=== PATIENT | female | born 1965 | race Caucasian/White ===

== ENCOUNTER 2023-06-20 07:25 | Outpatient (OUT) | payer BC, SELFPAY ==
--- NOTE | 2023-06-20 07:15 | NM_ITS ---
Patient Name: REGI WELDON MR#: [id number] : 1965 Exam Date: 06/20/2023 Ordering Doctor: DR Pradeep Noel . RADIOLOGY REPORT PROCEDURE: NM JATIN PERF SPECT REST STR COMPARISON: None. INDICATIONS: DYSPNEA TECHNIQUE: Exam Description: Stress/Rest one day protocol gated SPECT Rest Imagin.7 mCi Tc-99m Cardiolite IV on 06/20/2023 Stress Imaging 30.2 mCi Tc-99m Cardiolite IV on 06/20/2023 Exercise Protocol: Ishaan Heart Rate (bpm): Rest: 76 Max: 151 PMHR: 92 Blood Pressure: Rest: 138/84 Max: 186/88 Exercise Time: Minutes: 3 Seconds: 27 Stage Reached: Stage: 1 Mets 4.6 Symptoms: chest pain Rest and peak stress ECG findings were normal and the exercise portion of the study was normal per attending physician Dr. Potts . For more details please see separate cardiac stress test report. FINDINGS: QUALITY OF STUDY: Excellent. PERFUSION DEFECT: None. LOCATION: N/A SIZE: N/A. SEVERITY: N/A. TYPE: N/A. WALL MOTION: Normal. LV SIZE: Normal. 54 mL. TID / TCD: None; 0.6 LVEF: Normal. Calculated EF 91%. SUMMARY: Myocardial perfusion imaging study is NORMAL. CONCLUSION: 1. Normal nuclear medicine myocardial perfusion scan. Dictated by: Cachorro Franks M.D. on 06/21/2023 at 15:39 Approved by: Cachorro Franks M.D. on 06/21/2023 at 15:40
--- NOTE | 2023-06-20 10:29 | P.STRESS_ITS ---
Stress Test Stress Test Requesting physician: Pradeep Noel Procedure: Exercise Cardiolite stress test General Information: Reason for Stress Test: Dyspnea Cardiac History and Risk Factors: Denies any cardiovascular disease yet has lisinopril and metoprolol listed as home medications. Father had cardiac stents and mother had unpecified heart problems . Resting 12 - Lead Electrocardiogram: Rate & rhythm: Normal sinus at a rate of 76. [place]lor: Normal T-waves: Normal ST-segments: Normal Stress Test: Protocol: Ishaan protocol was followed, with injection of Cardiolite once target heart rate was achieved. Exercise capacity: Poor exercise capacity. Total exercise time of 3 minutes 28 seconds reached Ishaan stage 1 at 1.7MPH, 10% grade, & 4.6 METs. Blood pressure: Initial: 138/84, Maximum: 186/88 Rate & rhythm: Patient remained in sinus rhythm during the exercise and recovery portions of the study.? The maximum heart rate was 151, which was 92% of the maximum predicted heart rate 163. PVC was noted ST-segments & T-waves: There were no T-wave changes and no ST-segment changes when compared to the baseline EKG. Patient response/symptoms: Patient complained of chest pain during rest, which is a new symptoms never experienced before. Interpretation: Normal exercise stress test without electrocardiographical evidence of ischemia. No reproducible dyspnea. Unable to determine the etiology of the chest pain, but no abnormalities were noted on EKG/tracings during this time. Cardiolite i maging interpretation will be reported separately. Clinical correlation required.?
== END 2023-06-20 07:26 | disposition home or self-care (01) ==
LOC: NM 07:25
PROVIDERS: PCP Family Medicine; Visit Provider Family Medicine
DX: R06.00 Dyspnea, unspecified (principal)
CPT/HCPCS: 78452; 93017; A9500

== ENCOUNTER 2023-10-16 12:45 | Outpatient (OUT) | payer BC, SELFPAY ==
--- NOTE | 2023-10-16 13:07 | XR_ITS ---
The [address] [address] Patient Name: REGI WELDON MRN: [id number] date: 1965 Sex: F Assigned Patient Location: [facility] Current Patient Location: Accession/Order Number: [id number] Exam Date: 10/16/2023 13:00 Report Date: 10/17/2023 13:22 At the request of: ROSEMARY ROY Procedure: XR hand RT min 3V PROCEDURE: XR wrist RT min 3V, XR hand RT min 3V HISTORY: Right Hand Pain M79.641 , right wrist pain, pain at base of thumb COMPARISON: None. FINDINGS: BONES:Mild degenerative changes of the scaphoid-trapezium joint and the trapezial-first metacarpal joint. No fracture, dislocation, bone lesion. SOFT TISSUES:No visible soft tissue swelling. EFFUSION:None visible. OTHER: Negative. XR/XR hand RT min 3V IMPRESSION: 1. Mild degenerative joint disease at base of thumb favoring osteoarthritis. Electronically authenticated by: FRIDA FOWLER Date: 10/17/2023 13:22
--- NOTE | 2023-10-16 13:07 | XR_ITS ---
The [address] [address] Patient Name: REGI WELDON MRN: [id number] date: 1965 Sex: F Assigned Patient Location: [facility] Current Patient Location: Accession/Order Number: [id number] Exam Date: 10/16/2023 13:00 Report Date: 10/17/2023 13:22 At the request of: ROSEMARY ROY Procedure: XR wrist RT min 3V PROCEDURE: XR wrist RT min 3V, XR hand RT min 3V HISTORY: Right Hand Pain M79.641 , right wrist pain, pain at base of thumb COMPARISON: None. FINDINGS: BONES:Mild degenerative changes of the scaphoid-trapezium joint and the trapezial-first metacarpal joint. No fracture, dislocation, bone lesion. SOFT TISSUES:No visible soft tissue swelling. EFFUSION:None visible. OTHER: Negative. XR/XR wrist RT min 3V IMPRESSION: 1. Mild degenerative joint disease at base of thumb favoring osteoarthritis. Electronically authenticated by: FRIAD FOWLER Date: 10/17/2023 13:22
== END 2023-10-16 12:46 | disposition home or self-care (01) ==
LOC: RAD 12:45
PROVIDERS: PCP Family Medicine; Visit Provider Family Medicine
DX: M79.641 Pain in right hand (principal)
CPT/HCPCS: 73110; 73130

== ENCOUNTER 2023-10-31 09:32 | Outpatient (OUT) | payer BC, SELFPAY ==
--- OUTSIDE RECORDS SUMMARY | 2023-10-30 08:37 | XMS_ITS | CCD ---
Author Organization [facility] Care Team Providers Care Elevator Constructor Name Role Phone MANUELA Burris, DR RILEY Primary Care Unavailable EARL, DR DEUCE Vann Admitting Unavailabl e EARL, DR DEUCE Vann Attending Unavailabl e ARUNA ., TINA GARCIA Consulting Unavailabl e CED CAMPOVERDE Consulting Unavailable BATSHEVAY ., DR RILEY Admitting Unavailable HOY ., DR RILEY Attending Unavailable HOY ., DR RILEY Primary Care Unavailable HOY ., DR RILEY Consulting Unavailable HOY ., DR RILEY Admitting Unavailable HOY ., DR RILEY Attending Unavailable HOY ., DR RILEY Primary Care Unavailable BATSHEVAY ., DR RILEY Consulting Unavailable Rosemary Noel MD Primary Care Provider ROSEMARY NOEL Primary Care Unavailable DON, CARLOS MANUEL E Attending Unavailable DON, CARLOS MANUEL E Referring Unavailable ROSEMARY NOEL Primary Care Unavailable DON, CARLOS MANUEL E Referring Unavailable ROSEMARY NOEL Primary Care Unavailable ROSEMARY NOEL Primary Care Unavailable ROSEMARY NOEL Primary Care Unavailable MAXIMINO, PABLO SABRY Referring Unavailable MAXIMINO PABLO SABRY Admitting Unavailable ROSEMARY NOEL Primary Care Unavailable PABLO STANTONRY Attending Unavailable Allergies Allergy Classification Reported Allergen(s) Allergy Type Date of Onset Reaction(s) Facility (1 source) Ibuprofen Drug Allergy 3 [facility] Repository (4 sources) Penicillins; Translations: [PENICILLINS] Drug allergy (disorder) 3 [facility] Repository (1 source) traMADol Drug Allergy 3 [facility] Repository (5 sources) Penicillins Propensity to adverse reactions 3 [facility] Medications Current Medications Medication Drug Class(es) Dates Sig (Normalized) Sig (Original) ARIPiprazole 30 mg oral tablet (5 sources) Atypical Antipsychotic Start: 02-06-2023 take 1 tablet by mouth once daily ARIPiprazole (Abilify) 30 mg tablet Take 1 tablet (30 mg) by mouth once daily. 0 02/06/2023 Active diclofenac sodium 75 mg delayed release oral tablet (5 sources) Nonsteroidal Anti-inflammatory Drug Start: 02-26-2023 diclofenac (Voltaren) 75 mg EC tablet hydrOXYzine hydrochloride 25 mg oral tablet (5 sources) Antihistamine Start: 02-06-2023 take 1-2 tablets by mouth four times daily as needed hydrOXYzine HCL (Atarax) 25 mg tablet 1-2 TABLETS ORALLY FOUR TIMES DAILY NEEDED 30 DAYS 0 02/06/2023 Active lisinopril 40 mg oral tablet (5 sources) Angiotensin Converting Enzyme Inhibitor Start: 02-05-2023 take 1 tablet by mouth once daily lisinopril 40 mg tablet Take 1 tablet (40 mg) by mouth once daily. 0 02/05/2023 Active metoprolol tartrate 25 mg oral tablet (5 sources) beta-Adrenergic Sho Start: 02-04-2023 take 1 tablet by mouth twice daily metoprolol tartrate (Lopressor) 25 mg tablet Take 1 tablet (25 mg) by mouth 2 times a day. 0 02/04/2023 Active nabumetone 500 mg oral tablet (5 sources) Nonsteroidal Anti-inflammatory Drug Start: 02-05-2023 take 2 tablets by mouth twice daily nabumetone (Relafen) 500 mg tablet Take 2 tablets (1,000 mg) by mouth 2 times a day. 0 02/05/2023 Active tiZANidine 4 mg oral tablet (5 sources) Central alpha-2 Adrenergic Agonist Start: 02-11-2023 take 1 tablet by mouth in the morning, then take 2 tablets by mouth at bedtime tiZANidine (Zanaflex) 4 mg tablet TAKE 1 TABLET BY MOUTH IN THE MORNING AND 2 TABLETS AT BEDTIME 0 02/11/2023 Active traZODone hydrochloride 150 mg oral tablet (5 sources) Serotonin Reuptake Inhibitor Start: 02-04-2023 take 2 tablets by mouth once daily traZODone (Desyrel) 150 mg tablet TAKE 2 TABLETS BY MOUTH EVERY DAY AT NIGHT 0 02/04/2023 Active Problems Active Problems Problem Classification Problem Date Documented Da te Episodic/Chronic Abdominal pain (1 source) Unspecified abdominal pain; Translations: [UNSPECIFIED ABDOMINAL PAIN] Onset: 08-14-2022 Episodic Anxiety disorders (1 source) Anxiety disorder, unspecified; Translations: [ANXIETY DISORDER UNSPECIFIED] Onset: 08-14-2022 Chronic Attention-deficit, conduct, and disruptive behavior disorders (1 source) Attention-deficit hyperactivity disorder, unspecified type; Translations: [ADHD UNSPECIFIED TYPE] Onset: 08-14-2022 Chronic Deficiency and other anemia (2 sources) Anemia, unspecified; Translations: [Anemia, unspecified] Onset: 03-31-2023 Episodic Diabetes mellitus without complication (2 sources) Other abnormal glucose; Translations: [Other abnormal glucose] Onset: 03-31-2023 Episodic Disorders of lipid metabolism (2 sources) Hyperlipidemia, unspecified; Translations: [Hyperlipidemia, unspecified] Onset: 03-31-2023 Chronic Esophageal disorders (1 source) Gastro-esophageal reflux disease without esophagitis; Translations: [GERD WITHOUT ESOPHAGITIS] Onset: 08-14-2022 Chronic Essential hypertension (1 source) Essential (primary) hypertension; Translations: [ESSENTIAL PRIMARY HYPERTENSION] Onset: 08-14-2022 Chronic Genitourinary symptoms and ill-defined conditions (5 sources) Hematuria, unspecified; Translations: [Personal history of urinary (tract) infections] Onset: 08-10-2022 Episodic Mood disorders (1 source) Mood disorders; Translations: [DEPRESSION UNSPECIFIED] Onset: 08-14-2022 Nonmalignant breast conditions (1 source) Diffuse cystic mastopathy of unspecified breast; Translations: [DIFFUSE CYSTIC MASTOPATH UNS BREAST] Onset: 08-14-2022 Chronic Nutritional deficiencies (2 sources) Vitamin D deficiency, unspecified; Translations: [Vitamin D deficiency, unspecified] Onset: 03-31-2023 Chronic Other connective tissue disease (2 sources) Pain in left foot; Translations: [Pain in left foot] Onset: 04-24-2023 Episodic Other connective tissue disease (2 sources) Foot pain Onset: 04-24-2023 Episodic Other gastrointestinal disorders (1 source) Irritable bowel syndrome without diarrhea; Translations: [IRRITABLE BOWEL SYND W/O DIARRHEA] Onset: 08-14-2022 Chronic Other screening for suspected conditions (not mental disorders or infectious disease) (2 sources) Encounter for screening for malignant neoplasm of rectum; Translations: [Encounter for screening for malignant neoplasm of rectum] Onset: 03-31-2023 Episodic Residual codes; unclassified (1 source) Acquired absence of both cervix and uterus; Translations: [ACQUIRED ABSENCE BOTH CERVIX AND UTERUS] Onset: 08-14-2022 Episodic Screening and history of mental health and substance abuse codes (1 source) Personal history of nicotine dependence; Translations: [PERSONAL HISTORY OF NICOTINE DEPEND] Onset: 08-14-2022 Episodic Superficial injury; contusion (10 sources) Right wrist contusion; Translations: [Contusion of right wrist, initial encounter] Onset: 03-01-2023 03-01-2023 Episodic Thyroid disorders (1 source) Thyrotoxicosis, unspecified without thyrotoxic crisis or storm; Translations: [THYROTOXICOS UNS NO THYROTOX CRISIS] Onset: 09-29-2021 Chronic Unclassified (3 sources) CONTACT W/AND (SUSP) EXPOS COVID-19; Translations: [CONTACT W/AND (SUSP) EXPOS COVID-19] Onset: 04-10-2022 Unclassified (1 source) COUGH, UNSPECIFIED; Translations: [COUGH, UNSPECIFIED] Onset: 04-10-2022 Past or Other Problems Problem Classification Problem Date Documented Da te Episodic/Chronic Malaise and fatigue (1 source) Other fatigue; Translations: [OTHER FATIGUE] Onset: 09-29-2021 Episodic Other upper respiratory disease (1 source) Nasal congestion; Translations: [NASAL CONGESTION] Onset: 04-10-2022 Episodic Unclassified (1 source) CONTACT W/AND (SUSP) EXPOS COVID-19; Translations: [CONTACT W/AND (SUSP) EXPOS COVID-19] Onset: 04-06-2022 Results Test Name Value Interpretation Reference Range Facil ity XR FOOT LEFT 3+ VIEWS (STAND LAURA)on 04-24-2023 XR FOOT LEFT 3+ VIEWS (STANDARD) A plantar and posterior calcaneal enthesophyte noted. No cystic or osseous lesions noted. Joint spaces are within normal limits. No gross deformity noted Dictated by: PABLO STANTON on SunApr 25, 2023 9:50:28 PM EST Transcribed by: PABLO STANTON on SunApr 25, 2023 9:50:28 PM EST Finalized by: PABLO STANTON on SunApr 25, 2023 9:50:28 PM EST Normal [facility] Comment on above: Order Comment: Injur y/Trauma or Illness?:Illness/Other How long have you had these symptoms (acute/chronic)?:Chronic Reason for exam?:pain History of cancer?:no Surgeries, chemotherapy, or radiation?:no Type of Exam?:Initial Additional signs and symptoms?:no CBC W Auto Differential pane l (Bld)on 03-31-2023 Basophils (Bld) [#/Vol] 0.03 x10*3/uL Normal 0.00-0.10 [facility] Comment on above: Performed By: #### 5 7021-8 #### DAX CUI (16722) [facility] ([facility]) [address] [place] [address] 86684 Basophils/100 WBC (Bld) 0.6 % Normal 0.0-2.0 [facility] Comment on above: Performed By: #### 5 7021-8 #### DAX CUI (43015) [facility] ([facility]) [address] [place] [address] 73111 Eosinophils (Bld) [#/Vol] 0.17 x10*3/uL Normal 0.00-0.70 [facility] Comment on above: Performed By: #### 5 7021-8 #### DAX CUI (11288) [facility] ([facility]) [address] [place] [address] 81193 Eosinophils/100 WBC (Bld) 3.3 % Normal 0.0-6.0 [facility] Comment on above: Performed By: #### 5 7021-8 #### DAX CUI (95987) [facility] ([facility]) [address] [place] [address] 92495 Erythrocyte distribution width (RBC) [Ratio] 13.0 % Normal 11.5-14.5 [facility] Comment on above: Performed By: #### 5 7021-8 #### DAX CUI (89382) [facility] ([facility]) [address] [place] [address] 01211 Hematocrit (Bld) [Volume fraction] 38.8 % Normal 36.0-46.0 [facility] Comment on above: Performed By: #### 5 7021-8 #### DAX CUI (85377) [facility] ([facility]) [address] [place] [address] 84524 Hemoglobin (Bld) [Mass/Vol] 12.2 g/dL Normal 12.0-16.0 [facility] Comment on above: Performed By: #### 5 7021-8 #### DAX CUI (01913) [facility] ([facility]) [address] [place] [address] 62501 Immature granulocytes (Bld) [#/Vol] 0.01 x10*3/uL Normal 0.00-0.70 [facility] Comment on above: Performed By: #### 5 7021-8 #### DAX CUI (84701) [facility] ([facility]) [address] [place] [address] 86813 Immature granulocytes/100 WBC (Bld) 0.2 % Normal 0.0-0.9 [facility] Comment on above: Result Comment: Tamela ture Granulocyte Count (IG) includes promyelocytes, myelocytes and metamyelocytes but does not include bands. Percent differential counts (%) should be interpreted in the context of the absolute cell counts (cells/UL). Performed By: #### 5 7021-8 #### DAX CUI (19591) [facility] ([facility]) [address] [place] [address] 44634 Lymphocytes (Bld) [#/Vol] 2.21 x10*3/uL Normal 1.20-4.80 [facility] Comment on above: Performed By: #### 5 7021-8 #### DAX CUI (78078) [facility] ([facility]) [address] [place] [address] 29828 Lymphocytes/100 WBC (Bld) 43.3 % Normal 13.0-44.0 [facility] Comment on above: Performed By: #### 5 7021-8 #### DAX CUI (49854) [facility] ([facility]) [address] [place] [address] 76685 MCH (RBC) [Entitic mass] 30.7 pg Normal 26.0-34.0 [facility] Comment on above: Performed By: #### 5 7021-8 #### DAX CUI (55657) [facility] ([facility]) [address] [place] [address] 12808 MCHC (RBC) [Mass/Vol] 31.4 g/dL Low 32.0-36.0 [facility] Comment on above: Performed By: #### 5 7021-8 #### DAX CUI (73243) [facility] ([facility]) [address] [place] [address] 80792 MCV (RBC) [Entitic vol] 98 fL Normal 80-100 [facility] Comment on above: Performed By: #### 5 7021-8 #### DAX CUI (52596) [facility] ([facility]) [address] [place] [address] 54214 Monocytes (Bld) [#/Vol] 0.46 x10*3/uL Normal 0.10-1.00 [facility] Comment on above: Performed By: #### 5 7021-8 #### DAX CUI (42512) [facility] ([facility]) [address] [place] [address] 57144 Monocytes/100 WBC (Bld) 9.0 % Normal 2.0-10.0 [facility] Comment on above: Performed By: #### 5 7021-8 #### DAX CUI (78538) [facility] ([facility]) [address] [place] [address] 73818 Neutrophils (Bld) [#/Vol] 2.22 x10*3/uL Normal 1.20-7.70 [facility] Comment on above: Result Comment: Perc ent differential counts (%) should be interpreted in the context of the absolute cell counts (cells/uL). Performed By: #### 5 7021-8 #### DAX CUI (20536) [facility] ([facility]) [address] [place] [address] 29676 Neutrophils/100 WBC (Bld) 43.6 % Normal 40.0-80.0 [facility] Comment on above: Performed By: #### 5 7021-8 #### DAX CUI (86320) [facility] ([facility]) [address] [place] [address] 80246 Nucleated RBC/100 WBC (Bld) [Ratio] 0.0 /100 WBCs Normal 0.0-0.0 [facility] Comment on above: Performed By: #### 5 7021-8 #### DAX CUI (32774) [facility] ([facility]) [address] [place] [address] 45576 Platelets (Bld) [#/Vol] 273 x10*3/uL Normal 150-450 [facility] Comment on above: Performed By: #### 5 7021-8 #### DAX CUI (06975) [facility] ([facility]) [address] [place] [address] 71618 RBC (Bld) [#/Vol] 3.98 x10*6/uL Low 4.00-5.20 [facility] Comment on above: Performed By: #### 5 7021-8 #### DAX CUI (23969) [facility] ([facility]) [address] [place] [address] 98798 WBC (Bld) [#/Vol] 5.1 x10*3/uL Normal 4.4-11.3 [facility] Comment on above: Performed By: #### 5 7021-8 #### DAX CUI (78426) [facility] ([facility]) [address] [place] [address] 89153 Calcidiolon 03-31-2023 25-hydroxyvitamin D3 [Mass/Vol] 57 ng/mL Normal 30-100 [facility] Comment on above: Order Comment: Defic iency: < 20 ng/ml Insufficiency: 20-29 ng/ml Sufficiency: 30-100 ng/ml This assay accurately quantifies the sum of Vitamin D3, 25-Hydroxy and Vitamin D2,25-Hydroxy. Performed By: #### 1 989-3 #### DAX CUI (90665) [facility] ([facility]) [address] [place] [address] Comprehensive metabolic 2000 panelon 03-31-2023 Albumin BCP dye [Mass/Vol] 4.9 g/dL Normal 3.4-5.0 [facility] Comment on above: Performed By: #### 2 4323-8 #### DAX CUI (66683) [facility] ([facility]) [address] [place] [address] ALP [Catalytic activity/Vol] 44 U/L Normal 33-110 [facility] Comment on above: Performed By: #### 2 4323-8 #### DAX CUI (84390) [facility] ([facility]) [address] [place] [address] 62025 ALT With P-5'-P [Catalytic activity/Vol] 11 U/L Normal 7-45 [facility] Comment on above: Result Comment: Radha ents treated with Sulfasalazine may generate falsely decreased results for ALT. Performed By: #### 2 4323-8 #### DAX CUI (20969) [facility] ([facility]) [address] [place] [address] Anion gap [Moles/Vol] 13 mmol/L Normal 10-20 [facility] Comment on above: Performed By: #### 2 4323-8 #### DAX CUI (68517) [facility] ([facility]) [address] [place] [address] AST With P-5'-P [Catalytic activity/Vol] 16 U/L Normal 9-39 [facility] Comment on above: Performed By: #### 2 4323-8 #### DAX CUI (57814) [facility] ([facility]) [address] [place] [address] Bilirubin [Mass/Vol] 0.9 mg/dL Normal 0.0-1.2 [facility] Comment on above: Performed By: #### 2 4323-8 #### DAX CUI (71888) [facility] ([facility]) [address] [place] [address] 22339 Calcium [Mass/Vol] 9.8 mg/dL Normal 8.6-10.3 [facility] Comment on above: Performed By: #### 2 4323-8 #### DAX CUI (61481) [facility] ([facility]) [facility] [place] [address] Chloride [Moles/Vol] 107 mmol/L Normal 98-107 [facility] Comment on above: Performed By: #### 2 4323-8 #### DAX CUI (68515) [facility] ([facility]) [address] [place] [address] CO2 [Moles/Vol] 23 mmol/L Normal 21-32 [facility] Comment on above: Performed By: #### 2 4323-8 #### DAX CUI (91551) [facility] ([facility]) [address] [place] [address] 53796 Creatinine [Mass/Vol] 1.08 mg/dL High 0.50-1.05 [facility] Comment on above: Performed By: #### 2 4323-8 #### DAX CUI (40410) [facility] ([facility]) [address] [place] [address] 98551 GFR/1.73 sq M.predicted MDRD (S/P/Bld) [Vol rate/Area] 60 mL/min/1.73m*2 Low >60 [facility] Comment on above: Result Comment: Calc ulations of estimated GFR are performed using the 2020 CKD-EPI Study Refit equation without the race variable for the IDMS-Traceable creatinine methods. https://jasn.asnjournals.org/content/early//ASN.10629 27592 Performed By: #### 2 4323-8 #### DAX CUI (50721) [facility] ([facility]) [address] [place] [address] 92825 Glucose [Mass/Vol] 89 mg/dL Normal 74-99 [facility] Comment on above: Performed By: #### 2 4323-8 #### DAX CUI (47026) [facility] ([facility]) [address] [place] [address] Potassium [Moles/Vol] 4.7 mmol/L Normal 3.5-5.3 [facility] Comment on above: Performed By: #### 2 4323-8 #### DAX CUI (30357) [facility] ([facility]) [address] [place] [address] 81598 Protein [Mass/Vol] 7.2 g/dL Normal 6.4-8.2 [facility] Comment on above: Performed By: #### 2 4323-8 #### DAX CUI (63844) [facility] ([facility]) [address] [place] [address] 40661 Sodium [Moles/Vol] 138 mmol/L Normal 136-145 [facility] Comment on above: Performed By: #### 2 4323-8 #### DAX CUI (82361) [facility] ([facility]) [address] [place] [address] 69638 Urea nitrogen [Mass/Vol] 30 mg/dL High 6-23 [facility] Comment on above: Performed By: #### 2 4323-8 #### DAX CUI (65909) [facility] ([facility]) [address] [place] [address] 46658 HbA1c (Bld) [Mass fraction]o n 03-31-2023 Average glucose Estimated from glycated hemoglobin (Bld) [Mass/Vol] 94 mg/dL Normal Not Established [facility] Comment on above: Order Comment: Diagn osis of Diabetes-Adults Non-Diabetic: < or = 5.6% Increased risk for developing diabetes: 5.7-6.4% Diagnostic of diabetes: > or = 6.5% Monitoring of Diabetes Age (y)....................... Therapeutic Goal (%) Adults: >18.........................<7.0 Pediatrics: 13-18...................<7.5 Pediatrics: 7-12....................<8.0 Pediatrics: 0-6..................... 7.5-8.5 [place] [employer]. Diabetes Care 33(S1), Apr 2009 Performed By: #### 4 548-4 #### DAX CUI (60884) [facility] ([facility]) [address] [place] [id number] Hemoglobin A1c/Hemoglobin.to alexy 03-31-2023 HbA1c (Bld) [Mass fraction] 4.9 % Normal see below [facility] Comment on above: Order Comment: Diagn osis of Diabetes-Adults Non-Diabetic: < or = 5.6% Increased risk for developing diabetes: 5.7-6.4% Diagnostic of diabetes: > or = 6.5% Monitoring of Diabetes Age (y)....................... Therapeutic Goal (%) Adults: >18.........................<7.0 Pediatrics: 13-18...................<7.5 Pediatrics: 7-12....................<8.0 Pediatrics: 0-6..................... 7.5-8.5 [place] [employer]. Diabetes Care 33(S1), Apr 2009 Performed By: #### 4 548-4 #### DAX CUI (61067) [facility] ([facility]) [address] [place] [address] Insulinon 03-31-2023 Insulin Qn 12 u[IU]/mL Normal 3-25 [facility] Comment on above: Order Comment: Refer ence values apply to fasting specimens. Performed By: #### 2 0448-7 #### TRUE Lock (54154) [facility] ([facility]) [address] [place] [address] Ironon 03-31-2023 Iron [Mass/Vol] 208 ug/dL High 35-150 [facility] Comment on above: Performed By: #### 2 498-4 #### DAX CUI (86362) [facility] ([facility]) [facility] [place] [address] Lipid 1996 panelon 3 Cholesterol [Mass/Vol] 242 mg/dL High 0-199 [facility] Comment on above: Result Comment: Age Desirable Borderline High High 0-19 Y 0 - 169 170 - 199 >/= 200 20-24 Y 0 - 189 190 - 224 >/= 225 >24 Y 0 - 199 200 - 239 >/= 240 All ranges are based on fasting samples. Specific therapeutic targets will vary based on patient-specific cardiac risk. Pediatric guidelines reference:Pediatrics 2011, 128(S5).Adult guidelines reference: NCEP ATPIII Guidelines,WAN 2001, 258:2486-97 Venipuncture immediately after or during the administration of Metamizole may lead to falsely low results. Testing should be performed immediately prior to Metamizole dosing. Performed By: #### 2 4331-1 #### DAX CUI (01741) [facility] ([facility]) [address] [place] [address] 77306 Cholesterol in HDL [Mass/Vol] 54.0 mg/dL Normal [facility] Comment on above: Result Comment: Age Very Low Low Normal High 0-19 Y < 35 < 40 40-45 ---- 20-24 Y ---- < 40 >45 ---- >24 Y ---- < 40 40-60 >60 Performed By: #### 2 4331-1 #### DAX CUI (71256) [facility] ([facility]) [address] [place] [address] 02803 Cholesterol in LDL [Mass/Vol] 169 mg/dL High <=99 [facility] Comment on above: Result Comment: Near Borderline AGE Desirable Optimal High High Very High 0-19 Y 0 - 109 --- 110-129 >/= 130 ---- 20-24 Y 0 - 119 --- 120-159 >/= 160 ---- >24 Y 0 - 99 100-129 130-159 160-189 >/=190 Performed By: #### 2 4331-1 #### DAX CUI (38326) [facility] ([facility]) [facility] [place] [address] Cholesterol in VLDL [Mass/Vol] 19 mg/dL Normal 0-40 [facility] Comment on above: Performed By: #### 2 4331-1 #### DAX CUI (71737) [facility] ([facility]) [facility] [place] [address] CHOLESTEROL/HDL RATIO 4.5 Normal [facility] Comment on above: Result Comment: Ref Values Desirable < 3.4 High Risk > 5.0 Performed By: #### 2 4331-1 #### DAX CUI (54851) [facility] ([facility]) [address] [place] [address] 79607 NON HDL CHOLESTEROL 188 mg/dL High 0-149 [facility] Comment on above: Result Comment: Age Desirable Borderline High High Very High 0-19 Y 0 - 119 120 - 144 >/= 145 >/= 160 20-24 Y 0 - 149 150 - 189 >/= 190 ---- >24 Y 30 mg/dL above LDL Cholesterol goal Performed By: #### 2 4331-1 #### DAX CUI (37535) [facility] ([facility]) [address] [place] [address] 07882 Triglyceride [Mass/Vol] 93 mg/dL Normal 0-149 [facility] Comment on above: Result Comment: Age Desirable Borderline High High Very High 0 D-90 D 19 - 174 ---- ---- ---- 91 D- 9 Y 0 - 74 75 - 99 >/= 100 ---- 10-19 Y 0 - 89 90 - 129 >/= 130 ---- 20-24 Y 0 - 114 115 - 149 >/= 150 ---- >24 Y 0 - 149 150 - 199 200- 499 >/= 500 Venipuncture immediately after or during the administration of Metamizole may lead to falsely low results. Testing should be performed immediately prior to Metamizole dosing. Performed By: #### 2 4331-1 #### DAX CUI (75077) [facility] ([facility]) [address] [place] [address] 13736 Thyrotropinon 03-31-2023 TSH Qn 1.17 m[IU]/L Normal 0.44-3.98 [facility] Comment on above: Order Comment: TSH t esting is performed using different testing methodology at [facility] than at [facility]. Direct result comparisons should only be made within the same method. Performed By: #### 3 016-3 #### DAX CUI ([id number]) [facility] ([facility]) [address] [place], [place] [id number] Thyroxineon 03-31-2023 T4 [Mass/Vol] 5.4 ug/dL Normal 4.5-11.1 [facility] Comment on above: Performed By: #### 3 026-2 #### TRUE Lock ([id number]) [facility] ([facility]) [address] [place] [address] Triiodothyronineon T3 [Mass/Vol] 106 ng/dL Normal 60-200 [facility] Comment on above: Performed By: #### 3 053-6 #### TRUE Lock ([id number]) [facility] ([facility]) [address] [place] [address] No Panel Informationon 03-01 Degenerative change without osseous injury evident. MACRO: None Signed by: Michele Kimble 03/01/2023 7:38 PM Dictation workstation: [id number] [facility] Interpreted By: Michele Kimble, STUDY: Right wrist and hand dated 03/01/2023 INDICATION: Signs/Symptoms:R hand/thumb/wrist/di stal forearm pain (radial aspect) after hitting hand on a door frame 4 days ago. COMPARISON: None. ACCESSION NUMBER(S): [id number]; [id number] ORDERING CLINICIAN: CARLOS MANUEL OCHOA TECHNIQUE: Four views of the right wrist. Three views of the right hand. FINDINGS: No fracture or dislocation is evident. There is moderate triscaphe joint and 1st digit carpometacarpal joint degenerative change. There is a focus of cystic change in the mid to distal scaphoid. No soft tissue gas or radiopaque foreign body is evident. [facility] Michele Kimble MD - 03/01/2023 Interpreted By: Michele Kimble, STUDY: Right wrist and hand dated 03/01/2023 INDICATION: Signs/Symptoms:R hand/thumb/wrist/di stal forearm pain (radial aspect) after hitting hand on a door frame 4 days ago. COMPARISON: None. ACCESSION NUMBER(S): [id number]; [id number] ORDERING CLINICIAN: CARLOS MANUEL OCHOA TECHNIQUE: Four views of the right wrist. Three views of the right hand. FINDINGS: No fracture or dislocation is evident. There is moderate triscaphe joint and 1st digit carpometacarpal joint degenerative change. There is a focus of cystic change in the mid to distal scaphoid. No soft tissue gas or radiopaque foreign body is evident. IMPRESSION: Degenerative change without osseous injury evident. MACRO: None Signed by: Michele Kimble 03/01/2023 7:38 PM Dictation workstation: [id number] [facility] Work Phone: Radiology Study observation (narrative) [facility] Work Phone: No Panel InformationOrdered By: Michele Kimble on 03-01-2023 [facility] Work Phone: XR HAND RIGHT 3+ VIEWSon XR HAND RIGHT 3+ VIEWS Interpreted By: Michele Kimble, STUDY: Right wrist and hand dated 03/01/2023 INDICATION: Signs/Symptoms:R hand/thumb/wrist/di stal forearm pain (radial aspect) after hitting hand on a door frame 4 days ago. COMPARISON: None. ACCESSION NUMBER(S): [id number]; [id number] ORDERING CLINICIAN: CARLOS MANUEL OCHOA TECHNIQUE: Four views of the right wrist. Three views of the right hand. FINDINGS: No fracture or dislocation is evident. There is moderate triscaphe joint and 1st digit carpometacarpal joint degenerative change. There is a focus of cystic change in the mid to distal scaphoid. No soft tissue gas or radiopaque foreign body is evident. IMPRESSION: Degenerative change without osseous injury evident. MACRO: None Signed by: Michele Kimble 03/01/2023 7:38 PM Dictation workstation: [id number] [facility] XR WRIST RIGHT 3+ VIEWSon XR WRIST RIGHT 3+ VIEWS Interpreted By: Michele Kimble, STUDY: Right wrist and hand dated 03/01/2023 INDICATION: Signs/Symptoms:R hand/thumb/wrist/di stal forearm pain (radial aspect) after hitting hand on a door frame 4 days ago. COMPARISON: None. ACCESSION NUMBER(S): [id number]; [id number] ORDERING CLINICIAN: CARLOS MANUEL OCHOA TECHNIQUE: Four views of the right wrist. Three views of the right hand. FINDINGS: No fracture or dislocation is evident. There is moderate triscaphe joint and 1st digit carpometacarpal joint degenerative change. There is a focus of cystic change in the mid to distal scaphoid. No soft tissue gas or radiopaque foreign body is evident. IMPRESSION: Degenerative change without osseous injury evident. MACRO: None Signed by: Michele Kimble 03/01/2023 7:38 PM Dictation workstation: [id number] [facility] CBC AUTO DIFFon 08-10-2022 BASO # 0.0 103/ul Normal 0.0-0.1 [facility] Comment on above: Performed By: #### E RUR #### [facility] [address] [place] [address] Dr. Anastasia Moran Basophils/100 WBC (Bld) 0.1 % Critically low 0.2-2.0 [facility] Comment on above: Performed By: #### E RUR #### [facility] [address] [place] [address] Dr. Anastasia Moran EO # 0.2 103/ul Normal 0.0-0.7 [facility] Comment on above: Performed By: #### E RUR #### [facility] [address] [place] [address] Dr. Anastasia Moran Eosinophils/100 WBC (Bld) 2.1 % Normal 0.9-7.0 [facility] Comment on above: Performed By: #### E RUR #### [facility] [address] [place] [address] Dr. Anastasia Moran Erythrocyte distribution width (RBC) [Ratio] 12.5 % Normal 11.0-15.0 [facility] Comment on above: Performed By: #### E RUR #### [facility] [address] [place] [address] Dr. Anastasia Moran Hematocrit (Bld) [Volume fraction] 32.9 % Critically low 36.0-48.0 [facility] Comment on above: Performed By: #### E RUR #### [facility] [address] [place] [address] Dr. Anastasia Moran Hemoglobin (Bld) [Mass/Vol] 11.0 g/dL Critically low 12.0-16.0 [facility] Comment on above: Performed By: #### E RUR #### [facility] [address] [place] [address] Dr. Anastasia Moran IG # 0.02 10e3/ul Normal 0.00-0.03 [facility] Comment on above: Performed By: #### E RUR #### [facility] [address] [place] [address] Dr. Anastasia Moran IG % 0.2 % Normal 0.0-0.5 [facility] Comment on above: Performed By: #### E RUR #### [facility] [address] [place] [address] Dr. Anastasia Moran LYMPH # 2.7 103/ul Normal 1.2-3.8 [facility] Comment on above: Performed By: #### E RUR #### [facility] [address] [place] [address] Dr. Anastasia Moran Lymphocytes/100 WBC (Bld) 33.4 % Normal 20.5-60.0 [facility] Comment on above: Performed By: #### E RUR #### [facility] [address] [place] [address] Dr. Anastasia Moran MANUAL DIFF REQ NO Normal [facility] Comment on above: Performed By: #### E RUR #### [facility] [address] [place] [address] Dr. Anastasia Moran MCH (RBC) [Entitic mass] 29.6 pg Normal 26.7-34.0 [facility] Comment on above: Performed By: #### E RUR #### [facility] [address] [place] [address] Dr. Anastasia Moran MCHC (RBC) [Mass/Vol] 33.4 g/dL Normal 29.9-35.2 [facility] Comment on above: Performed By: #### E RUR #### [facility] [address] [place] [address] Dr. Anastasia Moran MCV (RBC) [Entitic vol] 88.7 fL Normal 81.0-99.0 [facility] Comment on above: Performed By: #### E RUR #### [facility] [address] [place] [address] Dr. Anastasia Moran MONO # 0.6 103/ul Normal 0.3-0.8 [facility] Comment on above: Performed By: #### E RUR #### [facility] [address] [place] [address] Dr. Anastasia Moran Monocytes/100 WBC (Bld) 6.8 % Normal 1.7-12.0 [facility] Comment on above: Performed By: #### E RUR #### [facility] [address] [place] [address] Dr. Anastasia Moran NEUT # 4.7 103/ul Normal 1.4-6.5 [facility] Comment on above: Performed By: #### E RUR #### [facility] [address] [place] [address] Dr. Anastasia Moran Neutrophils/100 WBC (Bld) 57.4 % Normal 43.0-75.0 [facility] Comment on above: Performed By: #### E RUR #### [facility] [address] [place] [address] Dr. Anastasia Moran Platelet mean volume (Bld) [Entitic vol] 9.5 fL Normal 9.5-13.5 [facility] Comment on above: Performed By: #### E RUR #### [facility] [address] [place] [address] Dr. Anastasia Moran PLT 250 103/ul Normal 150-450 [facility] Comment on above: Performed By: #### E RUR #### [facility] [address] [address] [address] Anastasia Moran RBC 3.71 106/ul Critically low 4.20-5.40 [facility] Comment on above: Performed By: #### E RUR #### [facility] [address] [place] [address] Dr. Anastasia Moran WBC 8.2 103/ul Normal 4.0-11.0 [facility] Comment on above: Performed By: #### E RUR #### [facility] [address] [place] [address] ABD/PELVIS WO CONon 08-10 CT ABD/PELVIS WO CON EXAMINATION: CT ABD/PELVIS WO CON, 08/10/2022 3:27 PM EDT HISTORY: CALCULUS OF KIDNEY COMPARISON: None. TECHNIQUE: Axial CT imaging was performed through the abdomen and pelvis with intravenous contrast. Multiplanar reformats were performed. Dose reduction techniques were achieved by using automated exposure control and/or adjustment of mA and/or kV according to patient size and/or use of iterative reconstruction technique. FINDINGS: Lung bases: Lung bases are clear. No pleural effusion. GI upper: Unremarkable. Liver: Normal size and contour. Gallbladder: No significant abnormality. No cholelithiasis. Biliary system: No intra or extrahepatic biliary ductal dilatation. Spleen: Normal size. Pancreas: Unremarkable. Adrenal glands: Normal adrenal glands. Kidneys/ureters: Normal contours. No hydronephrosis. Multiple punctate nonobstructing left renal stones. Vessels: No aneurysm. Lymph Nodes: No lymphadenopathy. Small bowel: No wall thickening or dilatation. Status post small bowel surgery. Colon: No wall thickening or dilatation. Appendix: No findings of appendicitis. Peritoneal cavity: No free fluid or pneumoperitoneum. Lower : Unremarkable. Bones: No acute bony abnormality. Soft tissues: No acute finding. Additional findings: None. IMPRESSION: Multiple punctate nonobstructing left renal stones. Electronically authenticated by: CED CAMPOVERDE Date: 2022-08-10 16:24 Normal [facility] ER URINE PROFILEon 3 Bilirubin Ql (U) Negative Normal NEGATIVE [facility] Comment on above: Performed By: #### E RUR #### [facility] [address] [place] [address] Dr. Anastasia Moran Clarity (U) CLEAR Normal CLEAR [facility] Comment on above: Performed By: #### E RUR #### [facility] [address] [place] [address] Dr. Anastasia Moran Color (U) LT. YELLOW Normal YELLOW [facility] Comment on above: Performed By: #### E RUR #### [facility] [address] [place] [address] Dr. Anastasia LEON A micrscopic examination will be performed if indicated. Normal [facility] Comment on above: Performed By: #### E RUR #### [facility] [address] [place] [address] Dr. Anastasia Moran Glucose Ql (U) Negative Normal NEGATIVE [facility] Comment on above: Performed By: #### E RUR #### [facility] [address] [place] [address] Dr. Anastasia Moran Hemoglobin Ql (U) Negative Normal NEGATIVE [facility] Comment on above: Performed By: #### E RUR #### [facility] [address] [place] [address] Dr. Anastasia Moran Ketones Ql (U) Negative Normal NEGATIVE [facility] Comment on above: Performed By: #### E RUR #### [facility] [address] [place] [address] Dr. Anastasia Moran LEUKOCYTES Negative Normal NEGATIVE [facility] Comment on above: Performed By: #### E RUR #### [facility] [address] [place] [address] Dr. Anastasia Moran Nitrite Ql (U) Negative Normal NEGATIVE [facility] Comment on above: Performed By: #### E RUR #### [facility] [address] [place] [address] Dr. Anastasia Moran pH (U) 6.0 [pH] Normal 5-9 [facility] Comment on above: Performed By: #### E RUR #### [facility] [address] [place] [address] Dr. Anastasia Moran SPEC GRAVITY 1.025 Normal 1.005-<=1.025 [facility] Comment on above: Performed By: #### E RUR #### [facility] [address] [place] [address] Dr. Anastasia Moran UA PROTEIN Negative Normal NEGATIVE/ TRACE [facility] Comment on above: Performed By: #### E RUR #### [facility] [address] [place] [address] Dr. Anastasia Moran UR MICRO IND NOT INDICATED Normal [facility] Comment on above: Performed By: #### E RUR #### [facility] [address] [place] [address] Dr. Ansatasia Moran Urobilinogen Qn (U) 0.2 {Rashid'U}/dL Normal 0.2 - 1. 0 [facility] Comment on above: Performed By: #### E RUR #### [facility] [address] [place] [address] Dr. Anastasia Moran PROF CHEM 8 (BAS METB)on Anion gap [Moles/Vol] 12.5 mmol/L Normal [facility] Comment on above: Performed By: #### E RUR #### [facility] [address] [place] [address] Dr. Anastasia Moran Calcium [Mass/Vol] 9.4 mg/dL Normal 8.5-10.1 [facility] Comment on above: Performed By: #### E RUR #### [facility] [address] [place] [address] Dr. Anastasia Moran Chloride [Moles/Vol] 104 mmol/L Normal 98-107 [facility] Comment on above: Performed By: #### E RUR #### [facility] [address] [address] [address] Anastasia Moran CO2 [Moles/Vol] 25.9 mmol/L Normal 21.0-32.0 [facility] Comment on above: Performed By: #### E RUR #### [facility] [address] [address] [address] Anastasia Moran Creatinine [Mass/Vol] 0.98 mg/dL Normal 0.55-1.02 [facility] Comment on above: Performed By: #### E RUR #### [facility] [address] [address] [address] Anastasia Moran EGFR-AF [place] >60 Normal >=60 [facility] Comment on above: Performed By: #### E RUR #### [facility] [address] [address] [address] Anastasia Moran EGFR-NON AF [place] 59 mL/min/1.73m2 Critically low >=60 [facility] Comment on above: Performed By: #### E RUR #### [facility] [address] [address] [address] Anastasia Moran Glucose [Mass/Vol] 87 mg/dL Normal 74-106 [facility] Comment on above: Performed By: #### E RUR #### [facility] [address] [address] [address] Anastasia Moran Potassium [Moles/Vol] 3.4 mmol/L Critically low 3.5-5.1 [facility] Comment on above: Performed By: #### E RUR #### [facility] [address] [address] [address] Anastasia Moran Sodium [Moles/Vol] 139 mmol/L Normal 136-145 [facility] Comment on above: Performed By: #### E RUR #### [facility] [address] [address] [address] Anastasia Moran Urea nitrogen [Mass/Vol] 14.0 mg/dL Normal 7.0-18.0 [facility] Comment on above: Performed By: #### E RUR #### [facility] [address] [place] [address] Dr. Anastasia Moran Urea nitrogen/Creatinine [Mass ratio] 14.3 mg/mg Normal [facility] Comment on above: Performed By: #### E RUR #### [facility] [address] [place] [address] Dr. Anastasia Moran Covid-19 PCR ([facility])on SARS-CoV-2 (COVID-19) RNA THALIA+probe Ql (Unsp spec) Not detected Normal NOT DETECTED [facility] Comment on above: Result Comment: This test is not yet approved or cleared by the [place] FDA. When there are no FDA-approved or cleared tests available, and other criteria are met, FDA can make tests available under an emergency access mechanism called an Emergency Use Authorization (EUA). The EUA for this test is supported by the [place] of Health and Human Service's (HHS's) declaration that circumstances exist to justify the emergency use of in vitro diagnostics for the detection and/or diagnosis of the virus that causes COVID-19. This EUA will remain in effect (meaning this test can be used) for the duration of the COVID-19 declaration justifying emergency of IVDs, unless it is terminated or revoked by FDA (after which the test may no longer be used). When diagnostic testing is negative, the possibility of a false negative should be considered in the context of a patient's recent exposures and the presence of clinical signs and symptoms consistent with SARS-CoV-2. Performed By: #### E RUR #### [facility] [address] [place] [address] Dr. Anastasia Moran INFLUENZA A AND B AGon 04-06 INFLUANEGH SEE BELOW Normal [facility] Comment on above: Result Comment: Nega tive for Flu A protein angiten. Infection due to Flu A cannot be ruled out. Flu A angiten in the sample may be below the detection limit of the test. Performed By: #### E RUR #### [facility] [address] [place] [address] Dr. Anastasia Moran INFLUBNEG SEE BELOW Normal [facility] Comment on above: Result Comment: Nega tive for Flu B protein antigen. Infection due to Flu B cannot be ruled out. Flu B antigen in the sample may be below the detection limit of the test. Performed By: #### E RUR #### [facility] [address] [place] [address] Dr. Anastasia Moran INFLUENZA A AG Negative Normal NEGATIVE SEE COMMENT [facility] Comment on above: Performed By: #### E RUR #### [facility] [address] [place] [address] Dr. Anastasia Moran INFLUENZA B AG Negative Normal NEGATIVE SEE COMMENT [facility] Comment on above: Performed By: #### E RUR #### [facility] [address] [place] [address] Dr. Anastasia Moran INTERNAL CONTROLS Within Normal Limits Normal Within Normal Limits [facility] Comment on above: Performed By: #### E RUR #### [facility] [address] [place] [address] Dr. Anastasia Moran T4 LABCORPon 10-06-2021 T4 [Mass/Vol] 8.7 ug/dL Normal 4.5-12.0 [facility] Comment on above: Performed By: #### E RUR #### [facility] [address] [place] [address] Dr. Anastasia Moran INSULINon 09-29-2021 Insulin 11.6 uIU/mL Normal 2.6-24.9 [facility] Comment on above: Performed By: #### I NSULIN #### [facility] [address] [place] [address] Dr. Anastasia Moran CBC AUTO DIFFon 09-28-2021 BASO # 0.0 103/ul Normal 0.0-0.1 [facility] Comment on above: Performed By: #### E RUR #### [facility] [address] [place] [address] Dr. Anastasia Moran Basophils/100 WBC (Bld) 0.2 % Normal 0.2-2.0 [facility] Comment on above: Performed By: #### E RUR #### [facility] [address] [place] [address] Dr. Anastasia Moran EO # 0.1 103/ul Normal 0.0-0.7 [facility] Comment on above: Performed By: #### E RUR #### [facility] [address] [place] [address] Dr. Anastasia Moran Eosinophils/100 WBC (Bld) 0.9 % Normal 0.9-7.0 [facility] Comment on above: Performed By: #### E RUR #### [facility] [address] [place] [address] Dr. Anastasia Moran Erythrocyte distribution width (RBC) [Ratio] 12.9 % Normal 11.0-15.0 [facility] Comment on above: Performed By: #### E RUR #### [facility] [address] [place] [address] Dr. Anastasia Moran Hematocrit (Bld) [Volume fraction] 37.7 % Normal 36.0-48.0 [facility] Comment on above: Performed By: #### E RUR #### [facility] [address] [place] [address] Dr. Anastasia Moran Hemoglobin (Bld) [Mass/Vol] 12.5 g/dL Normal 12.0-16.0 [facility] Comment on above: Performed By: #### E RUR #### [facility] [address] [place] [address] Dr. Anastasia Moran IG # 0.02 10e3/ul Normal 0.00-0.03 [facility] Comment on above: Performed By: #### E RUR #### [facility] [address] [place] [address] Dr. Anastasia Moran IG % 0.2 % Normal 0.0-0.5 [facility] Comment on above: Performed By: #### E RUR #### [facility] [address] [place] [address] Dr. Anastasia Moran LYMPH # 2.5 103/ul Normal 1.2-3.8 [facility] Comment on above: Performed By: #### E RUR #### [facility] [address] [place] [address] Dr. Anastasia Moran Lymphocytes/100 WBC (Bld) 28.5 % Normal 20.5-60.0 [facility] Comment on above: Performed By: #### E RUR #### [facility] [address] [place] [address] Dr. Anastasia Moran MANUAL DIFF REQ NO Normal [facility] Comment on above: Performed By: #### E RUR #### [facility] [address] [place] [address] Dr. Anastasia Moran MCH (RBC) [Entitic mass] 30.7 pg Normal 26.7-34.0 [facility] Comment on above: Performed By: #### E RUR #### [facility] [address] [place] [address] Dr. Anastasia Moran MCHC (RBC) [Mass/Vol] 33.2 g/dL Normal 29.9-35.2 [facility] Comment on above: Performed By: #### E RUR #### [facility] [address] [place] [address] Dr. Anastasia Moran MCV (RBC) [Entitic vol] 92.6 fL Normal 81.0-99.0 [facility] Comment on above: Performed By: #### E RUR #### [facility] [address] [place] [address] Dr. Anastasia Moran MONO # 0.5 103/ul Normal 0.3-0.8 [facility] Comment on above: Performed By: #### E RUR #### [facility] [address] [place] [address] Dr. Anastasia Moran Monocytes/100 WBC (Bld) 6.3 % Normal 1.7-12.0 [facility] Comment on above: Performed By: #### E RUR #### [facility] [address] [place] [address] Dr. Anastasia Moran NEUT # 5.5 103/ul Normal 1.4-6.5 [facility] Comment on above: Performed By: #### E RUR #### [facility] [address] [place] [address] Dr. Anastasia Moran Neutrophils/100 WBC (Bld) 63.9 % Normal 43.0-75.0 [facility] Comment on above: Performed By: #### E RUR #### [facility] [address] [place] [address] Dr. Anastasia Moran Platelet mean volume (Bld) [Entitic vol] 9.7 fL Normal 9.5-13.5 [facility] Comment on above: Performed By: #### E RUR #### [facility] [address] [address] [address] Anastasia Moran PLT 246 103/ul Normal 150-450 [facility] Comment on above: Performed By: #### E RUR #### [facility] [address] [place] [address] Dr. Anastasia Moran RBC 4.07 106/ul Critically low 4.20-5.40 [facility] Comment on above: Performed By: #### E RUR #### [facility] [address] [place] [address] Dr. Anastasia Moran WBC 8.6 103/ul Normal 4.0-11.0 [facility] Comment on above: Performed By: #### E RUR #### [facility] [address] [place] [address] Dr. Anastasia Moran FREE THYROXINE INDEX T7on FTI 2.61 Normal 1.30-4.50 [facility] Comment on above: Performed By: #### L IPID, CMP, TSH, T7 #### [facility] [address] [place] [address] Dr. Anastasia Moran T3U 30.0 % Normal 30.0-39.0 [facility] Comment on above: Performed By: #### L IPID, CMP, TSH, T7 #### [facility] [address] [place] [address] Dr. Anastasia Moran T4 [Mass/Vol] 8.70 ug/dL Normal 4.80-13.90 [facility] Comment on above: Result Comment: T4 t esting performed by [facility] Performed By: #### L IPID, CMP, TSH, T7 #### [facility] [address] [address] [address] Anastasia Moran GLYCOHEMOGLOBIN A1Con 2021 ADA RECOMMENDATION SEE BELOW Normal [facility] Comment on above: Result Comment: ADA RECOMMENDED LIMIT 4.0 - 6.0 ADA THERAPEUTIC TARGET < 7.0 ACTION SUGGESTED > 7.0 Performed By: #### E RUR #### [facility] [address] [address] [address] Anastasia Moran Glucose [Mass/Vol] 111 mg/dL Normal [facility] Comment on above: Performed By: #### E RUR #### [facility] [address] [address] [address] Anastasia Moran HbA1c (Bld) [Mass fraction] 5.5 % Normal 4.5-6.2 [facility] Comment on above: Performed By: #### E RUR #### [facility] [address] [address] [address] Anastasia Moran IRONon 09-28-2021 Iron [Mass/Vol] 71.0 ug/dL Normal 50.0-170.0 [facility] Comment on above: Performed By: #### V ITAD, VITB12, IRON #### [facility] [address] [address] [address] Anastasia Moran LIPID PROFILEon 09-28-2021 CHOL-HDL RATIO NORM SEE BELOW Normal [facility] Comment on above: Result Comment: 3.3 - 4.4 LOW RISK 4.4 - 7.1 AVERAGE RISK 7.1 - 11.0 MODERATE RISK >11.0 HIGH RISK Performed By: #### L IPID, CMP, TSH, T7 #### [facility] [address] [address] [address] Anastasia Moran Cholesterol [Mass/Vol] 229 mg/dL Critically high <=200 [facility] Comment on above: Performed By: #### L IPID, CMP, TSH, T7 #### [facility] [address] [address] [address] Anastasia Moran Cholesterol in HDL [Mass/Vol] 63 mg/dL Critically high 40-60 [facility] Comment on above: Performed By: #### L IPID, CMP, TSH, T7 #### [facility] [address] [address] [address] Anastasia Moran Cholesterol in LDL [Mass/Vol] 152.0 mg/dL Normal [facility] Comment on above: Performed By: #### L IPID, CMP, TSH, T7 #### [facility] [address] [address] [address] Anastasia Moran Cholesterol.total/Chol esterol in HDL [Mass ratio] 3.6 {ratio} Normal [facility] Comment on above: Performed By: #### L IPID, CMP, TSH, T7 #### [facility] [address] [address] [address] Anastasia Moran HDL NORMAL > or = 60 mg/dl - LOW CARDIOVASCULAR RISK <40 mg/dl - HIGH CARDIOVASCULAR RISK Normal [facility] Comment on above: Performed By: #### L IPID, CMP, TSH, T7 #### [facility] [address] [address] [address] Anastasia Moran LDL CALC NORMAL SEE BELOW Normal [facility] Comment on above: Result Comment: <100 mg/dl OPTIMAL 100 - 129 mg/dl NEAR OR ABOVE OPTIMAL 130 - 159 mg/dl BORDERLINE HIGH 160 - 189 mg/dl HIGH >190 mg/dl VERY HIGH Performed By: #### L IPID, CMP, TSH, T7 #### [facility] [address] [address] [address] Anastasia Moran Triglyceride [Mass/Vol] 70 mg/dL Normal <=150 [facility] Comment on above: Performed By: #### L IPID, CMP, TSH, T7 #### [facility] [address] [address] [address] Anastasia Moran VLDL CALC 14.0 mg/dL Normal [facility] Comment on above: Performed By: #### L IPID, CMP, TSH, T7 #### [facility] [address] [address] [address] Anastasia Moran PROF 14(COMP METB)on 022 Albumin [Mass/Vol] 4.3 g/dL Normal 3.4-5.0 [facility] Comment on above: Performed By: #### L IPID, CMP, TSH, T7 #### [facility] [address] [place] [address] Dr. Anastasia Moran Albumin/Globulin [Mass ratio] 1.2 {ratio} Normal [facility] Comment on above: Performed By: #### L IPID, CMP, TSH, T7 #### [facility] [address] [place] [address] Dr. Anastasia Moran ALP [Catalytic activity/Vol] 45 U/L Critically low 46-116 [facility] Comment on above: Performed By: #### L IPID, CMP, TSH, T7 #### [facility] [address] [place] [address] Dr. Anastasia Moran ALT [Catalytic activity/Vol] 20 U/L Normal 14-59 [facility] Comment on above: Performed By: #### L IPID, CMP, TSH, T7 #### [facility] [address] [place] [address] Dr. Anastasia Moran Anion gap [Moles/Vol] 12.3 mmol/L Normal [facility] Comment on above: Performed By: #### L IPID, CMP, TSH, T7 #### [facility] [address] [place] [address] Dr. Anastasia Moran AST [Catalytic activity/Vol] 16 U/L Normal 15-37 [facility] Comment on above: Performed By: #### L IPID, CMP, TSH, T7 #### [facility] [address] [place] [address] Dr. Anastasia Moran Bilirubin [Mass/Vol] 0.5 mg/dL Normal 0.2-1.0 [facility] Comment on above: Performed By: #### L IPID, CMP, TSH, T7 #### [facility] [address] [place] [address] Dr. Anastasia Moran Calcium [Mass/Vol] 9.4 mg/dL Normal 8.5-10.1 [facility] Comment on above: Performed By: #### L IPID, CMP, TSH, T7 #### [facility] [address] [address] [address] Anastasia Moran Chloride [Moles/Vol] 103 mmol/L Normal 98-107 [facility] Comment on above: Performed By: #### L IPID, CMP, TSH, T7 #### [facility] [address] [address] [address] Anastasia Moran CO2 [Moles/Vol] 27.8 mmol/L Normal 21.0-32.0 [facility] Comment on above: Performed By: #### L IPID, CMP, TSH, T7 #### [facility] [address] [address] [address] Anastasia Moran Creatinine [Mass/Vol] 0.87 mg/dL Normal 0.55-1.02 [facility] Comment on above: Performed By: #### L IPID, CMP, TSH, T7 #### [facility] [address] [address] [address] Anastasia Moran EGFR-AF COOK ISLANDER >60 Normal >=60 [facility] Comment on above: Performed By: #### L IPID, CMP, TSH, T7 #### [facility] [address] [address] [address] Anastasia Moran EGFR-NON AF [place]OOK ISLANDER >60 Normal >=60 [facility] Comment on above: Performed By: #### L IPID, CMP, TSH, T7 #### [facility] [address] [address] [address] Anastasia Moran Globulin (S) [Mass/Vol] 3.5 g/dL Normal [facility] Comment on above: Performed By: #### L IPID, CMP, TSH, T7 #### [facility] [address] [address] [address] Anastasia Moran Glucose [Mass/Vol] 89 mg/dL Normal 74-106 [facility] Comment on above: Performed By: #### L IPID, CMP, TSH, T7 #### [facility] [address] [address] [address] Anastasia Moran Potassium [Moles/Vol] 4.1 mmol/L Normal 3.5-5.1 [facility] Comment on above: Performed By: #### L IPID, CMP, TSH, T7 #### [facility] [address] [place] [address] Dr. Anastasia Moran Protein [Mass/Vol] 7.8 g/dL Normal 6.4-8.2 [facility] Comment on above: Performed By: #### L IPID, CMP, TSH, T7 #### [facility] [address] [place] [address] Dr. Anastasia Moran Sodium [Moles/Vol] 139 mmol/L Normal 136-145 [facility] Comment on above: Performed By: #### L IPID, CMP, TSH, T7 #### [facility] [address] [place] [address] Dr. Anastasia Moran Urea nitrogen [Mass/Vol] 14.0 mg/dL Normal 7.0-18.0 [facility] Comment on above: Performed By: #### L IPID, CMP, TSH, T7 #### [facility] [address] [place] [address] Dr. Anastasia Moran Urea nitrogen/Creatinine [Mass ratio] 16.1 mg/mg Normal [facility] Comment on above: Performed By: #### L IPID, CMP, TSH, T7 #### [facility] [address] [place] [address] Dr. Anastasia Moran TSHon 09-28-2021 TSH 0.565 uIU/mL Normal 0.358-3.740 [facility] Comment on above: Performed By: #### L IPID, CMP, TSH, T7 #### [facility] [address] [place] [address] Dr. Anastasia Moran TSH RANGE SEE BELOW Normal [facility] Comment on above: Result Comment: <0.3 4 UIU/ml HYPERTHYROID 0.34-5.60 UIU/ml EUTHYROID >5.60 UIU/ml HYPOTHYROID Performed By: #### L IPID, CMP, TSH, T7 #### [facility] [address] [place] [address] Dr. Anastasia Moran VITAMIN B12on 09-28-2021 Cobalamin (Vitamin B12) [Mass/Vol] 616.0 pg/mL Normal 193.0-986.0 [facility] Comment on above: Performed By: #### V ITAD, VITB12, IRON #### [facility] [address] [address] [address] Anastasia Moran VITAMIN D 25 OHon 09-28-2021 VIT D 25-OH 61.7 ng/mL Normal [facility] Comment on above: Performed By: #### V ITAD, VITB12, IRON #### [facility] [address] [address] [address] Anastasia Moran VIT D RANGES SEE BELOW Normal [facility] Comment on above: Result Comment: <20 ng/mL Vit D deficient 20 - <30 ng/mL Vit D insufficient 30 - 100 ng/mL Vit D sufficient >100 ng/mL Potential Toxicity Performed By: #### V ITAD, VITB12, IRON #### [facility] [address] [address] [address] Anastasia Moran Physician Referralon 021 Physician Referral [phone] [id number] Normal [facility] Vital Signs Date Time Vital Sign Value Performing Clinician Facility 03-01-2023 18:03-0400 Body height 167.6 cm Carlos Manuel Ochoa APRN-HEALTH SUPPORT SPECIALIST Work Phone: [facility] 03-01-2023 18:03-0400 Body mass index (BMI) [Ratio] 32.46 kg/m2 Carlos Manuel Ochoa [employer] INSTALLER-HEALTH SUPPORT SPECIALIST Work Phone: [facility] 03-01-2023 18:03-0400 Body temperature 98.2 [degF] Carlos Manuel Ochoa APRN-HEALTH SUPPORT SPECIALIST Work Phone: [facility] 03-01-2023 18:03-0400 Body weight 91.22 kg Carlos Manuel Ochoa APRN-HEALTH SUPPORT SPECIALIST Work Phone: [facility] 03-01-2023 18:03-0400 Diastolic blood pressure 87 mm[Hg] Carlos Manuel Ochoa [employer] INSTALLER-HEALTH SUPPORT SPECIALIST Work Phone: [facility] 03-01-2023 18:03-0400 Heart rate 84 /min Carlos Manuel Ochoa [employer] HARDWARE INSTALLER-HEALTH SUPPORT SPECIALIST Work Phone: [facility] 03-01-2023 18:03-0400 Respiratory rate 18 /min Carlos Manuel Don [employer] INSTALLER-HEALTH SUPPORT SPECIALIST Work Phone: [facility] 03-01-2023 18:03-0400 SaO2% (BldA) [Mass fraction] 100 % Carlos Manuel Ochoa [employer] INSTALLER-HEALTH SUPPORT SPECIALIST Work Phone: [facility] 03-01-2023 18:03-0400 Systolic blood pressure 156 mm[Hg] Carlos Manuel Ochoa [employer] INSTALLER-HEALTH SUPPORT SPECIALIST Work Phone: [facility] Encounters Encounter Date Encounter Type Care Provider Facility Start: 04-24-2023 End: 04-28-2023 ambulatory [facility] Start: 03-31-2023 End: 04-01-2023 ambulatory [facility] Start: 03-01-2023 End: 03-02-2023 ambulatory CARLOS MANUEL OCHOA [facility] Start: 03-01-2023 End: 03-01-2023 Subsequent hospital visit by physician Feng X-[facility] Comment on above: Contusion of right w rist, initial encounter Contusion of right h and, initial encounter Start: 03-01-2023 End: 03-01-2023 ambulatory [facility] Start: 03-01-2023 End: 03-01-2023 Office outpatient new 30 minutes Carlos Manuel Ochoa [employer] INSTALLER-HEALTH SUPPORT SPECIALIST Work Phone: [facility] Comment on above: Contusion of right h and, initial encounter (Primary Dx); Contusion of right wrist, initial encounter Start: 08-10-2022 End: 08-10-[address] ROSEMARY NOEL . Facility: Start: 04-06-2022 End: 04-06-[address] ROSEMARY NEOL . Facility: Start: 09-29-2021 Encounter for genera l adult medical examination without abnormal findings DR ROSEMARY NOEL . [facility] Start: 09-28-2021 End: 09-29-[address] ROSEMARY NOEL . Facility: Start: 09-28-2021 End: 09-29-2021 Encounter for general adult medical examination without abnormal findings DR ROSEMARY NOEL . Facility: Procedures Date Procedure Procedure Detail Performing Clinician Start: 03-31-2023 CBC W Auto Different ial panel - Blood ROSEMARY HOY Start: 03-31-2023 Comprehensive metabo lic 2000 panel - Serum or Plasma ROSEMARY HOY Start: 03-31-2023 Hemoglobin A1c/Hemoglobin.total in Blood ROSEMARY HOY Start: 03-31-2023 INSULIN, RANDOM ROSEMARY HOY Start: 03-31-2023 Iron [Mass/volume] i n Serum or Plasma ROSEMARY HOY Start: 03-31-2023 Lipid panel ROSEMARY HO Y Start: 03-31-2023 Thyrotropin [Units/v olume] in Serum or Plasma ROSEMARY HOY Start: 03-31-2023 THYROXINE, TOTAL DOUGLA S HOY Start: 03-31-2023 TRIIODOTHYRONINE, TOTAL ROSEMARY HOY Start: 03-31-2023 VITAMIN D 25-HYDROXY,TOTAL ROSEMARY HOY Start: 03-01-2023 XR HAND RIGHT 3+ VIEWS ROSEMARY HOY Start: 03-01-2023 XR WRIST RIGHT 3+ VIEWS ROSEMARY HOY Start: 03-01-2023 Radex wrist complete minimum 3 views Carlos Manuel Ochoa [employer] INSTALLER-HEALTH SUPPORT SPECIALIST Work Phone: Plan of Treatment Date Care Activity Detail Author Start: 02-16-2027 DTaP/Tdap/Td Vaccine s (2 - Td or Tdap) DTaP/Tdap/Td Vaccines (2 - Td or Tdap) [facility] Start: 12-29-2022 Influenza vaccination Influenza Vacc ine (#1) [facility] Start: 11-19-2020 COVID-19 Vaccine (3 - Moderna series) COVID-19 Vaccine (3 - Moderna series) [facility] Start: 09-23-2015 Zoster Vaccines (1 of 2) Zoste r Vaccines (1 of 2) [facility] Start: 2005 Screening for malign ant neoplasm of breast Mammogram [facility] Start: 1986 Screening for malign ant neoplasm of cervix [facility] Start: 09-23-1983 Hepatitis C screening Hepatitis C Sc reening [facility] Start: 1966 MMR Vaccines (1 of 1 - Standard series) MMR Vaccines (1 of 1 - Standard series) [facility] Start: 1965 [facility] Start: 1965 Lipid panel Lipid Panel [facility] Start: 1965 Screening for malign ant neoplasm of colon [facility] Start: 1965 Yearly Adult Physical Yearly Adult P hysical [facility] Immunizations Immunization Date Immunization Notes Care Provider Erasmo green 02-28-2022 influenza virus vacc ine, unspecified formulation [facility] 1 [facility] Work Phone: Payers Date Payer Category Payer Unknown [employer] [id number] 2022-Present [address] [place] [address] [id number] 2022 Unknown [id number] 1965 Unknown [id number] 3 1965 Unknown [id number] 3 1965 Unknown [id number] 3 1965 Unknown [id number] 43 1965 Unknown [id number] 43 1965 Unknown [id number] 43 1965 Unknown [id number] 45 1965 Unknown [id number] 3 1965 Unknown [id number] 3 1959 Unknown [id number] Social History Date Type Detail Facility Start: [facility]01[facility]23 [facility] Work Phone: Start: 03-01-2023 Tobacco use and exposure Smokeless tobacco non-user [facility] Work Phone: Start: 03-01-2023 History of Social function [facility] Work Phone: Start: 03-01-2023 Tobacco use panel [facility] Work Phone: Start: 1965 Sex Assigned At Not on file [facility] Work Phone: Start: 02-19-2023 End: 03-01-2023 Exposure to SARS-CoV-2 (event) Not sure [facility] History of Present illness Narrative 03-01-2023 MARGARITA Yu - 03/01/2023 4:30 PM EDT Note Date & Type Note Facility 03-01-2023 History of Present illness Narrative [facility] MARGARITA Yu Visit Note - 03/01/2023 6:39 PM This note was generated with voice recognition software and may contain errors including spelling, grammar, syntax, and misrecognization of what was dictated. Patient: Pedro Luis Cruz, , 57 y.o., female PCP: Rosemary Noel MD --- ALLERGIES: Allergies Allergen Reactions Penicillins Seizure CURRENT MEDICATIONS: Current Outpatient Medications Medication Instructions ARIPiprazole (ABILIFY) 30 mg, oral, Daily diclofenac (Voltaren) 75 mg EC tablet hydrOXYzine HCL (Atarax) 25 mg tablet 1-2 TABLETS ORALLY FOUR TIMES DAILY NEEDED 30 DAYS lisinopril 40 mg, oral, Daily metoprolol tartrate (LOPRESSOR) 25 mg, oral, 2 times daily nabumetone (RELAFEN) 1,000 mg, oral, 2 times daily tiZANidine (Zanaflex) 4 mg tablet TAKE 1 TABLET BY MOUTH IN THE MORNING AND 2 TABLETS AT BEDTIME traZODone (Desyrel) 150 mg tablet TAKE 2 TABLETS BY MOUTH EVERY DAY AT NIGHT --- PAST MEDICAL HX: History of anxiety, arthritis, insomnia, HTN. SURGICAL HX: History reviewed. No pertinent surgical history. History of hysterectomy. FAMILY HX: No pertinent history. SOCIAL HX: Is a former smoker. 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 --- CHIEF COMPLAINT: Chief Complaint Patient presents with Hand Injury Right sided hand pain. Moved and did hit in between doorway HISTORY OF PRESENT ILLNESS: The history was obtained from patientDayton Cloud is a 57 y.o. female, who presents with a chief complaint of R hand/wrist/forearm pain that started on Sunday - reports she was moving furniture, and accidentally hit her hand very hard on a doorframe. Reports she had immediate pain after the injury - pain scale currently 2/10 at rest, and 10/10 with certain movements, especially when she moves her thumb. Reports pain radiates from her thumb up to the lower forearm; describes pain as aching and sharp at times. States has noticed some swelling, but no bruising, discoloration, or injury to the skin. Denies any numbness/tingling; denies any history of prior injury to her hand. Has taken tylenol and ibuprofen, without much relief; has not tried any other OTC medications or conservative measures for symptoms. Is right-handed. REVIEW OF SYSTEMS: 10 systems reviewed negative with exception of history of present illness as listed above. TODAY'S VITALS: BP 156/87 (BP Location: Left arm, Patient Position: Sitting, BP Cuff Size: Large adult) Pulse 84 Temp 36.8 C (98.2 F) (Temporal) Resp 18 Ht 1.676 m (5' 6 ) Wt 91.2 kg (201 lb 1.6 oz) SpO2 100% BMI 32.46 kg/m PHYSICAL EXAMINATION: General: Pleasant, well nourished female; alert and oriented, in no acute distress. Sitting comfortably on exam table; accompanied by her . Respiratory: Lungs are clear to auscultation; no wheezes, rhonchi, or rales. Respirations unlabored and without reported discomfort, Breath sounds are equal, Symmetrical chest wall expansion. Cardiovascular: Regular rate and rhythm, normal S1S2, no m/r/g. Musculoskeletal: L hand/wrist/arm unremarkable. R hand/wrist/arm: slight guarding of hand/fingers/wrist during examination. No visible joint or bony deformity, and no rotational deformity, but has mild, diffuse edema and exquisite tenderness noted to radial aspect of hand/wrist/distal forearm. Skin intact and without discoloration. Has slightly limited ROM thumb and wrist d/t discomfort; has slightly limited motor strength of thumb and wrist/hand against resistance d/t discomfort. N/v intact proximally and distally. Has full hand grasp strength but pain at previously noted area with testing. Neurologic: Alert and oriented, no focal deficits, no motor or sensory deficits aside from as noted above. Cognition and Speech: Oriented, Speech clear and coherent. Psychiatric: Cooperative, Appropriate mood & affect. --- Medical Decision Making LABORATORY or RADIOLOGICAL IMAGING ORDERS/RESULTS: Xrs done - results pending. IMPRESSION/PLAN: Course: Worsening; stable 1. Contusion of right hand, initial encounter, 2. Contusion of right wrist, initial encounter - XR hand right 3+ views; Future - XR wrist right 3+ views; Future Sxs/exam consistent with contusion, but Xrs done today to err on the side of caution- results pending. Reviewed limitations of Xrs, and stressed importance of close follow up with PCP. No red flags noted on exam. Thumb spica splint applied in office; advised should wear continuously until results of XR are known. Encouraged to start ice for comfort (20 min on, 20 min off), elevate hand/wrist, and should continue ibuprofen (OR Diclofenac, *not both*) as directed for management of discomfort/inflammation. Discussed importance of neurovasular checks. Pending negative Xrs, can begin gentle stretching/ROM exercises as discomfort allows, and consider LATRICIA wrap instead of thumb spica splint. Reviewed red flags to monitor for, counseled on potential adverse reactions of treatments, expectations for improvement in sxs, and advised to seek care if symptoms not improving over the next 2-3 days, if they worsen, or if any additional concerns/red flags develop. Pt verbalized understanding of discussion and agreed with plan of care; questions were encouraged and answered. MARGARITA Yu Advanced Practice Provider [facility] documented in this encounter [facility] Work Phone: Evaluation note Note Date & Type Note Facility Evaluation note Diagnosis Contusion of right wrist, initial encounter documented in this encounter [facility] Work Phone: Evaluation note Note Date & Type Note Facility Evaluation note Diagnosis Contusion of right hand, initial encounter documented in this encounter [facility] Work Phone: Evaluation note Note Date & Type Note Facility Evaluation note Diagnosis Contusion of right hand, initial encounter- Primary Contusion of right wrist, initial encounter Contusion of right hand, initial encounter Contusion of right wrist, initial encounter documented in this encounter [facility] Work Phone: Summary Purpose Family History No Family History Records FoundNo Family History Records FoundNo Family History Records FoundNo Family History Records FoundNo Family History Records Found Advance Directives No Advanced Directives Records FoundNo Advanced Directives Records FoundNo Advanced Directives Records FoundNo Advanced Directives Records FoundNo Advanced Directives Records Found Reason for Referral Specialty Diagnoses / Procedures Referred By Contac t Referred To Contact Radiology Diagnoses Contusion of right wrist, initial encounter Procedures XR wrist right 3+ views Carols Manuel Ochoa, [employer]ARDWARE INSTALLER-HEALTH SUPPORT SPECIALIST [address] [place] [address] Referral ID Status Reason Start Date Expiration Date Visits Requested Visits Authorized [id number] Authorized Perform Procedure 03/01/2023 02/29/2024 1 1 Specialty Diagnoses / Procedures Referred By Contac t Referred To Contact Radiology Diagnoses Contusion of right hand, initial encounter Procedures XR hand right 3+ views Carlos Manuel Ochoa, [employer] HARDWARE INSTALLER-HEALTH SUPPORT SPECIALIST [address] [place] [address] Referral ID Status Reason Start Date Expiration Date Visits Requested Visits Authorized [id number] Authorized Perform Procedure 03/01/2023 02/29/2024 1 1 Additional Source Comments INFORMATION SOURCE (unrecogn ized section and content) DATE CREATED AUTHOR 09/26/2020 [facility] DATE CREATED AUTHOR AUTHOR'S ORGANIZ ATION 08/14/2022 [facility] DATE CREATED AUTHOR AUTHOR'S ORGANIZ ATION 03/07/2023 [facility] DATE CREATED AUTHOR AUTHOR'S ORGANIZ ATION 04/06/2023 [facility] DATE CREATED AUTHOR AUTHOR'S ORGANIZ ATION 04/29/2023 [facility] Reason for Visit (unrecogniz ed section and content) Specialty Diagnoses / Procedures Referred By Contac t Referred To Contact Radiology Diagnoses Contusion of right wrist, initial encounter Procedures XR wrist right 3+ views Carlos Manuel Ochoa, [employer] HARDWARE INSTALLER-HEALTH SUPPORT SPECIALIST [address] [place] [address] Referral ID Status Reason Start Date Expiration Date Visits Requested Visits Authorized [id number] Authorized Perform Procedure 03/01/2023 02/29/2024 1 1 Specialty Diagnoses / Procedures Referred By Contac t Referred To Contact Radiology Diagnoses Contusion of right hand, initial encounter Procedures XR hand right 3+ views Carlos Manuel Ochoa, [employer] HARDWARE INSTALLER-HEALTH SUPPORT SPECIALIST [address] [place] [address] Referral ID Status Reason Start Date Expiration Date Visits Requested Visits Authorized [id number] Authorized Perform Procedure 03/01/2023 02/29/2024 1 1 Reason Comments Hand Injury Right sided hand giancarlo n. Moved and did hit in between doorway Care Teams (unrecognized sec tion and content) Elevator Constructor Relationship Specialty Start Date End Date Rosemary Noel MD [address] [facility] [place] [facility] [place] [address] PCP - General Family Medicine 03/01/23 Elevator Constructor Relationship Specialty Start Date End Date Rosemary Noel MD [address] [place] [facility] [place] [address] PCP - General Family Medicine 03/01/23 FOR RECORDS PERTAINING TO PATIENTS WHO ARE OR HAVE BEEN ENROLLED IN A CHEMICAL DEPENDENCY/SUBSTANCEABUSE PROGRAM, SOME INFORMATION MAY BE OMITTED. This clinical summary was aggregated from multiple sources. Caution should be exercised in using it in the provision of clinical care. This summary normalizes information from multiple sources, and as a consequence, information in this document may materially change the coding, format and clinical context of patient data. In addition, data may be omitted in some cases. CLINICAL DECISIONS SHOULD BE BASED ON THE PRIMARY CLINICAL RECORDS. [employer] provides no warranty or guarantee of the accuracy or completeness of information in this document.
--- NOTE | 2023-10-31 09:37 | MR_ITS ---
The [address] [address] Patient Name: REGI WELDON MRN: [id number] date: 1965 Sex: F Assigned Patient Location: MRI Current Patient Location: MRI Accession/Order Number: [id number] Exam Date: 10/31/2023 10:00 Report Date: 11/05/2023 12:04 At the request of: ROSEMARY ROY Procedure: MR wrist RT wo con HISTORY: Right wrist pain since an injury on 10/11/2023. MR WRIST RT WO CON: 10/31/2023 10:00 AM EDT COMPARISON: Radiographs of the right wrist and hand 10/16/2023. TECHNIQUE: Coronal T1, STIR, axial T2, proton density fat-saturated images, and sagittal proton-density fat-saturated images of the right wrist were obtained without contrast. FINDINGS: LIGAMENTS AND TFCC: The scapholunate ligament complex and lunotriquetral ligament appear intact. The triangular fibrocartilage complex appears grossly intact. BONES AND JOINTS: The bone marrow signal intensity appears age appropriate. There are severe degenerative changes of the first carpometacarpal joint with a [id number] appearance and marginal osteophyte formation. There is subchondral cystic change and bone marrow edema within the base of the first metacarpal and the adjacent trapezium. There also appear to be at least moderate to severe degenerative changes of the triscaphe joint. TENDONS: The tendons of the wrist appear grossly within normal limits without evidence of significant tendinopathy or tenosynovitis. CARPAL TUNNEL: There is mild focal fusiform enlargement and mild increased signal intensity involving the median nerve within the proximal carpal tunnel. The remainder of the visualized median nerve appears grossly unremarkable. No space-occupying mass is seen in the carpal tunnel. MUSCLES AND SOFT TISSUES: The visualized musculature appears grossly within normal limits in signal intensity. No significant soft tissue swelling is seen. MR/MR wrist RT wo con IMPRESSION: 1. No ligament injury or tear of the TFCC is seen. 2. Severe osteoarthritis of the first carpometacarpal joint and at least moderate to severe osteoarthritis of the triscaphe joint. 3. There is mild focal fusiform enlargement and mild edema-like signal involving the median nerve within the proximal carpal tunnel which is suggestive of a possible focal median neuritis and carpal tunnel syndrome. However, no space-occupying mass is seen in the carpal tunnel and correlation as to possible signs and symptoms of carpal tunnel syndrome is recommended. Electronically authenticated by: ROSEMARY MAY Date: 11/05/2023 12:04
--- OUTSIDE RECORDS SUMMARY | 2023-10-31 09:51 | XMS_ITS | CCD ---
Author Organization [facility] CliniSynh Care Team Providers Care Multifocal Lens Assembler Name Role Phone MANUELA Burris, DR RILEY [...] (1 source) Ibuprofen Drug Allergy 3 [facility] Repository (4 sources) Penicillins; Translations: [PENICILLINS] Drug allergy (disorder) 3 [facility] Repository (1 source) traMADol Drug Allergy 3 [facility] Repository (5 sources) Penicillins Propensity to adverse reactions 3 [facility] Medications Current Medications Medication Drug Class(es) Dates [...] SunApr 25, 2023 9:50:28 PM EST Normal [facility] Comment on above: Order Comment: Injur y/Trauma or Illness?:Illness/Other How long have you had these symptoms (acute/chronic)?:Chronic Reason for exam?:pain History of cancer?:no Surgeries, chemotherapy, or radiation?:no Type of Exam?:Initial Additional signs and symptoms?:no CBC W Auto Differential pane l (Bld)on 03-31-2023 Basophils (Bld) [#/Vol] 0.03 x10*3/uL Normal 0.00-0.10 [facility] Comment on above: Performed By: #### 5 7021-8 #### DAX CUI (85732) [facility] ([facility]) [address] [place] [address] 99832 Basophils/100 WBC (Bld) 0.6 % Normal 0.0-2.0 [facility] Comment on above: Performed By: #### 5 7021-8 #### DAX UCI (53645) [facility] ([facility]) [address] [place] [address] 70568 Eosinophils (Bld) [#/Vol] 0.17 x10*3/uL Normal 0.00-0.70 [facility] Comment on above: Performed By: #### 5 7021-8 #### DAX CUI (08188) [facility] ([facility]) [address] [place] [address] 01878 Eosinophils/100 WBC (Bld) 3.3 % Normal 0.0-6.0 [facility] Comment on above: Performed By: #### 5 7021-8 #### DAX CUI (35307) [facility] ([facility]) [address] [place] [address] 56583 Erythrocyte distribution width (RBC) [Ratio] 13.0 % Normal 11.5-14.5 [facility] Comment on above: Performed By: #### 5 7021-8 #### DAX CUI (51915) [facility] ([facility]) [address] [place] [address] 13045 Hematocrit (Bld) [Volume fraction] 38.8 % Normal 36.0-46.0 [facility] Comment on above: Performed By: #### 5 7021-8 #### DAX CUI (79095) [facility] ([facility]) [address] [place] [address] 24296 Hemoglobin (Bld) [Mass/Vol] 12.2 g/dL Normal 12.0-16.0 [facility] Comment on above: Performed By: #### 5 7021-8 #### DAX CUI (25082) [facility] ([facility]) [address] [place] [address] 95126 Immature granulocytes (Bld) [#/Vol] 0.01 x10*3/uL Normal 0.00-0.70 [facility] Comment on above: Performed By: #### 5 7021-8 #### DAX CUI (35450) [facility] ([facility]) [address] [place] [address] 27353 Immature granulocytes/100 WBC (Bld) 0.2 % Normal 0.0-0.9 [facility] Comment on above: Result Comment: Tamela ture Granulocyte Count (IG) includes promyelocytes, myelocytes and metamyelocytes but does not include bands. Percent differential counts (%) should be interpreted in the context of the absolute cell counts (cells/UL). Performed By: #### 5 7021-8 #### DAX CUI (67050) [facility] ([facility]) [address] [place] [address] 98725 Lymphocytes (Bld) [#/Vol] 2.21 x10*3/uL Normal 1.20-4.80 [facility] Comment on above: Performed By: #### 5 7021-8 #### DAX CUI (50034) [facility] ([facility]) [address] [place] [address] 78823 Lymphocytes/100 WBC (Bld) 43.3 % Normal 13.0-44.0 [facility] Comment on above: Performed By: #### 5 7021-8 #### DAX CUI (88939) [facility] ([facility]) [address] [place] [address] 50077 MCH (RBC) [Entitic mass] 30.7 pg Normal 26.0-34.0 [facility] Comment on above: Performed By: #### 5 7021-8 #### DAX CUI (33096) [facility] ([facility]) [address] [place] [address] 94218 MCHC (RBC) [Mass/Vol] 31.4 g/dL Low 32.0-36.0 [facility] Comment on above: Performed By: #### 5 7021-8 #### DAX CUI (10672) [facility] ([facility]) [address] [place] [address] 96609 MCV (RBC) [Entitic vol] 98 fL Normal 80-100 [facility] Comment on above: Performed By: #### 5 7021-8 #### DAX CUI (52550) [facility] ([facility]) [address] [place] [address] 13887 Monocytes (Bld) [#/Vol] 0.46 x10*3/uL Normal 0.10-1.00 [facility] Comment on above: Performed By: #### 5 7021-8 #### DAX CUI (96715) [facility] ([facility]) [address] [place] [address] 05781 Monocytes/100 WBC (Bld) 9.0 % Normal 2.0-10.0 [facility] Comment on above: Performed By: #### 5 7021-8 #### DAX CUI (26605) [facility] ([facility]) [address] [place] [address] 10686 Neutrophils (Bld) [#/Vol] 2.22 x10*3/uL Normal 1.20-7.70 [facility] Comment on above: Result Comment: Perc ent differential counts (%) should be interpreted in the context of the absolute cell counts (cells/uL). Performed By: #### 5 7021-8 #### DAX CUI (72252) [facility] ([facility]) [address] [place] [address] 32645 Neutrophils/100 WBC (Bld) 43.6 % Normal 40.0-80.0 [facility] Comment on above: Performed By: #### 5 7021-8 #### DAX CUI (01884) [facility] ([facility]) [address] [place] [address] 96350 Nucleated RBC/100 WBC (Bld) [Ratio] 0.0 /100 WBCs Normal 0.0-0.0 [facility] Comment on above: Performed By: #### 5 7021-8 #### DAX CUI (75101) [facility] ([facility]) [address] [place] [address] 57961 Platelets (Bld) [#/Vol] 273 x10*3/uL Normal 150-450 [facility] Comment on above: Performed By: #### 5 7021-8 #### DAX CUI (84166) [facility] ([facility]) [address] [place] [address] 49929 RBC (Bld) [#/Vol] 3.98 x10*6/uL Low 4.00-5.20 [facility] Comment on above: Performed By: #### 5 7021-8 #### DAX CUI (48428) [facility] ([facility]) [address] [place] [address] 52560 WBC (Bld) [#/Vol] 5.1 x10*3/uL Normal 4.4-11.3 [facility] Comment on above: Performed By: #### 5 7021-8 #### DAX CUI (24103) [facility] ([facility]) [address] [place] [address] 54485 Calcidiolon 03-31-2023 25-hydroxyvitamin D3 [Mass/Vol] 57 ng/mL Normal 30-100 [facility] Comment on above: Order Comment: Defic iency: < 20 ng/ml Insufficiency: 20-29 ng/ml Sufficiency: 30-100 ng/ml This assay accurately quantifies the sum of Vitamin D3, 25-Hydroxy and Vitamin D2,25-Hydroxy. Performed By: #### 1 989-3 #### DAX CUI (58904) [facility] ([facility]) [address] [place] [address] Comprehensive metabolic 2000 panelon 03-31-2023 Albumin BCP dye [Mass/Vol] 4.9 g/dL Normal 3.4-5.0 [facility] Comment on above: Performed By: #### 2 4323-8 #### DAX CUI (10182) [facility] ([facility]) [address] [place] [address] ALP [Catalytic activity/Vol] 44 U/L Normal 33-110 [facility] Comment on above: Performed By: #### 2 4323-8 #### DAX CUI (41434) [facility] ([facility]) [address] [place] [address] 49895 ALT With P-5'-P [Catalytic activity/Vol] 11 U/L Normal 7-45 [facility] Comment on above: Result Comment: Radha ents treated with Sulfasalazine may generate falsely decreased results for ALT. Performed By: #### 2 4323-8 #### DAX CUI (97213) [facility] ([facility]) [address] [place] [address] Anion gap [Moles/Vol] 13 mmol/L Normal 10-20 [facility] Comment on above: Performed By: #### 2 4323-8 #### DAX CUI (95620) [facility] ([facility]) [address] [place] [address] AST With P-5'-P [Catalytic activity/Vol] 16 U/L Normal 9-39 [facility] Comment on above: Performed By: #### 2 4323-8 #### DAX CUI (24254) [facility] ([facility]) [address] [place] [address] Bilirubin [Mass/Vol] 0.9 mg/dL Normal 0.0-1.2 [facility] Comment on above: Performed By: #### 2 4323-8 #### DAX CUI (45494) [facility] ([facility]) [address] [place] [address] 16438 Calcium [Mass/Vol] 9.8 mg/dL Normal 8.6-10.3 [facility] Comment on above: Performed By: #### 2 4323-8 #### DAX CUI (20271) [facility] ([facility]) [facility] [place] [address] Chloride [Moles/Vol] 107 mmol/L Normal 98-107 [facility] Comment on above: Performed By: #### 2 4323-8 #### DAX CUI (59684) [facility] ([facility]) [address] [place] [address] CO2 [Moles/Vol] 23 mmol/L Normal 21-32 [facility] Comment on above: Performed By: #### 2 4323-8 #### DAX CUI (78985) [facility] ([facility]) [address] [place] [address] 66151 Creatinine [Mass/Vol] 1.08 mg/dL High 0.50-1.05 [facility] Comment on above: Performed By: #### 2 4323-8 #### DAX CUI (79560) [facility] ([facility]) [address] [place] [address] 26292 GFR/1.73 sq M.predicted MDRD (S/P/Bld) [Vol rate/Area] 60 mL/min/1.73m*2 Low >60 [facility] Comment on above: Result Comment: Calc ulations of estimated GFR are performed using the 2020 CKD-EPI Study Refit equation without the race variable for the IDMS-Traceable creatinine methods. https://jasn.asnjournals.org/content/early//ASN.70056 80606 Performed By: #### 2 4323-8 #### DAX CUI (94420) [facility] ([facility]) [address] [place] [address] 33131 Glucose [Mass/Vol] 89 mg/dL Normal 74-99 [facility] Comment on above: Performed By: #### 2 4323-8 #### DAX CUI (03865) [facility] ([facility]) [address] [place] [address] Potassium [Moles/Vol] 4.7 mmol/L Normal 3.5-5.3 [facility] Comment on above: Performed By: #### 2 4323-8 #### DAX CUI (87525) [facility] ([facility]) [address] [place] [address] 36493 Protein [Mass/Vol] 7.2 g/dL Normal 6.4-8.2 [facility] Comment on above: Performed By: #### 2 4323-8 #### DAX CUI (14498) [facility] ([facility]) [address] [place] [address] 95707 Sodium [Moles/Vol] 138 mmol/L Normal 136-145 [facility] Comment on above: Performed By: #### 2 4323-8 #### DAX CUI (48601) [facility] ([facility]) [address] [place] [address] 82448 Urea nitrogen [Mass/Vol] 30 mg/dL High 6-23 [facility] Comment on above: Performed By: #### 2 4323-8 #### DAX CUI (51090) [facility] ([facility]) [address] [place] [address] 04380 HbA1c (Bld) [Mass fraction]o n 03-31-2023 Average glucose Estimated from glycated hemoglobin (Bld) [Mass/Vol] 94 mg/dL Normal Not Established [facility] Comment on above: Order Comment: Diagn osis of Diabetes-Adults Non-Diabetic: < or = 5.6% Increased risk for developing diabetes: 5.7-6.4% Diagnostic of diabetes: > or = 6.5% Monitoring of Diabetes Age (y)....................... Therapeutic Goal (%) Adults: >18.........................<7.0 Pediatrics: 13-18...................<7.5 Pediatrics: 7-12....................<8.0 Pediatrics: 0-6..................... 7.5-8.5 [employer]. Diabetes Care 33(S1), Apr 2009 Performed By: #### 4 548-4 #### DAX CUI (26556) [facility] ([facility]) [address] [place] [id number] Hemoglobin A1c/Hemoglobin.to alexy 03-31-2023 HbA1c (Bld) [Mass fraction] 4.9 % Normal see below [facility] Comment on above: Order Comment: Diagn osis of Diabetes-Adults Non-Diabetic: < or = 5.6% Increased risk for developing diabetes: 5.7-6.4% Diagnostic of diabetes: > or = 6.5% Monitoring of Diabetes Age (y)....................... Therapeutic Goal (%) Adults: >18.........................<7.0 Pediatrics: 13-18...................<7.5 Pediatrics: 7-12....................<8.0 Pediatrics: 0-6..................... 7.5-8.5 [employer]. Diabetes Care 33(S1), Apr 2009 Performed By: #### 4 548-4 #### DAX CUI (55786) [facility] ([facility]) [address] [place] [address] Insulinon 03-31-2023 Insulin Qn 12 u[IU]/mL Normal 3-25 [facility] Comment on above: Order Comment: Refer ence values apply to fasting specimens. Performed By: #### 2 0448-7 #### TRUE Lock (01033) [facility] ([facility]) [address] [place] [address] Ironon 03-31-2023 Iron [Mass/Vol] 208 ug/dL High 35-150 [facility] Comment on above: Performed By: #### 2 498-4 #### DAX CUI (15281) [facility] ([facility]) [facility] [place] [address] Lipid 1996 panelon 3 Cholesterol [Mass/Vol] 242 mg/dL High 0-199 [facility] Comment on above: Result Comment: Age [...] By: #### 2 4331-1 #### DAX CUI (18631) [facility] ([facility]) [address] [place] [address] 88270 Cholesterol in HDL [Mass/Vol] 54.0 mg/dL Normal [facility] Comment on above: Result Comment: Age Very Low Low Normal High 0-19 Y < 35 < 40 40-45 ---- 20-24 Y ---- < 40 >45 ---- >24 Y ---- < 40 40-60 >60 Performed By: #### 2 4331-1 #### DAX CUI (15528) [facility] ([facility]) [address] [place] [address] 85444 Cholesterol in LDL [Mass/Vol] 169 mg/dL High <=99 [facility] Comment on above: Result Comment: Near Borderline AGE Desirable Optimal High High Very High 0-19 Y 0 - 109 --- 110-129 >/= 130 ---- 20-24 Y 0 - 119 --- 120-159 >/= 160 ---- >24 Y 0 - 99 100-129 130-159 160-189 >/=190 Performed By: #### 2 4331-1 #### DAX CUI (66085) [facility] ([facility]) [facility] [place] [address] Cholesterol in VLDL [Mass/Vol] 19 mg/dL Normal 0-40 [facility] Comment on above: Performed By: #### 2 4331-1 #### DAX CUI (70021) [facility] ([facility]) [facility] [place] [address] CHOLESTEROL/HDL RATIO 4.5 Normal [facility] Comment on above: Result Comment: Ref Values Desirable < 3.4 High Risk > 5.0 Performed By: #### 2 4331-1 #### DAX CUI (40238) [facility] ([facility]) [address] [place] [address] 62841 NON HDL CHOLESTEROL 188 mg/dL High 0-149 [facility] Comment on above: Result Comment: Age Desirable Borderline High High Very High 0-19 Y 0 - 119 120 - 144 >/= 145 >/= 160 20-24 Y 0 - 149 150 - 189 >/= 190 ---- >24 Y 30 mg/dL above LDL Cholesterol goal Performed By: #### 2 4331-1 #### DAX CUI (50613) [facility] ([facility]) [address] [place] [address] 26444 Triglyceride [Mass/Vol] 93 mg/dL Normal 0-149 [facility] Comment on above: Result Comment: Age Desirable [...] By: #### 2 4331-1 #### DAX CUI (18313) [facility] ([facility]) [address] [place] [address] 83098 Thyrotropinon 03-31-2023 TSH Qn 1.17 m[IU]/L Normal 0.44-3.98 [facility] Comment on above: Order Comment: TSH t esting is performed using different testing methodology at [facility] than at [facility]. Direct result comparisons should only be made within the same method. Performed By: #### 3 016-3 #### DAX CUI (45607) [facility] ([facility]) [address] [place], [place] [id number] Thyroxineon 03-31-2023 T4 [Mass/Vol] 5.4 ug/dL Normal 4.5-11.1 [facility] Comment on above: Performed By: #### 3 026-2 #### TRUE Lock (25295) [facility] ([facility]) [address] [place] [address] Triiodothyronineon T3 [Mass/Vol] 106 ng/dL Normal 60-200 [facility] Comment on above: Performed By: #### 3 053-6 #### TRUE Lock (86551) [facility] ([facility]) [address] [place] [address] No Panel Informationon 03-01 Degenerative change without osseous injury evident. MACRO: None Signed by: Michele Kimble 03/01/2023 7:38 PM Dictation workstation: [id number] Interpreted By: Michele Kimble, STUDY: Right wrist and hand dated 03/01/2023 INDICATION: Signs/Symptoms:R hand/thumb/wrist/di stal forearm pain (radial aspect) after hitting hand on a door frame 4 days ago. COMPARISON: None. ACCESSION NUMBER(S): [id number]; [id number] ORDERING CLINICIAN: CARLOS MANUEL OCHOA TECHNIQUE: Four [...] 4 days ago. COMPARISON: None. ACCESSION NUMBER(S): [id number]; [id number] ORDERING CLINICIAN: CARLOS MANUEL OCHOA TECHNIQUE: Four [...] Michele Kimble 03/01/2023 7:38 PM Dictation workstation: [id number] [facility] Work Phone: Radiology Study observation (narrative) [facility] Work Phone: No Panel InformationOrdered By: Michele Kimble on 03-01-2023 [facility] Work Phone: XR HAND RIGHT 3+ VIEWSon XR HAND RIGHT 3+ VIEWS Interpreted By: Michele Kimble, STUDY: Right wrist and hand dated 03/01/2023 INDICATION: Signs/Symptoms:R hand/thumb/wrist/di stal forearm pain (radial aspect) after hitting hand on a door frame 4 days ago. COMPARISON: None. ACCESSION NUMBER(S): [id number]; [id number] ORDERING CLINICIAN: CARLOS MANUEL OCHOA TECHNIQUE: Four [...] Michele Kimble 03/01/2023 7:38 PM Dictation workstation: [id number] [facility] XR WRIST RIGHT 3+ VIEWSon XR WRIST RIGHT 3+ VIEWS Interpreted By: Michele Kimble, STUDY: Right wrist and hand dated 03/01/2023 INDICATION: Signs/Symptoms:R hand/thumb/wrist/di stal forearm pain (radial aspect) after hitting hand on a door frame 4 days ago. COMPARISON: None. ACCESSION NUMBER(S): [id number]; [id number] ORDERING CLINICIAN: CARLOS MANUEL OCHOA TECHNIQUE: Four [...] Michele Kimble 03/01/2023 7:38 PM Dictation workstation: [id number] [facility] CBC AUTO DIFFon 08-10-2022 BASO # 0.0 103/ul Normal 0.0-0.1 [facility] Comment on above: Performed By: #### E RUR #### [facility] [address] [place] [address] Dr. Anastasia Moran Basophils/100 WBC (Bld) 0.1 % Critically low 0.2-2.0 [facility] Comment on above: Performed By: #### E RUR #### [facility] [address] [place] [address] Dr. Anastasia Moran EO # 0.2 103/ul Normal 0.0-0.7 [facility] Comment on above: Performed By: #### E RUR #### [facility] [address] [place] [address] Dr. Anastasia Moran Eosinophils/100 WBC (Bld) 2.1 % Normal 0.9-7.0 [facility] Comment on above: Performed By: #### E RUR #### [facility] [address] [place] [address] Dr. Anastasia Moran Erythrocyte distribution width (RBC) [Ratio] 12.5 % Normal 11.0-15.0 [facility] Comment on above: Performed By: #### E RUR #### [facility] [address] [place] [address] Dr. Anastasia Moran Hematocrit (Bld) [Volume fraction] 32.9 % Critically low 36.0-48.0 [facility] Comment on above: Performed By: #### E RUR #### [facility] [address] [place] [address] Dr. Anastasia Moran Hemoglobin (Bld) [Mass/Vol] 11.0 g/dL Critically low 12.0-16.0 [facility] Comment on above: Performed By: #### E RUR #### [facility] [address] [place] [address] Dr. Anastasia Moran IG # 0.02 10e3/ul Normal 0.00-0.03 [facility] Comment on above: Performed By: #### E RUR #### [facility] [address] [place] [address] Dr. Anastasia Moran IG % 0.2 % Normal 0.0-0.5 [facility] Comment on above: Performed By: #### E RUR #### [facility] [address] [place] [address] Dr. Anastasia Moran LYMPH # 2.7 103/ul Normal 1.2-3.8 [facility] Comment on above: Performed By: #### E RUR #### [facility] [address] [place] [address] Dr. Anastasia Moran Lymphocytes/100 WBC (Bld) 33.4 % Normal 20.5-60.0 [facility] Comment on above: Performed By: #### E RUR #### [facility] [address] [place] [address] Dr. Anastasia Moran MANUAL DIFF REQ NO Normal [facility] Comment on above: Performed By: #### E RUR #### [facility] [address] [place] [address] Dr. Anastasia Moran MCH (RBC) [Entitic mass] 29.6 pg Normal 26.7-34.0 [facility] Comment on above: Performed By: #### E RUR #### [facility] [address] [place] [address] Dr. Anastasia Moran MCHC (RBC) [Mass/Vol] 33.4 g/dL Normal 29.9-35.2 [facility] Comment on above: Performed By: #### E RUR #### [facility] [address] [place] [address] Dr. Anastasia Moran MCV (RBC) [Entitic vol] 88.7 fL Normal 81.0-99.0 [facility] Comment on above: Performed By: #### E RUR #### [facility] [address] [place] [address] Dr. Anastasia Moran MONO # 0.6 103/ul Normal 0.3-0.8 [facility] Comment on above: Performed By: #### E RUR #### [facility] [address] [place] [address] Dr. Anastasia Moran Monocytes/100 WBC (Bld) 6.8 % Normal 1.7-12.0 [facility] Comment on above: Performed By: #### E RUR #### [facility] [address] [place] [address] Dr. Anastasia Moran NEUT # 4.7 103/ul Normal 1.4-6.5 [facility] Comment on above: Performed By: #### E RUR #### [facility] [address] [place] [address] Dr. Anastasia Moran Neutrophils/100 WBC (Bld) 57.4 % Normal 43.0-75.0 [facility] Comment on above: Performed By: #### E RUR #### [facility] [address] [place] [address] Dr. Anastasia Moran Platelet mean volume (Bld) [Entitic vol] 9.5 fL Normal 9.5-13.5 [facility] Comment on above: Performed By: #### E RUR #### [facility] [address] [place] [address] Dr. Anastasia Moran PLT 250 103/ul Normal 150-450 [facility] Comment on above: Performed By: #### E RUR #### [facility] [address] [place] [address] [address] Anastasia Moran RBC 3.71 106/ul Critically low 4.20-5.40 [facility] Comment on above: Performed By: #### E RUR #### [facility] [address] [place] [address] Dr. Anastasia Moran WBC 8.2 103/ul Normal 4.0-11.0 [facility] Comment on above: Performed By: #### E RUR #### [facility] [address] [place] [address] ABD/PELVIS WO CONon [...] CED [place] Date: 2022-08-10 16:24 Normal [facility] ER URINE PROFILEon 3 Bilirubin Ql (U) Negative Normal NEGATIVE [facility] Comment on above: Performed By: #### E RUR #### [facility] [address] [place] [address] Dr. Anastasia Moran Clarity (U) CLEAR Normal CLEAR [facility] Comment on above: Performed By: #### E RUR #### [facility] [address] [place] [address] Dr. Anastasia Moran Color (U) LT. YELLOW Normal YELLOW [facility] Comment on above: Performed By: #### E RUR #### [facility] [address] [place] [address] Dr. Anastasia LEON A micrscopic examination will be performed if indicated. Normal [facility] Comment on above: Performed By: #### E RUR #### [facility] [address] [place] [address] Dr. Anastasia Moran Glucose Ql (U) Negative Normal NEGATIVE [facility] Comment on above: Performed By: #### E RUR #### [facility] [address] [place] [address] Dr. Anastasia Moran Hemoglobin Ql (U) Negative Normal NEGATIVE [facility] Comment on above: Performed By: #### E RUR #### [facility] [address] [place] [address] Dr. Anastasia Moran Ketones Ql (U) Negative Normal NEGATIVE [facility] Comment on above: Performed By: #### E RUR #### [facility] [address] [place] [address] Dr. Anastasia Moran LEUKOCYTES Negative Normal NEGATIVE [facility] Comment on above: Performed By: #### E RUR #### [facility] [address] [place] [address] Dr. Anastasia Moran Nitrite Ql (U) Negative Normal NEGATIVE [facility] Comment on above: Performed By: #### E RUR #### [facility] [address] [place] [address] Dr. Anastasia Moran pH (U) 6.0 [pH] Normal 5-9 [facility] Comment on above: Performed By: #### E RUR #### [facility] [address] [place] [address] Dr. Anastasia Moran SPEC GRAVITY 1.025 Normal 1.005-<=1.025 [facility] Comment on above: Performed By: #### E RUR #### [facility] [address] [place] [address] Dr. Anastasia Moran UA PROTEIN Negative Normal NEGATIVE/ TRACE [facility] Comment on above: Performed By: #### E RUR #### [facility] [address] [place] [address] Dr. Anastasia Moran UR MICRO IND NOT INDICATED Normal [facility] Comment on above: Performed By: #### E RUR #### [facility] [address] [place] [address] Dr. Anastasia Moran Urobilinogen Qn (U) 0.2 {Rashid'U}/dL Normal 0.2 - 1. 0 [facility] Comment on above: Performed By: #### E RUR #### [facility] [address] [place] [address] Dr. Anastasia Moran PROF CHEM 8 (BAS METB)on Anion gap [Moles/Vol] 12.5 mmol/L Normal [facility] Comment on above: Performed By: #### E RUR #### [facility] [address] [place] [address] Dr. Anastasia Moran Calcium [Mass/Vol] 9.4 mg/dL Normal 8.5-10.1 [facility] Comment on above: Performed By: #### E RUR #### [facility] [address] [place] [address] Dr. Anastasia Moran Chloride [Moles/Vol] 104 mmol/L Normal 98-107 [facility] Comment on above: Performed By: #### E RUR #### [facility] [address] [address] [address] Anastasia Moran CO2 [Moles/Vol] 25.9 mmol/L Normal 21.0-32.[address] [facility] Comment on above: Performed By: #### E RUR #### [facility] [address] [address] [address] Anastasia Moran Creatinine [Mass/Vol] 0.98 mg/dL Normal 0.55-1.02 [facility] Comment on above: Performed By: #### E RUR #### [facility] [address] [address] [address] Anastasia Moran EGFR-AF ISRAELI >60 Normal >=60 [facility] Comment on above: Performed By: #### E RUR #### [facility] [address] [address] [address] Anastasia Moran EGFR-NON AF ISRAELI 59 mL/min/1.73m2 Critically low >=60 [facility] Comment on above: Performed By: #### E RUR #### [facility] [address] [address] [address] Anastasia Moran Glucose [Mass/Vol] 87 mg/dL Normal 74-106 [facility] Comment on above: Performed By: #### E RUR #### [facility] [address] [address] [address] Anastasia Moran Potassium [Moles/Vol] 3.4 mmol/L Critically low 3.5-5.1 [facility] Comment on above: Performed By: #### E RUR #### [facility] [address] [address] [address] Anastasia Moran Sodium [Moles/Vol] 139 mmol/L Normal 136-145 [facility] Comment on above: Performed By: #### E RUR #### [facility] [address] [address] [address] Anastasia Moran Urea nitrogen [Mass/Vol] 14.0 mg/dL Normal 7.0-18.0 [facility] Comment on above: Performed By: #### E RUR #### [facility] [address] [place] [address] Dr. Anastasia Moran Urea nitrogen/Creatinine [Mass ratio] 14.3 mg/mg Normal [facility] Comment on above: Performed By: #### E RUR #### [facility] [address] [place] [address] Dr. Anastasia Moran Covid-19 PCR ([facility])on SARS-CoV-2 (COVID-19) RNA THALIA+probe Ql (Unsp spec) Not detected Normal NOT DETECTED [facility] Comment on above: Result Comment: This test is not yet approved or cleared by the [place] FDA. When there are no FDA-approved or cleared tests available, and other criteria are met, FDA can make tests available under an emergency access mechanism called an Emergency Use Authorization (EUA). The EUA for this test is supported by the Avenue of Health and Human Service's (HHS's) declaration [...] SARS-CoV-2. Performed By: #### E RUR #### [facility] [address] [place] [address] Dr. Anastasia Moran INFLUENZA A AND B AGon 04-06 INFLUANEGH SEE BELOW Normal [facility] Comment on above: Result Comment: Nega tive for Flu A protein angiten. Infection due to Flu A cannot be ruled out. Flu A angiten in the sample may be below the detection limit of the test. Performed By: #### E RUR #### [facility] [address] [place] [address] Dr. Anastasia Moran INFLUBNEG SEE BELOW Normal [facility] Comment on above: Result Comment: Nega tive for Flu B protein antigen. Infection due to Flu B cannot be ruled out. Flu B antigen in the sample may be below the detection limit of the test. Performed By: #### E RUR #### [facility] [address] [place] [address] Dr. Anastasia Moran INFLUENZA A AG Negative Normal NEGATIVE SEE COMMENT [facility] Comment on above: Performed By: #### E RUR #### [facility] [address] [place] [address] Dr. Anastasia Moran INFLUENZA B AG Negative Normal NEGATIVE SEE COMMENT [facility] Comment on above: Performed By: #### E RUR #### [facility] [address] [place] [address] Dr. Anastasia Moran INTERNAL CONTROLS Within Normal Limits Normal Within Normal Limits [facility] Comment on above: Performed By: #### E RUR #### [facility] [address] [place] [address] Dr. Anastasia Moran T4 [facility]on 10-06-2021 T4 [Mass/Vol] 8.7 ug/dL Normal 4.5-12.0 [facility] Comment on above: Performed By: #### E RUR #### [facility] [address] [place] [address] Dr. Anastasia Moran INSULINon 09-29-2021 Insulin 11.6 uIU/mL Normal 2.6-24.9 [facility] Comment on above: Performed By: #### I NSULIN #### [facility] [address] [place] [address] Dr. Anastasia Moran CBC AUTO DIFFon 09-28-2021 BASO # 0.0 103/ul Normal 0.0-0.1 [facility] Comment on above: Performed By: #### E RUR #### [facility] [address] [place] [address] Dr. Anastasia Moran Basophils/100 WBC (Bld) 0.2 % Normal 0.2-2.0 [facility] Comment on above: Performed By: #### E RUR #### [facility] [address] [place] [address] Dr. Anastasia Moran EO # 0.1 103/ul Normal 0.0-0.7 [facility] Comment on above: Performed By: #### E RUR #### [facility] [address] [place] [address] Dr. Anastasia Moran Eosinophils/100 WBC (Bld) 0.9 % Normal 0.9-7.0 [facility] Comment on above: Performed By: #### E RUR #### [facility] [address] [place] [address] Dr. Anastasia Moran Erythrocyte distribution width (RBC) [Ratio] 12.9 % Normal 11.0-15.0 [facility] Comment on above: Performed By: #### E RUR #### [facility] [address] [place] [address] Dr. Anastasia Moran Hematocrit (Bld) [Volume fraction] 37.7 % Normal 36.0-48.0 [facility] Comment on above: Performed By: #### E RUR #### [facility] [address] [place] [address] Dr. Anastasia Moran Hemoglobin (Bld) [Mass/Vol] 12.5 g/dL Normal 12.0-16.0 [facility] Comment on above: Performed By: #### E RUR #### [facility] [address] [place] [address] Dr. Anastasia Moran IG # 0.02 10e3/ul Normal 0.00-0.03 [facility] Comment on above: Performed By: #### E RUR #### [facility] [address] [place] [address] Dr. Anastasia Moran IG % 0.2 % Normal 0.0-0.5 [facility] Comment on above: Performed By: #### E RUR #### [facility] [address] [place] [address] Dr. Anastasia Moran LYMPH # 2.5 103/ul Normal 1.2-3.8 [facility] Comment on above: Performed By: #### E RUR #### [facility] [address] [place] [address] Dr. Anastasia Moran Lymphocytes/100 WBC (Bld) 28.5 % Normal 20.5-60.0 [facility] Comment on above: Performed By: #### E RUR #### [facility] [address] [place] [address] Dr. Anastasia Moran MANUAL DIFF REQ NO Normal [facility] Comment on above: Performed By: #### E RUR #### [facility] [address] [place] [address] Dr. Anastasia Moran MCH (RBC) [Entitic mass] 30.7 pg Normal 26.7-34.0 [facility] Comment on above: Performed By: #### E RUR #### [facility] [address] [place] [address] Dr. Anastasia Moran MCHC (RBC) [Mass/Vol] 33.2 g/dL Normal 29.9-35.2 [facility] Comment on above: Performed By: #### E RUR #### [facility] [address] [place] [address] Dr. Anastasia Moran MCV (RBC) [Entitic vol] 92.6 fL Normal 81.0-99.0 [facility] Comment on above: Performed By: #### E RUR #### [facility] [address] [place] [address] Dr. Anastasia Moran MONO # 0.5 103/ul Normal 0.3-0.8 [facility] Comment on above: Performed By: #### E RUR #### [facility] [address] [place] [address] Dr. Anastasia Moran Monocytes/100 WBC (Bld) 6.3 % Normal 1.7-12.0 [facility] Comment on above: Performed By: #### E RUR #### [facility] [address] [place] [address] Dr. Anastasia Moran NEUT # 5.5 103/ul Normal 1.4-6.5 [facility] Comment on above: Performed By: #### E RUR #### [facility] [address] [place] [address] Dr. Anastasia Moran Neutrophils/100 WBC (Bld) 63.9 % Normal 43.0-75.0 [facility] Comment on above: Performed By: #### E RUR #### [facility] [address] [place] [address] Dr. Anastasia Moran Platelet mean volume (Bld) [Entitic vol] 9.7 fL Normal 9.5-13.5 [facility] Comment on above: Performed By: #### E RUR #### [facility] [address] [address] [address] Anastasia Moran PLT 246 103/ul Normal 150-450 [facility] Comment on above: Performed By: #### E RUR #### [facility] [address] [place] [address] Dr. Anastasia Moran RBC 4.07 106/ul Critically low 4.20-5.40 [facility] Comment on above: Performed By: #### E RUR #### [facility] [address] [place] [address] Dr. Anastasia Moran WBC 8.6 103/ul Normal 4.0-11.0 [facility] Comment on above: Performed By: #### E RUR #### [facility] [address] [place] [address] Dr. Anastasia Moran FREE THYROXINE INDEX T7on FTI 2.61 Normal 1.30-4.50 [facility] Comment on above: Performed By: #### L IPID, CMP, TSH, T7 #### [facility] [address] [place] [address] Dr. Anastasia Moran T3U 30.0 % Normal 30.0-39.0 [facility] Comment on above: Performed By: #### L IPID, CMP, TSH, T7 #### [facility] [address] [place] [address] Dr. Anastasia Moran T4 [Mass/Vol] 8.70 ug/dL Normal 4.80-13.90 [facility] Comment on above: Result Comment: T4 t esting performed by [facility] Performed By: #### L IPID, CMP, TSH, T7 #### [facility] [address] [address] [address] Anastasia Moran GLYCOHEMOGLOBIN A1Con 2021 ADA RECOMMENDATION SEE BELOW Normal [facility] Comment on above: Result Comment: ADA RECOMMENDED LIMIT 4.0 - 6.0 ADA THERAPEUTIC TARGET < 7.0 ACTION SUGGESTED > 7.0 Performed By: #### E RUR #### [facility] [address] [address] [address] Anastasia Moran Glucose [Mass/Vol] 111 mg/dL Normal [facility] Comment on above: Performed By: #### E RUR #### [facility] [address] [address] [address] Anastasia Moran HbA1c (Bld) [Mass fraction] 5.5 % Normal 4.5-6.2 [facility] Comment on above: Performed By: #### E RUR #### [facility] [address] [address] [address] Anastasia Moran IRONon 09-28-2021 Iron [Mass/Vol] 71.0 ug/dL Normal 50.0-170.0 [facility] Comment on above: Performed By: #### V ITAD, VITB12, IRON #### [facility] [address] [address] [address] Anastasia Moran LIPID PROFILEon 09-28-2021 CHOL-HDL RATIO NORM SEE BELOW Normal [facility] Comment on above: Result Comment: 3.3 - 4.4 LOW RISK 4.4 - 7.1 AVERAGE RISK 7.1 - 11.0 MODERATE RISK >11.0 HIGH RISK Performed By: #### L IPID, CMP, TSH, T7 #### [facility] [address] [address] [address] Anastasia Moran Cholesterol [Mass/Vol] 229 mg/dL Critically high <=200 [facility] Comment on above: Performed By: #### L IPID, CMP, TSH, T7 #### [facility] [address] [address] [address] Anastasia Moran Cholesterol in HDL [Mass/Vol] 63 mg/dL Critically high 40-60 [facility] Comment on above: Performed By: #### L IPID, CMP, TSH, T7 #### [facility] [address] [address] [address] Anastasia Moran Cholesterol in LDL [Mass/Vol] 152.0 mg/dL Normal [facility] Comment on above: Performed By: #### L IPID, CMP, TSH, T7 #### [facility] [address] [address] [address] Anastasia Moran Cholesterol.total/Chol esterol in HDL [Mass ratio] 3.6 {ratio} Normal [facility] Comment on above: Performed By: #### L IPID, CMP, TSH, T7 #### [facility] [address] [address] [address] Anastasia Moran HDL NORMAL > or = 60 mg/dl - LOW CARDIOVASCULAR RISK <40 mg/dl - HIGH CARDIOVASCULAR RISK Normal [facility] Comment on above: Performed By: #### L IPID, CMP, TSH, T7 #### [facility] [address] [address] [address] Anastasia Moran LDL CALC NORMAL SEE BELOW Normal [facility] Comment on above: Result Comment: <100 mg/dl OPTIMAL 100 - 129 mg/dl NEAR OR ABOVE OPTIMAL 130 - 159 mg/dl BORDERLINE HIGH 160 - 189 mg/dl HIGH >190 mg/dl VERY HIGH Performed By: #### L IPID, CMP, TSH, T7 #### [facility] [address] [address] [address] Anastasia Moran Triglyceride [Mass/Vol] 70 mg/dL Normal <=150 [facility] Comment on above: Performed By: #### L IPID, CMP, TSH, T7 #### [facility] [address] [address] [address] Anastasia Moran VLDL CALC 14.0 mg/dL Normal [facility] Comment on above: Performed By: #### L IPID, CMP, TSH, T7 #### [facility] [address] [address] [address] Anastasia Moran PROF 14(COMP METB)on 022 Albumin [Mass/Vol] 4.3 g/dL Normal 3.4-5.0 [facility] Comment on above: Performed By: #### L IPID, CMP, TSH, T7 #### [facility] [address] [place] [address] Dr. Anastasia Moran Albumin/Globulin [Mass ratio] 1.2 {ratio} Normal [facility] Comment on above: Performed By: #### L IPID, CMP, TSH, T7 #### [facility] [address] [place] [address] Dr. Anastasia Moran ALP [Catalytic activity/Vol] 45 U/L Critically low 46-116 [facility] Comment on above: Performed By: #### L IPID, CMP, TSH, T7 #### [facility] [address] [place] [address] Dr. Anastasia Moran ALT [Catalytic activity/Vol] 20 U/L Normal 14-59 [facility] Comment on above: Performed By: #### L IPID, CMP, TSH, T7 #### [facility] [address] [place] [address] Dr. Anastasia Moran Anion gap [Moles/Vol] 12.3 mmol/L Normal [facility] Comment on above: Performed By: #### L IPID, CMP, TSH, T7 #### [facility] [address] [place] [address] Dr. Anastasia Moran AST [Catalytic activity/Vol] 16 U/L Normal 15-37 [facility] Comment on above: Performed By: #### L IPID, CMP, TSH, T7 #### [facility] [address] [place] [address] Dr. Anastasia Moran Bilirubin [Mass/Vol] 0.5 mg/dL Normal 0.2-1.0 [facility] Comment on above: Performed By: #### L IPID, CMP, TSH, T7 #### [facility] [address] [place] [address] Dr. Anastasia Moran Calcium [Mass/Vol] 9.4 mg/dL Normal 8.5-10.1 [facility] Comment on above: Performed By: #### L IPID, CMP, TSH, T7 #### [facility] [address] [address] [address] Anastasia Moran Chloride [Moles/Vol] 103 mmol/L Normal 98-107 [facility] Comment on above: Performed By: #### L IPID, CMP, TSH, T7 #### [facility] [address] [address] [address] Anastasia Moran CO2 [Moles/Vol] 27.8 mmol/L Normal 21.0-32.[address] [facility] Comment on above: Performed By: #### L IPID, CMP, TSH, T7 #### [facility] [address] [address] [address] Anastasia Moran Creatinine [Mass/Vol] 0.87 mg/dL Normal 0.55-1.02 [facility] Comment on above: Performed By: #### L IPID, CMP, TSH, T7 #### [facility] [address] [address] [address] Anastasia Moran EGFR-AF ISRAELI >60 Normal >=[address] [facility] Comment on above: Performed By: #### L IPID, CMP, TSH, T7 #### [facility] [address] [address] [address] Anastasia Moran EGFR-NON AF ISRAELI >60 Normal >=60 [facility] Comment on above: Performed By: #### L IPID, CMP, TSH, T7 #### [facility] [address] [address] [address] Anastasia Moran Globulin (S) [Mass/Vol] 3.5 g/dL Normal [facility] Comment on above: Performed By: #### L IPID, CMP, TSH, T7 #### [facility] [address] [address] [address] Anastasia Moran Glucose [Mass/Vol] 89 mg/dL Normal 74-106 [facility] Comment on above: Performed By: #### L IPID, CMP, TSH, T7 #### [facility] [address] [address] [address] Anastasia Moran Potassium [Moles/Vol] 4.1 mmol/L Normal 3.5-5.1 [facility] Comment on above: Performed By: #### L IPID, CMP, TSH, T7 #### [facility] [address] [place] [address] Dr. Anastasia Moran Protein [Mass/Vol] 7.8 g/dL Normal 6.4-8.2 [facility] Comment on above: Performed By: #### L IPID, CMP, TSH, T7 #### [facility] [address] [place] [address] Dr. Anastasia Moran Sodium [Moles/Vol] 139 mmol/L Normal 136-145 [facility] Comment on above: Performed By: #### L IPID, CMP, TSH, T7 #### [facility] [address] [place] [address] Dr. Anastasia Moran Urea nitrogen [Mass/Vol] 14.0 mg/dL Normal 7.0-18.0 [facility] Comment on above: Performed By: #### L IPID, CMP, TSH, T7 #### [facility] [address] [place] [address] Dr. Anastasia Moran Urea nitrogen/Creatinine [Mass ratio] 16.1 mg/mg Normal [facility] Comment on above: Performed By: #### L IPID, CMP, TSH, T7 #### [facility] [address] [place] [address] Dr. Anastasia Moran TSHon 09-28-2021 TSH 0.565 uIU/mL Normal 0.358-3.740 [facility] Comment on above: Performed By: #### L IPID, CMP, TSH, T7 #### [facility] [address] [place] [address] Dr. Anastasia Moran TSH RANGE SEE BELOW Normal [facility] Comment on above: Result Comment: <0.3 4 UIU/ml HYPERTHYROID 0.34-5.60 UIU/ml EUTHYROID >5.60 UIU/ml HYPOTHYROID Performed By: #### L IPID, CMP, TSH, T7 #### [facility] [address] [place] [address] Dr. Anastasia Moran VITAMIN B12on 09-28-2021 Cobalamin (Vitamin B12) [Mass/Vol] 616.0 pg/mL Normal 193.0-986.0 [facility] Comment on above: Performed By: #### V ITAD, VITB12, IRON #### [facility] [address] [address] [address] Anastasia Moran VITAMIN D 25 OHon 09-28-2021 VIT D 25-OH 61.7 ng/mL Normal [facility] Comment on above: Performed By: #### V ITAD, VITB12, IRON #### [facility] [address] [address] [address] Anastasia Moran VIT D RANGES SEE BELOW Normal [facility] Comment on above: Result Comment: <20 ng/mL Vit D deficient 20 - <30 ng/mL Vit D insufficient 30 - 100 ng/mL Vit D sufficient >100 ng/mL Potential Toxicity Performed By: #### V ITAD, VITB12, IRON #### [facility] [address] [address] [address] Anastasia Moran Physician Referralon 021 Physician Referral [id number] Normal [facility] Vital Signs Date Time Vital Sign Value Performing Clinician Facility 03-01-2023 18:03-0400 Body height 167.6 cm Carlos Manuel Ochoa APRN-SECURITY SYSTEM ENGINEER Work Phone: [facility] 03-01-2023 18:03-0400 Body mass index (BMI) [Ratio] 32.46 kg/m2 Carlos Manuel Ochoa CARDIAC CARE UNIT NURSE-SECURITY SYSTEM ENGINEER Work Phone: [facility] 03-01-2023 18:03-0400 Body temperature 98.2 [degF] Carlos Manuel Ochoa APRN-SECURITY SYSTEM ENGINEER Work Phone: [facility] 03-01-2023 18:03-0400 Body weight 91.22 kg Carlos Manuel Ochoa APRN-SECURITY SYSTEM ENGINEER Work Phone: [facility] 03-01-2023 18:03-0400 Diastolic blood pressure 87 mm[Hg] Carlos Manuel Ochoa CARDIAC CARE UNIT NURSE-SECURITY SYSTEM ENGINEER Work Phone: [facility] [facility] 03-01-2023 18:03-0400 Heart rate 84 /min Carlos Manuel Ochoa CARDIAC CARE UNIT NURSE-SECURITY SYSTEM ENGINEER Work Phone: [facility] 03-01-2023 18:03-0400 Respiratory rate 18 /min Carlos Manuel Don CARDIAC CARE UNIT NURSE-SECURITY SYSTEM ENGINEER Work Phone: [facility] 03-01-2023 18:03-0400 SaO2% (BldA) [Mass fraction] 100 % Carlos Manuel Ochoa CARDIAC CARE UNIT NURSE-SECURITY SYSTEM ENGINEER Work Phone: [facility] 03-01-2023 18:03-0400 Systolic blood pressure 156 mm[Hg] Carlos Manuel Ochoa CARDIAC CARE UNIT NURSE-SECURITY SYSTEM ENGINEER Work Phone: [facility] Encounters Encounter Date Encounter Type Care Provider Facility Start: 04-24-2023 End: 04-28-2023 ambulatory [facility] Start: 03-31-2023 End: 04-01-2023 ambulatory [facility] Start: 03-01-2023 End: 03-02-2023 ambulatory CARLOS MANUEL OCHOA [facility] Start: 03-01-2023 End: 03-01-2023 Subsequent hospital visit by physician Feng X-Ray [facility]oro [facility] Comment on above: Contusion of right w rist, initial encounter Contusion of right h and, initial encounter Start: 03-01-2023 End: 03-01-2023 ambulatory [facility] Start: 03-01-2023 End: 03-01-2023 Office outpatient new 30 minutes Carlos Manuel Ochoa CARDIAC CARE UNIT NURSE-SECURITY SYSTEM ENGINEER Work Phone: [facility] Comment on above: Contusion of right h and, initial encounter (Primary Dx); Contusion of right wrist, initial encounter Start: 08-10-2022 End: 08-10-[address] ROSEMARY NOEL . Facility: Start: 04-06-2022 End: 04-06-[address] ROSEMARY NOEL . Facility: Start: 09-29-2021 Encounter for genera l adult medical examination without abnormal findings DR ROSEMARY NOEL . [facility] Start: 09-28-2021 End: 09-29-[address] [...] complete minimum 3 views Carlos Manuel Ochoa CARDIAC CARE UNIT NURSE-SECURITY SYSTEM ENGINEER Work Phone: Plan of Treatment Date Care Activity Detail Author Start: 02-16-2027 DTaP/Tdap/Td Vaccine s (2 - Td or Tdap) DTaP/Tdap/Td Vaccines (2 - Td or Tdap) [facility] Start: 12-29-2022 Influenza vaccination Influenza Vacc ine (#1) [facility] Start: 11-19-2020 COVID-19 Vaccine (3 - Moderna series) COVID-19 Vaccine (3 - Moderna series) [facility] Start: 09-23-2015 Zoster Vaccines (1 of 2) Zoste r Vaccines (1 of 2) [facility] Start: 2005 Screening for malign ant neoplasm of breast Mammogram [facility] Start: 1986 Screening for malign ant neoplasm of cervix [facility] Start: 09-23-1983 Hepatitis C screening Hepatitis C Sc reening [facility] Start: 1966 MMR Vaccines (1 of 1 - Standard series) MMR Vaccines (1 of 1 - Standard series) [facility] Start: 1965 HIV screening [facility] Start: 1965 Lipid panel Lipid Panel [facility] Start: 1965 Screening for malign ant neoplasm of colon [facility] Start: 1965 Yearly Adult Physical Yearly Adult P hysical [facility] Immunizations Immunization Date Immunization Notes Care Provider Erasmo green 02-28-2022 influenza virus vacc ine, unspecified formulation [facility] Work Phone: Payers Date Payer Category Payer Unknown [employer] [id number] 2022-Present [address] [place] [address] [id number] 2022 Unknown [id number] 1965 Unknown [id number] 3 1965 Unknown [id number] 3 1965 Unknown [id number] 3 1965 Unknown [id number] 43 1965 Unknown [id number] 43 1965 Unknown [id number] 43 1965 Unknown [id number] 45 1965 Unknown [id number] 3 1965 Unknown [id number] 3 1959 Unknown [id number] Social History Date Type Detail Facility Start: 03-01-2023 [facility] Work Phone: Start: 03-01-2023 Tobacco use and exposure Smokeless tobacco non-user [facility] Work Phone: Start: 03-01-2023 History of Social function [facility] Work Phone: Start: 03-01-2023 Tobacco use panel [facility] Work Phone: Start: 1965 Sex Assigned At Not on file [facility] Work Phone: Start: 02-19-2023 End: 03-01-2023 Exposure to SARS-CoV-2 (event) Not sure [facility] History of Present illness Narrative 03-01-2023 MARGARITA Yu - 03/01/2023 4:30 PM EDT Note Date & Type Note Facility 03-01-2023 History of Present illness Narrative [facility] MARGARITA Yu Visit Note - [...] and answered. MARGARITA Yu Advanced Practice Provider [facility] documented in this encounter [facility] Work Phone: Evaluation note Note Date & Type Note Facility Evaluation note Diagnosis Contusion of right wrist, initial encounter documented in this encounter [facility] Work Phone: Evaluation note Note Date & Type Note Facility Evaluation note Diagnosis Contusion of right hand, initial encounter documented in this encounter [facility] Work Phone: Evaluation note Note Date & Type Note Facility Evaluation note Diagnosis Contusion of right hand, initial encounter- Primary Contusion of right wrist, initial encounter Contusion of right hand, initial encounter Contusion of right wrist, initial encounter documented in this encounter [facility] Work Phone: Summary Purpose Family [...] wrist right 3+ views Carlos Manuel Ochoa, CARDIAC CARE UNIT NURSE-SECURITY SYSTEM ENGINEER [address] [place] [address] Referral ID Status Reason Start Date Expiration Date Visits Requested Visits Authorized [id number] Authorized Perform Procedure 03/01/2023 02/29/2024 1 1 Specialty Diagnoses / Procedures Referred By Contac t Referred To Contact Radiology Diagnoses Contusion of right hand, initial encounter Procedures XR hand right 3+ views Carlos Manuel Ochoa, CARDIAC CARE UNIT NURSE-SECURITY SYSTEM ENGINEER [address] [place] [address] Referral ID Status Reason Start Date Expiration Date Visits Requested Visits Authorized [id number] Authorized Perform Procedure 03/01/2023 02/29/2024 1 1 Additional Source Comments INFORMATION SOURCE (unrecogn ized section and content) DATE CREATED AUTHOR 09/26/2020 [facility] DATE CREATED AUTHOR AUTHOR'S ORGANIZ ATION 08/14/2022 [facility] DATE CREATED AUTHOR AUTHOR'S ORGANIZ ATION 03/07/2023 [facility] DATE CREATED AUTHOR AUTHOR'S ORGANIZ ATION 04/06/2023 [facility] DATE CREATED AUTHOR AUTHOR'S ORGANIZ ATION 04/29/2023 [facility] Reason for Visit (unrecogniz ed section and content) Specialty Diagnoses / Procedures Referred By Contac t Referred To Contact Radiology Diagnoses Contusion of right wrist, initial encounter Procedures XR wrist right 3+ views Carlos Manuel Ochoa, CARDIAC CARE UNIT NURSE-SECURITY SYSTEM ENGINEER [address] [place] [address] Referral ID Status Reason Start Date Expiration Date Visits Requested Visits Authorized [id number] Authorized Perform Procedure 03/01/2023 02/29/2024 1 1 Specialty Diagnoses / Procedures Referred By Contac t Referred To Contact Radiology Diagnoses Contusion of right hand, initial encounter Procedures XR hand right 3+ views Carlos Manuel Ochoa, CARDIAC CARE UNIT NURSE-SECURITY SYSTEM ENGINEER [address] [place] [address] Referral ID Status Reason Start Date Expiration Date Visits Requested Visits Authorized [id number] Authorized Perform Procedure 03/01/2023 02/29/2024 1 1 Reason Comments Hand Injury Right sided hand giancarlo n. Moved and did hit in between doorway Care Teams (unrecognized sec tion and content) Multifocal Lens Assembler Relationship Specialty Start Date End Date Rosemary Noel MD [address] [place] [place] [address] PCP - General Family Medicine 03/01/23 Multifocal Lens Assembler Relationship Specialty Start Date End Date Rosemary Noel MD [address] [place] [address] PCP - General Family Medicine 03/01/23 FOR [...] BE BASED ON THE PRIMARY CLINICAL RECORDS. [email or web address] provides no warranty or guarantee of the accuracy or completeness of information in this document.
== END 2023-10-31 09:33 | disposition home or self-care (01) ==
LOC: MRI 09:32
PROVIDERS: PCP Family Medicine; Visit Provider Family Medicine
DX: M19.031 Primary osteoarthritis, right wrist (principal)
CPT/HCPCS: 73221

== ENCOUNTER 2024-02-05 10:57 | Outpatient (OUT) | payer BC, SELFPAY ==
--- OUTSIDE RECORDS SUMMARY | 2024-02-05 11:05 | XMS_ITS | CCD ---
Author Organization [facility] Care Team Providers Care Document Control Coordinator Name Role Phone MANUELA ., DR RILEY Primary Care Unavailable EARL, DR DEUCE Vann Admitting Unavailabl e EARL, DR DEUCE Vann Attending Unavailabl e ARUNA ., TINA GARCIA Consulting Unavailabl e CED CAMPOVERDE Consulting Unavailable HOY ., DR RILEY Admitting Unavailable HOY ., DR RILEY Attending Unavailable HOY ., DR RILEY Primary Care Unavailable HOY ., DR RILEY Consulting Unavailable HOY ., DR RILEY Admitting Unavailable HOY ., DR RILEY Attending Unavailable HOY ., DR RILEY Primary Care Unavailable BATSHEVAY ., DR RILEY Consulting Unavailable Rosemary Noel MD Primary Care Provider [phone] ROSEMARY NOEL Primary Care Unavailable PABLO STANTON Referring Unavailable MAXIMINO PABLO SABRY Admitting Unavailable ROSEMARY NOEL Primary Care Unavailable MAXIMINO PABLOFatuma LEE Attending Unavailable WILLIAM HERNANDEZ Attending Unavailable AFBIEN DAVENPORT Referring Unavailable ROSEMARY NOEL Primary Care Unavailable ROSEMARY NOEL Primary Care Unavailable ROSEMARY NOEL Primary Care Unavailable ROSEMARY NOEL Primary Care Unavailable DON, CARLOS MANUEL E Attending Unavailable DON, CARLOS MANUEL E Referring Unavailable ROSEMARY NOEL Primary Care Unavailable DON, CARLOS MANUEL E Referring Unavailable ROSEMARY NOEL Primary Care Unavailable ROSEMARY NOEL Primary Care Unavailable NEHA, HAFIZ A Admitting Unavailable NEHA, HAFIZ A Attending Unavailable NATHALY SANCHES Consulting Unava ilable Allergies Allergy Classification Reported Allergen(s) Allergy Type Date of Onset Reaction(s) Facility (1 source) Ibuprofen Drug Allergy 3 [facility] Repository (4 sources) Penicillins; Translations: [PENICILLINS] Drug allergy (disorder) 3 [facility] Repository (1 source) traMADol Drug Allergy 3 [facility] Repository (5 sources) Penicillins Propensity to adverse reactions 3 [facility] Medications Current Medications Medication Drug Class(es) [...] Translations: [ADHD UNSPECIFIED TYPE] Onset: 08-14-2022 Chronic Disorders of lipid metabolism (2 sources) Hyperlipidemia, unspecified; Translations: [Hyperlipidemia, unspecified] Onset: 03-31-2023 Chronic Esophageal disorders (1 source) Gastro-esophageal reflux disease without esophagitis; Translations: [GERD WITHOUT ESOPHAGITIS] Onset: 08-14-2022 Chronic Essential hypertension (3 sources) Essential (primary) hypertension; Translations: [ESSENTIAL PRIMARY HYPERTENSION] Onset: 08-14-2022 Chronic Genitourinary symptoms and ill-defined conditions (5 sources) Hematuria, unspecified; Translations: [Personal history of urinary (tract) infections] Onset: 08-10-2022 Episodic Hypertension with complications and secondary hypertension (2 sources) Hypertensive urgency; Translations: [Hypertensive urgency] Onset: 01-26-2024 Chronic Mood disorders (1 source) Mood disorders; Translations: [...] sources) Foot pain Onset: 04-24-2023 Episodic Other connective tissue disease (2 sources) Pain in left hand; Translations: [Pain in left hand] Onset: 01-09-2024 Episodic Other connective tissue disease (2 sources) Pain in right hand; Translations: [Pain in right hand] Onset: 01-09-2024 Episodic Other gastrointestinal disorders (1 source) Irritable bowel syndrome without diarrhea; Translations: [IRRITABLE BOWEL SYND W/O DIARRHEA] Onset: 08-14-2022 Chronic Other non-traumatic joint disorders (2 sources) Pain in unspecified joint; Translations: [Pain in unspecified joint] Onset: 01-09-2024 Episodic Residual codes; unclassified (1 source) Acquired absence of both cervix and uterus; Translations: [ACQUIRED ABSENCE BOTH CERVIX AND UTERUS] Onset: 08-14-2022 Episodic Screening and history of mental health and substance abuse codes (1 source) Personal history of nicotine dependence; Translations: [PERSONAL HISTORY OF NICOTINE DEPEND] Onset: 08-14-2022 Episodic Thyroid disorders (1 source) Thyrotoxicosis, unspecified without thyrotoxic crisis or storm; Translations: [THYROTOXICOS UNS NO THYROTOX CRISIS] Onset: 09-29-2021 Chronic Unclassified (3 sources) CONTACT W/AND (SUSP) EXPOS COVID-19; Translations: [CONTACT W/AND (SUSP) EXPOS COVID-19] Onset: 04-10-2022 Unclassified (1 source) COUGH, UNSPECIFIED; Translations: [COUGH, UNSPECIFIED] Onset: 04-10-2022 Past or Other Problems Problem Classification Problem Date Documented Da te Episodic/Chronic Deficiency and other anemia (2 sources) Anemia, unspecified; Translations: [Anemia, unspecified] Onset: 03-31-2023 Episodic Diabetes mellitus without complication (2 sources) Other abnormal glucose; Translations: [Other abnormal glucose] Onset: 03-31-2023 Episodic Malaise and fatigue (1 source) Other fatigue; Translations: [OTHER FATIGUE] Onset: 09-29-2021 Episodic Other screening for suspected conditions (not mental disorders or infectious disease) (2 sources) Encounter for screening for malignant neoplasm of rectum; Translations: [Encounter for screening for malignant neoplasm of rectum] Onset: 03-31-2023 Episodic Other upper respiratory disease (1 source) Nasal congestion; Translations: [NASAL CONGESTION] Onset: 04-10-2022 Episodic Superficial injury; contusion (10 sources) Right wrist contusion; Translations: [Contusion of right wrist, initial encounter] Onset: 03-01-2023 03-01-2023 Episodic Unclassified (1 source) CONTACT W/AND (SUSP) EXPOS COVID-19; Translations: [CONTACT W/AND (SUSP) EXPOS COVID-19] Onset: 04-06-2022 Results Test Name Value Interpretation Reference Range Facility Basic metabolic 2000 panelon 01-28-2024 Anion gap [Moles/Vol] 13 mmol/L Normal 10-20 [facility] Comment on above: Performed By: #### 2 4321-2 ####DAX CUI ([id number])[facility] ([facility])[address] [place] [address] 49552 Calcium [Mass/Vol] 10.0 mg/dL Normal 8.6-10.3 [facility] Comment on above: Performed By: #### 2 4321-2 ####DAX CUI ([id number])[facility] ([facility])[address] [place] [address] 60670 Chloride [Moles/Vol] 104 mmol/L Normal 98-107 [facility] Comment on above: Performed By: #### 2 4321-2 ####DAX CUI ([id number])[facility] ([facility])[address] [place] [address] 06944 CO2 [Moles/Vol] 26 mmol/L Normal 21-32 [facility] Comment on above: Performed By: #### 2 4321-2 ####DAX CUI ([id number])[facility] ([facility])[address] [place] [address] 29210 Creatinine [Mass/Vol] 0.84 mg/dL Normal 0.50-1.05 [facility] Comment on above: Performed By: #### 2 4321-2 ####DAX CUI ([id number])[facility] ([facility])[address] [place] [address] 47566 Glomerular filtration rate/1.73 sq M.predicted 81 mL/min/1.73m*2 Normal >60 [facility] Comment on above: Result Comment: Calc ulations of estimated GFR are performed using the 2020 CKD-EPI Study Refit equation without the race variable for the IDMS-Traceable creatinine methods. https://jasn.asnjournals.org/content//ASN.354756 4949 Performed By: #### 2 4321-2 ####DAX CUI ([id number])[facility] ([facility])[address] [place] [address] 61106 Glucose [Mass/Vol] 75 mg/dL Normal 74-99 [facility] Comment on above: Performed By: #### 2 4321-2 ####DAX CUI ([id number])[facility] ([facility])[address] [place] [address] 06354 Potassium [Moles/Vol] 4.3 mmol/L Normal 3.5-5.3 [facility] Comment on above: Result Comment: MILD HEMOLYSIS DETECTED. The result may be falsely elevated due to hemolysis or other interferents. Clinical correlation is recommended. Repeat testing may be considered. Performed By: #### 2 4321-2 ####DAX CUI ([id number])[facility] ([facility])[address] [place] [address] 91142 Sodium [Moles/Vol] 139 mmol/L Normal 136-145 [facility] Comment on above: Performed By: #### 2 4321-2 ####DAX CUI ([id number])[facility] ([facility])[address] [place] [address] 52320 Urea nitrogen [Mass/Vol] 20 mg/dL Normal 6-23 [facility] Comment on above: Performed By: #### 2 4321-2 ####DAX CUI ([id number])[facility] ([facility])[address] [place] [address] 90266 CBC panel Auto (Bld)on 01-27 Erythrocyte distribution width (RBC) [Ratio] 12.7 % Normal 11.5-14.5 [facility] Comment on above: Performed By: #### 5 8410-2 ####DAX CUI ([id number])[facility] ([facility])[address] [place] [address] 63013 Hematocrit (Bld) [Volume fraction] 42.5 % Normal 36.0-46.0 [facility] Comment on above: Performed By: #### 5 8410-2 ####DAX CUI ([id number])[facility] ([facility])[address] [place] [address] 41610 Hemoglobin (Bld) [Mass/Vol] 13.8 g/dL Normal 12.0-16.0 [facility] Comment on above: Performed By: #### 5 8410-2 ####DAX CUI ([id number])[facility] ([facility])[address] [place] [address] 84135 MCH (RBC) [Entitic mass] 30.4 pg Normal 26.0-34.0 [facility] Comment on above: Performed By: #### 5 8410-2 ####DAX CUI ([id number])[facility] ([facility])[address] [place] [address] 29228 MCHC (RBC) [Mass/Vol] 32.5 g/dL Normal 32.0-36.0 [facility] Comment on above: Performed By: #### 5 8410-2 ####DAX CUI ([id number])[facility] ([facility])[address] [place] [address] 96140 MCV (RBC) [Entitic vol] 94 fL Normal 80-100 [facility] Comment on above: Performed By: #### 5 8410-2 ####DAX CUI ([id number])[facility] ([facility])[address] [place] [address] 35156 Nucleated RBC/100 WBC (Bld) [Ratio] 0.0 /100 WBCs Normal 0.0-0.0 [facility] Comment on above: Performed By: #### 5 8410-2 ####DAX CUI ([id number])[facility] ([facility])[address] [place] [address] 58868 Platelets (Bld) [#/Vol] 291 x10*3/uL Normal 150-450 [facility] Comment on above: Performed By: #### 5 8410-2 ####DAX CUI ([id number])[facility] ([facility])[address] [place] [address] 47626 RBC (Bld) [#/Vol] 4.54 x10*6/uL Normal 4.00-5.20 [facility] Comment on above: Performed By: #### 5 8410-2 ####DAX CUI ([id number])[facility] ([facility])[address] [place] [address] 59540 WBC (Bld) [#/Vol] 7.1 x10*3/uL Normal 4.4-11.3 [facility] Comment on above: Performed By: #### 5 8410-2 ####DAX CUI ([id number])[facility] ([facility])[address] [place], [place] [address] TRANSTHORACIC ECHO (TTE) [facility] 01-28-2024 TRANSTHORACIC ECHO (TTE) [place] [address] [phone], TRANSTHORACIC ECHOCARDIOGRAM REPORT Patient Name: PEDRO LUIS CRUZ [place] Physician: [id number] Pedrito Francois MD Study Date: 01/28/2024 Ordering Provider: [id number] EZEKIEL SOLOMON MRN/PID: [id number] Fellow: Nurse: Tierra Mo RN Date of /Age: 5 1965 / 58 years Inlayer: IVON Baxter RVT Gender: F Additional Staff: Height: 167.64 cm Admit Date: 01/26/2024 Weight: 90.72 kg Admission Status: Inpatient - Routine BSA / BMI: 2.00 m2 / 32.28 kg/m2 Department Location: [address]-ICU Blood Pressure: 171 /91 mmHg Study Type: TRANSTHORACIC ECHO (TTE) LIMITED Diagnosis/ICD: Essential (primary) hypertension-I10 Indication: Hypertensive Urgency CPT Codes: Echo Limited-32088 Patient History: Pertinent History: No previous echo Patient has Covid. Study Detail: The following Echo studies were performed: 2D, M-Mode, Doppler and color flow. Definity used as a contrast agent for endocardial border definition. Total contrast used for this procedure was 2 mL via IV push. A bubble study was not performed. The patient was awake. PHYSICIAN INTERPRETATION: Left Ventricle: The left ventricular systolic function is normal, with a visually estimated ejection fraction of 60%. There are no regional wall motion abnormalities. The left ventricular cavity size is normal. Left ventricular diastolic filling was not assessed. Left Atrium: The left atrium is normal in size. A bubble study using agitated saline was not performed. Right Ventricle: The right ventricle is normal in size. There is normal right ventricular global systolic function. Right Atrium: The right atrium is normal in size. Aortic Valve: The aortic valve was not well visualized. There is evidence of mildly elevated transaortic gradients consistent with sclerosis of the aortic valve. The aortic valve dimensionless index is 0.49. There is no evidence of aortic valve regurgitation. The peak instantaneous gradient of the aortic valve is 17.3 mmHg. The mean gradient of the aortic valve is 10.0 mmHg. Mitral Valve: The mitral valve is normal in structure. There is no evidence of mitral valve regurgitation. Tricuspid Valve: The tricuspid valve was not well visualized. No evidence of tricuspid regurgitation. Pulmonic Valve: The pulmonic valve is not well visualized. There is no indication of pulmonic valve regurgitation. Pericardium: No pericardial effusion noted. Aorta: The aortic root is normal. In comparison to the previous echocardiogram(s): There are no prior studies on this patient for comparison purposes. CONCLUSIONS: 1. The left ventricular systolic function is normal, with a visually estimated ejection fraction of 60%. 2. There is normal right ventricular global systolic function. 3. Aortic valve sclerosis. QUANTITATIVE DATA SUMMARY: 2D MEASUREMENTS: Normal Ranges: Ao Root d: 2.20 cm (2.0-3.7cm) LAs: 2.10 cm (2.7-4.0cm) IVSd: 1.21 cm (0.6-1.1cm) LVPWd: 1.07 cm (0.6-1.1cm) LVIDd: 3.47 cm (3.9-5.9cm) LVIDs: 2.00 cm LV Mass Index: 62.0 g/m2 LV % FS 42.4 % LA VOLUME: Normal Ranges: LA Vol A4C: 29.7 ml (22+/-6mL/m2) LA Vol A2C: 22.5 ml LA Vol BP: 28.0 ml LA Vol Index A4C: 14.9ml/m2 LA Vol Index A2C: 11.2 ml/m2 LA Vol Index BP: 14.0 ml/m2 LA Area A4C: 12.6 cm2 LA Area A2C: 10.1 cm2 LA Major [place] A4C: 4.5 cm LA Major [place] A2C: 3.9 cm LA Volume Index: 10.6 ml/m2 LA Vol A4C: 28.8 ml LA Vol A2C: 21.2 ml LA Vol Index BSA: 12.5 ml/m2 M-MODE MEASUREMENTS: Normal Ranges: AoV Exc: 0.70 cm (1.5-2.5cm) AORTA MEASUREMENTS: Normal Ranges: AoV Exc: 0.70 cm (1.5-2.5cm) LV SYSTOLIC FUNCTION BY 2D PLANIMETRY (MOD): Normal Ranges: EF-A4C View: 67 % (>=55%) EF-A2C View: 79 % EF-Biplane: 73 % EF-Visual: 60 % LV EF Reported: 60 % AORTIC VALVE: Normal Ranges: AoV Vmax: 2.08 m/s (<=1.7m/s) AoV Peak P.3 mmHg (<20mmHg) AoV Mean P.0 mmHg (1.7-11.5mmHg) LVOT Max Juan: 1.05 m/s (<=1.1m/s) AoV VTI: 50.50 cm (18-25cm) LVOT VTI: 24.80 cm LVOT Diameter: 2.20 cm (1.8-2.4cm) AoV Area, VTI: 1.87 cm2 (2.5-5.5cm2) AoV Area,Vmax: 1.92 cm2 (2.5-4.5cm2) AoV Dimensionless Index: 0.49 PULMONIC VALVE: Normal Ranges: PV Accel Time: 92 msec (>120ms) PV Max Juan: 1.2 m/s (0.6-0.9m/s) PV Max P.2 mmHg [id number] Pedrito Farncois MD Electronically signed on 01/28/2024 at 10:25:54 AM Final Normal [facility] CBC panel Auto (Bld)on 01-26 Erythrocyte distribution width (RBC) [Ratio] 12.4 % Normal 11.5-14.5 [facility] Comment on above: Performed By: #### 5 8410-2 ####DAX CUI ([id number])[facility] ([facility])[address] [place], [place] [address] Hematocrit (Bld) [Volume fraction] 37.3 % Normal 36.0-46.0 [facility] Comment on above: Performed By: #### 5 8410-2 ####DAX CUI ([id number])[facility] ([facility])[address] [place] [address] 74995 Hemoglobin (Bld) [Mass/Vol] 12.3 g/dL Normal 12.0-16.0 [facility] Comment on above: Performed By: #### 5 8410-2 ####DAX CUI ([id number])[facility] ([facility])[address] [place] [address] 00696 MCH (RBC) [Entitic mass] 30.8 pg Normal 26.0-34.0 [facility] Comment on above: Performed By: #### 5 8410-2 ####DAX CUI ([id number])[facility] ([facility])[address] [place] [address] 70211 MCHC (RBC) [Mass/Vol] 33.0 g/dL Normal 32.0-36.0 [facility] Comment on above: Performed By: #### 5 8410-2 ####DAX CUI ([id number])[facility] ([facility])[address] [place] [address] 34646 MCV (RBC) [Entitic vol] 93 fL Normal 80-100 [facility] Comment on above: Performed By: #### 5 8410-2 ####DAX CUI ([id number])[facility] ([facility])[address] [place] [address] 32170 Nucleated RBC/100 WBC (Bld) [Ratio] 0.0 /100 WBCs Normal 0.0-0.0 [facility] Comment on above: Performed By: #### 5 8410-2 ####DAX CUI ([id number])[facility] ([facility])[address] [place] [address] 42015 Platelets (Bld) [#/Vol] 264 x10*3/uL Normal 150-450 [facility] Comment on above: Performed By: #### 5 8410-2 ####DAX CUI ([id number])[facility] ([facility])[address] [place] [address] 25171 RBC (Bld) [#/Vol] 4.00 x10*6/uL Normal 4.00-5.20 [facility] Comment on above: Performed By: #### 5 8410-2 ####DAX CUI ([id number])[facility] ([facility])[address] [place] [address] 68454 WBC (Bld) [#/Vol] 7.0 x10*3/uL Normal 4.4-11.3 [facility] Comment on above: Performed By: #### 5 8410-2 ####DAX CUI ([id number])[facility] ([facility])[address] [place], [place] [address] Comprehensive metabolic 2000 panelon 01-27-2024 Albumin BCP dye [Mass/Vol] 3.9 g/dL Normal 3.4-5.0 [facility] Comment on above: Performed By: #### 2 4323-8 ####DAX CUI ([id number])[facility] ([facility])[address] [place] [address] 26073 ALP [Catalytic activity/Vol] 54 U/L Normal 33-110 [facility] Comment on above: Performed By: #### 2 4323-8 ####DAX CUI ([id number])[facility] ([facility])[address] [place] [address] 69520 ALT With P-5'-P [Catalytic activity/Vol] 13 U/L Normal 7-45 [facility] Comment on above: Result Comment: Radha ents treated with Sulfasalazine may generate falsely decreased results for ALT. Performed By: #### 2 4323-8 ####DAX CUI ([id number])[facility] ([facility] [place] [address] Anion gap [Moles/Vol] 10 mmol/L Normal 10-20 [facility] Comment on above: Performed By: #### 2 4323-8 ####DAX CUI ([id number])[facility] ([facility])[address] [place] [address] 99268 AST With P-5'-P [Catalytic activity/Vol] 15 U/L Normal 9-39 [facility] Comment on above: Performed By: #### 2 432-8 ####DAX CUI ([id number])[facility] ([facility])[address] [place] [address] 25766 Bilirubin [Mass/Vol] 0.3 mg/dL Normal 0.0-1.2 [facility] Comment on above: Performed By: #### 2 432-8 ####DAX CUI ([id number])[facility] ([facility])[address] [place] [address] 07757 Calcium [Mass/Vol] 8.8 mg/dL Normal 8.6-10.3 [facility] Comment on above: Performed By: #### 2 4323-8 ####DAX CUI ([id number])[facility] ([facility])[address] [place] [address] 43830 Chloride [Moles/Vol] 106 mmol/L Normal 98-107 [facility] Comment on above: Performed By: #### 2 4323-8 ####DAX CUI ([id number])[facility] ([facility])[address] [place] [address] 97395 CO2 [Moles/Vol] 26 mmol/L Normal 21-32 [facility] Comment on above: Performed By: #### 2 4323-8 ####DAX CUI (22202)[facility] ([facility])[address] [place] [address] Creatinine [Mass/Vol] 0.75 mg/dL Normal 0.50-1.05 [facility] Comment on above: Performed By: #### 2 4323-8 ####DAX CUI ([id number])[facility] ([facility])[address] [place] [address] 33664 GFR/1.73 sq M.predicted MDRD (S/P/Bld) [Vol rate/Area] mL/min/{1.73_m2} Normal >60 [facility] Comment on above: Result Comment: Calc ulations of estimated GFR are performed using the 2020 CKD-EPI Study Refit equation without the race variable for the IDMS-Traceable creatinine methods. https://jasn.asnjournals.org/content/early//ASN.616668 4763 Performed By: #### 2 4323-8 ####DAX CUI (12056)[facility] ([facility])[address] [place] [address] 69394 Glucose [Mass/Vol] 93 mg/dL Normal 74-99 [facility] Comment on above: Performed By: #### 2 4323-8 ####DAX CUI ([id number])[facility] ([facility])[address] [place] [address] 58970 Potassium [Moles/Vol] 3.6 mmol/L Normal 3.5-5.3 [facility] Comment on above: Performed By: #### 2 4323-8 ####DAX CUI ([id number])[facility] ([facility])[address] [place] [address] 37701 Protein [Mass/Vol] 6.6 g/dL Normal 6.4-8.2 [facility] Comment on above: Performed By: #### 2 4323-8 ####DAX CUI (91947)[facility] ([facility])[address] [place] [address] 62166 Sodium [Moles/Vol] 138 mmol/L Normal 136-145 [facility] Comment on above: Performed By: #### 2 4323-8 ####DAX CUI ([id number])[facility] ([facility])[address] [place] [address] 90517 Urea nitrogen [Mass/Vol] 18 mg/dL Normal 6-23 [facility] Comment on above: Performed By: #### 2 4323-8 ####DAX CUI ([id number])[facility] ([facility])[address] [place] [address] 84618 C reactive proteinon 024 CRP [Mass/Vol] 0.92 mg/dL Normal <1.00 [facility] Comment on above: Performed By: #### 1 988-5 ####DAX CUI ([id number])[facility] ([facility])[address] [place] [address] 46477 CBC W Auto Differential pane l (Bld)on 01-26-2024 Basophils (Bld) [#/Vol] 0.01 x10*3/uL Normal 0.00-0.10 [facility] Comment on above: Performed By: #### 5 7021-8 #### DAX CUI ([id number]) [facility] ([facility]) [address] [place] [address] 56461 Basophils/100 WBC (Bld) 0.1 % Normal 0.0-2.0 [facility] Comment on above: Performed By: #### 5 7021-8 #### DAX CUI ([id number]) [facility] ([facility]) [address] [place] [address] 27690 Eosinophils (Bld) [#/Vol] 0.10 x10*3/uL Normal 0.00-0.70 [facility] Comment on above: Performed By: #### 5 7021-8 #### DAX CUI ([id number]) [facility] ([facility]) [address] [place] [address] 74275 Eosinophils/100 WBC (Bld) 1.3 % Normal 0.0-6.0 [facility] Comment on above: Performed By: #### 5 7021-8 #### DAX CUI (22297) [facility] ([facility]) [address] [place] [address] Erythrocyte distribution width (RBC) [Ratio] 12.4 % Normal 11.5-14.5 [facility] Comment on above: Performed By: #### 5 7021-8 #### DAX CUI (62797) [facility] ([facility]) [address] [place] [address] Hematocrit (Bld) [Volume fraction] 37.2 % Normal 36.0-46.0 [facility] Comment on above: Performed By: #### 5 7021-8 #### DAX CUI ([id number]) [facility] ([facility]) [address] [place] [address] Hemoglobin (Bld) [Mass/Vol] 12.4 g/dL Normal 12.0-16.0 [facility] Comment on above: Performed By: #### 5 7021-8 #### DAX CUI (02859) [facility] ([facility]) [address] [place] [address] Immature granulocytes (Bld) [#/Vol] 0.02 x10*3/uL Normal 0.00-0.70 [facility] Comment on above: Performed By: #### 5 7021-8 #### DAX CUI (56205) [facility] ([facility]) [address] [place] [address] Immature granulocytes/100 WBC (Bld) 0.3 % Normal 0.0-0.9 [facility] Comment on above: Result Comment: Tamela ture Granulocyte Count (IG) includes promyelocytes, myelocytes and metamyelocytes but does not include bands. Percent differential counts (%) should be interpreted in the context of the absolute cell counts (cells/UL). Performed By: #### 5 7021-8 #### DAX CUI (25942) [facility] ([facility]) [address] [place], [place] [address] Lymphocytes (Bld) [#/Vol] 1.60 x10*3/uL Normal 1.20-4.80 [facility] Comment on above: Performed By: #### 5 7021-8 #### DAX CUI (01311) [facility] ([facility]) [address] [place] [address] 26605 Lymphocytes/100 WBC (Bld) 21.2 % Normal 13.0-44.0 [facility] Comment on above: Performed By: #### 5 7021-8 #### DAX CUI (95542) [facility] ([facility]) [address] [place] [address] 68287 MCH (RBC) [Entitic mass] 31.0 pg Normal 26.0-34.0 [facility] Comment on above: Performed By: #### 5 7021-8 #### DAX CUI (44828) [facility] ([facility]) [address] [place] [address] 35939 MCHC (RBC) [Mass/Vol] 33.3 g/dL Normal 32.0-36.0 [facility] Comment on above: Performed By: #### 5 7021-8 #### DAX CUI (17260) [facility] ([facility]) [address] [place] [address] 94753 MCV (RBC) [Entitic vol] 93 fL Normal 80-100 [facility] Comment on above: Performed By: #### 5 7021-8 #### DAX CUI (12692) [facility] ([facility]) [address] [place] [address] 66096 Monocytes (Bld) [#/Vol] 0.56 x10*3/uL Normal 0.10-1.00 [facility] Comment on above: Performed By: #### 5 7021-8 #### DAX CUI (57574) [facility] ([facility]) [address] [place] [address] 12839 Monocytes/100 WBC (Bld) 7.4 % Normal 2.0-10.0 [facility] Comment on above: Performed By: #### 5 7021-8 #### DAX CIU (81759) [facility] ([facility]) [facility] [place] [address] Neutrophils (Bld) [#/Vol] 5.24 x10*3/uL Normal 1.20-7.70 [facility] Comment on above: Result Comment: Perc ent differential counts (%) should be interpreted in the context of the absolute cell counts (cells/uL). Performed By: #### 5 7021-8 #### DAX CUI (57772) [facility] ([facility]) [address] [place] [address] 57470 Neutrophils/100 WBC (Bld) 69.7 % Normal 40.0-80.0 [facility] Comment on above: Performed By: #### 5 7021-8 #### DAX CUI (48719) [facility] ([facility]) [address] [place] [address] 78379 Nucleated RBC/100 WBC (Bld) [Ratio] 0.0 /100 WBCs Normal 0.0-0.0 [facility] Comment on above: Performed By: #### 5 7021-8 #### DAX CUI (22127) [facility] ([facility]) [address] [place] [address] 90819 Platelets (Bld) [#/Vol] 253 x10*3/uL Normal 150-450 [facility] Comment on above: Performed By: #### 5 7021-8 #### DAX CUI (90617) [facility] ([facility]) [address] [place] [address] 04304 RBC (Bld) [#/Vol] 4.00 x10*6/uL Normal 4.00-5.20 [facility] Comment on above: Performed By: #### 5 7021-8 #### DAX CUI (48298) [facility] ([facility]) [address] [place] [address] 95588 WBC (Bld) [#/Vol] 7.5 x10*3/uL Normal 4.4-11.3 [facility] Comment on above: Performed By: #### 5 7021-8 #### DAX CUI (45380) [facility] ([facility]) [address] [place] [address] CT HEAD WO IV CONTRASTon CT HEAD WO IV CONTRAST Interpreted By: Mark Abdul, STUDY: CT HEAD WO IV CONTRAST; 01/26/2024 11:07 am INDICATION: Signs/Symptoms:HTN, headache. COMPARISON: None ACCESSION NUMBER(S): [id number] ORDERING CLINICIAN: MICHELE GOMEZ TECHNIQUE: CT of the brain from the skull vertex to the skull base, without intravenous contrast FINDINGS: ACUTE INTRA-AXIAL HEMORRHAGE: Negative ACUTE EXTRA-AXIAL/SUBDURAL HEMORRHAGE: Negative ACUTE INTRACRANIAL MASS EFFECT: Negative CT EVIDENCE OF ACUTE / SUBACUTE TERRITORIAL ISCHEMIA: Negative VENTRICLES: Normal caliber and configuration OTHER BRAIN FINDINGS: No additional findings to note INCLUDED PARANASAL SINUSES: Layering fluid in left sphenoid. Mucosal thickening throughout the ethmoid air cells. Elsewhere clear INCLUDED MASTOID AIR CELLS: All clear SKULL: No lytic or blastic lesion EXTRACRANIAL SOFT TISSUES: Scalp and occular globes grossly normal by CT IMPRESSION: NO ACUTE INTRACRANIAL PROCESS MACRO: None Signed by: Mark Abdul 01/26/2024 11:36 AM Dictation workstation: [id number] Normal [facility] Comprehensive metabolic 2000 panelon 01-26-2024 Albumin BCP dye [Mass/Vol] 4.0 g/dL Normal 3.4-5.0 [facility] Comment on above: Performed By: #### 2 4323-8 #### DAX CUI (72733) [facility] ([facility]) [address] [place] [address] ALP [Catalytic activity/Vol] 59 U/L Normal 33-110 [facility] Comment on above: Performed By: #### 2 4323-8 #### DAX CUI (21363) [facility] ([facility]) [address] [place] [address] ALT With P-5'-P [Catalytic activity/Vol] 14 U/L Normal 7-45 [facility] Comment on above: Result Comment: Radha ents treated with Sulfasalazine may generate falsely decreased results for ALT. Performed By: #### 2 4323-8 #### DAX CUI (74927) [facility] ([facility]) [address] [place] [address] Anion gap [Moles/Vol] 9 mmol/L Low 10-20 [facility] Comment on above: Performed By: #### 2 432-8 #### DAX CUI (15597) [facility] ([facility]) [address] [place] [address] 97771 AST With P-5'-P [Catalytic activity/Vol] 16 U/L Normal 9-39 [facility] Comment on above: Performed By: #### 2 4322-8 #### DAX CUI (50714) [facility] ([facility]) [address] [place] [address] 25744 Bilirubin [Mass/Vol] 0.3 mg/dL Normal 0.0-1.2 [facility] Comment on above: Performed By: #### 2 4322-8 #### ADX CUI (78874) [facility] ([facility]) [address] [place] [address] 81481 Calcium [Mass/Vol] 8.8 mg/dL Normal 8.6-10.3 [facility] Comment on above: Performed By: #### 2 432-8 #### DAX CUI (98107) [facility] ([facility]) [address] [place] [address] 81172 Chloride [Moles/Vol] 107 mmol/L Normal 98-107 [facility] Comment on above: Performed By: #### 2 432-8 #### DAX CUI (98666) [facility] ([facility]) [address] [place] [address] 95463 CO2 [Moles/Vol] 27 mmol/L Normal 21-32 [facility] Comment on above: Performed By: #### 2 4323-8 #### DAX CUI (01769) [facility] ([facility]) [address] [place] [address] 42579 Creatinine [Mass/Vol] 0.82 mg/dL Normal 0.50-1.05 [facility] Comment on above: Performed By: #### 2 4323-8 #### DAX CUI (77886) [facility] ([facility]) [address] [place] [address] 39157 Glomerular filtration rate/1.73 sq M.predicted 83 mL/min/1.73m*2 Normal >60 [facility] Comment on above: Result Comment: Calc ulations of estimated GFR are performed using the 2020 CKD-EPI Study Refit equation without the race variable for the IDMS-Traceable creatinine methods. https://jasn.asnjournals.org/content//ASN.044637 1519 Performed By: #### 2 432-8 #### DAX CUI (09985) [facility] ([facility]) [address] [place] [address] 27744 Glucose [Mass/Vol] 91 mg/dL Normal 74-99 [facility] Comment on above: Performed By: #### 2 432-8 #### DAX CUI (43070) [facility] ([facility]) [address] [place] [address] 33408 Potassium [Moles/Vol] 3.7 mmol/L Normal 3.5-5.3 [facility] Comment on above: Performed By: #### 2 432-8 #### DAX CUI (30922) [facility] ([facility]) [address] [place] [address] 09045 Protein [Mass/Vol] 6.7 g/dL Normal 6.4-8.2 [facility] Comment on above: Performed By: #### 2 4323-8 #### DAX CUI (00898) [facility] ([facility]) [address] [place] [address] 45762 Sodium [Moles/Vol] 139 mmol/L Normal 136-145 [facility] Comment on above: Performed By: #### 2 432-8 #### DAX CUI (85594) [facility] ([facility]) [address] [place], [place] [address] Urea nitrogen [Mass/Vol] 17 mg/dL Normal 6-23 [facility] Comment on above: Performed By: #### 2 4323-8 #### DAX CUI (47984) [facility] ([facility]) [address] [place], [place] [address] ECG 12-LEADon 01-26-2024 ECG 12-LEAD Ventricular Rate 69 Atrial Rate 69 P-R Interval 162 QRS Duration 66 Q-T Interval 400 QTC Calculation(Bazett) 428 P [place] 54 R [place] 54 T [place] 62 QRS Count 11 Q Onset 222 P Onset 141 P Offset 185 T Offset 422 QTC Fredericia 419 Diagnosis Normal sinus rhythm Normal ECG No previous ECGs available See ED provider note for full interpretation and clinical correlation Confirmed by Maria Esther Miramontes ([id number]) on 01/29/2024 11:26:09 AM Normal [facility] ESR Westergren method (Bld) [Velocity]on 01-26-2024 ESR (Bld) [Velocity] 26 mm/h Normal 0-30 [facility] Comment on above: Performed By: #### 4 537-7 #### DAX CUI (44430) [facility] ([facility]) [address] [place] [address] Fibrin D-dimer FEUon 024 Fibrin D-dimer FEU (PPP) [Mass/Vol] 733 ng/mL FEU High <=500 [facility] Comment on above: Order Comment: The D -Dimer assay is reported in ng/mL Fibrinogen Equivalent Units (FEU). The results of this assay should NOT be used for the exclusion of Deep Vein Thrombosis and/or Pulmonary Embolism. Performed By: #### 4 8065-7 ####DAX CUI (71556)[facility] ([facility])[address] [place] [address] Lactateon 01-26-2024 Lactate [Moles/Vol] 0.7 mmol/L Normal 0.4-2.0 [facility] Comment on above: Order Comment: Venip uncture immediately after or during the administration of Metamizole may lead to falsely low results. Testing should be performed immediately prior to Metamizole dosing. Performed By: #### 2 524-7 #### DAX CUI (30498) [facility] ([facility]) [address] [place] [address] Natriuretic peptide B [Mass/ Vol]on 01-26-2024 Natriuretic peptide B (Bld) [Mass/Vol] 52 pg/mL Normal 0-99 [facility] Comment on above: Order Comment: <100 pg/mL - Heart failure [id number] pg/mL - Intermediate probability of acute heart failure exacerbation. Correlate with clinical context and patient history. >=300 pg/mL - Heart Failure likely. Correlate with clinical context and patient history.BNP testing is performed using different testing methodology at [facility] than at other [facility]. Direct result comparisons should only be made within the same method. Performed By: #### 3 0934-4 ####DAX CUI (98867)[facility] ([facility])[address] [place] [address] Troponin I.cardiac panelon 0 01-26-2024 Tropinin I.cardiac panel High sensitivity method 3 ng/L Normal 0-13 [facility] Comment on above: Order Comment: Less than 99th percentile of normal range cutoff- Female and children under 18 years old <14 ng/L; Male <21 ng/L: Negative Repeat testing should be performed if clinically indicated. Female and children under 18 years old 14-50 ng/L; Male 21-50 ng/L: Consistent with possible cardiac damage and possible increased clinical risk. Serial measurements may help to assess extent of myocardial damage. >50 ng/L: Consistent with cardiac damage, increased clinical risk and myocardial infarction. Serial measurements may help assess extent of myocardial damage. NOTE: Children less than 1 year old may have higher baseline troponin levels and results should be interpreted in conjunction with the overall clinical context. NOTE: Troponin I testing is performed using a different testing methodology at [facility] than at other [facility]. Direct result comparisons should only be made within the same method. Performed By: #### 8 9577-1 #### DAX CUI (64303) [facility] ([facility]) [address] [place], [place] [address] Tropinin I.cardiac panel High sensitivity method 3 ng/L Normal 0-13 [facility] Comment on above: Order Comment: Less than 99th percentile of normal range cutoff- Female and children under 18 years old <14 ng/L; Male <21 ng/L: Negative Repeat testing should be performed if clinically indicated. Female and children under 18 years old 14-50 ng/L; Male 21-50 ng/L: Consistent with possible cardiac damage and possible increased clinical risk. Serial measurements may help to assess extent of myocardial damage. >50 ng/L: Consistent with cardiac damage, increased clinical risk and myocardial infarction. Serial measurements may help assess extent of myocardial damage. NOTE: Children less than 1 year old may have higher baseline troponin levels and results should be interpreted in conjunction with the overall clinical context. NOTE: Troponin I testing is performed using a different testing methodology at [facility] than at [facility]. Direct result comparisons should only be made within the same method. Performed By: #### 8 9577-1 #### DAX CUI (79076) [facility] ([facility]) [address] [place] [address] XR CHEST 1 VIEWon 01-26-2024 XR CHEST 1 VIEW Interpreted By: Prem Thompson, STUDY: XR CHEST 1 VIEW; 01/26/2024 10:55 am INDICATION: Signs/Symptoms:HTN. COMPARISON: None. ACCESSION NUMBER(S): [id number] ORDERING CLINICIAN: MICHELE GOMEZ FINDINGS: CARDIOMEDIASTINAL SILHOUETTE: Cardiomediastinal silhouette is normal in size and configuration. LUNGS: Lungs are clear. ABDOMEN: No remarkable upper abdominal findings. BONES: No acute osseous changes. IMPRESSION: 1. No evidence of acute cardiopulmonary process. MACRO: None Signed by: Prem Thompson 01/26/2024 11:24 AM Dictation workstation: [id number] Normal [facility] C reactive proteinon 024 CRP [Mass/Vol] 1.47 mg/dL High <1.00 [facility] Comment on above: Performed By: #### 4 548-4 #### DAX CUI (19315) [facility] ([facility]) [address] [place] [address] CBC W Auto Differential pane l (Bld)on 01-09-2024 Basophils (Bld) [#/Vol] 0.03 x10*3/uL Normal 0.00-0.10 [facility] Comment on above: Performed By: #### 4 548-4 #### DAX CUI (78491) [facility] ([facility]) [address] [place] [address] 38523 Basophils/100 WBC (Bld) 0.3 % Normal 0.0-2.0 [facility] Comment on above: Performed By: #### 4 548-4 #### DAX CUI (41887) [facility] ([facility]) [address] [place] [address] 65161 Eosinophils (Bld) [#/Vol] 0.10 x10*3/uL Normal 0.00-0.70 [facility] Comment on above: Performed By: #### 4 548-4 #### DAX CUI (62128) [facility] ([facility]) [address] [place] [address] 16144 Eosinophils/100 WBC (Bld) 1.0 % Normal 0.0-6.0 [facility] Comment on above: Performed By: #### 4 548-4 #### DAX CUI (52261) [facility] ([facility]) [address] [place] [address] 33224 Erythrocyte distribution width (RBC) [Ratio] 12.8 % Normal 11.5-14.5 [facility] Comment on above: Performed By: #### 4 548-4 #### DAX CUI (99452) [facility] ([facility]) [address] [place] [address] 86954 Hematocrit (Bld) [Volume fraction] 41.4 % Normal 36.0-46.0 [facility] Comment on above: Performed By: #### 4 548-4 #### DAX CUI (66596) [facility] ([facility]) [address] [place] [address] 11751 Hemoglobin (Bld) [Mass/Vol] 13.4 g/dL Normal 12.0-16.0 [facility] Comment on above: Performed By: #### 4 548-4 #### DAX CUI (80232) [facility] ([facility]) [address] [place] [address] 74967 Immature granulocytes (Bld) [#/Vol] 0.03 x10*3/uL Normal 0.00-0.70 [facility] Comment on above: Performed By: #### 4 548-4 #### DAX CUI (79781) [facility] ([facility]) [address] [place] [address] 90743 Immature granulocytes/100 WBC (Bld) 0.3 % Normal 0.0-0.9 [facility] Comment on above: Result Comment: Tamela ture Granulocyte Count (IG) includes promyelocytes, myelocytes and metamyelocytes but does not include bands. Percent differential counts (%) should be interpreted in the context of the absolute cell counts (cells/UL). Performed By: #### 4 548-4 #### DAX CUI (07100) [facility] ([facility]) [address] [place] [address] 42209 Lymphocytes (Bld) [#/Vol] 2.69 x10*3/uL Normal 1.20-4.80 [facility] Comment on above: Performed By: #### 4 548-4 #### DAX CUI (98127) [facility] ([facility]) [address] [place] [address] 50537 Lymphocytes/100 WBC (Bld) 28.0 % Normal 13.0-44.0 [facility] Comment on above: Performed By: #### 4 548-4 #### DAX CUI (14234) [facility] ([facility]) [address] [place] [address] 40604 MCH (RBC) [Entitic mass] 30.9 pg Normal 26.0-34.0 [facility] Comment on above: Performed By: #### 4 548-4 #### DAX CUI (15393) [facility] ([facility]) [address] [place] [address] 27629 MCHC (RBC) [Mass/Vol] 32.4 g/dL Normal 32.0-36.[address] [facility] Comment on above: Performed By: #### 4 548-4 #### DAX CUI (10307) [facility] ([facility]) [address] [place] [address] 26792 MCV (RBC) [Entitic vol] 95 fL Normal 80-100 [facility] Comment on above: Performed By: #### 4 548-4 #### DAX CUI (47987) [facility] ([facility]) [address] [place] [address] 87605 Monocytes (Bld) [#/Vol] 0.60 x10*3/uL Normal 0.10-1.00 [facility] Comment on above: Performed By: #### 4 548-4 #### DAX CUI (25573) [facility] ([facility]) [address] [place] [address] 04683 Monocytes/100 WBC (Bld) 6.2 % Normal 2.0-10.0 [facility] Comment on above: Performed By: #### 4 548-4 #### DAX CUI (74477) [facility] ([facility]) [address] [place] [address] 16054 Neutrophils (Bld) [#/Vol] 6.17 x10*3/uL Normal 1.20-7.70 [facility] Comment on above: Result Comment: Perc ent differential counts (%) should be interpreted in the context of the absolute cell counts (cells/uL). Performed By: #### 4 548-4 #### DAX CUI (60209) [facility] ([facility]) [address] [place] [address] 68633 Neutrophils/100 WBC (Bld) 64.2 % Normal 40.0-80.0 [facility] Comment on above: Performed By: #### 4 548-4 #### DAX CUI (57876) [facility] ([facility]) [address] [place] [address] 98290 Nucleated RBC/100 WBC (Bld) [Ratio] 0.0 /100 WBCs Normal 0.0-0.0 [facility] Comment on above: Performed By: #### 4 548-4 #### DAX CUI (27026) [facility] ([facility]) [address] [place] [address] 85831 Platelets (Bld) [#/Vol] 294 x10*3/uL Normal 150-450 [facility] Comment on above: Performed By: #### 4 548-4 #### DAX CUI (34135) [facility] ([facility]) [address] [place] [address] RBC (Bld) [#/Vol] 4.34 x10*6/uL Normal 4.00-5.20 [facility] Comment on above: Performed By: #### 4 548-4 #### DAX CUI (48861) [facility] ([facility]) [address] [place] [address] WBC (Bld) [#/Vol] 9.6 x10*3/uL Normal 4.4-11.3 [facility] Comment on above: Performed By: #### 4 548-4 #### DAX CUI (13013) [facility] ([facility]) [address] [place] [address] Comprehensive metabolic 2000 panelon 01-09-2024 Albumin BCP dye [Mass/Vol] 4.9 g/dL Normal 3.4-5.0 [facility] Comment on above: Performed By: #### 4 548-4 #### DAX CUI (90824) [facility] ([facility]) [address] [place] [address] ALP [Catalytic activity/Vol] 51 U/L Normal 33-110 [facility] Comment on above: Performed By: #### 4 548-4 #### DAX CUI (39989) [facility] ([facility]) [address] [place] [address] ALT With P-5'-P [Catalytic activity/Vol] 15 U/L Normal 7-45 [facility] Comment on above: Result Comment: Radha ents treated with Sulfasalazine may generate falsely decreased results for ALT. Performed By: #### 4 548-4 #### DAX CUI (63604) [facility] ([facility]) [address] [place] [address] 61393 Anion gap [Moles/Vol] 15 mmol/L Normal 10-[address] [facility] Comment on above: Performed By: #### 4 548-4 #### DAX CUI (10116) [facility] ([facility]) [address] [place] [address] 18245 AST With P-5'-P [Catalytic activity/Vol] 20 U/L Normal 9-39 [facility] Comment on above: Performed By: #### 4 548-4 #### DAX CUI (60334) [facility] ([facility]) [address] [place] [address] 98628 Bilirubin [Mass/Vol] 0.4 mg/dL Normal 0.0-1.2 [facility] Comment on above: Performed By: #### 4 548-4 #### DAX CUI (17448) [facility] ([facility]) [address] [place] [address] 73150 Calcium [Mass/Vol] 9.6 mg/dL Normal 8.6-10.3 [facility] Comment on above: Performed By: #### 4 548-4 #### DAX CUI (74093) [facility] ([facility]) [address] [place] [address] 05542 Chloride [Moles/Vol] 106 mmol/L Normal 98-107 [facility] Comment on above: Performed By: #### 4 548-4 #### DAX CUI (31102) [facility] ([facility]) [address] [place] [address] 49120 CO2 [Moles/Vol] 23 mmol/L Normal 21-[address] [facility] Comment on above: Performed By: #### 4 548-4 #### DAX CUI (11557) [facility] [facility] [address] [place] [address] 64068 Creatinine [Mass/Vol] 0.94 mg/dL Normal 0.50-1.[address] [facility] Comment on above: Performed By: #### 4 548-4 #### DAX CUI (64376) [facility] ([facility]) [address] [place] [address] 15821 Glomerular filtration rate/1.73 sq M.predicted 70 mL/min/1.73m*2 Normal >60 [facility] Comment on above: Result Comment: Calc ulations of estimated GFR are performed using the 2020 CKD-EPI Study Refit equation without the race variable for the IDMS-Traceable creatinine methods. https://jasn.asnjournals.org/content/early//ASN.248867 4159 Performed By: #### 4 548-4 #### DAX CUI (40613) [facility] ([facility]) [address] [place] [address] 00602 Glucose [Mass/Vol] 109 mg/dL High 74-99 [facility] Comment on above: Performed By: #### 4 548-4 #### DAX CUI (79926) [facility] ([facility]) [address] [place] [address] 19630 Potassium [Moles/Vol] 3.6 mmol/L Normal 3.5-5.[address] [facility] Comment on above: Performed By: #### 4 548-4 #### DAX CUI (56587) [facility] ([facility]) [address] [place] [address] 25008 Protein [Mass/Vol] 7.1 g/dL Normal 6.4-8.2 [facility] Comment on above: Performed By: #### 4 548-4 #### DAX CUI (50263) [facility] ([facility]) [address] [place] [address] 98338 Sodium [Moles/Vol] 140 mmol/L Normal 136-145 [facility] Comment on above: Performed By: #### 4 548-4 #### DAX CUI (52819) [facility] ([facility]) [address] [id number] Urea nitrogen [Mass/Vol] 19 mg/dL Normal 6-23 [facility] Comment on above: Performed By: #### 4 548-4 #### DAX CUI (88110) [facility] ([facility]) [address] [id number] Cyclic citrullinated peptide Ab.IgGon 01-09-2024 Cyclic citrullinated peptide IgG Qn <1 Normal <3 [facility] Comment on above: Order Comment: Diagn osis of Diabetes-Adults Non-Diabetic: < or = 5.6% Increased risk for developing diabetes: 5.7-6.4% Diagnostic of diabetes: > or = 6.5% Monitoring of Diabetes Age (y)....................... Therapeutic Goal (%) Adults: >18.........................<7.0 Pediatrics: 13-18...................<7.5 Pediatrics: 7-12....................<8.0 Pediatrics: 0-6..................... 7.5-8.5 [employer]. Diabetes Care 33(S1), Apr 2009 Result Comment: NEGA TIVE < 3 U/ML POSITIVE >=3 U/ML Performed By: #### 4 548-4 #### DAX CUI (82971) [facility] ([facility]) [address] [place] [address] ESR Westergren method (Bld) [Velocity]on 01-09-2024 ESR (Bld) [Velocity] 16 mm/h Normal 0-30 [facility] Comment on above: Performed By: #### 4 548-4 #### DAX CUI (94308) [facility] ([facility]) [address] [id number] Nuclear Abon 01-09-2024 Nuclear Ab Hep2 substrate Ql (S) Negative Normal Negative [facility] Comment on above: Result Comment: The Antinuclear Antibody (GOMEZ) test was performed using indirect immunofluorescence assay with HEp-2 cells slide. Performed By: #### 4 548-4 #### DAX CUI (46514) [facility] ([facility]) [address] [place] [address] 22274 Rheumatoid factoron 01-09-20 24 Rheumatoid factor Nephelometry Qn (S) 11 IU/mL Normal 0-15 [facility] Comment on above: Performed By: #### 4 548-4 #### DAX CUI (76179) [facility] ([facility]) [address] [place] [address] Urinalysis complete panel (U )on 01-09-2024 Appearance (U) Clear Normal Clear [facility] Comment on above: Performed By: #### 4 548-4 #### DAX CUI (37429) [facility] ([facility]) [address] [place] [address] 58821 Bilirubin (U) [Mass/Vol] Negative Normal NEGATIVE [facility] Comment on above: Performed By: #### 4 548-4 #### DAX CUI (05059) [facility] ([facility]) [address] [place] [address] 34757 Color (U) Yellow Normal Light-Yellow, Yellow, Dark-Yellow [facility] Comment on above: Performed By: #### 4 548-4 #### DAX CUI (06551) [facility] ([facility]) [address] [place] [address] 31264 Glucose Auto test strip (U) [Mass/Vol] Normal Normal Normal [facility] Comment on above: Performed By: #### 4 548-4 #### DAX CUI (76551) [facility] ([facility]) [address] [place] [address] 39012 Ketones (U) [Mass/Vol] Negative Normal NEGATIVE [facility] Comment on above: Performed By: #### 4 548-4 #### DAX CUI (80739) [facility] ([facility]) [address] [place] [address] 40168 Leukocyte esterase Auto test strip Ql (U) Negative Normal NEGATIVE [facility] Comment on above: Performed By: #### 4 548-4 #### DAX CUI (26138) [facility] ([facility]) [address] [place] [address] 05773 Nitrite Auto test strip Ql (U) 2+ Abnormal NEGATIVE [facility] Comment on above: Performed By: #### 4 548-4 #### DAX CUI (76694) [facility] ([facility]) [address] [place] [address] 53126 pH (U) 6.0 [pH] Normal 5.0, 5.5, 6.0, 6.5, 7.0, 7.5, 8.0 [facility] Comment on above: Performed By: #### 4 548-4 #### DAX CUI (20100) [facility] ([facility]) [address] [place] [address] 69116 Protein (U) [Mass/Vol] 10 (TRACE) Normal NEGATIVE, 10 (TRACE), 20 (TRACE) [facility] Comment on above: Performed By: #### 4 548-4 #### DAX CUI (06704) [facility] ([facility]) [address] [place] [address] 82065 RBC (U) [#/Vol] Negative Normal NEGATIVE [facility] Comment on above: Performed By: #### 4 548-4 #### DAX CUI (74512) [facility] ([facility]) [address] [place] [address] 75067 Specific gravity (U) [Rel density] 1.027 Normal 1.005-1.035 [facility] Comment on above: Performed By: #### 4 548-4 #### DAX CUI (62875) [facility] ([facility]) [address] [place] [address] 39035 Urobilinogen (U) [Mass/Vol] Normal Normal Normal [facility] Comment on above: Performed By: #### 4 548-4 #### DAX CUI (83616) [facility] ([facility]) [address] [place] [address] Urinalysis microscopic panel Auto Ql (U)on 01-09-2024 Bacteria Auto (Urine sed) [#/Area] 1+ /HPF Abnormal NONE SEEN [facility] Comment on above: Performed By: #### 4 548-4 #### DAX CUI (14759) [facility] ([facility]) [address] [place] [address] Calcium oxalate crystals Computer assisted (U) [#/Area] 2+ /HPF Abnormal NONE, 1+ [facility] Comment on above: Performed By: #### 4 548-4 #### DAX CUI (22145) [facility] ([facility]) [address] [place] [address] Epithelial cells.squamous Auto (Urine sed) [#/Area] 1-9 (SPARSE) Normal Reference range not established. [facility] Comment on above: Performed By: #### 4 548-4 #### DAX CUI (72148) [facility] ([facility]) [address] [place] [address] Mucus Auto (Urine sed) [#/Area] FEW Normal Reference range not established. [facility] Comment on above: Performed By: #### 4 548-4 #### DAX CUI (49614) [facility] ([facility]) [address] [place] [address] RBC Auto (Urine sed) [#/Area] 1-2 Normal NONE, 1-2, 3-5 [facility] Comment on above: Performed By: #### 4 548-4 #### DAX CUI (93738) [facility] ([facility]) [address] [place] [address] WBC Auto (Urine sed) [#/Area] 1-5 Normal 1-5, NONE [facility] Comment on above: Performed By: #### 4 548-4 #### DAX CUI (54592) [facility] ([facility]) [address] [place] [address] 70868 XR FOOT LEFT 3+ VIEWS (STAND LAURA)on [...] SunApr 25, 2023 9:50:28 PM EST Normal [facility] Comment on above: Order Comment: Injur y/Trauma or Illness?:Illness/Other How long have you had these symptoms (acute/chronic)?:Chronic Reason for exam?:pain History of cancer?:no Surgeries, chemotherapy, or radiation?:no Type of Exam?:Initial Additional signs and symptoms?:no CBC W Auto Differential pane l (Bld)on 03-31-2023 Basophils (Bld) [#/Vol] 0.03 x10*3/uL Normal 0.00-0.10 [facility] Comment on above: Performed By: #### 5 7021-8 #### DAX CUI (28388) [facility] ([facility]) [address] [place] [address] 19318 Basophils/100 WBC (Bld) 0.6 % Normal 0.0-2.0 [facility] Comment on above: Performed By: #### 5 7021-8 #### DAX CUI (41164) [facility] ([facility]) [address] [place] [address] 28931 Eosinophils (Bld) [#/Vol] 0.17 x10*3/uL Normal 0.00-0.70 [facility] Comment on above: Performed By: #### 5 7021-8 #### DAX CUI (48776) [facility] ([facility]) [address] [place] [address] 34430 Eosinophils/100 WBC (Bld) 3.3 % Normal 0.0-6.0 [facility] Comment on above: Performed By: #### 5 7021-8 #### DAX CUI (67593) [facility] ([facility]) [address] [place] [address] 34362 Erythrocyte distribution width (RBC) [Ratio] 13.0 % Normal 11.5-14.5 [facility] Comment on above: Performed By: #### 5 7021-8 #### DAX CUI (73507) [facility] ([facility]) [address] [place] [address] 12886 Hematocrit (Bld) [Volume fraction] 38.8 % Normal 36.0-46.0 [facility] Comment on above: Performed By: #### 5 7021-8 #### DAX CUI (32097) [facility] ([facility]) [address] [place] [address] 37023 Hemoglobin (Bld) [Mass/Vol] 12.2 g/dL Normal 12.0-16.0 [facility] Comment on above: Performed By: #### 5 7021-8 #### DAX CUI (25822) [facility] ([facility]) [address] [place] [address] 90267 Immature granulocytes (Bld) [#/Vol] 0.01 x10*3/uL Normal 0.00-0.70 [facility] Comment on above: Performed By: #### 5 7021-8 #### DAX CUI (87782) [facility] ([facility]) [address] [place] [address] 88601 Immature granulocytes/100 WBC (Bld) 0.2 % Normal 0.0-0.9 [facility] Comment on above: Result Comment: Tamela ture Granulocyte Count (IG) includes promyelocytes, myelocytes and metamyelocytes but does not include bands. Percent differential counts (%) should be interpreted in the context of the absolute cell counts (cells/UL). Performed By: #### 5 7021-8 #### DAX CUI (47521) [facility] ([facility]) [address] [place] [address] 21580 Lymphocytes (Bld) [#/Vol] 2.21 x10*3/uL Normal 1.20-4.80 [facility] Comment on above: Performed By: #### 5 7021-8 #### DAX CUI (99683) [facility] ([facility]) [address] [place] [address] 84214 Lymphocytes/100 WBC (Bld) 43.3 % Normal 13.0-44.0 [facility] Comment on above: Performed By: #### 5 7021-8 #### DAX CUI (15191) [facility] ([facility]) [address] [place] [address] 92713 MCH (RBC) [Entitic mass] 30.7 pg Normal 26.0-34.0 [facility] Comment on above: Performed By: #### 5 7021-8 #### DAX CUI (29386) [facility] ([facility]) [address] [place] [address] 19273 MCHC (RBC) [Mass/Vol] 31.4 g/dL Low 32.0-36.0 [facility] Comment on above: Performed By: #### 5 7021-8 #### DAX CUI (15953) [facility] ([facility]) [address] [place] [address] 27927 MCV (RBC) [Entitic vol] 98 fL Normal 80-100 [facility] Comment on above: Performed By: #### 5 7021-8 #### DAX CUI (16785) [facility] ([facility]) [address] [place] [address] 31307 Monocytes (Bld) [#/Vol] 0.46 x10*3/uL Normal 0.10-1.00 [facility] Comment on above: Performed By: #### 5 7021-8 #### DAX CUI (78032) [facility] ([facility]) [address] [place] [address] 83118 Monocytes/100 WBC (Bld) 9.0 % Normal 2.0-10.0 [facility] Comment on above: Performed By: #### 5 7021-8 #### DAX CUI (76297) [facility] ([facility]) [address] [place] [address] 21102 Neutrophils (Bld) [#/Vol] 2.22 x10*3/uL Normal 1.20-7.70 [facility] Comment on above: Result Comment: Perc ent differential counts (%) should be interpreted in the context of the absolute cell counts (cells/uL). Performed By: #### 5 7021-8 #### DAX CUI (89348) [facility] ([facility]) [address] [place] [address] 66325 Neutrophils/100 WBC (Bld) 43.6 % Normal 40.0-80.0 [facility] Comment on above: Performed By: #### 5 7021-8 #### DAX CUI (64644) [facility] ([facility]) [address] [place] [address] 47237 Nucleated RBC/100 WBC (Bld) [Ratio] 0.0 /100 WBCs Normal 0.0-0.0 [facility] Comment on above: Performed By: #### 5 7021-8 #### DAX CUI (65875) [facility] ([facility]) [address] [place] [address] 83158 Platelets (Bld) [#/Vol] 273 x10*3/uL Normal 150-450 [facility] Comment on above: Performed By: #### 5 7021-8 #### DAX CUI (68477) [facility] ([facility]) [address] [place] [address] 50999 RBC (Bld) [#/Vol] 3.98 x10*6/uL Low 4.00-5.20 [facility] Comment on above: Performed By: #### 5 7021-8 #### DAX CUI (38895) [facility] ([facility]) [address] [place] [address] 16225 WBC (Bld) [#/Vol] 5.1 x10*3/uL Normal 4.4-11.3 [facility] Comment on above: Performed By: #### 5 7021-8 #### DAX CUI (54846) [facility] ([facility]) [address] [place] [address] Calcidiolon 03-31-2023 25-hydroxyvitamin D3 [Mass/Vol] 57 ng/mL Normal 30-100 [facility] Comment on above: Order Comment: Defic iency: < 20 ng/ml Insufficiency: 20-29 ng/ml Sufficiency: 30-100 ng/ml This assay accurately quantifies the sum of Vitamin D3, 25-Hydroxy and Vitamin D2,25-Hydroxy. Performed By: #### 1 989-3 #### DAX CUI (38721) [facility] ([facility]) [address] [place] [address] Comprehensive metabolic 2000 panelon 03-31-2023 Albumin BCP dye [Mass/Vol] 4.9 g/dL Normal 3.4-5.0 [facility] Comment on above: Performed By: #### 2 4323-8 #### DAX CUI (75249) [facility] ([facility]) [address] [place] [address] 04871 ALP [Catalytic activity/Vol] 44 U/L Normal 33-110 [facility] Comment on above: Performed By: #### 2 4323-8 #### DAX CUI (21304) [facility] ([facility]) [address] [place] [address] 19054 ALT With P-5'-P [Catalytic activity/Vol] 11 U/L Normal 7-45 [facility] Comment on above: Result Comment: Radha ents treated with Sulfasalazine may generate falsely decreased results for ALT. Performed By: #### 2 4323-8 #### DAX CUI (22928) [facility] ([facility]) [address] [place] [address] 77350 Anion gap [Moles/Vol] 13 mmol/L Normal 10-[address] [facility] Comment on above: Performed By: #### 2 4323-8 #### DAX CUI (38912) [facility] ([facility]) [address] [place] [address] 26184 AST With P-5'-P [Catalytic activity/Vol] 16 U/L Normal 9-39 [facility] Comment on above: Performed By: #### 2 4323-8 #### DAX CUI (49261) [facility] ([facility]) [address] [place] [address] Bilirubin [Mass/Vol] 0.9 mg/dL Normal 0.0-1.2 [facility] Comment on above: Performed By: #### 2 4323-8 #### DAX CUI (58971) [facility] ([facility]) [address] [place] [address] 16062 Calcium [Mass/Vol] 9.8 mg/dL Normal 8.6-10.3 [facility] Comment on above: Performed By: #### 2 4323-8 #### DAX CUI (74256) [facility] ([facility]) [address] [place] [address] 50375 Chloride [Moles/Vol] 107 mmol/L Normal 98-107 [facility] Comment on above: Performed By: #### 2 4323-8 #### DAX CUI (55707) [facility] ([facility]) [address] [place] [address] CO2 [Moles/Vol] 23 mmol/L Normal 21-[address] [facility] Comment on above: Performed By: #### 2 4323-8 #### DAX CUI (58324) [facility] ([facility]) [facility] [place] [address] Creatinine [Mass/Vol] 1.08 mg/dL High 0.50-1.[address] [facility] Comment on above: Performed By: #### 2 4323-8 #### DAX CUI (76067) [facility] ([facility]) [address] [place] [address] 98447 GFR/1.73 sq M.predicted MDRD (S/P/Bld) [Vol rate/Area] 60 mL/min/1.73m*2 Low >60 [facility] Comment on above: Result Comment: Calc ulations of estimated GFR are performed using the 2020 CKD-EPI Study Refit equation without the race variable for the IDMS-Traceable creatinine methods. https://jasn.asnjournals.org/content//ASN.441337 5020 Performed By: #### 2 4323-8 #### DAX CUI (09036) [facility] ([facility]) [address] [place] [address] 02222 Glucose [Mass/Vol] 89 mg/dL Normal 74-99 [facility] Comment on above: Performed By: #### 2 4323-8 #### DAX CUI (70658) [facility] ([facility]) [address] [place] [address] 10531 Potassium [Moles/Vol] 4.7 mmol/L Normal 3.5-5.[address] [facility] Comment on above: Performed By: #### 2 4323-8 #### DAX CUI (89026) [facility] ([facility]) [address] [place] [address] 10609 Protein [Mass/Vol] 7.2 g/dL Normal 6.4-8.2 [facility] Comment on above: Performed By: #### 2 4323-8 #### DAX CUI (08957) [facility] ([facility]) [address] [place] [address] 74792 Sodium [Moles/Vol] 138 mmol/L Normal 136-145 [facility] Comment on above: Performed By: #### 2 4323-8 #### DAX CUI (06777) [facility] ([facility]) [address] [place] [address] 64027 Urea nitrogen [Mass/Vol] 30 mg/dL High 6-23 [facility] Comment on above: Performed By: #### 2 4323-8 #### DAX CUI (41217) [facility] ([facility]) [address] [place] [address] 05584 HbA1c (Bld) [Mass fraction]o n 03-31-2023 Average glucose Estimated from glycated hemoglobin (Bld) [Mass/Vol] 94 mg/dL Normal Not Established [facility] Comment on above: Order Comment: Diagn osis of Diabetes-Adults Non-Diabetic: < or = 5.6% Increased risk for developing diabetes: 5.7-6.4% Diagnostic of diabetes: > or = 6.5% Monitoring of Diabetes Age (y)....................... Therapeutic Goal (%) Adults: >18.........................<7.0 Pediatrics: 13-18...................<7.5 Pediatrics: 7-12....................<8.0 Pediatrics: 0-6..................... 7.5-8.5 [employer]. Diabetes Care 33(S1), Apr 2009 Performed By: #### 4 548-4 #### VERDUZCO SEE (31630) [facility] ([facility]) [address] [place] [address] Hemoglobin A1c/Hemoglobin.to alexy 03-31-2023 HbA1c (Bld) [Mass fraction] 4.9 % Normal see below [facility] Comment on above: Order Comment: Diagn osis of Diabetes-Adults Non-Diabetic: < or = 5.6% Increased risk for developing diabetes: 5.7-6.4% Diagnostic of diabetes: > or = 6.5% Monitoring of Diabetes Age (y)....................... Therapeutic Goal (%) Adults: >18.........................<7.0 Pediatrics: 13-18...................<7.5 Pediatrics: 7-12....................<8.0 Pediatrics: 0-6..................... 7.5-8.5 [employer]. Diabetes Care 33(S1), Apr 2009 Performed By: #### 4 548-4 #### DAX CUI (77862) [facility] ([facility]) [facility] [place] [address] Insulinon 03-31-2023 Insulin Qn 12 u[IU]/mL Normal 3-25 [facility] Comment on above: Order Comment: Refer ence values apply to fasting specimens. Performed By: #### 2 0448-7 #### TRUE Lock (09334) [facility] ([facility]) [address] [place] [address] Ironon 03-31-2023 Iron [Mass/Vol] 208 ug/dL High 35-[address] [facility] Comment on above: Performed By: #### 2 498-4 #### DAX CUI (16295) [facility] ([facility]) [address] [place] [address] 10709 Lipid 1996 panelon 3 Cholesterol [Mass/Vol] 242 mg/dL High 0-199 [facility] Comment on above: Result Comment: Age [...] By: #### 2 4331-1 #### DAX CUI (48086) [facility] ([facility]) [address] [place] [address] 05869 Cholesterol in HDL [Mass/Vol] 54.0 mg/dL Normal [facility] Comment on above: Result Comment: Age Very Low Low Normal High 0-19 Y < 35 < 40 40-45 ---- 20-24 Y ---- < 40 >45 ---- >24 Y ---- < 40 40-60 >60 Performed By: #### 2 4331-1 #### DAX CUI (33808) [facility] ([facility]) [address] [place] [address] 34080 Cholesterol in LDL [Mass/Vol] 169 mg/dL High <=99 [facility] Comment on above: Result Comment: Near Borderline AGE Desirable Optimal High High Very High 0-19 Y 0 - 109 --- 110-129 >/= 130 ---- 20-24 Y 0 - 119 --- 120-159 >/= 160 ---- >24 Y 0 - 99 100-129 130-159 160-189 >/=190 Performed By: #### 2 4331-1 #### DAX CUI (17232) [facility] ([facility]) [address] [place] [id number] Cholesterol in VLDL [Mass/Vol] 19 mg/dL Normal 0-40 [facility] Comment on above: Performed By: #### 2 4331-1 #### DAX CUI ([id number]) [facility] ([facility]) [address] [place] [id number] CHOLESTEROL/HDL RATIO 4.[address] [facility] Comment on above: Result Comment: Ref Values Desirable < 3.4 High Risk > 5.0 Performed By: #### 2 4331-1 #### DAX CUI ([id number]) [facility] ([facility]) [address] [place] [id number] NON HDL CHOLESTEROL 188 mg/dL High 0-149 [facility] Comment on above: Result Comment: Age Desirable Borderline High High Very High 0-19 Y 0 - 119 120 - 144 >/= 145 >/= 160 20-24 Y 0 - 149 150 - 189 >/= 190 ---- >24 Y 30 mg/dL above LDL Cholesterol goal Performed By: #### 2 4331-1 #### DAX CUI ([id number]) [facility] ([facility]) [facility] [place] [address] Triglyceride [Mass/Vol] 93 mg/dL Normal 0-149 [facility] Comment on above: Result Comment: Age [...] By: #### 2 4331-1 #### DAX CUI ([id number]) [facility] ([facility]) [address] [place], [place] [id number] Thyrotropinon 03-31-2023 TSH Qn 1.17 m[IU]/L Normal 0.44-3.98 [facility] Comment on above: Order Comment: TSH t esting is performed using different testing methodology at [facility] than [facility] other [facility]. Direct result comparisons should only be made within the same method. Performed By: #### 3 016-3 #### DAX CUI ([id number]) [facility] ([facility]) [address] [place], [place] [id number] Thyroxineon 03-31-2023 T4 [Mass/Vol] 5.4 ug/dL Normal 4.5-11.1 [facility] Comment on above: Performed By: #### 3 026-2 #### TRUE Lock ([id number]) [facility] ([facility]) [address] [place] [address] Triiodothyronineon T3 [Mass/Vol] 106 ng/dL Normal 60-200 [facility] Comment on above: Performed By: #### 3 053-6 #### TRUE Lock ([id number]) [facility] ([facility]) [address] [place] [address] No Panel Informationon 03-01 Degenerative change without osseous injury evident. MACRO: None Signed by: Michele Kimble 03/01/2023 7:38 PM Dictation workstation: [id number] MMODAL Interpreted By: Michele Kimble, STUDY: Right wrist and hand dated 03/01/2023 INDICATION: Signs/Symptoms:R hand/thumb/wrist/dist al forearm pain (radial aspect) after hitting hand on a door frame 4 days ago. COMPARISON: None. ACCESSION NUMBER(S): [id number]; [id number] ORDERING CLINICIAN: CARLOS MANUEL OCHOA TECHNIQUE: Four views of the right wrist. Three views of the right hand. FINDINGS: No fracture or dislocation is evident. There is moderate triscaphe joint and 1st digit carpometacarpal joint degenerative change. There is a focus of cystic change in the mid to distal scaphoid. No soft tissue gas or radiopaque foreign body is evident. MMODAL Michele Kimble M D - 03/01/2023 Interpreted By: Michele Kimble, STUDY: Right wrist and hand dated 03/01/2023 INDICATION: Signs/Symptoms:R hand/thumb/wrist/dist al forearm pain (radial aspect) after hitting hand on a door frame 4 days ago. COMPARISON: None. ACCESSION NUMBER(S): [id number]; [id number] ORDERING CLINICIAN: CARLOS MANUEL OCHOA TECHNIQUE: Four [...] Michele Kimble 03/01/2023 7:38 PM Dictation workstation: [id number] [facility] Work Phone: Radiology Study observation (narrative) [facility] Work Phone: No Panel InformationOrdered By: Michele Kimble on 03-01-2023 [facility] Work Phone: XR HAND RIGHT 3+ VIEWSon XR HAND RIGHT 3+ VIEWS Interpreted By: Michele Kimble, STUDY: Right wrist and hand dated 03/01/2023 INDICATION: Signs/Symptoms:R hand/thumb/wrist/dist al forearm pain (radial aspect) after hitting hand on a door frame 4 days ago. COMPARISON: None. ACCESSION NUMBER(S): [id number]; [id number] ORDERING CLINICIAN: CARLOS MANUEL OCHOA TECHNIQUE: Four [...] Michele Kimble 03/01/2023 7:38 PM Dictation workstation: [id number] [facility] XR WRIST RIGHT 3+ VIEWSon XR WRIST RIGHT 3+ VIEWS Interpreted By: Michele Kimble, STUDY: Right wrist and hand dated 03/01/2023 INDICATION: Signs/Symptoms:R hand/thumb/wrist/dist al forearm pain (radial aspect) after hitting hand on a door frame 4 days ago. COMPARISON: None. ACCESSION NUMBER(S): [id number]; [id number] ORDERING CLINICIAN: CARLOS MANUEL OCHOA TECHNIQUE: Four [...] Michele Kimble 03/01/2023 7:38 PM Dictation workstation: [id number] [facility] CBC AUTO DIFFon 08-10-2022 BASO # 0.0 103/ul Normal 0.0-0.1 [facility] Comment on above: Performed By: #### E RUR #### [facility] [address] [place] [address] Dr. Anastasia Moran Basophils/100 WBC (Bld) 0.1 % Critically low 0.2-2.0 [facility] Comment on above: Performed By: #### E RUR #### [facility] [address] [place] [address] Dr. Anastasia Moran EO # 0.2 103/ul Normal 0.0-0.7 [facility] Comment on above: Performed By: #### E RUR #### [facility] [address] [place] [address] Dr. Anastasia Moran Eosinophils/100 WBC (Bld) 2.1 % Normal 0.9-7.0 [facility] Comment on above: Performed By: #### E RUR #### [facility] [address] [place] [address] Dr. Anastasia Moran Erythrocyte distribution width (RBC) [Ratio] 12.5 % Normal 11.0-15.0 [facility] Comment on above: Performed By: #### E RUR #### [facility] [address] [place] [address] Dr. Anastasia Moran Hematocrit (Bld) [Volume fraction] 32.9 % Critically low 36.0-48.0 [facility] Comment on above: Performed By: #### E RUR #### [facility] [address] [place] [address] Dr. Anastasia Moran Hemoglobin (Bld) [Mass/Vol] 11.0 g/dL Critically low 12.0-16.0 [facility] Comment on above: Performed By: #### E RUR #### [facility] [address] [place] [address] Dr. Anastasia Moran IG # 0.02 10e3/ul Normal 0.00-0.03 [facility] Comment on above: Performed By: #### E RUR #### [facility] [address] [place] [address] Dr. Anastasia Moran IG % 0.2 % Normal 0.0-0.5 [facility] Comment on above: Performed By: #### E RUR #### [facility] [address] [place] [address] Dr. Anastasia Moran LYMPH # 2.7 103/ul Normal 1.2-3.8 [facility] Comment on above: Performed By: #### E RUR #### [facility] [address] [place] [address] Dr. Anastasia Moran Lymphocytes/100 WBC (Bld) 33.4 % Normal 20.5-60.0 [facility] Comment on above: Performed By: #### E RUR #### [facility] [address] [place] [address] Dr. Anastasia Moran MANUAL DIFF REQ NO Normal [facility] Comment on above: Performed By: #### E RUR #### [facility] [address] [place] [address] Dr. Anastasia Moran MCH (RBC) [Entitic mass] 29.6 pg Normal 26.7-34.0 [facility] Comment on above: Performed By: #### E RUR #### [facility] [address] [place] [address] Dr. Anastasia Moran MCHC (RBC) [Mass/Vol] 33.4 g/dL Normal 29.9-35.2 [facility] Comment on above: Performed By: #### E RUR #### [facility] [address] [place] [address] Dr. Anastasia Moran MCV (RBC) [Entitic vol] 88.7 fL Normal 81.0-99.0 [facility] Comment on above: Performed By: #### E RUR #### [facility] [address] [place] [address] Dr. Anastasia Moran MONO # 0.6 103/ul Normal 0.3-0.8 [facility] Comment on above: Performed By: #### E RUR #### [facility] [address] [place] [address] Dr. Anastasia Moran Monocytes/100 WBC (Bld) 6.8 % Normal 1.7-12.0 [facility] Comment on above: Performed By: #### E RUR #### [facility] [address] [place] [address] Dr. Anastasia Moran NEUT # 4.7 103/ul Normal 1.4-6.5 [facility] Comment on above: Performed By: #### E RUR #### [facility] [address] [place] [address] Dr. Anastasia Moran Neutrophils/100 WBC (Bld) 57.4 % Normal 43.0-75.0 [facility] Comment on above: Performed By: #### E RUR #### [facility] [address] [place] [address] Dr. Anastasia Moran Platelet mean volume (Bld) [Entitic vol] 9.5 fL Normal 9.5-13.5 [facility] Comment on above: Performed By: #### E RUR #### [facility] [address] [place] [address] Dr. Anastasia Moran PLT 250 103/ul Normal 150-450 [facility] Comment on above: Performed By: #### E RUR #### [facility] [address] [place] [address] Dr. Anastasia Moran RBC 3.71 106/ul Critically low 4.20-5.40 [facility] Comment on above: Performed By: #### E RUR #### [facility] [address] [place] [address] Dr. Anastasia Moran WBC 8.2 103/ul Normal 4.0-11.0 [facility] Comment on above: Performed By: #### E RUR #### [facility] [address] [place] [address] ABD/PELVIS WO CONon [...] CED [place] Date: 2022-08-10 16:24 Normal [facility] ER URINE PROFILEon 3 Bilirubin Ql (U) Negative Normal NEGATIVE [facility] Comment on above: Performed By: #### E RUR #### [facility] [address] [place] [address] Dr. Anastasia Moran Clarity (U) CLEAR Normal CLEAR [facility] Comment on above: Performed By: #### E RUR #### [facility] [address] [place] [address] Dr. Anastasia Moran Color (U) LT. YELLOW Normal YELLOW [facility] Comment on above: Performed By: #### E RUR #### [facility] [address] [place] [address] Dr. Anastasia BUCIOLee A micrscopic examination will be performed if indicated. Normal [facility] Comment on above: Performed By: #### E RUR #### [facility] [address] [place] [address] Dr. Anastasia Moran Glucose Ql (U) Negative Normal NEGATIVE [facility] Comment on above: Performed By: #### E RUR #### [facility] [address] [place] [address] Dr. Anastasia Moran Hemoglobin Ql (U) Negative Normal NEGATIVE [facility] Comment on above: Performed By: #### E RUR #### [facility] [address] [place] [address] Dr. Anastasia Moran Ketones Ql (U) Negative Normal NEGATIVE [facility] Comment on above: Performed By: #### E RUR #### [facility] [address] [place] [address] Dr. Anastasia Moran LEUKOCYTES Negative Normal NEGATIVE [facility] Comment on above: Performed By: #### E RUR #### [facility] [address] [place] [address] Dr. Anastasia Moran Nitrite Ql (U) Negative Normal NEGATIVE [facility] Comment on above: Performed By: #### E RUR #### [facility] [address] [place] [address] Dr. Anastasia Moran pH (U) 6.0 [pH] Normal 5-9 [facility] Comment on above: Performed By: #### E RUR #### [facility] [address] [place] [address] Dr. Anastasia Moran SPEC GRAVITY 1.025 Normal 1.005-<=1.025 [facility] Comment on above: Performed By: #### E RUR #### [facility] [address] [place] [address] Dr. Anastasia Moran UA PROTEIN Negative Normal NEGATIVE/ TRACE [facility] Comment on above: Performed By: #### E RUR #### [facility] [address] [place] [address] Dr. Anastasia Moran UR MICRO IND NOT INDICATED Normal [facility] Comment on above: Performed By: #### E RUR #### [facility] [address] [place] [address] Dr. Anastasia Moran Urobilinogen Qn (U) 0.2 {Rashid'U}/dL Normal 0.2 - 1. 0 [facility] Comment on above: Performed By: #### E RUR #### [facility] [address] [place] [address] Dr. Anastasia Moran PROF CHEM 8 (BAS METB)on Anion gap [Moles/Vol] 12.5 mmol/L Normal Th [facility] Comment on above: Performed By: #### E RUR #### [facility] [address] [address] [address] Anastasia Moran Calcium [Mass/Vol] 9.4 mg/dL Normal 8.5-10.1 [facility] Comment on above: Performed By: #### E RUR #### [facility] [address] [address] [address] Anastasia Moran Chloride [Moles/Vol] 104 mmol/L Normal 98-107 [facility] Comment on above: Performed By: #### E RUR #### [facility] [address] [address] [address] Anastasia Moran CO2 [Moles/Vol] 25.9 mmol/L Normal 21.0-32.0 [facility] Comment on above: Performed By: #### E RUR #### [facility] [address] [place] [address] Dr. Anastasia Moran Creatinine [Mass/Vol] 0.98 mg/dL Normal 0.55-1.02 [facility] Comment on above: Performed By: #### E RUR #### [facility] [address] [place] [address] Dr. Anastasia Moran EGFR-AF ROMANIAN >60 Normal >=60 [facility] Comment on above: Performed By: #### E RUR #### [facility] [address] [place] [address] Dr. Anastasia Moran EGFR-NON AF ROMANIAN 59 mL/min/1.73m2 Critically low >=60 [facility] Comment on above: Performed By: #### E RUR #### [facility] [address] [address] [address] Anastasia Moran Glucose [Mass/Vol] 87 mg/dL Normal 74-106 [facility] Comment on above: Performed By: #### E RUR #### [facility] [address] [address] [address] Anastasia Moran Potassium [Moles/Vol] 3.4 mmol/L Critically low 3.5-5.1 [facility] Comment on above: Performed By: #### E RUR #### [facility] [address] [address] [address] Anastasia Moran Sodium [Moles/Vol] 139 mmol/L Normal 136-145 [facility] Comment on above: Performed By: #### E RUR #### [facility] [address] [address] [address] Anastasia Moran Urea nitrogen [Mass/Vol] 14.0 mg/dL Normal 7.0-18.0 [facility] Comment on above: Performed By: #### E RUR #### [facility] [address] [address] [address] Anastasia Moran Urea nitrogen/Creatinine [Mass ratio] 14.3 mg/mg Normal [facility] Comment on above: Performed By: #### E RUR #### [facility] [address] [place] [address] Dr. Anastasia Moran Covid-19 PCR ([facility])on SARS-CoV-2 (COVID-19) RNA THALIA+probe Ql (Unsp spec) Not detected Normal NOT DETECTED [facility] Comment on above: Result Comment: This test is not yet approved or cleared by the [place] FDA. When there are no FDA-approved or cleared tests available, and other criteria are met, FDA can make tests available under an emergency access mechanism called an Emergency Use Authorization (EUA). The EUA for this test is supported by the [place] of Health and Human Service's (HHS's) declaration [...] SARS-CoV-2. Performed By: #### E RUR #### [facility] [address] [place] [address] Dr. Anastasia Moran INFLUENZA A AND B AGon 04-06 INFLUANEGH SEE BELOW Normal [facility] Comment on above: Result Comment: Nega tive for Flu A protein angiten. Infection due to Flu A cannot be ruled out. Flu A angiten in the sample may be below the detection limit of the test. Performed By: #### E RUR #### [facility] [address] [place] [address] Dr. Anastasia Moran INFLUBNEG SEE BELOW Normal [facility] Comment on above: Result Comment: Nega tive for Flu B protein antigen. Infection due to Flu B cannot be ruled out. Flu B antigen in the sample may be below the detection limit of the test. Performed By: #### E RUR #### [facility] [address] [place] [address] Dr. Anastasia Moran INFLUENZA A AG Negative Normal NEGATIVE SEE COMMENT [facility] Comment on above: Performed By: #### E RUR #### [facility] [address] [place] [address] Dr. Anastasia Moran INFLUENZA B AG Negative Normal NEGATIVE SEE COMMENT [facility] Comment on above: Performed By: #### E RUR #### [facility] [address] [place] [address] Dr. Anastasia Moran INTERNAL CONTROLS Within Normal Limits Normal Wi thin Normal Limits [facility] Comment on above: Performed By: #### E RUR #### [facility] [address] [place] [address] Dr. Anastasia Moran T4 LABCORPon 10-06-2021 T4 [Mass/Vol] 8.7 ug/dL Normal 4.5-12.0 [facility] Comment on above: Performed By: #### E RUR #### [facility] [address] [place] [address] Dr. Anastasia Moran INSULINon 09-29-2021 Insulin 11.6 uIU/mL Normal 2.6-24.9 [facility] Comment on above: Performed By: #### I NSULIN #### [facility] [address] [place] [address] Dr. Anastasia Moran CBC AUTO DIFFon 09-28-2021 BASO # 0.0 103/ul Normal 0.0-0.1 [facility] Comment on above: Performed By: #### E RUR #### [facility] [address] [place] [address] Dr. Anastasia Moran Basophils/100 WBC (Bld) 0.2 % Normal 0.2-2.0 [facility] Comment on above: Performed By: #### E RUR #### [facility] [address] [place] [address] Dr. Anastasia Moran EO # 0.1 103/ul Normal 0.0-0.7 [facility] Comment on above: Performed By: #### E RUR #### [facility] [address] [place] [address] Dr. Anastasia Moran Eosinophils/100 WBC (Bld) 0.9 % Normal 0.9-7.0 [facility] Comment on above: Performed By: #### E RUR #### [facility] [address] [place] [address] Dr. Anastasia Moran Erythrocyte distribution width (RBC) [Ratio] 12.9 % Normal 11.0-15.0 [facility] Comment on above: Performed By: #### E RUR #### [facility] [address] [place] [address] Dr. Anastasia Moran Hematocrit (Bld) [Volume fraction] 37.7 % Normal 36.0-48.0 [facility] Comment on above: Performed By: #### E RUR #### [facility] [address] [place] [address] Dr. Anastasia Moran Hemoglobin (Bld) [Mass/Vol] 12.5 g/dL Normal 12.0-16.0 [facility] Comment on above: Performed By: #### E RUR #### [facility] [address] [place] [address] Dr. Anastasia Moran IG # 0.02 10e3/ul Normal 0.00-0.03 [facility] Comment on above: Performed By: #### E RUR #### [facility] [address] [place] [address] Dr. Anastasia Moran IG % 0.2 % Normal 0.0-0.5 [facility] Comment on above: Performed By: #### E RUR #### [facility] [address] [place] [address] Dr. Anastasia Moran LYMPH # 2.5 103/ul Normal 1.2-3.8 [facility] Comment on above: Performed By: #### E RUR #### [facility] [address] [place] [address] Dr. Anastasia Moran Lymphocytes/100 WBC (Bld) 28.5 % Normal 20.5-60.0 [facility] Comment on above: Performed By: #### E RUR #### [facility] [address] [place] [address] Dr. Anastasia Moran MANUAL DIFF REQ NO Normal [facility] Comment on above: Performed By: #### E RUR #### [facility] [address] [place] [address] Dr. Anastasia Moran MCH (RBC) [Entitic mass] 30.7 pg Normal 26.7-34.0 [facility] Comment on above: Performed By: #### E RUR #### [facility] [address] [place] [address] Dr. Anastasia Moran MCHC (RBC) [Mass/Vol] 33.2 g/dL Normal 29.9-35.2 [facility] Comment on above: Performed By: #### E RUR #### [facility] [address] [place] [address] Dr. Anastasia Moran MCV (RBC) [Entitic vol] 92.6 fL Normal 81.0-99.0 [facility] Comment on above: Performed By: #### E RUR #### [facility] [address] [place] [address] Dr. Anastasia Moran MONO # 0.5 103/ul Normal 0.3-0.8 [facility] Comment on above: Performed By: #### E RUR #### [facility] [address] [place] [address] Dr. Anastasia Moran Monocytes/100 WBC (Bld) 6.3 % Normal 1.7-12.0 [facility] Comment on above: Performed By: #### E RUR #### [facility] [address] [place] [address] Dr. Anastasia Moran NEUT # 5.5 103/ul Normal 1.4-6.5 [facility] Comment on above: Performed By: #### E RUR #### [facility] [address] [place] [address] Dr. Anastasia Moran Neutrophils/100 WBC (Bld) 63.9 % Normal 43.0-75.0 [facility] Comment on above: Performed By: #### E RUR #### [facility] [address] [place] [address] Dr. Anastasia Moran Platelet mean volume (Bld) [Entitic vol] 9.7 fL Normal 9.5-13.5 [facility] Comment on above: Performed By: #### E RUR #### [facility] [address] [place] [address] Dr. Anastasia Moran PLT 246 103/ul Normal 150-450 [facility] Comment on above: Performed By: #### E RUR #### [facility] [address] [place] [address] Dr. Anastasia Moran RBC 4.07 106/ul Critically low 4.20-5.40 [facility] Comment on above: Performed By: #### E RUR #### [facility] [address] [place] [address] Dr. Anastasia Moran WBC 8.6 103/ul Normal 4.0-11.0 [facility] [facility] Comment on above: Performed By: #### E RUR #### [facility] [address] [place] [address] Dr. Anastasia Moran FREE THYROXINE INDEX T7on FTI 2.61 Normal 1.30-4.50 [facility] Comment on above: Performed By: #### L IPID, CMP, TSH, T7 #### [facility] [address] [place] [address] Dr. Anastasia Moran T3U 30.0 % Normal 30.0-39.0 [facility] Comment on above: Performed By: #### L IPID, CMP, TSH, T7 #### [facility] [address] [address] [address] Anastasia Moran T4 [Mass/Vol] 8.70 ug/dL Normal 4.80-13.90 [facility] Comment on above: Result Comment: T4 t esting performed by [facility] Performed By: #### L IPID, CMP, TSH, T7 #### [facility] [address] [address] [address] Anastasia Moran GLYCOHEMOGLOBIN A1Con 2021 ADA RECOMMENDATION SEE BELOW Normal [facility] Comment on above: Result Comment: ADA RECOMMENDED LIMIT 4.0 - 6.0 ADA THERAPEUTIC TARGET < 7.0 ACTION SUGGESTED > 7.0 Performed By: #### E RUR #### [facility] [address] [place] [address] Dr. Anastasia Moran Glucose [Mass/Vol] 111 mg/dL Normal [facility] Comment on above: Performed By: #### E RUR #### [facility] [address] [address] [address] Anastasia Moran HbA1c (Bld) [Mass fraction] 5.5 % Normal 4.5-6.2 [facility] Comment on above: Performed By: #### E RUR #### [facility] [address] [address] [address] Anastasia Moran IRONon 09-28-2021 Iron [Mass/Vol] 71.0 ug/dL Normal 50.0-170.0 [facility] Comment on above: Performed By: #### V ITAD, VITB12, IRON #### [facility] [address] [place] [address] Dr. Anastasia Moran LIPID PROFILEon 09-28-2021 CHOL-HDL RATIO NORM SEE BELOW Normal [facility] Comment on above: Result Comment: 3.3 - 4.4 LOW RISK 4.4 - 7.1 AVERAGE RISK 7.1 - 11.0 MODERATE RISK >11.0 HIGH RISK Performed By: #### L IPID, CMP, TSH, T7 #### [facility] [address] [address] [address] Anastasia Moran Cholesterol [Mass/Vol] 229 mg/dL Critically high <=200 [facility] Comment on above: Performed By: #### L IPID, CMP, TSH, T7 #### [facility] [address] [address] [address] Anastasia Moran Cholesterol in HDL [Mass/Vol] 63 mg/dL Critically high 40-60 [facility] Comment on above: Performed By: #### L IPID, CMP, TSH, T7 #### [facility] [address] [address] [address] Anastasia Moran Cholesterol in LDL [Mass/Vol] 152.0 mg/dL Normal [facility] Comment on above: Performed By: #### L IPID, CMP, TSH, T7 #### [facility] [address] [address] [address] Anastasia Moran Cholesterol.total/Cho lesterol in HDL [Mass ratio] 3.6 {ratio} Normal [facility] Comment on above: Performed By: #### L IPID, CMP, TSH, T7 #### [facility] [address] [address] [address] Anastasia Moran HDL NORMAL > or = 60 mg/dl - LO W CARDIOVASCULAR RISK <40 mg/dl - HIGH CARDIOVASCULAR RISK Normal [facility] Comment on above: Performed By: #### L IPID, CMP, TSH, T7 #### [facility] [address] [address] [address] Anastasia Moran LDL CALC NORMAL SEE BELOW Normal [facility] Comment on above: Result Comment: <100 mg/dl OPTIMAL 100 - 129 mg/dl NEAR OR ABOVE OPTIMAL 130 - 159 mg/dl BORDERLINE HIGH 160 - 189 mg/dl HIGH >190 mg/dl VERY HIGH Performed By: #### L IPID, CMP, TSH, T7 #### [facility] [address] [address] [address] Anastasia Moran Triglyceride [Mass/Vol] 70 mg/dL Normal <=150 [facility] Comment on above: Performed By: #### L IPID, CMP, TSH, T7 #### [facility] [address] [address] [address] Anastasia Moran VLDL CALC 14.0 mg/dL Normal [facility] Comment on above: Performed By: #### L IPID, CMP, TSH, T7 #### [facility] [address] [address] [address] Anastasia Moran PROF 14(COMP METB)on 022 Albumin [Mass/Vol] 4.3 g/dL Normal 3.4-5.0 [facility] Comment on above: Performed By: #### L IPID, CMP, TSH, T7 #### [facility] [address] [place] [address] Dr. Anastasia Moran Albumin/Globulin [Mass ratio] 1.2 {ratio} Normal [facility] Comment on above: Performed By: #### L IPID, CMP, TSH, T7 #### [facility] [address] [address] [address] Anastasia Moran ALP [Catalytic activity/Vol] 45 U/L Critically low 46-116 [facility] Comment on above: Performed By: #### L IPID, CMP, TSH, T7 #### [facility] [address] [place] [address] Dr. Anastasia Moran ALT [Catalytic activity/Vol] 20 U/L Normal 14-59 [facility] Comment on above: Performed By: #### L IPID, CMP, TSH, T7 #### [facility] [address] [place] [address] Dr. Anastasia Moran Anion gap [Moles/Vol] 12.3 mmol/L Normal [facility] Comment on above: Performed By: #### L IPID, CMP, TSH, T7 #### [facility] [address] [place] [address] Dr. Anastasia Moran AST [Catalytic activity/Vol] 16 U/L Normal 15-37 [facility] Comment on above: Performed By: #### L IPID, CMP, TSH, T7 #### [facility] [address] [address] [address] Anastasia Moran Bilirubin [Mass/Vol] 0.5 mg/dL Normal 0.2-1.0 [facility] Comment on above: Performed By: #### L IPID, CMP, TSH, T7 #### [facility] [address] [place] [address] Dr. Anastasia Moran Calcium [Mass/Vol] 9.4 mg/dL Normal 8.5-10.1 [facility] Comment on above: Performed By: #### L IPID, CMP, TSH, T7 #### [facility] [address] [place] [address] Dr. Anastasia Moran Chloride [Moles/Vol] 103 mmol/L Normal 98-107 [facility] Comment on above: Performed By: #### L IPID, CMP, TSH, T7 #### [facility] [address] [place] [address] Dr. Anastasia Moran CO2 [Moles/Vol] 27.8 mmol/L Normal 21.0-32.0 [facility] Comment on above: Performed By: #### L IPID, CMP, TSH, T7 #### [facility] [address] [place] [address] Dr. Anastasia Moran Creatinine [Mass/Vol] 0.87 mg/dL Normal 0.55-1.02 [facility] Comment on above: Performed By: #### L IPID, CMP, TSH, T7 #### [facility] [address] [place] [address] Dr. Anastasia Moran EGFR-AF ROMANIAN >60 Normal >=60 [facility] Comment on above: Performed By: #### L IPID, CMP, TSH, T7 #### [facility] [address] [place] [address] Dr. Anastasia Moran EGFR-NON AF ROMANIAN >60 Normal >=60 [facility] Comment on above: Performed By: #### L IPID, CMP, TSH, T7 #### [facility] [address] [place] [address] Dr. Anastasia Moran Globulin (S) [Mass/Vol] 3.5 g/dL Normal [facility] Comment on above: Performed By: #### L IPID, CMP, TSH, T7 #### [facility] [address] [address] [address] Anastasia Moran Glucose [Mass/Vol] 89 mg/dL Normal 74-106 [facility] Comment on above: Performed By: #### L IPID, CMP, TSH, T7 #### [facility] [address] [address] [address] Anastasia Moran Potassium [Moles/Vol] 4.1 mmol/L Normal 3.5-5.1 [facility] Comment on above: Performed By: #### L IPID, CMP, TSH, T7 #### [facility] [address] [place] [address] Dr. Anastasia Moran Protein [Mass/Vol] 7.8 g/dL Normal 6.4-8.2 [facility] Comment on above: Performed By: #### L IPID, CMP, TSH, T7 #### [facility] [address] [address] [address] Anastasia Moran Sodium [Moles/Vol] 139 mmol/L Normal 136-145 [facility] Comment on above: Performed By: #### L IPID, CMP, TSH, T7 #### [facility] [address] [place] [address] Dr. Anastasia Moran Urea nitrogen [Mass/Vol] 14.0 mg/dL Normal 7.0-18.0 [facility] Comment on above: Performed By: #### L IPID, CMP, TSH, T7 #### [facility] [address] [place] [address] Dr. Anastasia Moran Urea nitrogen/Creatinine [Mass ratio] 16.1 mg/mg Normal [facility] Comment on above: Performed By: #### L IPID, CMP, TSH, T7 #### [facility] [address] [place] [address] Dr. Anastasia Moran TSHon 09-28-2021 TSH 0.565 uIU/mL Normal 0.358-3.740 [facility] Comment on above: Performed By: #### L IPID, CMP, TSH, T7 #### [facility] [address] [place] [address] Dr. Anastasia Moran TSH RANGE SEE BELOW Normal [facility] Comment on above: Result Comment: <0.3 4 UIU/ml HYPERTHYROID 0.34-5.60 UIU/ml EUTHYROID >5.60 UIU/ml HYPOTHYROID Performed By: #### L IPID, CMP, TSH, T7 #### [facility] [address] [address] [address] Anastasia Moran VITAMIN B12on 09-28-2021 Cobalamin (Vitamin B12) [Mass/Vol] 616.0 pg/mL Normal 193.0-986.0 [facility] Comment on above: Performed By: #### V ITAD, VITB12, IRON #### [facility] [address] [place] [address] Dr. Anastasia Moran VITAMIN D 25 OHon 09-28-2021 VIT D 25-OH 61.7 ng/mL Normal [facility] Comment on above: Performed By: #### V ITAD, VITB12, IRON #### [facility] [address] [place] [address] Dr. Anastasia Moran VIT D RANGES SEE BELOW Normal [facility] Comment on above: Result Comment: <20 ng/mL Vit D deficient 20 - <30 ng/mL Vit D insufficient 30 - 100 ng/mL Vit D sufficient >100 ng/mL Potential Toxicity Performed By: #### V ITAD, VITB12, IRON #### [facility] [address] [place] [address] Dr. Anastasia Moran Physician Referralon 021 Physician Referral [phone] [id number] Normal [facility] Vital Signs Date Time Vital Sign Value Performing Clinician Facility 03-01-2023 18:03-0400 Body height 167.6 cm Carlos Manuel AVILA Work Phone: [facility] 03-01-2023 18:03-0400 Body mass index (BMI) [Ratio] 32.46 kg/m2 Carlos Manuel Don SOFTWARE QUALITY TEST ENGINEER-PARACHUTE MENDER Work Phone: [facility] 03-01-2023 18:03-0400 Body temperature 98.2 [degF] Carlos Manuel Don SOFTWARE QUALITY TEST ENGINEER-PARACHUTE MENDER Work Phone: [facility] 03-01-2023 18:03-0400 Body weight 91.22 kg Carlos Manuel Don SOFTWARE QUALITY TEST ENGINEER-PARACHUTE MENDER Work Phone: [facility] 03-01-2023 18:03-0400 Diastolic blood pressure 87 mm[Hg] Carlos Manuel Don SOFTWARE QUALITY TEST ENGINEER-PARACHUTE MENDER Work Phone: [facility] 03-01-2023 18:03-0400 Heart rate 84 /min Carlos Manuel Don SOFTWARE QUALITY TEST ENGINEER-PARACHUTE MENDER Work Phone: [facility] 03-01-2023 18:03-0400 Respiratory rate 18 /min Carlos Manuel Don SOFTWARE QUALITY TEST ENGINEER-PARACHUTE MENDER Work Phone: [facility] 03-01-2023 18:03-0400 SaO2% (BldA) [Mass fraction] 100 % Carlos Manuel Don SOFTWARE QUALITY TEST ENGINEER-PARACHUTE MENDER Work Phone: [facility] 03-01-2023 18:03-0400 Systolic blood pressure 156 mm[Hg] Carlos Manuel Don SOFTWARE QUALITY TEST ENGINEER-PARACHUTE MENDER Work Phone: [facility] Encounters Encounter Date Encounter Type Care Provider Facility Start: 01-26-2024 End: 01-28-2024 Evaluation and management of inpatient [facility] Start: 01-09-2024 End: 01-09-2024 ambulatory [facility] Start: 01-08-2024 End: 01-08-2024 ambulatory [facility] Start: 11-28-2023 End: 11-28-2023 ambulatory WILLIAM HERNANDEZ Not Available Start: 04-24-2023 End: 04-28-[address] [facility] Start: 03-31-2023 End: 03-31-2023 ambulatory [facility] Start: 03-01-2023 End: 03-01-2023 ambulatory CARLOS MANUEL OCHOA [facility] Start: 03-01-2023 End: 03-01-2023 Subsequent hospital visit by physician Feng X-Ray Fluoro 1 [facility] Comment on above: Contusion of right w rist, initial encounter Contusion of right h and, initial encounter Start: 03-01-2023 End: 03-01-2023 Office outpatient new 30 minutes Carlos Manuel Loi Don SOFTWARE QUALITY TEST ENGINEER-PARACHUTE MENDER Work Phone: [facility] Comment on above: Contusion of right h and, initial encounter (Primary Dx); Contusion of right wrist, initial encounter Start: 03-01-2023 End: 03-01-2023 ambulatory ROSEMARY NOEL [facility] Start: 08-10-2022 End: 08-10-[address] ROSEMARY NOEL . Facility:[facility] Start: 04-06-2022 End: 04-06-[address] ROSEMARY NOEL . Facility:[facility] Start: 09-29-2021 Encounter for genera l adult medical examination without abnormal findings DR ROSEMARY NOEL . [facility] Start: 09-28-2021 End: 09-29-[address] ROSEMARY NOEL . Facility:[facility] Start: 09-28-2021 End: 09-29-2021 Encounter for general adult medical examination without abnormal findings DR ROSEMARY NOEL . Facility:[facility] Procedures Date Procedure Procedure Detail Performing Clinician Start: 03-31-2023 CBC W Auto Different ial panel - Blood ROSEMARY HOKarthik Start: 03-31-2023 Comprehensive metabo lic 2000 panel - Serum or Plasma ROSEMARY HOKarthik Start: 03-31-2023 Hemoglobin A1c/Hemoglobin.total in Blood ROSEMARY [...] wrist complete minimum 3 views Carlos Manuel Loi [place] [employer] TEST ENGINEER-PARACHUTE MENDER Work Phone: Plan of Treatment Date Care Activity Detail Author Start: 02-16-2027 DTaP/Tdap/Td Vaccine s (2 - Td or Tdap) DTaP/Tdap/Td Vaccines (2 - Td or Tdap) [facility] Start: 12-29-2022 Influenza vaccination Influenza Vacc ine (#1) [facility] Start: 11-19-2020 COVID-19 Vaccine (3 - Moderna series) COVID-19 Vaccine (3 - Moderna series) [facility] Start: 09-23-2015 Zoster Vaccines (1 of 2) Zoste r Vaccines (1 of 2) [facility] Start: 2005 Screening for malign ant neoplasm of breast Mammogram [facility] Start: 1986 Screening for malign ant neoplasm of cervix [facility] Start: 09-23-1983 [facility]: [facility] MMR Vaccines (1 of 1 - Standard series) MMR Vaccines (1 of 1 - Standard series) [facility] Start: 1965 [facility] Start: [facility] Lipid panel Lipid Panel [facility] Start: 1965 Screening for malign ant neoplasm of colon [facility] Start: 1965 Yearly Adult Physical Yearly Adult P hysical [facility] Immunizations Immunization Date Immunization Notes Care Provider Erasmo green 02-28-2022 influenza virus vacc ine, unspecified formulation Feng 1 [facility] Work Phone: Payers Date Payer Category Payer Unknown [employer] [id number] 2022-Present [address] [place] [address] [id number] 2022 Unknown [id number] 1965 Unknown [id number] 3 1965 Unknown [id number] 3 1965 Unknown [id number] 3 1965 Unknown [id number] 3 1965 Unknown [id number] [id number] 3 1965 Unknown [id number] 59 1965 Unknown [id number] [id number] 45 1965 Unknown [id number] [id number] 45 1965 Unknown [id number] [id number] 45 1965 Unknown [id number] 43 1965 Unknown [id number] [id number] 43 1965 Unknown [id number] [id number] 43 1965 Unknown [id number] 43 1959 Unknown [id number] Social History Date Type Detail Facility Start: 03-01-2023 Tobacco smoking stat [facility] Never smoked tobacco [facility] Work Phone: Start: 03-01-2023 Tobacco use and exposure Smokeless tobacco non-user [facility] Work Phone: Start: 03-01-2023 History of Social function [facility] Work Phone: Start: 03-01-2023 Tobacco use panel [facility] Work Phone: Start: 1965 Sex Assigned At Not on file [facility] Work Phone: Start: 02-19-2023 End: 03-01-2023 Exposure to SARS-CoV-2 (event) Not sure [facility] History of Present illness Narrative 03-01-2023 MARGARITA Yu - 03/01/2023 4:30 PM EDT Note Date & Type Note Facility 03-01-2023 History of Present illness Narrative [facility] MARGARITA Yu Visit Note - [...] and answered. MARGARITA Yu Advanced Practice Provider [facility] documented in this encounter [facility] Work Phone: Evaluation note Note Date & Type Note Facility Evaluation note Diagnosis Contusion of right wrist, initial encounter documented in this encounter [facility] Work Phone: Evaluation note Note Date & Type Note Facility Evaluation note Diagnosis Contusion of right hand, initial encounter documented in this encounter [facility] Work Phone: Evaluation note Note Date & Type Note Facility Evaluation note Diagnosis Contusion of right hand, initial encounter- Primary Contusion of right wrist, initial encounter Contusion of right hand, initial encounter Contusion of right wrist, initial encounter documented in this encounter [facility] Work Phone: Summary Purpose Family History No [...] Referral Specialty Diagnoses / Procedures Referred By Mey robbins Referred To Contact Radiology Diagnoses Contusion of right wrist, initial encounter Procedures XR wrist right 3+ views Carlos Manuel Ochoa APRN-CNP [address] [place] [address] Referral ID Status Reason Start Date Expiration Date Visits Requested Visits Authorized [id number] Authorized Perform Procedure 03/01/2023 02/29/2024 1 1 Specialty Diagnoses / Procedures Referred By Mey robbins Referred To Contact Radiology Diagnoses Contusion of right hand, initial encounter Procedures XR hand right 3+ views Carlos Manuel Ochoa APRN-CNP [address] [place] [address] Referral ID Status Reason Start Date Expiration Date Visits Requested Visits Authorized [id number] Authorized Perform Procedure 03/01/2023 02/29/2024 1 1 Additional Source Comments INFORMATION SOURCE (unrecogn ized section and content) DATE CREATED AUTHOR 09/26/2020 [facility] DATE CREATED AUTHOR AUTHOR'S ORGANIZ ATION 08/14/2022 [facility] DATE CREATED AUTHOR AUTHOR'S ORGANIZ ATION [facility]20[facility] DATE CREATED AUTHOR AUTHOR'S ORGANIZ ATION 11/30/2023 [facility] EPIC DATE CREATED AUTHOR AUTHOR'S ORGANIZ ATION 01/14/2024 [facility] DATE CREATED AUTHOR AUTHOR'S ORGANIZ ATION 01/30/2024 [facility] DATE CREATED AUTHOR AUTHOR'S ORGANIZ ATION 01/31/2024 [facility] Reason for Visit (unrecogniz ed section and content) Specialty Diagnoses / Procedures Referred By Contac t Referred To Contact Radiology Diagnoses Contusion of right wrist, initial encounter Procedures XR wrist right 3+ views Carlos Manuel Ochoa, SOFTWARE QUALITY TEST ENGINEER-PARACHUTE MENDER [address] [place] [address] Referral ID Status Reason Start Date Expiration Date Visits Requested Visits Authorized [id number] Authorized Perform Procedure 03/01/2023 02/29/2024 1 1 Specialty Diagnoses / Procedures Referred By Contac t Referred To Contact Radiology Diagnoses Contusion of right hand, initial encounter Procedures XR hand right 3+ views Carlos Manuel Ochoa, SOFTWARE QUALITY TEST ENGINEER-PARACHUTE MENDER [address] [place] [address] Referral ID Status Reason Start Date Expiration Date Visits Requested Visits Authorized [id number] Authorized Perform Procedure 03/01/2023 02/29/2024 1 1 Reason Comments Hand Injury Right sided hand giancarlo n. Moved and did hit in between doorway Care Teams (unrecognized sec tion and content) Document Control Coordinator Relationship Specialty Start Date End Date Rosemary Noel MD [address] [facility] [address] PCP - General Family Medicine 03/01/23 Document Control Coordinator Relationship Specialty Start Date End Date Rosemary Noel MD [address] [facility] [place] [address] PCP - General Family Medicine 03/01/23 FOR [...] BE BASED ON THE PRIMARY CLINICAL RECORDS. [facility] [employer] provides no warranty or guarantee of the accuracy or completeness of information in this document.
[2024-02-05 11:29] LABS: Basophils Percent Auto 0.2 % (0.2-2.0); Eosinophils Absolute Auto 0.1 10^3/uL (0.0-0.7); Eosinophils Percent Auto 0.5 % (0.9-7.0); Hemoglobin 13.3 g/dL (12.0-16.0); Immature Granulocytes Abs Auto 0.03 10^3/uL (0.00-0.03); Immature Granulocytes Pct Auto 0.2 % (0.0-0.5); Lymphocytes Absolute Auto 2.2 10^3/uL (1.2-3.8); Lymphocytes Percent Auto 17.6 % (20.5-60.0); Mean Corpuscular Hemoglobin 31.1 pg (26.7-34.0); Mean Corpuscular Volume 88.8 fL (81.0-99.0); Mean Platelet Volume 9.5 fL (9.5-13.5); Monocytes Absolute Auto 0.9 10^3/uL (0.3-0.8); Neutrophils Absolute Auto 9.2 10^3/uL (1.4-6.5); Neutrophils Percent Auto 74.5 % (43.0-75.0); Platelet Count 331 10^3/uL (150-450); Red Blood Count 4.28 10^6/uL (4.20-5.40); Red Cell Distribution Width 11.9 % (11.0-15.0); White Blood Count 12.4 10^3/uL (4.0-11.0)
[2024-02-05 12:58] LABS: Alanine Aminotransferase 28 U/L (14-59); Albumin Globulin Ratio 1.1; Albumin Level 4.1 g/dL (3.4-5.0); Alkaline Phosphatase 77 U/L (46-116); Anion Gap 16.1; Aspartate Amino Transferase 22 U/L (15-37); BUN Creatinine Ratio 20.7; Bilirubin Total 0.5 mg/dL (0.2-1.0); Calcium 9.7 mg/dL (8.5-10.1); Carbon Dioxide 24.8 mmol/L (21.0-32.0); Chloride 95 mmol/L (98-107); Estimated GFR (African America 49 (>=60 mL/min/1.73m^2); Estimated GFR (Non-African Ame 40 (>=60 mL/min/1.73m^2); Free T3 3.25 pg/mL (2.18-3.98); Globulin 3.6 g/dL; Glucose 141 mg/dL (74-106); Sodium 133 mmol/L (136-145); Thyroid Stimulating Hormone 0.537 uIU/mL (0.358-3.740); Total Protein 7.7 g/dL (6.4-8.2); Troponin I High Sensitivity 10.3 pg/mL (4.0-51.3)
[2024-02-05 13:13] LABS: Potassium 2.9 mmol/L (3.5-5.1)
== END 2024-02-05 10:58 | disposition home or self-care (01) ==
LOC: LAB 10:57
PROVIDERS: PCP Family Medicine; Visit Provider Family Medicine
DX: D64.9 Anemia, unspecified (principal); G47.00 Insomnia, unspecified; E05.90 Thyrotoxicosis, unspecified without thyrotoxic crisis or storm; K58.9 Irritable bowel syndrome, unspecified; E03.9 Hypothyroidism, unspecified; I50.30 Unspecified diastolic (congestive) heart failure; I11.0 Hypertensive heart disease with heart failure
CPT/HCPCS: 36415; 80053; 83540; 83880; 84436; 84443; 84481; 84484; 85025

== ENCOUNTER 2024-07-10 09:18 | Outpatient (OUT) | payer BC, SELFPAY ==
--- OUTSIDE RECORDS SUMMARY | 2024-07-10 09:25 | XMS_ITS | CCD ---
Author Organization [facility] Care Team Providers Care Message And Delivery Service Pricer Name Role Phone MANUELA ., DR RILEY [...] Care Provider ROSEMARY NOEL Primary Care Unavailable PABLO STANTON Referring Unavailable MAXIMINO PABLO SABRY Admitting Unavailable ROSEMARY NOEL Primary Care Unavailable MAXIMINO PABLOFatuma LEE Attending Unavailable WILLIAM HERNANDEZ Attending Unavailable FABIEN DAVENPORT Referring Unavailable ROSEMARY NOEL Primary Care Unavailable ROSEMARY NOEL Primary Care Unavailable ROSEMARY NOEL Primary Care Unavailable ROSEMARY NOEL Primary Care Unavailable ALEXANDER, CARLOS MANUEL E Attending Unavailable ALEXANDER, CARLOS MANUEL E Referring Unavailable ROSEMARY NOEL Primary Care Unavailable ALEXANDER, CARLOS MANUEL E Referring Unavailable ROSEMARY NOEL Primary Care Unavailable ROSEMARY NOEL Primary Care Unavailable NEHA, HAFIZ A Admitting Unavailable NEHA, HAFIZ A Attending Unavailable JESÚS SANCHES Consulting Unava ilable Allergies Allergy Classification Reported Allergen(s) Allergy Type Date of Onset Reaction(s) Facility (1 source) Ibuprofen Drug Allergy 3 [facility] Repository (4 sources) Penicillins; Translations: [PENICILLINS] Drug allergy (disorder) 3 [facility] Repository (1 source) traMADol Drug Allergy 3 [facility] Repository (6 sources) Penicillins Propensity to adverse reactions 3 [facility] Medications Current Medications Medication Drug Class(es) Dates Sig (Normalized) Sig (Original) Acetaminophen (3 sources) Start: 01-26-2024 take 1 tablet by mouth every four hours as needed acetaminophen (Tylenol) tablet 650 mg Start: 01-26-2024 End: 01-26-2024 take 650 mg by mouth once as needed for pain 650 mg, oral, Once, On 01/26/24 at 1050, For 1 dose, If ordered PRN for pain, nurse is permitted to administer this medication for higher pain scores based on patient preference? Yes albuterol 0.833 mg/ml / ipratropium bromide 0.167 mg/ml inhalation solution (1 source) Anticholinergic, beta2-Adrenergic Agonist Start: 01-26-2024 take 3 mL by inhalation every six hours as needed 3 mL, nebulization, Every 6 hours PRN, wheezing, Starting on 01/26/24 at 1617 ARIPiprazole 15 mg oral tablet (7 sources) Atypical Antipsychotic Start: 01-27-2024 take 30 mg by mouth once daily 30 mg, oral, Daily, First dose on 01/27/24 at 0900 Start: 02-06-2023 take 1 tablet by agnes th once daily ARIPiprazole (Abilify) 30 mg tablet Take 1 tablet (30 mg) by mouth once daily. 02/06/2023 Active benzocaine 15 mg / menthol 3.6 mg oral lozenge (1 source) Standardized Chemical Allergen Start: 01-26-2024 1 lozenge, Mouth/Throat, Every 2 hour PRN, sore throat, Starting on 01/26/24 at 1617 benzonatate 100 mg oral capsule (2 sources) Non-narcotic Antitussive Start: 01-25-2024 End: 02-01-2024 0.4 ml enoxaparin sodium 100 mg/ml prefilled syringe (1 source) Low Molecular Weight Heparin Start: 01-26-2024 inject 40 mg by subcutaneous injection every twenty-four hours 40 mg, subcutaneous, Every 24 hours, First dose on 01/26/24 at 1515, Indications: deep vein thrombosis prevention estrogens, conjugated (long-term) 0.625 mg oral tablet (2 sources) Estrogen Start: 03-30-2023 fluticasone propionate 0.05 mg/actuat metered dose nasal spray (1 source) Corticosteroid Start: 01-26-2024 2 spray, Each Nostril, Daily, First dose on 01/26/24 at 1645, Shake gently. Before first use, prime pump (press 6 times until fine spray appears). After use, clean tip and replace cap. hydroCHLOROthiazide 25 mg oral tablet (2 sources) Thiazide Diuretic Start: 01-28-2024 End: 02-28-2024 take 1 tablet by mouth once daily hydroCHLOROthiazide (HYDRODiuril) 25 mg tablet Indications: Hypertensive urgency Take 1 tablet (25 mg) by mouth once daily. 30 tablet 01/29/2024 02/28/2024 Active hydrOXYzine hydrochloride 25 mg oral tablet (6 sources) Antihistamine Start: 02-06-2023 take 1-2 tablets by mouth four times daily as needed hydrOXYzine HCL (Atarax) 25 mg tablet 1-2 TABLETS ORALLY FOUR TIMES DAILY NEEDED 30 DAYS 02/06/2023 Active ibuprofen 600 mg oral tablet (1 source) Nonsteroidal Anti-inflammatory Drug Start: 01-27-2024 take 1 tablet by mouth every six hours as needed 600 mg, oral, Every 6 hours PRN, headaches, Starting on 01/27/24 at 0928, May administer with food to reduce GI upset. indomethacin 50 mg oral capsule (1 source) Nonsteroidal Anti-inflammatory Drug Start: 01-12-2024 take 1 capsule by mouth once daily indomethacin (Indocin) 50 mg capsule Take 1 capsule (50 mg) by mouth once daily. 01/12/2024 Active 24 hr NIFEdipine 60 mg extended release oral tablet (4 sources) Dihydropyridine Calcium Channel Shaquille Start: 01-29-2024 End: 02-28-2024 take 1 tablet by mouth once daily in the morning, then take 1 tablet by mouth before mealtime NIFEdipine ER (Adalat CC) 60 mg 24 hr tablet Indications: Hypertensive urgency Take 1 tablet (60 mg) by mouth once daily in the morning. Take before meals. Do not crush, chew, or split. Do not fill before January 29, 2024. 30 tablet 01/29/2024 02/28/2024 Active Start: 01-28-2024 End: 01-28-2024 take 30 mg by mouth once 30 mg, oral, Once, On Mon at 0845, For 1 dose, Give on an empty stomach. Do not crush, chew, or split. ondansetron ODT (Zofran-ODT) disintegrating tablet 4 mg (1 source) Start: 01-26-2024 take 1 tablet by mouth every eight hours as needed ondansetron ODT (Zofran-ODT) disintegrating tablet 4 mg oxyCODONE hydrochloride 5 mg oral tablet (1 source) Opioid Agonist Start: 01-26-2024 take 1 tablet by mouth every six hours as needed 5 mg, oral, Every 6 hours PRN, pain severe (7-10), first line, Starting on 01/26/24 at 1618, If ordered PRN for pain, nurse is permitted to administer this medication for higher pain scores based on patient preference? Yes perflutren protein A microsphere (Optison) injection 0.5 mL (1 source) Start: 01-28-2024 0.5 mL, intravenous, Once in imaging, Starting on 01/28/24 at 0431, For 1 dose, CV Medications polyethylene glycol 3350 70434 mg powder for oral solution (1 source) Osmotic Laxative Start: 01-26-2024 17 g, oral, Daily, First dose on 01/26/24 at 1515, Bowel Regimen - for prevention of constipation. simvastatin 20 mg oral tablet (2 sources) HMG-CoA Reductase Inhibitor Start: 04-05-2023 take 20 mg by mouth once daily 20 mg, oral, Nightly, First dose on 01/26/24 at 2100 sulfur hexafluoride microsphr (Lumason) injection 24.28 mg (1 source) Start: 01-28-2024 24.28 mg (2 mL), intravenous, Once in imaging, Starting on 01/28/24 at 0431, For 1 dose, CV Medications, Follow administration with 5 mL NaCL 0.9% injection. tiZANidine 2 mg oral tablet (8 sources) Central alpha-2 Adrenergic Agonist Start: 01-27-2024 take 4 mg by mouth once daily 4 mg, oral, Daily, First dose on 01/27/24 at 0900 Start: 01-26-2024 take 8 mg by mouth once daily 8 mg, oral, Nightly, First dose on 01/26/24 at 2100 Start: 02-11-2023 take 1 tablet by agnes in the morning, then take 2 tablets by mouth at bedtime tiZANidine (Zanaflex) 4 mg tablet TAKE 1 TABLET BY MOUTH IN THE MORNING AND 2 TABLETS AT BEDTIME 02/11/2023 Active traMADol hydrochloride 50 mg oral tablet (1 source) Opioid Agonist Start: 01-26-2024 take 1 tablet by mouth every six hours as needed 50 mg, oral, Every 6 hours PRN, pain moderate (4-6), first line, Starting on 01/26/24 at 1618, If ordered PRN for pain, nurse is permitted to administer this medication for higher pain scores based on patient preference? Yes traZODone hydrochloride 50 mg oral tablet (7 sources) Serotonin Reuptake Inhibitor Start: 01-26-2024 take 300 mg by mouth once daily 300 mg, oral, Nightly, First dose on 01/26/24 at 2100 Start: 02-04-2023 take 2 tablets by mo [facility] once daily traZODone (Desyrel) 150 mg tablet TAKE 2 TABLETS BY MOUTH EVERY DAY AT NIGHT 02/04/2023 Active Completed/Discontinued Medications Medication Drug Class(es) Dates Sig (Normalized) Sig (Original) diclofenac sodium 75 mg delayed release oral tablet (6 sources) Nonsteroidal Anti-inflammatory Drug Start: 02-26-2023 End: 01-26-2024 diclofenac (Voltaren) 75 mg EC tablet 02/26/2023 01/26/2024 Discontinued (Entered in Error) 1 ml ketorolac tromethamine 30 mg/ml injection (2 sources) Nonsteroidal Anti-inflammatory Drug, Cyclooxygenase Inhibitor Start: 01-26-2024 End: 01-27-2024 15 mg, intravenous, Once, On 01/27/24 at 1145, For 1 dose labetalol hydrochloride 5 mg/ml injectable solution (3 sources) beta-Adrenergic Shaquille Start: 01-28-2024 End: 01-28-2024 10 mg, intravenous, Once, On 01/28/24 at 0815, For 1 dose, Give at rate of 10 mg/min. Start: 01-26-2024 End: 01-26-2024 20 mg, intravenous, Once, On 01/26/24 at 1210, For 1 dose, Give at rate of 10 mg/min. lisinopril 40 mg oral tablet (6 sources) Angiotensin Converting Enzyme Inhibitor Start: 02-05-2023 End: 01-26-2024 take 1 tablet by mouth once daily lisinopril 40 mg tablet Take 1 tablet (40 mg) by mouth once daily. 02/05/2023 01/26/2024 Discontinued (Therapy completed) metoprolol tartrate 25 mg oral tablet (7 sources) beta-Adrenergic Shaquille Start: 01-26-2024 End: 01-26-2024 take 25 mg by mouth once 25 mg, oral, Once, On 01/26/24 at 1050, For 1 dose Start: 02-04-2023 End: 01-28-2024 take 1 tablet by mouth twice daily metoprolol tartrate (Lopressor) 25 mg tablet Take 1 tablet (25 mg) by mouth 2 times a day. 02/04/2023 01/28/2024 Discontinued (Stop Taking at Discharge) nabumetone 500 mg oral tablet (6 sources) Nonsteroidal Anti-inflammatory Drug Start: 02-05-2023 End: 01-26-2024 take 2 tablets by mouth twice daily nabumetone (Relafen) 500 mg tablet Take 2 tablets (1,000 mg) by mouth 2 times a day. 02/05/2023 01/26/2024 Discontinued (Entered in Error) 200 ml niCARdipine hydrochloride 0.2 mg/ml injection (1 source) Dihydropyridine Calcium Channel Shaquille Start: 01-26-2024 End: 01-27-2024 2.5-15 mg/hr (12.5-75 mL/hr), intravenous, Continuous, Starting on 01/26/24 at 1325, Titration Goal: Use Adult Parameters, Target Parameter: SBP less than 180, Initial dose: 2.5 mg/hr, Bidirectional Titration Dose: 2.5 mg/hr, Titration Frequency: Every 5 minutes perflutren lipid microspheres (Definity) injection 0.5-10 mL of dilution (1 source) Start: 01-28-2024 End: 01-28-2024 0.5-10 mL of dilution, intravenous, Once in imaging, Starting on 01/28/24 at 0431, For 1 dose, CV Medications, Contrast - for use by imaging provider only. Prior to administration, Definity product must be activated. First, bring vial to room temperature. Then, shake vial for 45 seconds. Do not use if the 45 second activation cycle has not been completed. Following activation, the product will appear as a milky white suspension and may be used immediately. If not used within 5 minutes of activation, re-suspend by inverting and shaking the vial for 10 seconds. Discard unused product. Administration: Dilute 1.3 mL of activated DEFINITY with 8.7 mL of normal saline in a 10 mL syringe. Inject 0.5 mL of diluted DEFINITY when notified the images/film are unclear to enhance view of Left Ventricular borders. Repeat 0.5 mL of DEFINITY until clear images are obtained, not to exceed 10 mLs. Once images are obtained or limit of medication is reached, flush line with 10 mL of Normal Saline. 1000 ml sodium chloride 9 mg/ml injection (1 source) Start: 01-26-2024 End: 01-26-2024 take 150 mL intravenously every hour 150 mL/hr, intravenous, Continuous, Starting on 01/26/24 at 1050 Problems Active Problems Problem Classification Problem Date [...] WITHOUT ESOPHAGITIS] Onset: 08-14-2022 Chronic Essential hypertension (4 sources) Essential (primary) hypertension; Translations: [Essential hypertension] Onset: 08-14-2022 Chronic Genitourinary symptoms and ill-defined conditions (5 sources) Hematuria, unspecified; Translations: [Personal history of urinary (tract) infections] Onset: 08-10-2022 Episodic Hypertension with complications and secondary hypertension (5 sources) Hypertensive urgency; Translations: [Hypertensive urgency ] Onset: 01-26-2024 Resolved: 01-28-2024 Chronic Mood disorders (1 source) Mood disorders; [...] panelon 01-28-2024 Anion gap [Moles/Vol] 13 mmol/L 10 - 2 0 mmol/L [facility] Calcium [Mass/Vol] 10.0 mg/dL 8.6 - 10. 3 mg/dL [facility] Chloride [Moles/Vol] 104 mmol/L 98 - 10 7 mmol/L [facility] CO2 [Moles/Vol] 26 mmol/L 21 - 32 mmol/L [facility] Creatinine [Mass/Vol] 0.84 mg/dL 0.50 - 1.05 mg/dL [facility] GFR/1.73 sq M.predicted among non-blacks MDRD (S/P/Bld) [Vol rate/Area] 81 mL/min/{1.73_m2} - PINF [facility] Comment on above: Calculations of lloyd mated GFR are performed using the 2021 CKD-EPI Study Refit equation without the race variable for the IDMS-Traceable creatinine methods. https://jasn.asnjournals.org/content/ASN.2020 750825 Glucose [Mass/Vol] 75 mg/dL 74 - 99 mg/dL [facility] Interpretation and review of laboratory results Normal [facility] Potassium [Moles/Vol] 4.3 mmol/L 3.5 - 5.3 mmol/L [facility] Comment on above: MILD HEMOLYSIS DETEC MAE. The result may be falsely elevated due to hemolysis or other interferents. Clinical correlation is recommended. Repeat testing may be considered. Sodium [Moles/Vol] 139 mmol/L 136 - 145 mmol/L [facility] Urea nitrogen [Mass/Vol] 20 mg/dL 6 - 23 mg/dL [facility] Anion gap [Moles/Vol] 13 mmol/L Normal 10-20 [facility] Comment on above: Performed By: #### 2 4321-2 ####DAX CUI ([id number])[facility] ([facility])[address] [place] [address] Calcium [Mass/Vol] 10.0 mg/dL Normal 8.6-10.3 [facility] Comment on above: Performed By: #### 2 4321-2 ####DAX CUI ([id number])[facility] ([facility])[address] [place] [address] Chloride [Moles/Vol] 104 mmol/L Normal 98-107 [facility] Comment on above: Performed By: #### 2 4321-2 ####DAX CUI ([id number])[facility] ([facility])[address] [place] [address] CO2 [Moles/Vol] 26 mmol/L Normal 21-32 [facility] Comment on above: Performed By: #### 2 4321-2 ####DAX CUI ([id number])[facility] ([facility])[address] [place] [address] Creatinine [Mass/Vol] 0.84 mg/dL Normal 0.50-1.05 [facility] Comment on above: Performed By: #### 2 4321-2 ####DAX CUI ([id number])[facility] ([facility])[address] [place] [address] Glomerular filtration rate/1.73 sq M.predicted 81 mL/min/1.73m*2 Normal >60 [facility] Comment on above: Result Comment: Calc ulations of estimated GFR are performed using the 2020 CKD-EPI Study Refit equation without the race variable for the IDMS-Traceable creatinine methods. https://jasn.asnjournals.org/content/early//ASN.2020 462020 Performed By: #### 2 4321-2 ####DAX CUI ([id number])[facility] ([facility])[address] [place] [address] Glucose [Mass/Vol] 75 mg/dL Normal 74-99 [facility] Comment on above: Performed By: #### 2 4321-2 ####DAX CUI ([id number])[facility] ([facility])[address] [place] [address] Potassium [Moles/Vol] 4.3 mmol/L Normal 3.5-5.3 [facility] Comment on above: Result Comment: MILD HEMOLYSIS DETECTED. The result may be falsely elevated due to hemolysis or other interferents. Clinical correlation is recommended. Repeat testing may be considered. Performed By: #### 2 4321-2 ####DAX CUI ([id number])[facility] ([facility])[address] [place] [address] Sodium [Moles/Vol] 139 mmol/L Normal 136-145 [facility] Comment on above: Performed By: #### 2 4321-2 ####DAX CUI ([id number])[facility] ([facility])[address] [place] [address] Urea nitrogen [Mass/Vol] 20 mg/dL Normal 6-23 [facility] Comment on above: Performed By: #### 2 4321-2 ####DAX CUI ([id number])[facility] ([facility])[address] [place] [address] 48052 CBC panel Auto (Bld)on 01-27 Erythrocyte distribution width (RBC) [Ratio] 12.7 % 11.5 - 14.5 % [facility] Hematocrit (Bld) [Volume fraction] 42.5 % 36.0 - 46.0 % [facility] Hemoglobin (Bld) [Mass/Vol] 13.8 g/dL 12.0 - 16.0 g/dL [facility] Interpretation and review of laboratory results Normal [facility] MCH (RBC) [Entitic mass] 30.4 pg 26.0 - 34.0 pg [facility] MCHC (RBC) [Mass/Vol] 32.5 g/dL 32.0 - 36.0 g/dL [facility] MCV (RBC) [Entitic vol] 94 fL 80 - 100 fL [facility] Nucleated RBC/100 WBC (Bld) [Ratio] 0.0 % [facility] Platelets (Bld) [#/Vol] 291 10*3/uL [facility] RBC (Bld) [#/Vol] 4.54 10*6/uL [facility] WBC (Bld) [#/Vol] 7.1 10*3/uL [facility] Erythrocyte distribution width (RBC) [Ratio] 12.7 % Normal 11.5-14.5 [facility] Comment on above: Performed By: #### 5 8410-2 ####DAX CUI ([id number])[facility] ([facility])[address] [place] [address]1497 Hematocrit (Bld) [Volume fraction] 42.5 % Normal 36.0-46.0 [facility] Comment on above: Performed By: #### 5 8410-2 ####DAX CUI ([id number])[facility] ([facility])[address] [place] [address]693 Hemoglobin (Bld) [Mass/Vol] 13.8 g/dL Normal 12.0-16.0 [facility] Comment on above: Performed By: #### 5 8410-2 ####DAX CUI ([id number])[facility] ([facility])[address] [place] [address]91 MCH (RBC) [Entitic mass] 30.4 pg Normal 26.0-34.0 [facility] Comment on above: Performed By: #### 5 8410-2 ####DAX CUI ([id number])[facility] ([facility])[address] [place], [place] [phone] MCHC (RBC) [Mass/Vol] 32.5 g/dL Normal 32.0-36.0 [facility] Comment on above: Performed By: #### 5 8410-2 ####DAX CUI ([id number])[facility] ([facility])[address] [place] [address] MCV (RBC) [Entitic vol] 94 fL Normal 80-100 [facility] Comment on above: Performed By: #### 5 8410-2 ####DAX CUI ([id number])[facility] ([facility])[address] [place] [address] Nucleated RBC/100 WBC (Bld) [Ratio] 0.0 /100 WBCs Normal 0.0-0.0 [facility] Comment on above: Performed By: #### 5 8410-2 ####DAX CUI ([id number])[facility] ([facility])[address] [place] [address] Platelets (Bld) [#/Vol] 291 x10*3/uL Normal 150-450 [facility] Comment on above: Performed By: #### 5 8410-2 ####DAX CUI ([id number])[facility] ([facility])[address] [place] [address]18 RBC (Bld) [#/Vol] 4.54 x10*6/uL Normal 4.00-5.20 [facility] Comment on above: Performed By: #### 5 8410-2 ####VERDUZCO SEE ([id number])[facility] ([facility])[address] [place] [address] WBC (Bld) [#/Vol] 7.1 x10*3/uL Normal 4.4-11.3 [facility] Comment on above: Performed By: #### 5 8410-2 ####VERDUZCO SEE ([id number])[facility] ([facility])[address] [place], [place] [address] PST Topon 01-28-2024 Extra Tube Hold for add-ons. [facility] Comment on above: Auto resulted. [facility] TRANSTHORACIC ECHO (TTE) ANTON ITEDon 01-28-2024 TRANSTHORACIC ECHO (TTE) [place] [address] ext-[phone], TRANSTHORACIC ECHOCARDIOGRAM REPORT Patient Name: REGI CRUZ Reading Physician: [id number] Pedrito Francois MD Study Date: 01/28/2024 Ordering Provider: [id number] EZEKIEL SOLOMON MRN/PID: [id number] Fellow: Nurse: Tierra Mo RN Date of /Age: 5 1965 / 58 years Security Sergeant: IVON Baxter RVT Gender: F Additional Staff: Height: 167.64 cm Admit Date: 01/26/2024 Weight: 90.72 kg Admission Status: Inpatient - Routine BSA / BMI: 2.00 m2 / 32.28 kg/m2 Department Location: [address]-ICU Blood Pressure: 171 /91 mmHg Study Type: TRANSTHORACIC ECHO (TTE) LIMITED Diagnosis/ICD: Essential (primary) hypertension-I10 Indication: Hypertensive Urgency CPT Codes: Echo Limited-65578 Patient History: Pertinent History: No previous echo [...] LA Area A2C: 10.1 cm2 LA Major Adams A4C: 4.5 cm LA Major Adams A2C: 3.9 cm LA Volume Index: 10.6 [...] AoV Mean P.0 mmHg (1.7-11.5mmHg) LVOT Max Jordan: 1.05 m/s (<=1.1m/s) AoV VTI: 50.50 cm (18-25cm) LVOT VTI: 24.80 cm LVOT Diameter: 2.20 cm (1.8-2.4cm) AoV Area, VTI: 1.87 cm2 (2.5-5.5cm2) AoV Area,Vmax: 1.92 cm2 (2.5-4.5cm2) AoV Dimensionless Index: 0.49 PULMONIC VALVE: Normal Ranges: PV Accel Time: 92 msec (>120ms) PV Max Jordan: 1.2 m/s (0.6-0.9m/s) PV Max P.2 mmHg [id number] Pedrito Francois MD Electronically signed on 01/28/2024 at 10:25:54 AM Final Normal [facility] US Heart TransthoracicOrdere d By: Pedrito Francois on 01-28-2024 Aortic Valve Area by Continuity of Peak Velocity 1.92 cm2 [facility] Work Phone: Aortic Valve Area by Continuity of VTI 1.87 cm2 [facility] Work Phone: AV mn grad 10.0 mmHg [facility] Work Phone: [phone] AV pk grad 17.3 mmHg [facility] Work Phone: [phone] AV pk jordan 2.08 m/s [facility] Work Phone: [phone] LA vol index A/L 14.0 ml/m2 [facility] Work Phone: [phone] LV A4C EF 66.7 [facility] Work Phone: [phone] LV Biplane EF 73 % [facility] Work Phone: [phone] LV EF 60 % [facility] Work Phone: [phone] LVIDd 3.47 cm [facility] Work Phone: [phone] LVOT diam 2.20 cm [facility] Work Phone: [phone] [facility] Work Phone: [phone] [place] [address] ext-[phone], TRANSTHORACIC ECHOCARDIOGRAM REPORT Patient Name: REGI Franklin Physician: [id number] Pedrito Francois MD Study Date: 01/28/2024 Ordering Provider: [id number] EZEKIEL SOLOMON MRN/PID: [id number] Fellow: Nurse: Tierra Mo RN Date of /Age: 5 1965 / 58 years Security Sergeant: Evi Pires RVT, IVON Gender: F Additional Staff: Height: 167.64 cm Admit Date: 01/26/2024 Weight: 90.72 kg Admission Status: Inpatient - Routine BSA / BMI: 2.00 m2 / 32.28 kg/m2 Department Location: [address]-ICU Blood Pressure: 171 /91 mmHg Study Type: TRANSTHORACIC ECHO (TTE) LIMITED Diagnosis/ICD: Essential (primary) hypertension-I10 Indication: Hypertensive Urgency CPT Codes: Echo Limited-93393 Patient History: Pertinent History: No previous echo [...] LA Area A2C: 10.1 cm2 LA Major Adams A4C: 4.5 cm LA Major Adams A2C: 3.9 cm LA Volume Index: 10.6 [...] AoV Mean P.0 mmHg (1.7-11.5mmHg) LVOT Max Jordan: 1.05 m/s (<=1.1m/s) AoV VTI: (more content not included)... Pedrito Mcgovern MD - 01/28/2024 [place] [address] ext-[phone], TRANSTHORACIC ECHOCARDIOGRAM REPORT Patient Name: REGI Franklin Physician: [id number] Pedrito Francois MD Study Date: 01/28/2024 Ordering Provider: [id number] EZEKIEL SOLOMON MRN/PID: [id number] Fellow: Nurse: Tierra Chepe RN Date of /Age: 5 1965 / 58 years Security Sergeant: Evi Pires RVT, RCS Gender: F Additional Staff: Height: 167.64 cm Admit Date: 01/26/2024 Weight: 90.72 kg Admission Status: Inpatient - Routine BSA / BMI: 2.00 m2 / 32.28 kg/m2 Department Location: [address]-ICU Blood Pressure: 171 /91 mmHg Study Type: TRANSTHORACIC ECHO (TTE) LIMITED Diagnosis/ICD: Essential (primary) hypertension-I10 Indication: Hypertensive Urgency CPT Codes: Echo Limited-39891 Patient History: Pertinent History: No previous echo [...] LA Area A2C: 10.1 cm2 LA Major Adams A4C: 4.5 cm LA Major Adams A2C: 3.9 cm LA Volume Index: 10.6 [...] AoV Mean P.0 mmHg (1.7-11.5mmHg) LVOT Max Jordan: 1.05 m/s (<=1.1m/s) AoV VTI: 50.50 cm (18-25cm) LVOT VTI: 24.80 cm LVOT Diameter: 2.20 cm (1.8-2.4cm) AoV Area, VTI: 1.87 cm2 (2.5-5.5cm2) AoV Area,Vmax: 1.92 cm2 (2.5-4.5cm2) AoV Dimensionless Index: 0.49 PULMONIC VALVE: Normal Ranges: PV Accel Time: 92 msec (>120ms) PV Max Jordan: 1.2 m/s (0.6-0.9m/s) PV Max P.2 mmHg [id number] Pedrito Francois MD Electronically signed on 01/28/2024 at 10:25:54 AM Final [facility] Work Phone: CBC panel Auto (Bld)on 01-26 Erythrocyte distribution width (RBC) [Ratio] 12.4 % 11.5 - 14.5 % [facility] Hematocrit (Bld) [Volume fraction] 37.3 % 36.0 - 46.0 % [facility] Hemoglobin (Bld) [Mass/Vol] 12.3 g/dL 12.0 - 16.0 g/dL [facility] Interpretation and review of laboratory results Normal [facility] MCH (RBC) [Entitic mass] 30.8 pg 26.0 - 34.0 pg [facility] MCHC (RBC) [Mass/Vol] 33.0 g/dL 32.0 - 36.0 g/dL [facility] MCV (RBC) [Entitic vol] 93 fL 80 - 100 fL [facility] Nucleated RBC/100 WBC (Bld) [Ratio] 0.0 % [facility] Platelets (Bld) [#/Vol] 264 10*3/uL [facility] RBC (Bld) [#/Vol] 4.00 10*6/uL [facility] WBC (Bld) [#/Vol] 7.0 10*3/uL [facility] Erythrocyte distribution width (RBC) [Ratio] 12.4 % Normal 11.5-14.5 [facility] Comment on above: Performed By: #### 5 8410-2 ####DAX CUI ([id number])[facility] ([facility])[address] [place] [address] Hematocrit (Bld) [Volume fraction] 37.3 % Normal 36.0-46.0 [facility] Comment on above: Performed By: #### 5 8410-2 ####DAX CUI (54628)[facility] ([facility])[address] [place] [address] 99090 Hemoglobin (Bld) [Mass/Vol] 12.3 g/dL Normal 12.0-16.0 [facility] Comment on above: Performed By: #### 5 8410-2 ####DAX CUI ([id number])[facility] ([facility])[address] [place], [place] [phone] MCH (RBC) [Entitic mass] 30.8 pg Normal 26.0-34.0 [facility] Comment on above: Performed By: #### 5 8410-2 ####DAX CUI (57363)[facility] ([facility])[address] [place] [address] MCHC (RBC) [Mass/Vol] 33.0 g/dL Normal 32.0-36.0 [facility] Comment on above: Performed By: #### 5 8410-2 ####DAX CUI (67243)[facility] ([facility])[address] [place] [address]1416 MCV (RBC) [Entitic vol] 93 fL Normal 80-100 U [facility] Comment on above: Performed By: #### 5 8410-2 ####DAX CUI (02080)[facility] ([facility])[address] [place] [address] 02217 Nucleated RBC/100 WBC (Bld) [Ratio] 0.0 /100 WBCs Normal 0.0-0.0 [facility] Comment on above: Performed By: #### 5 8410-2 ####DAX CUI (79750)[facility] ([facility])[address] [place] [address] 90940 Platelets (Bld) [#/Vol] 264 x10*3/uL Normal 150-450 [facility] Comment on above: Performed By: #### 5 8410-2 ####DAX CUI (64751)[facility] ([facility])[address] [place] [address] RBC (Bld) [#/Vol] 4.00 x10*6/uL Normal 4.00-5.20 [facility] Comment on above: Performed By: #### 5 8410-2 ####DAX CUI (13525)[facility] ([facility])[address] [place] [address] 81703 WBC (Bld) [#/Vol] 7.0 x10*3/uL Normal 4.4-11.3 [facility] Comment on above: Performed By: #### 5 8410-2 ####DAX CUI (90608)[facility] ([facility])[address] [place] [address] Comprehensive metabolic 2000 panelon 01-27-2024 Albumin BCP dye [Mass/Vol] 3.9 g/dL 3.4 - 5.0 g/dL [facility] ALP [Catalytic activity/Vol] 54 U/L 33 - 110 U/L [facility] ALT With P-5'-P [Catalytic activity/Vol] 13 U/L 7 - 45 U/L [facility] Comment on above: Patients treated wit h Sulfasalazine may generate falsely decreased results for ALT. Anion gap [Moles/Vol] 10 mmol/L 10 - 2 0 mmol/L [facility] AST With P-5'-P [Catalytic activity/Vol] 15 U/L 9 - 39 U/L [facility] Bilirubin [Mass/Vol] 0.3 mg/dL 0.0 - 1 .2 mg/dL [facility] Calcium [Mass/Vol] 8.8 mg/dL 8.6 - 10. 3 mg/dL [facility] Chloride [Moles/Vol] 106 mmol/L 98 - 10 7 mmol/L [facility] CO2 [Moles/Vol] 26 mmol/L 21 - 32 mmol/L [facility] Creatinine [Mass/Vol] 0.75 mg/dL 0.50 - 1.05 mg/dL [facility] eGFR - PINF [facility] Comment on above: Calculations of lloyd mated GFR are performed using the 2020 CKD-EPI Study Refit equation without the race variable for the IDMS-Traceable creatinine methods. https://jasn.asnjournals.org/content//ASN.2020 961127 Glucose [Mass/Vol] 93 mg/dL 74 - 99 mg/dL [facility] Interpretation and review of laboratory results Normal [facility] Potassium [Moles/Vol] 3.6 mmol/L 3.5 - 5.3 mmol/L [facility] Protein [Mass/Vol] 6.6 g/dL 6.4 - 8.2 g/dL [facility] Sodium [Moles/Vol] 138 mmol/L 136 - 145 mmol/L [facility] Urea nitrogen [Mass/Vol] 18 mg/dL 6 - 23 mg/dL [facility] Albumin BCP dye [Mass/Vol] 3.9 g/dL Normal 3.4-5.0 [facility] Comment on above: Performed By: #### 2 4323-8 ####DAX CUI (69923)[facility] ([facility])[address] [place] [address] 97698 ALP [Catalytic activity/Vol] 54 U/L Normal 33-110 [facility] Comment on above: Performed By: #### 2 4323-8 ####DAX CUI (88833)[facility] ([facility])[address] [place] [address] 66707 ALT With P-5'-P [Catalytic activity/Vol] 13 U/L Normal 7-45 [facility] Comment on above: Result Comment: Radha ents treated with Sulfasalazine may generate falsely decreased results for ALT. Performed By: #### 2 4323-8 ####DAX CUI (63921)[facility] ([facility])[address] [place] [address] 55062 Anion gap [Moles/Vol] 10 mmol/L Normal 10-20 [facility] Comment on above: Performed By: #### 2 4323-8 ####DAX CUI (12536)[facility] ([facility])[address] [place] [address] 32757 AST With P-5'-P [Catalytic activity/Vol] 15 U/L Normal 9-39 [facility] Comment on above: Performed By: #### 2 4323-8 ####DAX CUI (29411)[facility] ([facility])[address] [place] [address] 39458 Bilirubin [Mass/Vol] 0.3 mg/dL Normal 0.0-1.2 [facility] Comment on above: Performed By: #### 2 432-8 ####DAX CUI (75666)[facility] ([facility])[address] [place] [address] 56411 Calcium [Mass/Vol] 8.8 mg/dL Normal 8.6-10.3 [facility] Comment on above: Performed By: #### 2 432-8 ####DAX CUI (79379)[facility] ([facility])[address] [place] [address] 34812 Chloride [Moles/Vol] 106 mmol/L Normal 98-107 [facility] Comment on above: Performed By: #### 2 4323-8 ####DAX CUI (14732)[facility] ([facility])[address] [place] [address] 00550 CO2 [Moles/Vol] 26 mmol/L Normal 21-32 [facility] Comment on above: Performed By: #### 2 4323-8 ####DAX CUI (25209)[facility] ([facility])[address] [place] [address] 79378 Creatinine [Mass/Vol] 0.75 mg/dL Normal 0.50-1.05 [facility] Comment on above: Performed By: #### 2 4323-8 ####DAX CUI (17088)[facility] ([facility])[address] [place] [address] 32256 GFR/1.73 sq M.predicted MDRD (S/P/Bld) [Vol rate/Area] mL/min/{1.73_m2} Normal >60 [facility] Comment on above: Result Comment: Calc ulations of estimated GFR are performed using the 2020 CKD-EPI Study Refit equation without the race variable for the IDMS-Traceable creatinine methods. https://jasn.asnjournals.org/content/early//ASN.2020 885620 Performed By: #### 2 4323-8 ####DAX CUI (40332)[facility] ([facility])[address] [place] [address] 16544 Glucose [Mass/Vol] 93 mg/dL Normal 74-99 [facility] Comment on above: Performed By: #### 2 4323-8 ####DAX CUI (17695)[facility] ([facility])[address] [place] [address] 37674 Potassium [Moles/Vol] 3.6 mmol/L Normal 3.5-5.3 [facility] Comment on above: Performed By: #### 2 4323-8 ####DAX CUI (28361)[facility] ([facility])[address] [place] [address] 98075 Protein [Mass/Vol] 6.6 g/dL Normal 6.4-8.2 [facility] Comment on above: Performed By: #### 2 4323-8 ####DAX CUI (79648)[facility] ([facility])[address] [place] [address] 49994 Sodium [Moles/Vol] 138 mmol/L Normal 136-145 [facility] Comment on above: Performed By: #### 2 4323-8 ####DAX CUI (81235)[facility] ([facility])[address] [place] [address] 06509 Urea nitrogen [Mass/Vol] 18 mg/dL Normal 6-23 [facility] Comment on above: Performed By: #### 2 4323-8 ####DAX CUI (94566)[facility] ([facility] [place] [address] C reactive proteinon 024 CRP [Mass/Vol] 0.92 mg/dL Normal <1.00 [facility] Comment on above: Performed By: #### 1 988-5 ####DAX CUI (80753)[facility] ([facility])[address] [place] [address] C-reactive proteinon 024 CRP [Mass/Vol] 0.92 mg/dL NINF - 1.00 mg/dL [facility] CBC W Auto Differential pane l (Bld)on 01-26-2024 Basophils (Bld) [#/Vol] 0.01 10*3/uL [facility] Basophils/100 WBC (Bld) 0.1 % 0.0 - 2.0 % [facility] Eosinophils (Bld) [#/Vol] 0.10 10*3/uL [facility] Eosinophils/100 WBC (Bld) 1.3 % 0.0 - 6.0 % [facility] Erythrocyte distribution width (RBC) [Ratio] 12.4 % 11.5 - 14.5 % [facility] Hematocrit (Bld) [Volume fraction] 37.2 % 36.0 - 46.0 % [facility] Hemoglobin (Bld) [Mass/Vol] 12.4 g/dL 12.0 - 16.0 g/dL [facility] Immature granulocytes (Bld) [#/Vol] 0.02 10*3/uL [facility] Immature granulocytes/100 WBC (Bld) 0.3 % 0.0 - 0.9 % [facility] Comment on above: Immature Granulocyte Count (IG) includes promyelocytes, myelocytes and metamyelocytes but does not include bands. Percent differential counts (%) should be interpreted in the context of the absolute cell counts (cells/UL). Lymphocytes (Bld) [#/Vol] 1.60 10*3/uL [facility] Lymphocytes/100 WBC (Bld) 21.2 % 13.0 - 44.0 % [facility] MCH (RBC) [Entitic mass] 31.0 pg 26.0 - 34.0 pg [facility] MCHC (RBC) [Mass/Vol] 33.3 g/dL 32.0 - 36.0 g/dL [facility] MCV (RBC) [Entitic vol] 93 fL 80 - 100 fL [facility] Monocytes (Bld) [#/Vol] 0.56 10*3/uL [facility] Monocytes/100 WBC (Bld) 7.4 % 2.0 - 10.0 % [facility] Neutrophils (Bld) [#/Vol] 5.24 10*3/uL [facility] Comment on above: Percent differential counts (%) should be interpreted in the context of the absolute cell counts (cells/uL). Neutrophils/100 WBC (Bld) 69.7 % 40.0 - 80.0 % [facility] Nucleated RBC/100 WBC (Bld) [Ratio] 0.0 % [facility] Platelets (Bld) [#/Vol] 253 10*3/uL [facility] RBC (Bld) [#/Vol] 4.00 10*6/uL [facility] WBC (Bld) [#/Vol] 7.5 10*3/uL [facility] Basophils (Bld) [#/Vol] 0.01 x10*3/uL Normal 0.00-0.10 [facility] Comment on above: Performed By: #### 5 7021-8 #### DAX CUI (56207) [facility] ([facility]) [address] [place] [address] 05243 Basophils/100 WBC (Bld) 0.1 % Normal 0.0-2.0 [facility] Comment on above: Performed By: #### 5 7021-8 #### DAX CUI (19515) [facility] ([facility]) [facility] [place] [address] Eosinophils (Bld) [#/Vol] 0.10 x10*3/uL Normal 0.00-0.70 [facility] Comment on above: Performed By: #### 5 7021-8 #### DAX CUI (99473) [facility] ([facility]) [address] [place] [address] 58315 Eosinophils/100 WBC (Bld) 1.3 % Normal 0.0-6.0 [facility] Comment on above: Performed By: #### 5 7021-8 #### DAX CUI (31148) [facility] ([facility]) [address] [place] [address] 72512 Erythrocyte distribution width (RBC) [Ratio] 12.4 % Normal 11.5-14.5 [facility] Comment on above: Performed By: #### 5 7021-8 #### DAX CUI (87904) [facility] ([facility]) [address] [place] [address] 65601 Hematocrit (Bld) [Volume fraction] 37.2 % Normal 36.0-46.0 [facility] Comment on above: Performed By: #### 5 7021-8 #### DAX CUI (85267) [facility] ([facility]) [address] [place] [address] 13318 Hemoglobin (Bld) [Mass/Vol] 12.4 g/dL Normal 12.0-16.0 [facility] Comment on above: Performed By: #### 5 7021-8 #### DAX CUI (75168) [facility] ([facility]) [address] [place] [address] 03688 Immature granulocytes (Bld) [#/Vol] 0.02 x10*3/uL Normal 0.00-0.70 [facility] Comment on above: Performed By: #### 5 7021-8 #### DAX CUI (76362) [facility] ([facility]) [address] [place] [address] 97679 Immature granulocytes/100 WBC (Bld) 0.3 % Normal 0.0-0.9 [facility] Comment on above: Result Comment: Tamela ture Granulocyte Count (IG) includes promyelocytes, myelocytes and metamyelocytes but does not include bands. Percent differential counts (%) should be interpreted in the context of the absolute cell counts (cells/UL). Performed By: #### 5 7021-8 #### DAX CUI (79260) [facility] ([facility]) [address] [place] [address] Lymphocytes (Bld) [#/Vol] 1.60 x10*3/uL Normal 1.20-4.80 [facility] Comment on above: Performed By: #### 5 7021-8 #### DAX CUI (55532) [facility] ([facility]) [address] [place] [address] Lymphocytes/100 WBC (Bld) 21.2 % Normal 13.0-44.0 [facility] Comment on above: Performed By: #### 5 7021-8 #### DXA CUI (32235) [facility] ([facility]) [address] [place] [address] MCH (RBC) [Entitic mass] 31.0 pg Normal 26.0-34.0 [facility] Comment on above: Performed By: #### 5 7021-8 #### DAX CUI (35231) [facility] ([facility]) [address] [place] [address] 13990 MCHC (RBC) [Mass/Vol] 33.3 g/dL Normal 32.0-36.0 [facility] Comment on above: Performed By: #### 5 7021-8 #### DAX CUI (19602) [facility] ([facility]) [address] [place] [address] 75574 MCV (RBC) [Entitic vol] 93 fL Normal 80-100 [facility] Comment on above: Performed By: #### 5 7021-8 #### DAX CUI (84147) [facility] ([facility]) [address] [place] [address] 87200 Monocytes (Bld) [#/Vol] 0.56 x10*3/uL Normal 0.10-1.00 [facility] Comment on above: Performed By: #### 5 7021-8 #### DAX CUI (82957) [facility] ([facility]) [address] [place] [address] 94726 Monocytes/100 WBC (Bld) 7.4 % Normal 2.0-10.0 [facility] Comment on above: Performed By: #### 5 7021-8 #### DAX CUI (64024) [facility] ([facility]) [address] [place] [address] 13748 Neutrophils (Bld) [#/Vol] 5.24 x10*3/uL Normal 1.20-7.70 [facility] Comment on above: Result Comment: Perc ent differential counts (%) should be interpreted in the context of the absolute cell counts (cells/uL). Performed By: #### 5 7021-8 #### DAX CUI (91502) [facility] ([facility]) [address] [place] [address] 69757 Neutrophils/100 WBC (Bld) 69.7 % Normal 40.0-80.0 [facility] Comment on above: Performed By: #### 5 7021-8 #### DAX CUI (06626) [facility] ([facility]) [address] [place] [address] 87432 Nucleated RBC/100 WBC (Bld) [Ratio] 0.0 /100 WBCs Normal 0.0-0.0 [facility] Comment on above: Performed By: #### 5 7021-8 #### DAX CUI (99697) [facility] ([facility]) [address] [place] [address] 59253 Platelets (Bld) [#/Vol] 253 x10*3/uL Normal 150-450 [facility] Comment on above: Performed By: #### 5 7021-8 #### DAX CUI (69089) [facility] ([facility]) [address] [place] [address] 20238 RBC (Bld) [#/Vol] 4.00 x10*6/uL Normal 4.00-5.20 [facility] Comment on above: Performed By: #### 5 7021-8 #### VERDUZCO SEE (33723) [facility] ([facility]) [address] [place] [address] WBC (Bld) [#/Vol] 7.5 x10*3/uL Normal 4.4-11.3 [facility] Comment on above: Performed By: #### 5 7021-8 #### VERDUZCO SEE (27469) [facility] ([facility]) [address] [place] [address] CRP [Mass/Vol]on 01-26-2024 Interpretation and review of laboratory results Normal [facility] CT HEAD WO IV CONTRASTon CT HEAD WO IV CONTRAST Interpreted By: Mark Abdul, STUDY: CT HEAD WO IV CONTRAST; 01/26/2024 11:07 am INDICATION: Signs/Symptoms:HTN, headache. COMPARISON: None ACCESSION NUMBER(S): [id number] ORDERING CLINICIAN: JEANNIE NIELSEN TECHNIQUE: CT of the brain from the [...] Mark Abdul 01/26/2024 11:36 AM Dictation workstation: [id number] [facility] CT Head WO contraston 2023 NO ACUTE INTRACRANIA L PROCESS MACRO: None Signed by: Mark Abdul 01/26/2024 11:36 AM Dictation workstation: [id number] Interpreted By: Mark Abdul, STUDY: CT HEAD WO IV CONTRAST; 01/26/2024 11:07 am INDICATION: Signs/Symptoms:HTN, headache. COMPARISON: None ACCESSION NUMBER(S): [id number] ORDERING CLINICIAN: JEANNIE NIELSEN TECHNIQUE: CT of the brain from the [...] and occular globes grossly normal by CT [facility] MMMark Huerta MD - 01/26/2024 Interpreted By: Mark Abdul, STUDY: CT HEAD WO IV CONTRAST; 01/26/2024 11:07 am INDICATION: Signs/Symptoms:HTN, headache. COMPARISON: None ACCESSION NUMBER(S): [id number] ORDERING CLINICIAN: JEANNIE NIELSEN TECHNIQUE: CT of the brain from the [...] Mark Abdul 01/26/2024 11:36 AM Dictation workstation: [id number] [facility] Work Phone: Radiology Study observation (narrative) [facility] Work Phone: CT Head WO contrastOrdered B y: Mark Abdul on 01-26-2024 [facility] Work Phone: Comprehensive metabolic 2000 panelon 01-26-2024 Albumin BCP dye [Mass/Vol] 4.0 g/dL 3.4 - 5.0 g/dL [facility] ALP [Catalytic activity/Vol] 59 U/L 33 - 110 U/L [facility] ALT With P-5'-P [Catalytic activity/Vol] 14 U/L 7 - 45 U/L [facility] Comment on above: Patients treated wit h Sulfasalazine may generate falsely decreased results for ALT. Anion gap [Moles/Vol] 9 mmol/L Low 10 - 2 0 mmol/L [facility] AST With P-5'-P [Catalytic activity/Vol] 16 U/L 9 - 39 U/L [facility] Bilirubin [Mass/Vol] 0.3 mg/dL 0.0 - 1 .2 mg/dL [facility] Calcium [Mass/Vol] 8.8 mg/dL 8.6 - 10. 3 mg/dL [facility] Chloride [Moles/Vol] 107 mmol/L 98 - 10 7 mmol/L [facility] CO2 [Moles/Vol] 27 mmol/L 21 - 32 mmol/L [facility] Creatinine [Mass/Vol] 0.82 mg/dL 0.50 - 1.05 mg/dL [facility] GFR/1.73 sq M.predicted among non-blacks MDRD (S/P/Bld) [Vol rate/Area] 83 mL/min/{1.73_m2} - PINF [facility] Comment on above: Calculations of lloyd mated GFR are performed using the 2020 CKD-EPI Study Refit equation without the race variable for the IDMS-Traceable creatinine methods. https://jasn.asnjournals.org/content/early/ASN.2020 380645 Glucose [Mass/Vol] 91 mg/dL 74 - 99 mg/dL [facility] Interpretation and review of laboratory results Abnormal [facility] Potassium [Moles/Vol] 3.7 mmol/L 3.5 - 5.3 mmol/L [facility] Protein [Mass/Vol] 6.7 g/dL 6.4 - 8.2 g/dL [facility] Sodium [Moles/Vol] 139 mmol/L 136 - 145 mmol/L [facility] Urea nitrogen [Mass/Vol] 17 mg/dL 6 - 23 mg/dL [facility] Albumin BCP dye [Mass/Vol] 4.0 g/dL Normal 3.4-5.0 [facility] Comment on above: Performed By: #### 2 4323-8 #### DAX CUI (11729) [facility] ([facility]) [address] [place] [address] ALP [Catalytic activity/Vol] 59 U/L Normal 33-110 [facility] Comment on above: Performed By: #### 2 432-8 #### DAX CUI (07475) [facility] ([facility]) [address] [place] [address] ALT With P-5'-P [Catalytic activity/Vol] 14 U/L Normal 7-45 [facility] Comment on above: Result Comment: Radha ents treated with Sulfasalazine may generate falsely decreased results for ALT. Performed By: #### 2 432-8 #### DAX CUI (06141) [facility] ([facility]) [address] [place] [address] Anion gap [Moles/Vol] 9 mmol/L Low 10-20 [facility] Comment on above: Performed By: #### 2 4323-8 #### DAX CUI (37370) [facility] ([facility]) [address] [place] [address] AST With P-5'-P [Catalytic activity/Vol] 16 U/L Normal 9-39 [facility] Comment on above: Performed By: #### 2 4323-8 #### DAX CUI (84984) [facility] ([facility]) [address] [place] [address] Bilirubin [Mass/Vol] 0.3 mg/dL Normal 0.0-1.2 [facility] Comment on above: Performed By: #### 2 4323-8 #### DAX CUI (81958) [facility] ([facility]) [address] [place] [address] Calcium [Mass/Vol] 8.8 mg/dL Normal 8.6-10.3 [facility] Comment on above: Performed By: #### 2 4323-8 #### DAX CUI (02925) [facility] ([facility]) [facility] [place] [address] Chloride [Moles/Vol] 107 mmol/L Normal 98-107 [facility] Comment on above: Performed By: #### 2 4323-8 #### DAX CUI (80259) [facility] ([facility]) [address] [place] [address] 46102 CO2 [Moles/Vol] 27 mmol/L Normal 21-32 [facility] Comment on above: Performed By: #### 2 4323-8 #### DAX CUI (04701) [facility] ([facility]) [address] [place] [address] 55292 Creatinine [Mass/Vol] 0.82 mg/dL Normal 0.50-1.05 [facility] Comment on above: Performed By: #### 2 4323-8 #### DAX CUI (95732) [facility] ([facility]) [address] [place] [address] 09897 Glomerular filtration rate/1.73 sq M.predicted 83 mL/min/1.73m*2 Normal >60 [facility] Comment on above: Result Comment: Calc ulations of estimated GFR are performed using the 2020 CKD-EPI Study Refit equation without the race variable for the IDMS-Traceable creatinine methods. https://jasn.asnjournals.org/content/early//ASN.2020 834405 Performed By: #### 2 4323-8 #### DAX CUI (72026) [facility] ([facility]) [address] [place] [address] 51213 Glucose [Mass/Vol] 91 mg/dL Normal 74-99 [facility] Comment on above: Performed By: #### 2 4323-8 #### DAX CUI (96916) [facility] ([facility]) [address] [place] [address] Potassium [Moles/Vol] 3.7 mmol/L Normal 3.5-5.3 [facility] Comment on above: Performed By: #### 2 4323-8 #### DAX CUI (26640) [facility] ([facility]) [address] [place] [address] 57403 Protein [Mass/Vol] 6.7 g/dL Normal 6.4-8.2 [facility] Comment on above: Performed By: #### 2 4323-8 #### DAX CUI (99681) [facility] ([facility]) [address] [place] [address] 07184 Sodium [Moles/Vol] 139 mmol/L Normal 136-145 [facility] Comment on above: Performed By: #### 2 4323-8 #### DAX CUI (05580) [facility] ([facility]) [address] [place] [address] 63709 Urea nitrogen [Mass/Vol] 17 mg/dL Normal 6-23 [facility] Comment on above: Performed By: #### 2 4323-8 #### DAX CUI (72249) [facility] ([facility]) [address] [place] [address] 42492 D-dimer, Non VTEon 4 Fibrin D-dimer FEU (PPP) [Mass/Vol] 733 [facility] ECG 12-LEADon 01-26-2024 ECG 12-LEAD Ventricular Rate 69 Atrial Rate 69 P-R Interval 162 QRS Duration 66 Q-T Interval 400 QTC Calculation(Bazett) 428 P Adams 54 R Adams 54 T Adams 62 QRS Count 11 Q Onset 222 P Onset 141 P Offset 185 T Offset 422 QTC Fredericia 419 Diagnosis Normal sinus rhythm Normal ECG No previous ECGs available See ED provider note for full interpretation and clinical correlation Confirmed by Maria Esther Miramontes ([id number]) on 01/29/2024 11:26:09 AM Normal [facility] ESR Westergren method (Bld) [Velocity]on 01-26-2024 ESR (Bld) [Velocity] 26 mm/h 0 - 30 mm/h Uni [facility] Interpretation and review of laboratory results Normal [facility] ESR (Bld) [Velocity] 26 mm/h Normal 0-30 [facility] Comment on above: Performed By: #### 4 537-7 #### DAX CUI (46470) [facility] ([facility]) [address] [place] [address] 35278 Fibrin D-dimer FEUon 024 Fibrin D-dimer FEU (PPP) [Mass/Vol] 733 ng/mL FEU High <=500 [facility] Comment on above: Order Comment: The D -Dimer assay is reported in ng/mL Fibrinogen Equivalent Units (FEU). The results of this assay should NOT be used for the exclusion of Deep Vein Thrombosis and/or Pulmonary Embolism. Performed By: #### 4 8065-7 ####DAX CUI (80235)[facility] ([facility])[address] [place] [address] 13945 Fibrin D-dimer FEU (PPP) [Ma ss/Vol]on 01-26-2024 Interpretation and review of laboratory results Abnormal [facility] The D-Dimer assay is reported in ng/mL Fibrinogen Equivalent Units (FEU). The results of this assay should NOT be used for the exclusion of Deep Vein Thrombosis and/or Pulmonary Embolism. [facility] Lactateon 01-26-2024 Lactate [Moles/Vol] 0.7 mmol/L 0.4 - 2. 0 mmol/L [facility] Lactate [Moles/Vol] 0.7 mmol/L Normal 0.4-2.0 [facility] Comment on above: Order Comment: Venip uncture immediately after or during the administration of Metamizole may lead to falsely low results. Testing should be performed immediately prior to Metamizole dosing. Performed By: #### 2 524-7 #### DAX CUI (89342) [facility] ([facility]) [address] [place] [address] 93209 Lactate [Moles/Vol]on 2023 Interpretation and review of laboratory results Normal [facility] Venipuncture immediately after or during the administration of Metamizole may lead to falsely low results. Testing should be performed immediately prior to Metamizole dosing. [facility] Natriuretic peptide B [Mass/ Vol]on 01-26-2024 Interpretation and review of laboratory results Normal [facility] Natriuretic peptide B (Bld) [Mass/Vol] 52 pg/mL 0 - 99 pg/mL [facility] <100 pg/mL - Heart failure unlikely 100-299 pg/mL - Intermediate probability of acute heart failure exacerbation. Correlate with clinical context and patient history. >=300 pg/mL - Heart Failure likely. Correlate with clinical context and patient history. BNP testing is performed using different testing methodology at [facility] than at [facility]. Direct result comparisons should only be made within the same method. [facility] Natriuretic peptide B (Bld) [Mass/Vol] 52 pg/mL Normal 0-99 [facility] Comment on above: Order Comment: <100 pg/mL - Heart failure [id number] pg/mL - Intermediate probability of acute heart failure exacerbation. Correlate with clinical context and patient history. >=300 pg/mL - Heart Failure likely. Correlate with clinical context and patient history.BNP testing is performed using different testing methodology at [facility] than at [facility]. Direct result comparisons should only be made within the same method. Performed By: #### 3 0934-4 ####VERDUZCO SEE (47404)[facility] ([facility])[address] [place] [address] Tropinin I.cardiac panel Hig h sensitivity methodon 01-26-2024 Interpretation and review of laboratory results Normal [facility] Less than 99th percentile of normal range [...] performed using a different testing methodology at [facility] than at other [facility]. Direct result comparisons should only be made within the same method. [facility] Interpretation and review of laboratory results Normal [facility] Less than 99th percentile of normal range [...] performed using a different testing methodology at [facility] than at [facility]. Direct result comparisons should only be made within the same method. [facility] Troponin I, High Sensitivity , Initialon 01-26-2024 Tropinin I.cardiac panel High sensitivity method 3 ng/L 0 - 13 ng/L [facility] Troponin I.cardiac panelon 0 01-26-2024 Tropinin I.cardiac panel High sensitivity method 3 ng/L Normal 0-13 [facility] Comment on above: Order Comment: Less [...] performed using a different testing methodology at [facility] than at [facility]. Direct result comparisons should only be made within the same method. Performed By: #### 8 9577-1 #### DAX CUI (24935) [facility] ([facility]) [address] [place], [place] [address] Tropinin I.cardiac panel High sensitivity method 3 ng/L Normal 0-13 [facility] Comment on above: Order Comment: Less [...] performed using a different testing methodology at [facility] than at [facility]. Direct result comparisons should only be made within the same method. Performed By: #### 8 9577-1 #### DAX CUI (96300) [facility] ([facility]) [address] [place] [address] 52617 Troponin, High Sensitivity, 1 Houron 01-26-2024 Tropinin I.cardiac panel High sensitivity method 3 ng/L 0 - 13 ng/L [facility] XR CHEST 1 VIEWon 01-26-2024 XR CHEST 1 VIEW Interpreted By: Prem Thompson, STUDY: XR CHEST 1 VIEW; 01/26/2024 10:55 am INDICATION: Signs/Symptoms:HTN. COMPARISON: None. ACCESSION NUMBER(S): [id number] ORDERING CLINICIAN: JEANNIE NIELSEN FINDINGS: CARDIOMEDIASTINAL SILHOUETTE: Cardiomediastinal silhouette is normal in size and configuration. LUNGS: Lungs are clear. ABDOMEN: No remarkable upper abdominal findings. BONES: No acute osseous changes. IMPRESSION: 1. No evidence of acute cardiopulmonary process. MACRO: None Signed by: Prem Thompson 01/26/2024 11:24 AM Dictation workstation: [id number] Normal [facility] XR Chest Single viewon 01-25 1. No evidence of acute cardiopulmonary process. MACRO: None Signed by: Prem Thompson 01/26/2024 11:24 AM Dictation workstation: [id number] MMODAL Interpreted By: Prem Thompson, STUDY: XR CHEST 1 VIEW; 01/26/2024 10:55 am INDICATION: Signs/Symptoms:HTN. COMPARISON: None. ACCESSION NUMBER(S): [id number] ORDERING CLINICIAN: JEANNIE NIELSEN FINDINGS: CARDIOMEDIASTINAL SILHOUETTE: Cardiomediastinal silhouette is normal in size and configuration. LUNGS: Lungs are clear. ABDOMEN: No remarkable upper abdominal findings. BONES: No acute osseous changes. MMODAL Prem Thompson MD - 01/26/2024 Interpreted By: Prem Thompson, STUDY: XR CHEST 1 VIEW; 01/26/2024 10:55 am INDICATION: Signs/Symptoms:HTN. COMPARISON: None. ACCESSION NUMBER(S): [id number] ORDERING CLINICIAN: JEANNIE NIELSEN FINDINGS: CARDIOMEDIASTINAL SILHOUETTE: Cardiomediastinal silhouette is normal in size and configuration. LUNGS: Lungs are clear. ABDOMEN: No remarkable upper abdominal findings. BONES: No acute osseous changes. IMPRESSION: 1. No evidence of acute cardiopulmonary process. MACRO: None Signed by: Prem Thompson 01/26/2024 11:24 AM Dictation workstation: [id number] [facility] Work Phone: Radiology Study observation (narrative) [facility] Work Phone: XR Chest Single viewOrdered By: Prem Thompson on 01-26-2024 [facility] Work Phone: C reactive proteinon 024 CRP [Mass/Vol] 1.47 mg/dL High <1.00 [facility] Comment on above: Performed By: #### 4 548-4 #### VERDUZCO SEE (13282) [facility] ([facility]) [address] [place] [address] 31310 CBC W Auto Differential pane l (Bld)on 01-09-2024 Basophils (Bld) [#/Vol] 0.03 x10*3/uL Normal 0.00-0.10 [facility] Comment on above: Performed By: #### 4 548-4 #### DAX CUI (93235) [facility] ([facility]) [address] [place] [address] 64433 Basophils/100 WBC (Bld) 0.3 % Normal 0.0-2.0 [facility] Comment on above: Performed By: #### 4 548-4 #### DAX CUI (14067) [facility] ([facility]) [address] [place] [address] 52924 Eosinophils (Bld) [#/Vol] 0.10 x10*3/uL Normal 0.00-0.70 [facility] Comment on above: Performed By: #### 4 548-4 #### DAX CUI (83942) [facility] ([facility]) [address] [place] [address] 70087 Eosinophils/100 WBC (Bld) 1.0 % Normal 0.0-6.0 [facility] Comment on above: Performed By: #### 4 548-4 #### DAX CUI (36262) [facility] ([facility]) [address] [place] [address] 23880 Erythrocyte distribution width (RBC) [Ratio] 12.8 % Normal 11.5-14.5 [facility] Comment on above: Performed By: #### 4 548-4 #### DAX CUI (75313) [facility] ([facility]) [address] [place] [address] 96310 Hematocrit (Bld) [Volume fraction] 41.4 % Normal 36.0-46.0 [facility] Comment on above: Performed By: #### 4 548-4 #### DAX CUI (64838) [facility] ([facility]) [address] [place] [address] 83373 Hemoglobin (Bld) [Mass/Vol] 13.4 g/dL Normal 12.0-16.0 [facility] Comment on above: Performed By: #### 4 548-4 #### DAX CUI (28700) [facility] ([facility]) [address] [place] [address] Immature granulocytes (Bld) [#/Vol] 0.03 x10*3/uL Normal 0.00-0.70 [facility] Comment on above: Performed By: #### 4 548-4 #### DAX CUI (18635) [facility] ([facility]) [address] [place], [place] [address] Immature granulocytes/100 WBC (Bld) 0.3 % Normal 0.0-0.9 [facility] Comment on above: Result Comment: Tamela ture Granulocyte Count (IG) includes promyelocytes, myelocytes and metamyelocytes but does not include bands. Percent differential counts (%) should be interpreted in the context of the absolute cell counts (cells/UL). Performed By: #### 4 548-4 #### DAX CUI (56251) [facility] ([facility]) [address] [place] [address] Lymphocytes (Bld) [#/Vol] 2.69 x10*3/uL Normal 1.20-4.80 [facility] Comment on above: Performed By: #### 4 548-4 #### DAX CUI (27327) [facility] ([facility]) [address] [place] [address] 73801 Lymphocytes/100 WBC (Bld) 28.0 % Normal 13.0-44.0 [facility] Comment on above: Performed By: #### 4 548-4 #### DAX CUI (75261) [facility] ([facility]) [address] [place] [address] MCH (RBC) [Entitic mass] 30.9 pg Normal 26.0-34.0 [facility] Comment on above: Performed By: #### 4 548-4 #### DAX CUI (84446) [facility] ([facility]) [address] [place] [address] MCHC (RBC) [Mass/Vol] 32.4 g/dL Normal 32.0-36.0 [facility] Comment on above: Performed By: #### 4 548-4 #### DAX CUI (19312) [facility] ([facility]) [address] [place] [address] 02592 MCV (RBC) [Entitic vol] 95 fL Normal 80-100 [facility] Comment on above: Performed By: #### 4 548-4 #### DAX CUI (71273) [facility] ([facility]) [address] [place] [address] 34304 Monocytes (Bld) [#/Vol] 0.60 x10*3/uL Normal 0.10-1.00 [facility] Comment on above: Performed By: #### 4 548-4 #### DAX CUI (09552) [facility] ([facility]) [address] [place] [address] 60337 Monocytes/100 WBC (Bld) 6.2 % Normal 2.0-10.0 [facility] Comment on above: Performed By: #### 4 548-4 #### DAX CUI (15791) [facility] ([facility]) [address] [place] [address] 50837 Neutrophils (Bld) [#/Vol] 6.17 x10*3/uL Normal 1.20-7.70 [facility] Comment on above: Result Comment: Perc ent differential counts (%) should be interpreted in the context of the absolute cell counts (cells/uL). Performed By: #### 4 548-4 #### DAX CUI (91296) [facility] ([facility]) [address] [place] [address] 24757 Neutrophils/100 WBC (Bld) 64.2 % Normal 40.0-80.0 [facility] Comment on above: Performed By: #### 4 548-4 #### DAX CUI (80627) [facility] ([facility]) [address] [place] [address] 86323 Nucleated RBC/100 WBC (Bld) [Ratio] 0.0 /100 WBCs Normal 0.0-0.0 [facility] Comment on above: Performed By: #### 4 548-4 #### DAX CUI (96584) [facility] ([facility]) [address] [place] [address] 92263 Platelets (Bld) [#/Vol] 294 x10*3/uL Normal 150-450 [facility] Comment on above: Performed By: #### 4 548-4 #### DAX CUI (90200) [facility] ([facility]) [address] [place] [address] 05808 RBC (Bld) [#/Vol] 4.34 x10*6/uL Normal 4.00-5.20 [facility] Comment on above: Performed By: #### 4 548-4 #### DAX CUI (42132) [facility] ([facility]) [address] [place] [address] 61709 WBC (Bld) [#/Vol] 9.6 x10*3/uL Normal 4.4-11.3 [facility] Comment on above: Performed By: #### 4 548-4 #### DAX CUI (73188) [facility] ([facility]) [address] [place] [address] 51378 Comprehensive metabolic 2000 panelon 01-09-2024 Albumin BCP dye [Mass/Vol] 4.9 g/dL Normal 3.4-5.0 [facility] Comment on above: Performed By: #### 4 548-4 #### DAX CUI (89377) [facility] ([facility]) [address] [place] [address] 38734 ALP [Catalytic activity/Vol] 51 U/L Normal 33-110 [facility] Comment on above: Performed By: #### 4 548-4 #### DAX CUI (26393) [facility] ([facility]) [address] [place] [address] 80724 ALT With P-5'-P [Catalytic activity/Vol] 15 U/L Normal 7-45 [facility] Comment on above: Result Comment: Radha ents treated with Sulfasalazine may generate falsely decreased results for ALT. Performed By: #### 4 548-4 #### DAX CUI (26664) [facility] ([facility]) [facility] [place] [address] Anion gap [Moles/Vol] 15 mmol/L Normal 10-20 [facility] Comment on above: Performed By: #### 4 548-4 #### DAX CUI (15305) [facility] ([facility]) [address] [place] [address] 14137 AST With P-5'-P [Catalytic activity/Vol] 20 U/L Normal 9-39 [facility] Comment on above: Performed By: #### 4 548-4 #### DAX CUI (14013) [facility] ([facility]) [address] [place] [address] 21238 Bilirubin [Mass/Vol] 0.4 mg/dL Normal 0.0-1.2 [facility] Comment on above: Performed By: #### 4 548-4 #### DAX CUI (13669) [facility] ([facility]) [address] [place] [address] 72202 Calcium [Mass/Vol] 9.6 mg/dL Normal 8.6-10.3 [facility] Comment on above: Performed By: #### 4 548-4 #### DAX CUI (37778) [facility] ([facility]) [address] [place] [address] 10451 Chloride [Moles/Vol] 106 mmol/L Normal 98-107 [facility] Comment on above: Performed By: #### 4 548-4 #### DAX CUI (89933) [facility] ([facility]) [address] [place] [address] 29964 CO2 [Moles/Vol] 23 mmol/L Normal 21-32 [facility] Comment on above: Performed By: #### 4 548-4 #### DAX CUI (46815) [facility] ([facility]) [address] [place] [address] 95905 Creatinine [Mass/Vol] 0.94 mg/dL Normal 0.50-1.05 [facility] Comment on above: Performed By: #### 4 548-4 #### DAX CUI (66089) [facility] ([facility]) [address] [place] [address] 21202 Glomerular filtration rate/1.73 sq M.predicted 70 mL/min/1.73m*2 Normal >60 [facility] Comment on above: Result Comment: Calc ulations of estimated GFR are performed using the 2020 CKD-EPI Study Refit equation without the race variable for the IDMS-Traceable creatinine methods. https://jasn.asnjournals.org/content/early//ASN.2020 216767 Performed By: #### 4 548-4 #### DAX CUI (17511) [facility] ([facility]) [address] [place] [address] 91128 Glucose [Mass/Vol] 109 mg/dL High 74-99 [facility] Comment on above: Performed By: #### 4 548-4 #### DAX CUI (50168) [facility] ([facility]) [address] [place] [address] 54792 Potassium [Moles/Vol] 3.6 mmol/L Normal 3.5-5.3 [facility] Comment on above: Performed By: #### 4 548-4 #### DAX CUI (21967) [facility] ([facility]) [address] [place] [address] 45472 Protein [Mass/Vol] 7.1 g/dL Normal 6.4-8.2 [facility] Comment on above: Performed By: #### 4 548-4 #### DAX CUI (27425) [facility] ([facility]) [address] [place] [address] 46337 Sodium [Moles/Vol] 140 mmol/L Normal 136-145 [facility] Comment on above: Performed By: #### 4 548-4 #### DAX CUI (35624) [facility] ([facility]) [address] [place] [address] 59618 Urea nitrogen [Mass/Vol] 19 mg/dL Normal 6-23 [facility] Comment on above: Performed By: #### 4 548-4 #### DAX CUI (00817) [facility] ([facility]) [address] [place], [place] [address] Cyclic citrullinated peptide Ab.IgGon 01-09-2024 Cyclic citrullinated peptide IgG Qn <1 Normal <3 [facility] Comment on above: Order Comment: Diagn osis of Diabetes-Adults Non-Diabetic: < or = 5.6% Increased risk for developing diabetes: 5.7-6.4% Diagnostic of diabetes: > or = 6.5% Monitoring of Diabetes Age (y)....................... Therapeutic Goal (%) Adults: >18.........................<7.0 Pediatrics: 13-18...................<7.5 Pediatrics: 7-12....................<8.0 Pediatrics: 0-6..................... 7.5-8.5 [employer]. Diabetes Care 33(S1), Apr 2009 Result Comment: NEGA TIVE < 3 U/ML POSITIVE >=3 U/ML Performed By: #### 4 548-4 #### DAX CUI (83177) [facility] ([facility]) [address] [place], [place] [address] ESR Westergren method (Bld) [Velocity]on 01-09-2024 ESR (Bld) [Velocity] 16 mm/h Normal 0-30 [facility] Comment on above: Performed By: #### 4 548-4 #### DAX CUI (00219) [facility] ([facility]) [address] [place] [address] Nuclear Abon 01-09-2024 Nuclear Ab Hep2 substrate Ql (S) Negative Normal Negative [facility] Comment on above: Result Comment: The Antinuclear Antibody (GOMEZ) test was performed using indirect immunofluorescence assay with HEp-2 cells slide. Performed By: #### 4 548-4 #### DAX CUI (24217) [facility] ([facility]) [address] [place] [address] Rheumatoid factoron 01-09-20 24 Rheumatoid factor Nephelometry Qn (S) 11 IU/mL Normal 0-15 [facility] Comment on above: Performed By: #### 4 548-4 #### DAX CUI (19934) [facility] ([facility]) [address] [place] [address] Urinalysis complete panel (U )on 01-09-2024 Appearance (U) Clear Normal Clear [facility] Comment on above: Performed By: #### 4 548-4 #### DAX CUI (87874) [facility] ([facility]) [address] [place] [address] Bilirubin (U) [Mass/Vol] Negative Normal NEGATIVE [facility] Comment on above: Performed By: #### 4 548-4 #### DAX CUI (20416) [facility] ([facility]) [address] [place] [address] Color (U) Yellow Normal Light-Yellow, Yellow, Dark-Yellow [facility] Comment on above: Performed By: #### 4 548-4 #### DAX CUI (63801) [facility] ([facility]) [address] [place], [place] [address] Glucose Auto test strip (U) [Mass/Vol] Normal Normal Normal [facility] Comment on above: Performed By: #### 4 548-4 #### DAX CUI (43107) [facility] ([facility]) [address] [place] [address] 05875 Ketones (U) [Mass/Vol] Negative Normal NEGATIVE Un [facility] Comment on above: Performed By: #### 4 548-4 #### DAX CUI (51892) [facility] ([facility]) [address] [place] [address] 29446 Leukocyte esterase Auto test strip Ql (U) Negative Normal NEGATIVE [facility] Comment on above: Performed By: #### 4 548-4 #### DAX CUI (27498) [facility] ([facility]) [address] [place] [address] 24099 Nitrite Auto test strip Ql (U) 2+ Abnormal NEGATIVE [facility] Comment on above: Performed By: #### 4 548-4 #### DAX CUI (87172) [facility] ([facility]) [address] [place] [address] 25137 pH (U) 6.0 [pH] Normal 5.0, 5.5, 6.0, 6.5, 7.0, 7.5, 8.0 [facility] Comment on above: Performed By: #### 4 548-4 #### DAX CUI (83023) [facility] ([facility]) [address] [place] [address] 42202 Protein (U) [Mass/Vol] 10 (TRACE) Normal NEGAT JOSE, 10 (TRACE), 20 (TRACE) [facility] Comment on above: Performed By: #### 4 548-4 #### DAX CUI (33454) [facility] ([facility]) [address] [place] [address] 79074 RBC (U) [#/Vol] Negative Normal NEGATIVE [facility] Comment on above: Performed By: #### 4 548-4 #### DAX CUI (70771) [facility] ([facility]) [address] [place] [address] 78882 Specific gravity (U) [Rel density] 1.027 Normal 1.005-1.035 [facility] Comment on above: Performed By: #### 4 548-4 #### DAX CUI (97283) [facility] ([facility]) [address] [place] [address] 73687 Urobilinogen (U) [Mass/Vol] Normal Normal Normal [facility] Comment on above: Performed By: #### 4 548-4 #### DAX CUI (26217) [facility] ([facility]) [address] [place] [address] Urinalysis microscopic panel Auto Ql (U)on 01-09-2024 Bacteria Auto (Urine sed) [#/Area] 1+ /HPF Abnormal NONE SEEN [facility] Comment on above: Performed By: #### 4 548-4 #### DAX CUI (35331) [facility] ([facility]) [address] [place] [address] Calcium oxalate crystals Computer assisted (U) [#/Area] 2+ /HPF Abnormal NONE, 1+ [facility] Comment on above: Performed By: #### 4 548-4 #### DAX CUI (44720) [facility] ([facility]) [address] [place] [address] Epithelial cells.squamous Auto (Urine sed) [#/Area] 1-9 (SPARSE) Normal Reference range not established. [facility] Comment on above: Performed By: #### 4 548-4 #### DAX CUI (84509) [facility] ([facility]) [address] [place] [address] Mucus Auto (Urine sed) [#/Area] FEW Normal Reference range not established. [facility] Comment on above: Performed By: #### 4 548-4 #### DAX CUI (49529) [facility] ([facility]) [address] [place] [address] RBC Auto (Urine sed) [#/Area] 1-2 Normal NONE, 1-2, 3-5 [facility] Comment on above: Performed By: #### 4 548-4 #### DAX CUI (56369) [facility] ([facility]) [address] [place] [address] WBC Auto (Urine sed) [#/Area] 1-5 Normal 1-5, NONE [facility] Comment on above: Performed By: #### 4 548-4 #### DAX CUI (82072) [facility] ([facility]) [facility] [place] [address] XR FOOT LEFT 3+ VIEWS (STAND LAURA)on [...] SunApr 25, 2023 9:50:28 PM EST Normal [facility] Comment on above: Order Comment: Injur y/Trauma or Illness?:Illness/Other How long have you had these symptoms (acute/chronic)?:Chronic Reason for exam?:pain History of cancer?:no Surgeries, chemotherapy, or radiation?:no Type of Exam?:Initial Additional signs and symptoms?:no CBC W Auto Differential pane l (Bld)on 03-31-2023 Basophils (Bld) [#/Vol] 0.03 x10*3/uL Normal 0.00-0.10 [facility] Comment on above: Performed By: #### 5 7021-8 #### DAX CUI (29023) [facility] ([facility]) [address] [place] [address] 17743 Basophils/100 WBC (Bld) 0.6 % Normal 0.0-2.0 [facility] Comment on above: Performed By: #### 5 7021-8 #### DAX CUI (21310) [facility] ([facility]) [address] [place] [address] 52286 Eosinophils (Bld) [#/Vol] 0.17 x10*3/uL Normal 0.00-0.70 [facility] Comment on above: Performed By: #### 5 7021-8 #### DAX CUI (04767) [facility] ([facility]) [address] [place] [address] 83889 Eosinophils/100 WBC (Bld) 3.3 % Normal 0.0-6.0 [facility] Comment on above: Performed By: #### 5 7021-8 #### DAX CUI (52534) [facility] ([facility]) [address] [place] [address] 33361 Erythrocyte distribution width (RBC) [Ratio] 13.0 % Normal 11.5-14.5 [facility] Comment on above: Performed By: #### 5 7021-8 #### DAX CUI (46777) [facility] ([facility]) [address] [place] [address] Hematocrit (Bld) [Volume fraction] 38.8 % Normal 36.0-46.0 [facility] Comment on above: Performed By: #### 5 7021-8 #### DAX CUI (63124) [facility] ([facility]) [address] [place] [address] Hemoglobin (Bld) [Mass/Vol] 12.2 g/dL Normal 12.0-16.0 [facility] Comment on above: Performed By: #### 5 7021-8 #### DAX CUI (99216) [facility] ([facility]) [address] [place] [address] 49601 Immature granulocytes (Bld) [#/Vol] 0.01 x10*3/uL Normal 0.00-0.70 [facility] Comment on above: Performed By: #### 5 7021-8 #### DAX CUI (12309) [facility] ([facility]) [address] [place] [address] 79781 Immature granulocytes/100 WBC (Bld) 0.2 % Normal 0.0-0.9 [facility] Comment on above: Result Comment: Tamela ture Granulocyte Count (IG) includes promyelocytes, myelocytes and metamyelocytes but does not include bands. Percent differential counts (%) should be interpreted in the context of the absolute cell counts (cells/UL). Performed By: #### 5 7021-8 #### DAX CUI (99317) [facility] ([facility]) [address] [place] [address] 26989 Lymphocytes (Bld) [#/Vol] 2.21 x10*3/uL Normal 1.20-4.80 [facility] Comment on above: Performed By: #### 5 7021-8 #### DAX CUI (54079) [facility] ([facility]) [address] [place] [address] 30199 Lymphocytes/100 WBC (Bld) 43.3 % Normal 13.0-44.0 [facility] Comment on above: Performed By: #### 5 7021-8 #### DAX CUI (03675) [facility] ([facility]) [address] [place] [address] 05757 MCH (RBC) [Entitic mass] 30.7 pg Normal 26.0-34.0 [facility] Comment on above: Performed By: #### 5 7021-8 #### DAX CUI (37825) [facility] ([facility]) [address] [place] [address] 59644 MCHC (RBC) [Mass/Vol] 31.4 g/dL Low 32.0-36.0 [facility] Comment on above: Performed By: #### 5 7021-8 #### DAX CUI (59375) [facility] ([facility]) [address] [place] [address] 94084 MCV (RBC) [Entitic vol] 98 fL Normal 80-100 [facility] Comment on above: Performed By: #### 5 7021-8 #### DAX CUI (50548) [facility] ([facility]) [address] [place] [address] 66243 Monocytes (Bld) [#/Vol] 0.46 x10*3/uL Normal 0.10-1.00 [facility] Comment on above: Performed By: #### 5 7021-8 #### DAX CUI (97371) [facility] ([facility]) [address] [place] [address] 96936 Monocytes/100 WBC (Bld) 9.0 % Normal 2.0-10.0 [facility] Comment on above: Performed By: #### 5 7021-8 #### DAX CUI (81167) [facility] ([facility]) [address] [place] [address] 38014 Neutrophils (Bld) [#/Vol] 2.22 x10*3/uL Normal 1.20-7.70 [facility] Comment on above: Result Comment: Perc ent differential counts (%) should be interpreted in the context of the absolute cell counts (cells/uL). Performed By: #### 5 7021-8 #### DAX CUI (74921) [facility] ([facility]) [address] [place] [address] 55913 Neutrophils/100 WBC (Bld) 43.6 % Normal 40.0-80.0 [facility] Comment on above: Performed By: #### 5 7021-8 #### DAX CUI (29199) [facility] ([facility]) [address] [place] [address] 53365 Nucleated RBC/100 WBC (Bld) [Ratio] 0.0 /100 WBCs Normal 0.0-0.0 [facility] Comment on above: Performed By: #### 5 7021-8 #### DAX CUI (03000) [facility] ([facility]) [address] [place] [address] 84301 Platelets (Bld) [#/Vol] 273 x10*3/uL Normal 150-450 [facility] Comment on above: Performed By: #### 5 7021-8 #### DAX CUI (52748) [facility] ([facility]) [address] [place] [address] 49326 RBC (Bld) [#/Vol] 3.98 x10*6/uL Low 4.00-5.20 [facility] Comment on above: Performed By: #### 5 7021-8 #### DAX CUI (68026) [facility] ([facility]) [address] [place] [address] 43395 WBC (Bld) [#/Vol] 5.1 x10*3/uL Normal 4.4-11.3 [facility] Comment on above: Performed By: #### 5 7021-8 #### DAX CUI (47203) [facility] ([facility]) [address] [place] [address] Calcidiolon 03-31-2023 25-hydroxyvitamin D3 [Mass/Vol] 57 ng/mL Normal 30-100 [facility] Comment on above: Order Comment: Defic iency: < 20 ng/ml Insufficiency: 20-29 ng/ml Sufficiency: 30-100 ng/ml This assay accurately quantifies the sum of Vitamin D3, 25-Hydroxy and Vitamin D2,25-Hydroxy. Performed By: #### 1 989-3 #### DAX CUI (26046) [facility] ([facility]) [address] [place] [address] Comprehensive metabolic 2000 panelon 03-31-2023 Albumin BCP dye [Mass/Vol] 4.9 g/dL Normal 3.4-5.0 [facility] Comment on above: Performed By: #### 2 4323-8 #### DAX CUI (00898) [facility] ([facility]) [address] [place] [address] ALP [Catalytic activity/Vol] 44 U/L Normal 33-110 [facility] Comment on above: Performed By: #### 2 4323-8 #### DAX CUI (01965) [facility] ([facility]) [address] [place] [address] 03198 ALT With P-5'-P [Catalytic activity/Vol] 11 U/L Normal 7-45 [facility] Comment on above: Result Comment: Radha ents treated with Sulfasalazine may generate falsely decreased results for ALT. Performed By: #### 2 4323-8 #### DAX CUI (40712) [facility] ([facility]) [address] [place] [address] 77398 Anion gap [Moles/Vol] 13 mmol/L Normal 10-20 [facility] Comment on above: Performed By: #### 2 4323-8 #### DAX CUI (13984) [facility] ([facility]) [address] [place] [address] AST With P-5'-P [Catalytic activity/Vol] 16 U/L Normal 9-39 [facility] Comment on above: Performed By: #### 2 432-8 #### DAX CUI (51711) [facility] ([facility]) [address] [place] [address] Bilirubin [Mass/Vol] 0.9 mg/dL Normal 0.0-1.2 [facility] Comment on above: Performed By: #### 2 432-8 #### DAX CUI (25347) [facility] ([facility]) [address] [place] [address] 40906 Calcium [Mass/Vol] 9.8 mg/dL Normal 8.6-10.3 [facility] Comment on above: Performed By: #### 2 4322-8 #### DAX CUI (70783) [facility] ([facility]) [address] [place] [address] 97284 Chloride [Moles/Vol] 107 mmol/L Normal 98-107 [facility] Comment on above: Performed By: #### 2 4322-8 #### DAX CUI (32046) [facility] ([facility]) [address] [place] [address] 14973 CO2 [Moles/Vol] 23 mmol/L Normal 21-32 [facility] Comment on above: Performed By: #### 2 4322-8 #### DAX CUI (21075) [facility] ([facility]) [address] [place] [address] 67330 Creatinine [Mass/Vol] 1.08 mg/dL High 0.50-1.05 [facility] Comment on above: Performed By: #### 2 4322-8 #### DAX CUI (06794) [facility] ([facility]) [address] [place] [address] 43847 GFR/1.73 sq M.predicted MDRD (S/P/Bld) [Vol rate/Area] 60 mL/min/1.73m*2 Low >60 [facility] Comment on above: Result Comment: Calc ulations of estimated GFR are performed using the 2020 CKD-EPI Study Refit equation without the race variable for the IDMS-Traceable creatinine methods. https://jasn.asnjournals.org/content/early/ASN.2020 345269 Performed By: #### 2 4323-8 #### DAX CUI (06878) [facility] ([facility]) [address] [place] [address] 72992 Glucose [Mass/Vol] 89 mg/dL Normal 74-99 [facility] Comment on above: Performed By: #### 2 3-8 #### DAX CUI (91439) [facility] ([facility]) [address] [place] [address] 57755 Potassium [Moles/Vol] 4.7 mmol/L Normal 3.5-5.3 [facility] Comment on above: Performed By: #### 2 3-8 #### DAX CUI (98857) [facility] ([facility]) [address] [place] [address] 50907 Protein [Mass/Vol] 7.2 g/dL Normal 6.4-8.2 [facility] Comment on above: Performed By: #### 2 4323-8 #### DAX CUI (14205) [facility] ([facility]) [address] [place] [address] 90612 Sodium [Moles/Vol] 138 mmol/L Normal 136-145 [facility] Comment on above: Performed By: #### 2 4323-8 #### DAX CUI (83214) [facility] ([facility]) [address] [place] [address] 42916 Urea nitrogen [Mass/Vol] 30 mg/dL High 6-23 [facility] Comment on above: Performed By: #### 2 4323-8 #### DAX CUI (69464) [facility] ([facility]) [address] [place] [address] 47141 HbA1c (Bld) [Mass fraction]o n 03-31-2023 Average glucose Estimated from glycated hemoglobin (Bld) [Mass/Vol] 94 mg/dL Normal Not Established [facility] Comment on above: Order Comment: Diagn osis of Diabetes-Adults Non-Diabetic: < or = 5.6% Increased risk for developing diabetes: 5.7-6.4% Diagnostic of diabetes: > or = 6.5% Monitoring of Diabetes Age (y)....................... Therapeutic Goal (%) Adults: >18.........................<7.0 Pediatrics: 13-18...................<7.5 Pediatrics: 7-12....................<8.0 Pediatrics: 0-6..................... 7.5-8.5 [employer]. Diabetes Care 33(S1)Apr 2009 Performed By: #### 4 548-4 #### VERDUZCO SEE (21038) [facility] ([facility]) [address] [place] [address] Hemoglobin A1c/Hemoglobin.to alexy 03-31-2023 HbA1c (Bld) [Mass fraction] 4.9 % Normal see below [facility] Comment on above: Order Comment: Diagn osis of Diabetes-Adults Non-Diabetic: < or = 5.6% Increased risk for developing diabetes: 5.7-6.4% Diagnostic of diabetes: > or = 6.5% Monitoring of Diabetes Age (y)....................... Therapeutic Goal (%) Adults: >18.........................<7.0 Pediatrics: 13-18...................<7.5 Pediatrics: 7-12....................<8.0 Pediatrics: 0-6..................... 7.5-8.5 [employer]. Diabetes Care 33(S1), Apr 2009 Performed By: #### 4 548-4 #### DAX CUI (76030) [facility] ([facility]) [address] [place] [address] Insulinon 03-31-2023 Insulin Qn 12 u[IU]/mL Normal 3-25 [facility] Comment on above: Order Comment: Refer ence values apply to fasting specimens. Performed By: #### 2 0448-7 #### TRUE Lock (91015) [facility] ([facility]) [address] [place] [address] 34323 Ironon 03-31-2023 Iron [Mass/Vol] 208 ug/dL High 35-150 [facility] Comment on above: Performed By: #### 2 498-4 #### DAX CUI (31595) [facility] ([facility]) [facility] [place] [address] Lipid 1996 panelon 3 Cholesterol [Mass/Vol] 242 mg/dL High 0-199 Un [facility] Comment on above: Result Comment: [...] By: #### 2 4331-1 #### DAX CUI (79430) [facility] ([facility]) [facility] [place] [address] Cholesterol in HDL [Mass/Vol] 54.0 mg/dL Normal [facility] Comment on above: Result Comment: Age Very Low Low Normal High 0-19 Y < 35 < 40 40-45 ---- 20-24 Y ---- < 40 >45 ---- >24 Y ---- < 40 40-60 >60 Performed By: #### 2 4331-1 #### DAX CUI (97746) [facility] ([facility]) [address] [place] [address] 27612 Cholesterol in LDL [Mass/Vol] 169 mg/dL High <=99 [facility] Comment on above: Result Comment: Near Borderline AGE Desirable Optimal High High Very High 0-19 Y 0 - 109 --- 110-129 >/= 130 ---- 20-24 Y 0 - 119 --- 120-159 >/= 160 ---- >24 Y 0 - 99 100-129 130-159 160-189 >/=190 Performed By: #### 2 4331-1 #### DAX CUI (55087) [facility] ([facility]) [address] [place] [address] 16195 Cholesterol in VLDL [Mass/Vol] 19 mg/dL Normal 0-40 [facility] Comment on above: Performed By: #### 2 4331-1 #### DAX CUI (63587) [facility] ([facility]) [address] [place] [address] 87356 CHOLESTEROL/HDL RATIO 4.5 Normal [facility] Comment on above: Result Comment: Ref Values Desirable < 3.4 High Risk > 5.0 Performed By: #### 2 4331-1 #### DAX CUI (85370) [facility] ([facility]) [address] [place] [address] 77745 NON HDL CHOLESTEROL 188 mg/dL High 0-149 [facility] Comment on above: Result Comment: Age Desirable Borderline High High Very High 0-19 Y 0 - 119 120 - 144 >/= 145 >/= 160 20-24 Y 0 - 149 150 - 189 >/= 190 ---- >24 Y 30 mg/dL above LDL Cholesterol goal Performed By: #### 2 4331-1 #### DAX CUI (79908) [facility] ([facility]) [address] [place] [address] 01967 Triglyceride [Mass/Vol] 93 mg/dL Normal 0-149 [facility] Comment on above: Result Comment: Age Desirable [...] By: #### 2 4331-1 #### DAX CUI (20219) [facility] ([facility]) [address] [place] [address] 34983 Thyrotropinon 03-31-2023 TSH Qn 1.17 m[IU]/L Normal 0.44-3.98 [facility] Comment on above: Order Comment: TSH t esting is performed using different testing methodology at [facility] than at other [facility]. Direct result comparisons should only be made within the same method. Performed By: #### 3 016-3 #### DAX CUI (59460) [facility] ([facility]) [address] [place] [address] 74047 Thyroxineon 03-31-2023 T4 [Mass/Vol] 5.4 ug/dL Normal 4.5-11.1 [facility] Comment on above: Performed By: #### 3 026-2 #### TRUE Lock (89242) [facility] ([facility]) [address] [place] [address] Triiodothyronineon T3 [Mass/Vol] 106 ng/dL Normal 60-200 [facility] Comment on above: Performed By: #### 3 053-6 #### TRUE Lock (27251) [facility] ([facility]) [address] [place] [address] No Panel Informationon 03-01 Degenerative change without osseous injury evident. MACRO: None Signed by: Jeannie Kimble 03/01/2023 7:38 PM Dictation workstation: [id number] MMODAL Interpreted By: Jeannie Kimble, STUDY: Right wrist and hand dated 03/01/2023 INDICATION: Signs/Symptoms:R hand/thumb/wrist/dist al forearm pain (radial aspect) after hitting hand on a door frame 4 days ago. COMPARISON: None. ACCESSION NUMBER(S): [id number]; [id number] ORDERING CLINICIAN: CARLOS MANUEL OCHOA TECHNIQUE: Four views of the right wrist. Three views of the right hand. FINDINGS: No fracture or dislocation is evident. There is moderate triscaphe joint and 1st digit carpometacarpal joint degenerative change. There is a focus of cystic change in the mid to distal scaphoid. No soft tissue gas or radiopaque foreign body is evident. MMODAL Jeannie Kimble M D - 03/01/2023 Interpreted By: Jeannie Kimble, STUDY: Right wrist and hand dated 03/01/2023 INDICATION: Signs/Symptoms:R hand/thumb/wrist/dist al forearm pain (radial aspect) after hitting hand on a door frame 4 days ago. COMPARISON: None. ACCESSION NUMBER(S): [id number]; [id number] ORDERING CLINICIAN: CARLOS MANUEL OCHOA TECHNIQUE: Four [...] osseous injury evident. MACRO: None Signed by: Jeannie Kimble 03/01/2023 7:38 PM Dictation workstation: [id number] [facility] Work Phone: Radiology Study observation (narrative) [facility] Work Phone: No Panel InformationOrdered By: Jeannie Kimble on 03-01-2023 [facility] Work Phone: XR HAND RIGHT 3+ VIEWSon XR HAND RIGHT 3+ VIEWS Interpreted By: Jeannie Kimble, STUDY: Right wrist and hand dated 03/01/2023 INDICATION: Signs/Symptoms:R hand/thumb/wrist/dist al forearm pain (radial aspect) after hitting hand on a door frame 4 days ago. COMPARISON: None. ACCESSION NUMBER(S): [id number]; [id number] ORDERING CLINICIAN: CARLOS MANUEL OCHOA TECHNIQUE: Four [...] osseous injury evident. MACRO: None Signed by: Jeannie Kimble 03/01/2023 7:38 PM Dictation workstation: [id number] [facility] XR WRIST RIGHT 3+ VIEWSon XR WRIST RIGHT 3+ VIEWS Interpreted By: Jeannie Kimble, STUDY: Right wrist and hand dated 03/01/2023 INDICATION: Signs/Symptoms:R hand/thumb/wrist/dist al forearm pain (radial aspect) after hitting hand on a door frame 4 days ago. COMPARISON: None. ACCESSION NUMBER(S): [id number]; [id number] ORDERING CLINICIAN: CARLOS MANUEL OCHOA TECHNIQUE: Four [...] osseous injury evident. MACRO: None Signed by: Jeannie Kimble 03/01/2023 7:38 PM Dictation workstation: [id number] [facility] CBC AUTO DIFFon 08-10-2022 BASO # 0.0 103/ul Normal 0.0-0.1 [facility] Comment on above: Performed By: #### E RUR #### [facility] [address] [place] [address] Dr. Anastasia Moran Basophils/100 WBC (Bld) 0.1 % Critically low 0.2-2.0 [facility] Comment on above: Performed By: #### E RUR #### [facility] [address] [place] [address] Dr. Anastasia Moran EO # 0.2 103/ul Normal 0.0-0.7 [facility] Comment on above: Performed By: #### E RUR #### [facility] [address] [place] [address] Dr. Anastasia Moran Eosinophils/100 WBC (Bld) 2.1 % Normal 0.9-7.0 [facility] Comment on above: Performed By: #### E RUR #### [facility] [address] [place] [address] Dr. Anastasia Moran Erythrocyte distribution width (RBC) [Ratio] 12.5 % Normal 11.0-15.0 [facility] Comment on above: Performed By: #### E RUR #### [facility] [address] [place] [address] Dr. Anastasia Moran Hematocrit (Bld) [Volume fraction] 32.9 % Critically low 36.0-48.0 [facility] Comment on above: Performed By: #### E RUR #### [facility] [address] [place] [address] Dr. Anastasia Moran Hemoglobin (Bld) [Mass/Vol] 11.0 g/dL Critically low 12.0-16.0 [facility] Comment on above: Performed By: #### E RUR #### [facility] [address] [place] [address] Dr. Anastasia Moran IG # 0.02 10e3/ul Normal 0.00-0.03 [facility] Comment on above: Performed By: #### E RUR #### [facility] [address] [place] [address] Dr. Anastasia Moran IG % 0.2 % Normal 0.0-0.5 [facility] Comment on above: Performed By: #### E RUR #### [facility] [address] [address] [address] Anastasia Moran LYMPH # 2.7 103/ul Normal 1.2-3.8 [facility] Comment on above: Performed By: #### E RUR #### [facility] [address] [place] [address] Dr. Anastasia Moran Lymphocytes/100 WBC (Bld) 33.4 % Normal 20.5-60.0 [facility] Comment on above: Performed By: #### E RUR #### [facility] [address] [place] [address] Dr. Anastasia Moran MANUAL DIFF REQ NO Normal [facility] Comment on above: Performed By: #### E RUR #### [facility] [address] [place] [address] Dr. Anastasia Moran MCH (RBC) [Entitic mass] 29.6 pg Normal 26.7-34.0 [facility] Comment on above: Performed By: #### E RUR #### [facility] [facility] [address] [place] [address] Dr. Anastasia Moran MCHC (RBC) [Mass/Vol] 33.4 g/dL Normal 29.9-35.2 [facility] Comment on above: Performed By: #### E RUR #### [facility] [address] [place] [address] Dr. Anastasia Moran MCV (RBC) [Entitic vol] 88.7 fL Normal 81.0-99.0 [facility] Comment on above: Performed By: #### E RUR #### [facility] [address] [place] [address] Dr. Anastasia Moran MONO # 0.6 103/ul Normal 0.3-0.8 [facility] Comment on above: Performed By: #### E RUR #### [facility] [address] [place] [address] Dr. Anastasia Moran Monocytes/100 WBC (Bld) 6.8 % Normal 1.7-12.0 [facility] Comment on above: Performed By: #### E RUR #### [facility] [address] [address] [address] Anastasia Moran NEUT # 4.7 103/ul Normal 1.4-6.5 [facility] Comment on above: Performed By: #### E RUR #### [facility] [address] [address] [address] Anastasia Moran Neutrophils/100 WBC (Bld) 57.4 % Normal 43.0-75.0 [facility] Comment on above: Performed By: #### E RUR #### [facility] [address] [place] [address] Dr. Anastasia Moran Platelet mean volume (Bld) [Entitic vol] 9.5 fL Normal 9.5-13.5 [facility] Comment on above: Performed By: #### E RUR #### [facility] [address] [place] [address] Dr. Anastasia Moran PLT 250 103/ul Normal 150-450 [facility] Comment on above: Performed By: #### E RUR #### [facility] [address] [place] [address] Dr. Anastasia Moran RBC 3.71 106/ul Critically low 4.20-5.40 [facility] Comment on above: Performed By: #### E RUR #### [facility] [address] [place] [address] Dr. Anastasia Moran WBC 8.2 103/ul Normal 4.0-11.0 [facility] Comment on above: Performed By: #### E RUR #### [facility] [address] [place] [address] ABD/PELVIS WO CONon [...] CED [place] Date: 2022-08-10 16:24 Normal [facility] ER URINE PROFILEon 3 Bilirubin Ql (U) Negative Normal NEGATIVE [facility] Comment on above: Performed By: #### E RUR #### [facility] [address] [place] [address] Dr. Anastasia Moran Clarity (U) CLEAR Normal CLEAR [facility] Comment on above: Performed By: #### E RUR #### [facility] [address] [place] [address] Dr. Anastasia Moran Color (U) LT. YELLOW Normal YELLOW [facility] Comment on above: Performed By: #### E RUR #### [facility] [address] [place] [address] Dr. Anastasia LEON A micrscopic examination will be performed if indicated. Normal [facility] Comment on above: Performed By: #### E RUR #### [facility] [address] [place] [address] Dr. Anastasia Moran Glucose Ql (U) Negative Normal NEGATIVE [facility] Comment on above: Performed By: #### E RUR #### [facility] [address] [place] [address] Dr. Anastasia Moran Hemoglobin Ql (U) Negative Normal NEGATIVE [facility] Comment on above: Performed By: #### E RUR #### [facility] [address] [place] [address] Dr. Anastasia Moran Ketones Ql (U) Negative Normal NEGATIVE [facility] Comment on above: Performed By: #### E RUR #### [facility] [address] [place] [address] Dr. Anastasia Moran LEUKOCYTES Negative Normal NEGATIVE [facility] Comment on above: Performed By: #### E RUR #### [facility] [address] [place] [address] Dr. Anastasia Moran Nitrite Ql (U) Negative Normal NEGATIVE [facility] Comment on above: Performed By: #### E RUR #### [facility] [address] [place] [address] Dr. Anastasia Moran pH (U) 6.0 [pH] Normal 5-9 [facility] Comment on above: Performed By: #### E RUR #### [facility] [address] [place] [address] Dr. Anastasia Moran SPEC GRAVITY 1.025 Normal 1.005-<=1.025 [facility] Comment on above: Performed By: #### E RUR #### [facility] [address] [place] [address] Dr. Anastasia Moran UA PROTEIN Negative Normal NEGATIVE/ TRACE [facility] Comment on above: Performed By: #### E RUR #### [facility] [address] [place] [address] Dr. Anastasia Moran UR MICRO IND NOT INDICATED Normal [facility] Comment on above: Performed By: #### E RUR #### [facility] [address] [place] [address] Dr. Anastasia Moran Urobilinogen Qn (U) 0.2 {Rashid'U}/dL Normal 0.2 - 1. 0 [facility] Comment on above: Performed By: #### E RUR #### [facility] [address] [place] [address] Dr. Anastasia Moran PROF CHEM 8 (BAS METB)on Anion gap [Moles/Vol] 12.5 mmol/L Normal [facility] Comment on above: Performed By: #### E RUR #### [facility] [address] [place] [address] Dr. Anastasia Moran Calcium [Mass/Vol] 9.4 mg/dL Normal 8.5-10.1 [facility] Comment on above: Performed By: #### E RUR #### [facility] [address] [address] [address] Anastasia Moran Chloride [Moles/Vol] 104 mmol/L Normal 98-107 [facility] Comment on above: Performed By: #### E RUR #### [facility] [address] [place] [address] Dr. Anastasia Moran CO2 [Moles/Vol] 25.9 mmol/L Normal 21.0-32.0 [facility] Comment on above: Performed By: #### E RUR #### [facility] [address] [place] [address] Dr. Anastasia Moran Creatinine [Mass/Vol] 0.98 mg/dL Normal 0.55-1.02 [facility] Comment on above: Performed By: #### E RUR #### [facility] [address] [place] [address] Dr. Anastasia Moran EGFR-AF ANGOLAN >60 Normal >=60 [facility] Comment on above: Performed By: #### E RUR #### [facility] [address] [place] [address] Dr. Anastasia Moran EGFR-NON AF ANGOLAN 59 mL/min/1.73m2 Critically low >=60 [facility] Comment on above: Performed By: #### E RUR #### [facility] [address] [place] [address] Dr. Anastasia Moran Glucose [Mass/Vol] 87 mg/dL Normal 74-[address] [facility] Comment on above: Performed By: #### E RUR #### [facility] [address] [place] [address] Dr. Anastasia Moran Potassium [Moles/Vol] 3.4 mmol/L Critically low 3.5-5.1 [facility] Comment on above: Performed By: #### E RUR #### [facility] [address] [place] [address] Dr. Anastasia Moran Sodium [Moles/Vol] 139 mmol/L Normal 136-[address] [facility] Comment on above: Performed By: #### E RUR #### [facility] [address] [address] [address] Anastasia Moran Urea nitrogen [Mass/Vol] 14.0 mg/dL Normal 7.0-18.0 [facility] Comment on above: Performed By: #### E RUR #### [facility] [address] [place] [address] Dr. Anastasia Moran Urea nitrogen/Creatinine [Mass ratio] 14.3 mg/mg Normal [facility] Comment on above: Performed By: #### E RUR #### [facility] [address] [place] [address] Dr. Anastasia Moran Covid-19 PCR ([facility])on SARS-CoV-2 (COVID-19) RNA THALIA+probe Ql (Unsp spec) Not detected Normal NOT DETECTED [facility] Comment on above: Result Comment: This test is not yet approved or cleared by the [place] FDA. When there are no FDA-approved or cleared tests available, and other criteria are met, FDA can make tests available under an emergency access mechanism called an Emergency Use Authorization (EUA). The EUA for this test is supported by the [place] of Health and Human Service's (HHS's) declaration [...] SARS-CoV-2. Performed By: #### E RUR #### [facility] [address] [place] [address] Dr. Anastasia Moran INFLUENZA A AND B AGon 04-06 INFLUANEGH SEE BELOW Normal [facility] Comment on above: Result Comment: Nega tive for Flu A protein angiten. Infection due to Flu A cannot be ruled out. Flu A angiten in the sample may be below the detection limit of the test. Performed By: #### E RUR #### [facility] [address] [place] [address] Dr. Anastasia Moran INFLUBNEGH SEE BELOW Normal [facility] Comment on above: Result Comment: Nega tive for Flu B protein antigen. Infection due to Flu B cannot be ruled out. Flu B antigen in the sample may be below the detection limit of the test. Performed By: #### E RUR #### [facility] [address] [place] [address] Dr. Anastasia Moran INFLUENZA A AG Negative Normal NEGATIVE SEE COMMENT [facility] Comment on above: Performed By: #### E RUR #### [facility] [address] [place] [address] Dr. Anastasia Moran INFLUENZA B AG Negative Normal NEGATIVE SEE COMMENT [facility] Comment on above: Performed By: #### E RUR #### [facility] [address] [place] [address] Dr. Anastasia Moran INTERNAL CONTROLS Within Normal Limits Normal Wi thin Normal Limits [facility] Comment on above: Performed By: #### E RUR #### [facility] [address] [place] [address] Dr. Anastasia Moran T4 LABCORPon 10-06-2021 T4 [Mass/Vol] 8.7 ug/dL Normal 4.5-12.0 [facility] Comment on above: Performed By: #### E RUR #### [facility] [address] [place] [address] Dr. Anastasia Moran INSULINon 09-29-2021 Insulin 11.6 uIU/mL Normal 2.6-24.9 [facility] Comment on above: Performed By: #### I NSULIN #### [facility] [address] [address] [address] Anastasia Moran CBC AUTO DIFFon 09-28-2021 BASO # 0.0 103/ul Normal 0.0-0.1 [facility] Comment on above: Performed By: #### E RUR #### [facility] [address] [place] [address] Dr. Anastasia Moran Basophils/100 WBC (Bld) 0.2 % Normal 0.2-2.0 [facility] Comment on above: Performed By: #### E RUR #### [facility] [address] [place] [address] Dr. Anastasia Moran EO # 0.1 103/ul Normal 0.0-0.7 [facility] Comment on above: Performed By: #### E RUR #### [facility] [address] [place] [address] Dr. Anastasia Moran Eosinophils/100 WBC (Bld) 0.9 % Normal 0.9-7.0 [facility] Comment on above: Performed By: #### E RUR #### [facility] [address] [place] [address] Dr. Anastasia Moran Erythrocyte distribution width (RBC) [Ratio] 12.9 % Normal 11.0-15.0 [facility] Comment on above: Performed By: #### E RUR #### [facility] [address] [place] [address] Dr. Anastasia Moran Hematocrit (Bld) [Volume fraction] 37.7 % Normal 36.0-48.0 [facility] Comment on above: Performed By: #### E RUR #### [facility] [address] [place] [address] Dr. Anastasia Moran Hemoglobin (Bld) [Mass/Vol] 12.5 g/dL Normal 12.0-16.0 [facility] Comment on above: Performed By: #### E RUR #### [facility] [address] [place] [address] Dr. Anastasia Moran IG # 0.02 10e3/ul Normal 0.00-0.03 [facility] Comment on above: Performed By: #### E RUR #### [facility] [address] [place] [address] Dr. Anastasia Moran IG % 0.2 % Normal 0.0-0.5 [facility] Comment on above: Performed By: #### E RUR #### [facility] [address] [place] [address] Dr. Anastasia Moran LYMPH # 2.5 103/ul Normal 1.2-3.8 [facility] Comment on above: Performed By: #### E RUR #### [facility] [address] [place] [address] Dr. Anastasia Moran Lymphocytes/100 WBC (Bld) 28.5 % Normal 20.5-60.0 [facility] Comment on above: Performed By: #### E RUR #### [facility] [address] [place] [address] Dr. Anastasia Moran MANUAL DIFF REQ NO Normal [facility] Comment on above: Performed By: #### E RUR #### [facility] [address] [place] [address] Dr. Anastasia Moran MCH (RBC) [Entitic mass] 30.7 pg Normal 26.7-34.0 [facility] Comment on above: Performed By: #### E RUR #### [facility] [address] [place] [address] Dr. Anastasia Moran MCHC (RBC) [Mass/Vol] 33.2 g/dL Normal 29.9-35.2 [facility] Comment on above: Performed By: #### E RUR #### [facility] [address] [place] [address] Dr. Anastasia Moran MCV (RBC) [Entitic vol] 92.6 fL Normal 81.0-99.0 [facility] Comment on above: Performed By: #### E RUR #### [facility] [address] [place] [address] Dr. Anastasia Moran MONO # 0.5 103/ul Normal 0.3-0.8 [facility] Comment on above: Performed By: #### E RUR #### [facility] [address] [address] [address] Anastasia Moran Monocytes/100 WBC (Bld) 6.3 % Normal 1.7-12.0 [facility] Comment on above: Performed By: #### E RUR #### [facility] [address] [address] [address] Anastasia Moran NEUT # 5.5 103/ul Normal 1.4-6.5 [facility] Comment on above: Performed By: #### E RUR #### [facility] [address] [address] [address] Anastasia Moran Neutrophils/100 WBC (Bld) 63.9 % Normal 43.0-75.0 [facility] Comment on above: Performed By: #### E RUR #### [facility] [address] [place] [address] Dr. Anastasia Moran Platelet mean volume (Bld) [Entitic vol] 9.7 fL Normal 9.5-13.5 [facility] Comment on above: Performed By: #### E RUR #### [facility] [address] [place] [address] Dr. Anastasia Moran PLT 246 103/ul Normal 150-450 [facility] Comment on above: Performed By: #### E RUR #### [facility] [address] [address] [address] Anastasia Moran RBC 4.07 106/ul Critically low 4.20-5.40 [facility] Comment on above: Performed By: #### E RUR #### [facility] [address] [place] [address] Dr. Anastasia Moran WBC 8.6 103/ul Normal 4.0-11.0 [facility] Comment on above: Performed By: #### E RUR #### [facility] [address] [place] [address] Dr. Anastasia Moran FREE THYROXINE INDEX T7on FTI 2.61 Normal 1.30-4.50 [facility] Comment on above: Performed By: #### L IPID, CMP, TSH, T7 #### [facility] [address] [address] [address] Anastasia Moran T3U 30.0 % Normal 30.0-39.0 [facility] Comment on above: Performed By: #### L IPID, CMP, TSH, T7 #### [facility] [address] [address] [address] Anastasia Moran T4 [Mass/Vol] 8.70 ug/dL Normal 4.80-13.90 [facility] Comment on above: Result Comment: T4 t esting performed by [facility] Performed By: #### L IPID, CMP, TSH, T7 #### [facility] [address] [address] [address] Anastasia Moran GLYCOHEMOGLOBIN A1Con 2021 ADA RECOMMENDATION SEE BELOW Normal [facility] Comment on above: Result Comment: ADA RECOMMENDED LIMIT 4.0 - 6.0 ADA THERAPEUTIC TARGET < 7.0 ACTION SUGGESTED > 7.0 Performed By: #### E RUR #### [facility] [address] [address] [address] Anastasia Moran Glucose [Mass/Vol] 111 mg/dL Normal [facility] Comment on above: Performed By: #### E RUR #### [facility] [address] [address] [address] Anastasia Moran HbA1c (Bld) [Mass fraction] 5.5 % Normal 4.5-6.2 [facility] Comment on above: Performed By: #### E RUR #### [facility] [address] [address] [address] Anastasia Moran IRONon 09-28-2021 Iron [Mass/Vol] 71.0 ug/dL Normal 50.0-170.0 [facility] Comment on above: Performed By: #### V ITAD, VITB12, IRON #### [facility] [address] [address] [address] Anastasia Moran LIPID PROFILEon 09-28-2021 CHOL-HDL RATIO NORM SEE BELOW Normal [facility] Comment on above: Result Comment: 3.3 - 4.4 LOW RISK 4.4 - 7.1 AVERAGE RISK 7.1 - 11.0 MODERATE RISK >11.0 HIGH RISK Performed By: #### L IPID, CMP, TSH, T7 #### [facility] [address] [address] [address] Anastasia Moran Cholesterol [Mass/Vol] 229 mg/dL Critically high <=200 [facility] Comment on above: Performed By: #### L IPID, CMP, TSH, T7 #### [facility] [address] [address] [address] Anastasia Moran Cholesterol in HDL [Mass/Vol] 63 mg/dL Critically high 40-60 [facility] Comment on above: Performed By: #### L IPID, CMP, TSH, T7 #### [facility] [address] [address] [address] Anastasia Moran Cholesterol in LDL [Mass/Vol] 152.0 mg/dL Normal [facility] Comment on above: Performed By: #### L IPID, CMP, TSH, T7 #### [facility] [address] [address] [address] Anastasia Moran Cholesterol.total/Tonia sterol in HDL [Mass ratio] 3.6 {ratio} Normal [facility] Comment on above: Performed By: #### L IPID, CMP, TSH, T7 #### [facility] [address] [address] [address] Anastasia Moran HDL NORMAL > or = 60 mg/dl - LO W CARDIOVASCULAR RISK <40 mg/dl - HIGH CARDIOVASCULAR RISK Normal [facility] Comment on above: Performed By: #### L IPID, CMP, TSH, T7 #### [facility] [address] [address] [address] Anastasia Moran LDL CALC NORMAL SEE BELOW Normal [facility] Comment on above: Result Comment: <100 mg/dl OPTIMAL 100 - 129 mg/dl NEAR OR ABOVE OPTIMAL 130 - 159 mg/dl BORDERLINE HIGH 160 - 189 mg/dl HIGH >190 mg/dl VERY HIGH Performed By: #### L IPID, CMP, TSH, T7 #### [facility] [address] [address] [address] Anastasia Moran Triglyceride [Mass/Vol] 70 mg/dL Normal <=150 T [facility] Comment on above: Performed By: #### L IPID, CMP, TSH, T7 #### [facility] [address] [address] [address] Anastasia Moran VLDL CALC 14.0 mg/dL Normal [facility] Comment on above: Performed By: #### L IPID, CMP, TSH, T7 #### [facility] [address] [address] [address] Anastasia Moran PROF 14(COMP METB)on 022 Albumin [Mass/Vol] 4.3 g/dL Normal 3.4-5.0 [facility] Comment on above: Performed By: #### L IPID, CMP, TSH, T7 #### [facility] [address] [place] [address] Dr. Anastasia Moran Albumin/Globulin [Mass ratio] 1.2 {ratio} Normal [facility] Comment on above: Performed By: #### L IPID, CMP, TSH, T7 #### [facility] [address] [address] [address] Anastasia Moran ALP [Catalytic activity/Vol] 45 U/L Critically low 46-116 [facility] Comment on above: Performed By: #### L IPID, CMP, TSH, T7 #### [facility] [address] [address] [address] Anastasia Moran ALT [Catalytic activity/Vol] 20 U/L Normal 14-59 [facility] Comment on above: Performed By: #### L IPID, CMP, TSH, T7 #### [facility] [address] [address] [address] Anastasia Moran Anion gap [Moles/Vol] 12.3 mmol/L Normal [facility] Comment on above: Performed By: #### L IPID, CMP, TSH, T7 #### [facility] [address] [address] [address] Anastasia Moran AST [Catalytic activity/Vol] 16 U/L Normal 15-37 [facility] Comment on above: Performed By: #### L IPID, CMP, TSH, T7 #### [facility] [address] [address] [address] Anastasia Moran Bilirubin [Mass/Vol] 0.5 mg/dL Normal 0.2-1.0 [facility] Comment on above: Performed By: #### L IPID, CMP, TSH, T7 #### [facility] [address] [address] [address] Anastasia Moran Calcium [Mass/Vol] 9.4 mg/dL Normal 8.5-10.1 [facility] Comment on above: Performed By: #### L IPID, CMP, TSH, T7 #### [facility] [address] [place] [address] Dr. Anastasia Moran Chloride [Moles/Vol] 103 mmol/L Normal 98-107 [facility] Comment on above: Performed By: #### L IPID, CMP, TSH, T7 #### [facility] [address] [place] [address] Dr. Anastasia Moran CO2 [Moles/Vol] 27.8 mmol/L Normal 21.0-32.0 [facility] Comment on above: Performed By: #### L IPID, CMP, TSH, T7 #### [facility] [address] [place] [address] Dr. Anastasia Moran Creatinine [Mass/Vol] 0.87 mg/dL Normal 0.55-1.02 [facility] Comment on above: Performed By: #### L IPID, CMP, TSH, T7 #### [facility] [address] [place] [address] Dr. Anastasia Moran EGFR-AF ANGOLAN >60 Normal >=60 [facility] Comment on above: Performed By: #### L IPID, CMP, TSH, T7 #### [facility] [address] [place] [address] Dr. Anastasia Moran EGFR-NON AF ANGOLAN >60 Normal >=60 [facility] Comment on above: Performed By: #### L IPID, CMP, TSH, T7 #### [facility] [address] [address] [address] Anastasia Moran Globulin (S) [Mass/Vol] 3.5 g/dL Normal T [facility] Comment on above: Performed By: #### L IPID, CMP, TSH, T7 #### [facility] [address] [place] [address] Dr. Anastasia Moran Glucose [Mass/Vol] 89 mg/dL Normal 74-106 [facility] Comment on above: Performed By: #### L IPID, CMP, TSH, T7 #### [facility] [address] [place] [address] Dr. Anastasia Moran Potassium [Moles/Vol] 4.1 mmol/L Normal 3.5-5.1 [facility] Comment on above: Performed By: #### L IPID, CMP, TSH, T7 #### [facility] [address] [place] [address] Dr. Anastasia Moran Protein [Mass/Vol] 7.8 g/dL Normal 6.4-8.2 [facility] Comment on above: Performed By: #### L IPID, CMP, TSH, T7 #### [facility] [address] [place] [address] Dr. Anastasia Moran Sodium [Moles/Vol] 139 mmol/L Normal 136-145 [facility] Comment on above: Performed By: #### L IPID, CMP, TSH, T7 #### [facility] [address] [place] [address] Dr. Anastasia Moran Urea nitrogen [Mass/Vol] 14.0 mg/dL Normal 7.0-18.0 [facility] Comment on above: Performed By: #### L IPID, CMP, TSH, T7 #### [facility] [address] [place] [address] Dr. Anastasia Moran Urea nitrogen/Creatinine [Mass ratio] 16.1 mg/mg Normal [facility] Comment on above: Performed By: #### L IPID, CMP, TSH, T7 #### [facility] [address] [place] [address] Dr. Anastasia Moran TSHon 09-28-2021 TSH 0.565 uIU/mL Normal 0.358-3.740 [facility] Comment on above: Performed By: #### L IPID, CMP, TSH, T7 #### [facility] [address] [place] [address] Dr. Anastasia Moran TSH RANGE SEE BELOW Normal [facility] Comment on above: Result Comment: <0.3 4 UIU/ml HYPERTHYROID 0.34-5.60 UIU/ml EUTHYROID >5.60 UIU/ml HYPOTHYROID Performed By: #### L IPID, CMP, TSH, T7 #### [facility] [address] [address] [address] Anastasia Moran VITAMIN B12on 09-28-2021 Cobalamin (Vitamin B12) [Mass/Vol] 616.0 pg/mL Normal 193.0-986.0 [facility] Comment on above: Performed By: #### V ITAD, VITB12, IRON #### [facility] [address] [place] [address] Dr. Anastasia Moran VITAMIN D 25 OHon 09-28-2021 VIT D 25-OH 61.7 ng/mL Normal [facility] Comment on above: Performed By: #### V ITAD, VITB12, IRON #### [facility] [address] [place] [address] Dr. Anastasia Moran VIT D RANGES SEE BELOW Normal [facility] Comment on above: Result Comment: <20 ng/mL Vit D deficient 20 - <30 ng/mL Vit D insufficient 30 - 100 ng/mL Vit D sufficient >100 ng/mL Potential Toxicity Performed By: #### V ITAD, VITB12, IRON #### [facility] [address] [place] [address] Dr. Anastasia Moran Physician Referralon 021 Physician Referral [phone] [id number] Normal [facility] Vital Signs Date Time Vital Sign Value Performing Clinician Facility 01-28-2024 13:59-0400 Body mass index (BMI) [Ratio] 33.63 kg/m2 Jeannie Nielsen DO Work Phone: [facility] 01-28-2024 13:59-0400 Body weight 94.5 kg Jeannie Nielsen DO Work Phone: [facility] 01-28-2024 12:00-0400 Diastolic blood pressure 81 mm[Hg] Jeannie Nielsen DO Work Phone: [phone] [place] [address] 01-28-2024 12:00-0400 Heart rate 77 /min Jeannie Smithersen DO Work Phone: [phone] [place] [address] 01-28-2024 12:00-0400 Respiratory rate 14 /min Jeannie Smithersen DO Work Phone: 1([phone] [place] [address] 01-28-2024 12:00-0400 Systolic blood pressure 125 mm[Hg] Jeannie Nielsen DO Work Phone: [phone] [place] [address] 01-28-2024 08:00-0400 Body temperature 96.8 [degF] Jeannie Nielsen DO Work Phone: [facility] 01-28-2024 08:00-0400 SaO2% (BldA) [Mass fraction] 97 % Jeannie Nielsen DO Work Phone: [facility] 01-26-2024 10:44-0400 Body height 167.6 cm Jeannie Nielsen DO Work Phone: [facility] 03-01-2023 18:03-0400 Body height 167.6 cm Carlos Manuel Westta PHOTOCOPY OPERATOR-CLIENT CARE CONSULTANT Work Phone: [facility] 03-01-2023 18:03-0400 Body mass index (BMI) [Ratio] 32.46 kg/m2 Carlos Manuel Alexander PHOTOCOPY OPERATOR-CLIENT CARE CONSULTANT Work Phone: [facility] 03-01-2023 18:03-0400 Body temperature 98.2 [degF] Carlos Manuel Alexander PHOTOCOPY OPERATOR-CLIENT CARE CONSULTANT Work Phone: [facility] 03-01-2023 18:03-0400 Body weight 91.22 kg Carlos Manuel Ochoa PHOTOCOPY OPERATOR-CLIENT CARE CONSULTANT Work Phone: [facility] 03-01-2023 18:03-0400 Diastolic blood pressure 87 mm[Hg] Carlos Manuel Ochoa PHOTOCOPY OPERATOR-CLIENT CARE CONSULTANT Work Phone: [facility] 03-01-2023 18:03-0400 Heart rate 84 /min Carlos Manuel Ochoa PHOTOCOPY OPERATOR-CLIENT CARE CONSULTANT Work Phone: [facility] 03-01-2023 18:03-0400 Respiratory rate 18 /min Carlos Manuel Ochoa PHOTOCOPY OPERATOR-CLIENT CARE CONSULTANT Work Phone: [facility] 03-01-2023 18:03-0400 SaO2% (BldA) [Mass fraction] 100 % Carlos Manuel Ochoa PHOTOCOPY OPERATOR-CLIENT CARE CONSULTANT Work Phone: [facility] 03-01-2023 18:03-0400 Systolic blood pressure 156 mm[Hg] Carlos Manuel Ochoa PHOTOCOPY OPERATOR-CLIENT CARE CONSULTANT Work Phone: [facility] Encounters Encounter Date Encounter Type Care Provider Facility Start: 01-26-2024 End: 01-28-2024 Evaluation and management of inpatient [facility] Work Phone: Comment on above: Hypertensive urgency (Primary Dx); Essential (primary) hypertension Start: 01-09-2024 End: 01-09-2024 ambulatory [facility] Start: 01-08-2024 End: 01-08-2024 ambulatory [facility] Start: 11-28-2023 End: 11-28-2023 ambulatory WILLIAM HERNANDEZ Not Available Start: 04-24-2023 End: 04-28-2023 ambulatory [facility] Start: 03-31-2023 End: 03-31-2023 ambulatory [facility] Start: 03-01-2023 End: 03-01-2023 ambulatory CARLOS MANUEL OCHOA [facility] Start: 03-01-2023 End: 03-01-2023 Subsequent hospital visit by physician Feng X-Ray Fluoro 1 [facility] Comment on above: Contusion of right w rist, initial encounter Contusion of right h and, initial encounter Start: 03-01-2023 End: 03-01-2023 Office outpatient new 30 minutes Carlos Manuel Ochoa PHOTOCOPY OPERATOR-CLIENT CARE CONSULTANT Work Phone: [facility] Comment on above: Contusion of right h and, initial encounter (Primary Dx); Contusion of right wrist, initial encounter Start: 03-01-2023 End: 03-01-2023 ambulatory ROSEMARY NOEL [facility] Start: 08-10-2022 End: 08-10-[address] ROSEMARY NOEL . Facility:[facility] Start: 04-06-2022 End: 04-06-[address] ROSEMARY NOEL . Facility:[facility] Start: 09-29-2021 Encounter for genera l adult medical examination without abnormal findings DR ROSEMARY NOEL . [facility] Start: 09-28-2021 End: 09-29-[address] ROSEMARY NOEL . Facility:[facility] Start: 09-28-2021 End: 09-29-2021 Encounter for general adult medical examination without abnormal findings DR ROSEMARY NOEL . Facility:[facility] Procedures Date Procedure Procedure Detail Performing Clinician Start: 01-28-2024 EXTRA TUBES Ezekiel bernstein MD Work Phone: Start: 01-28-2024 PST TOP Ezekiel bernstein MD Work Phone: Start: 01-28-2024 Blood count complete automated Ezekiel Solomon MD Work Phone: Start: 01-28-2024 Echo transthorc r-t 2d w/wo m-mode rec f-up/lmtd Ezekiel Solomon MD Work Phone: Start: 01-28-2024 Basic metabolic pane l calcium total Saul Gross DO Work Phone: Start: 01-27-2024 Comprehensive metabo lic panel Ezekiel Solomon MD Work Phone: Start: 01-26-2024 C-reactive protein Ryan Solomon MD Work Phone: Start: 01-26-2024 End: 01-26-2024 Natriuretic peptide Ezekiel Solomon MD Work Phone: Start: 01-26-2024 Assay of troponin quantitative Jeannie Liuersen DO Work Phone: Start: 01-26-2024 Comprehensive metabo lic panel Jeannie Lee Morales DO Work Phone: Start: 01-26-2024 Troponin I.cardiac p jany - Serum or Plasma by High sensitivity method Jeannie Nielsen DO Work Phone: Start: 01-26-2024 Ct head/brain w/o co ntrast material Jeannie Nielsen DO Work Phone: Start: 01-26-2024 Radiologic exam ches t single view Jeannie Nielsen DO Work Phone: Start: 01-26-2024 Ecg routine ecg w/le ast 12 lds trcg only w/o i&r Ezekiel Solomon MD Work Phone: Start: 03-31-2023 CBC W Auto Different ial [...] 03-31-2023 VITAMIN D 25-HYDROXY,TOTAL ROSEMARY HOY Start: 03-31-2023 Lipid 1996 panel - S axel or Plasma Jeannie Nielsen DO Work Phone: Start: 03-01-2023 XR HAND RIGHT 3+ VIEWS ROSEMARY HOY Start: 03-01-2023 XR WRIST RIGHT 3+ VIEWS ROSEMARY HERMANY Start: 03-01-2023 Radex wrist complete minimum 3 views Carlos Manuel Loi Alexander CHAN-CLIENT CARE CONSULTANT Work Phone: Plan of Treatment Date Care Activity Detail Author Start: 03-31-2028 Lipid panel Lipid Panel [facility] Start: 02-16-2027 DTaP/Tdap/Td Vaccine s (2 - Td or Tdap) DTaP/Tdap/Td Vaccines (2 - Td or Tdap) [facility] Start: 12-30-2023 COVID-19 Vaccine () COVID-19 Vaccine ( season) [facility] Start: 12-30-2023 Influenza vaccination Influenza Vacc ine (#1) [facility] Start: 12-29-2022 Influenza vaccination Influenza Vacc ine (#1) [facility] Start: 11-19-2020 COVID-19 Vaccine (3 - Moderna series) COVID-19 Vaccine (3 - Moderna series) [facility] Start: 09-23-2015 Zoster Vaccines (1 o f 2) Zoster Vaccines (1 of 2) [facility] Start: 2005 Screening for malign ant neoplasm of breast Mammogram [facility] Start: 1986 Screening for malign ant neoplasm of cervix [facility] Start: 09-23-1983 Hepatitis C screening Hepatitis C [facility] Start: 1966 MMR Vaccines (1 of 1 - Standard series) MMR Vaccines (1 of 1 - Standard series) [facility] Start: 1965 HIV screening HIV Screening [facility] Start: 1965 Lipid panel Lipid Panel [facility] Start: 1965 Screening for malign ant neoplasm of colon [facility] Start: 1965 Yearly Adult Physical Yearly Adult P hysical [facility] ECG 12 Lead ECG 12 Lead ECG STAT 01/26/2024 10:40 AM EDT [facility] Work Phone: Electrocardiogram, 12-lead PRN ACS symptoms Electrocardiogram, 12-lead PRN ACS symptoms ECG Routine As needed until discontinued starting 01/26/2024 [facility] Service Area Work Phone: Comment on above: As needed until disc ontinued starting 01/26/2024 End: 01-26-2024 Respiratory care eval and treat Respiratory care eval and treat Respiratory Care Routine Once for 1 Occurrences starting 01/26/2024 until 01/26/2024 [facility] Work Phone: Comment on above: Once for 1 Occurrenc es starting 01/26/2024 until 01/26/2024 End: 01-26-2024 SARS-CoV-2 (COVID-19) RNA [Presence] in Respiratory specimen by THALIA with probe detection Sars-CoV-2 PCR Lab Routine Once (Lab) for 1 Occurrences starting 01/26/2024 until 01/26/2024 [facility] Work Phone: Comment on above: Once (Lab) for 1 Occ urrences starting 01/26/2024 until 01/26/2024 Immunizations Immunization Date Immunization Notes Care Provider Erasmo green 04-28-2023 influenza virus vaccine, unspecified formulation Jeannie Nielsen DO Work Phone: [facility] Work Phone: 02-28-2022 influenza virus vaccine, unspecified formulation [facility] 1 [facility] Work Phone: Payers Date Payer Category Payer Unknown [employer] [id number] 2022-Present [address] [place] [address] [id number] 2022 Unknown [id number] 1965 Unknown [id number] 3 1965 Unknown [id number] 3 1965 Unknown [id number] 3 1965 Unknown [id number] 3 1965 Unknown [id number] 3 1965 Unknown [id number] 59 1965 Unknown [id number] 45 1965 Unknown [id number] 45 1965 Unknown [id number] 45 1965 Unknown [id number] 43 1965 Unknown [id number] 43 1965 Unknown [id number] 43 1965 Unknown [id number] 43 1959 Unknown [id number] Social History Date Type Detail Facility Start: 03-01-2023 Tobacco smoking stat [facility] Never smoked tobacco [facility] Work Phone: Start: 03-01-2023 Tobacco use and exposure Smokeless tobacco non-user [facility] Work Phone: Start: 03-01-2023 End: 01-28-2024 History of Social function [facility] Start: 03-01-2023 End: 01-28-2024 Tobacco use panel [facility] Start: 1965 Sex Assigned At Not on file [facility] Work Phone: Start: 02-19-2023 End: 03-01-2023 Exposure to SARS-CoV-2 (event) Not sure [facility] Has the [employer], [employer], [employer], or water [employer] threatened to shut off services in your home in past 12Mo No [facility] How often to you hav e a drink containing alcohol? Never [facility] Work Phone: How many standard drinks containing alcohol do you have on a typical day? Patient does not drink [facility] Work Phone: (I/We) worried ayana er (my/our) food would run out before (I/we) got money to buy more. Never true [facility] Work Phone: Start: 01-16-2024 End: 01-26-2024 Exposure to SARS-CoV-2 (event) Yes [facility] Work Phone: Clinical Notes 03-01-2023 to 01-28-2024 Celia Mcgee RN - 01/28/2024 4:56 PM Dominick Mcgee RN - 01/28/2024 4:56 PM Dominick Mcgee RN - 01/28/2024 4:23 PM Dominick Mcgee RN - 01/28/2024 4:23 PM Cassi Pablo PharmD - 01/28/2024 4:18 PM EDT Note Date & Type Note Facility 01-28-2024 Nurse Note Discharge Note: 01/28/2024 1656 Declines wheelchair, ambulates to private car accompanied by PCT and , personal belongings taken by pt, no distress noted, no complaints voiced. J Carlos PINA [facility] 01-28-2024 Nurse Note Discharge Note: 01/28/2024 1656 Declines wheelchair, ambulates to private car accompanied by PCT and , personal belongings taken by pt, no distress noted, no complaints voiced. J Carlos RN Discharge Note: 01/28/2024 1616 AVS and pt responsibilities reviewed with pt over phone and copy given. High blood pressure, high blood pressure emergencies, education reviewed with pt and information sheets given. Pt verbalizes understanding of instructions received, verbalizes understanding of when to seek medical attention, denies any home going or personal care needs. Denies further questions or concerns. Reviewed follow up appts with pt and verbalizes understanding. J Carlos PINA documented in this encounter [facility] Work Phone: 01-28-2024 Nurse Note Discharge Note: 01/28/20246 AVS and pt responsibilities reviewed with pt over phone and copy given. High blood pressure, high blood pressure emergencies, education reviewed with pt and information sheets given. Pt verbalizes understanding of instructions received, verbalizes understanding of when to seek medical attention, denies any home going or personal care needs. Denies further questions or concerns. Reviewed follow up appts with pt and verbalizes understanding. J Carlos PINA [facility] Work Phone: 01-28-2024 History of Present illness Narrative Medication Education Medication education for Regi Zari [place] was provided to the patient over the phone (COVID +) for the following medication(s): Hydrochlorothiazide Nifedipine Metoprolol Medication education provided by a Pharmacist: ADR Counseling Medication interactions Dose, frequency, storage How to take and what to do if a dose is missed Proper dose, indication, possible ADRs Refilling the medication How the medication works and benefits of taking it Benefits of taking the medication Importance of compliance Necessary labs and/or other monitoring Any drug interactions (including OTCs and herbvals) and importance of notifying a healthcare provider of any medication changes Potential duration of therapy Identified potential barriers to education: None Method(s) of Education: Verbal Written materials provided and reviewed An opportunity to ask questions and receive answers was provided. Assessment of understanding the patient : 2= meets goals/outcomes Additional Notes (if applicable): - Educated patient on the importance of low-salt, high-fiber diet and behavioral techniques to help reduce stress and anxiety; she mention in our conversation that stress and anxiety management is a big contributor to her symptoms - Educated patient on goal BP targets and to monitor her BP @ home; she states that she does have an automatic cuff available to her - Confirmed pharmacy of choice for where new medicines are to be sent ([facility]) Arnol Pablo PharmD BCPS 01/28/24 1412 Discharge Planning Living Arrangements Spouse/significant other Support Systems Spouse/significant other Assistance Needed none Type of Residence Private residence Number of Stairs to Enter Residence 4 Number of Stairs Within Residence 0 Do you have animals or pets at home? Yes Type of Animals or Pets 1 dog Who is requesting discharge planning? Provider Home or Post Acute Services None Expected Discharge Disposition Home Does the patient need discharge transport arranged? No Financial Resource Strain How hard is it for you to pay for the very basics like food, housing, medical care, and heating? Not hard Housing Stability In the last 12 months, was there a time when you were not able to pay the mortgage or rent on time? N In the past 12 months, how many times have you moved where you were living? 0 At any time in the past 12 months, were you homeless or living in a intermediate (including now)? N Transportation Needs In the past 12 months, has lack of transportation kept you from medical appointments or from getting medications? no In the past 12 months, has lack of transportation kept you from meetings, work, or from getting things needed for daily living? No 1418 Spoke with pt, explained TCC role. Verified demographics. PCP is Dr Noel last seen in October and Pharmacy is [facility] explains issue obtaining hormones due to cost. Educated pt that she should write a letter to the manufacturing company and request assistance with the cost. I explained that sometimes they have programs or coupons to help people. Pt other david denies needs and is independent at home with and as a ride home at discharge. Plan is home with today. [facility] Bis per nursing. CT to follow. Danya Smith BSN/RN-TCC Subjective Data: Patient reports feeling well, no new adverse events overnight. Patient denies any chest pain, shortness of breath, palpitations, dizziness or syncope. Patient is hemodynamically stable. Overnight Events: No Objective Data: Last Recorded Vitals: Vitals: 01/28/24 0725 01/28/24 0800 01/28/24 0857 01/28/24 0901 BP: (!) 206/89 (!) 177/109 (!) 162/94 152/79 BP Location: Left arm Patient Position: Sitting Pulse: 87 91 109 91 Resp: 20 (!) 29 22 14 Temp: 36 C (96.8 F) TempSrc: Temporal SpO2: 97% Weight: Height: Last Labs: CBC - 01/28/2024: 6:46 AM 7.1 13.8 291 42.5 CMP - 01/28/2024: 5:15 AM 10.0 6.6 15 --- 0.3 _ 3.9 13 54 PTT - No results in last year. _ _ _ TROPHS Date/Time Value Ref Range Status 01/26/2024 12:13 PM 3 0 - 13 ng/L Final 01/26/2024 11:09 AM 3 0 - 13 ng/L Final BNP Date/Time Value Ref Range Status 01/26/2024 09:37 PM 52 0 - 99 pg/mL Final HGBA1C Date/Time Value Ref Range Status 03/31/2023 08:22 AM 4.9 see below % Final LDLCALC Date/Time Value Ref Range Status 03/31/2023 08:22 AM 169 <=99 mg/dL Final Comment: Near Borderline AGE Desirable Optimal High High Very High 0-19 Y 0 - 109 --- 110-129 >/= 130 ---- 20-24 Y 0 - 119 --- 120-159 >/= 160 ---- >24 Y 0 - 99 100-129 130-159 160-189 >/=190 VLDL Date/Time Value Ref Range Status 03/31/2023 08:22 AM 19 0 - 40 mg/dL Final Last I/O: I/O last 3 completed shifts: In: 4794.4 (50.7 mL/kg) [P.O.:4680; I.V.:114.4 (1.2 mL/kg)] Out: - (0 mL/kg) Weight: 94.6 kg Past Cardiology Tests (Last 3 Years): EKG: ECG 12 Lead 01/26/2024 (Preliminary) Echo: No results found for this or any previous visit from the past 1095 days. Ejection Fractions: No results found for: EF Cath: No results found for this or any previous visit from the past 1095 days. Stress Test: No results found for this or any previous visit from the past 1095 days. Cardiac Imaging: No results found for this or any previous visit from the past 1095 days. Inpatient Medications: Scheduled medications Medication Dose Route Frequency ARIPiprazole 30 mg oral Daily enoxaparin 40 mg subcutaneous q24h estrogens (conjugated) 0.625 mg oral Daily fluticasone 2 spray Each Nostril Daily hydroCHLOROthiazide 25 mg oral Daily [START ON 01/29/2024] NIFEdipine ER 60 mg oral Daily before breakfast perflutren protein A microsphere 0.5 mL intravenous Once in imaging polyethylene glycol 17 g oral Daily simvastatin 20 mg oral Nightly sulfur hexafluoride microsphr 2 mL intravenous Once in imaging tiZANidine 4 mg oral Daily tiZANidine 8 mg oral Nightly traZODone 300 mg oral Nightly PRN medications Medication acetaminophen Or acetaminophen Or acetaminophen acetaminophen Or acetaminophen Or acetaminophen benzocaine-menthol benzonatate ibuprofen ipratropium-albuteroL ondansetron ODT Or ondansetron oxyCODONE traMADol Continuous Medications Medication Dose Last Rate Physical Exam: General: alert, oriented and in no acute distress HEENT: NC/AT; EOMI; PERRLA, external ear is normal Neck: supple; trachea midline; no masses; no JVD Chest: clear breath sounds bilaterally; no wheezing Cardio: regular rhythm, S1S2 normal, no murmurs Abdomen: Soft, non-tender, non-distension, no organomegaly Extremities: no clubbing/cyanosis/edema Neuro: Grossly intact Psychiatric: Normal mood and affect Assessment/Plan Mrs. Regi Cruz is a 58 y.o. non-smoker female patient being consulted by the Cardiology team for hypertensive urgency. Patient with past medical history significant for hypertension and hyperlipidemia. She presented to ED [facility] on 01/26/2024 complaining of high blood pressure and headache. Notably, she was diagnosed with COVID 5 days prior to admission. Presented to ER and initially pressure 223/96. She passed 1 dose of IV labetalol and 25 mg of oral metoprolol. Continue to have high blood pressure 203/92 and started on Cardene drip. CT head negative for acute process. Chest x-ray negative for any pulmonary edema 30 lactic acid normal. Troponins unremarkable. No ischemia on EKG. patient denies any productive cough or hemoptysis or wheeze. She had sinus congestion with sore throat 4 to 5 days ago when she tested herself. She denied chest pain, shortness of breath, palpitations, leg edema, orthopnea, paroxysmal nocturnal dyspnea or syncope. EKG showing normal sinus rhythm with no signs of acute ischemic changes. Trop 3-3. Patient has been admitted for clinical compensation. Assessment # Hypertensive urgency - Normal EKG - Trop 3-3 - Patient on Nicardipine drip, controlled blood pressure, IV drip has been stopped. - Would suggest to keep PO medications at this point including Nifedipine ER 30mg daily. - Would suggest to associate hydrochlorothiazide 25mg daily before discharge. - Follow up in Cardiology clinic as outpatient. # Hyperlipidemia - Controlled by PCP. - Keep home medication with Simvastatin 20mg daily. - Counseled on healthy diet and regular exercise. # COVID - Patient eupneic on room air. - Conservative treatment per primary team. This critically ill patient continues to be at-risk for clinically significant deterioration / failure due to the above mentioned dysfunctional, unstable organ systems. I have personally identified and managed all complex critical care issues to prevent aforementioned clinical deterioration. Critical care time is spent at bedside and/or the immediate area and has included, but is not limited to, the review of diagnostic tests, labs, radiographs, serial assessments of hemodynamics, respiratory status, ventilatory management, and family updates. Time spent in procedures and teaching are reported separately. Critical care time: 60 minutes Peripheral IV 01/26/24 20 G Right Antecubital (Active) Site Assessment Clean;Dry;Intact 01/28/24 08 Dressing Type Transparent 01/28/24799 Line Status Flushed;Saline locked 01/28/24799 Dressing Status Clean;Dry;Occlusive 01/28/24 0800 Number of days: 2 Code Status: Full Code Jesús Ziegler MD Cardiology Regi Cruz is a 58 y.o. female on day 2 of admission presenting with Hypertensive urgency. Subjective Patient seen and examined at the bedside this morning She is resting comfortably in bed Denies any shortness of breath She did have a spike in her blood pressure this morning but otherwise her blood pressures were running fairly consistent Still has a little bit of a headache but is getting much better Objective Vitals 24HR Heart Rate: [53-91] Temp: [35.9 C (96.6 F)-36.3 C (97.3 F)] Resp: [12-35] BP: (143-206)/(67-109) SpO2: [96 %-98 %] Intake/Output last 3 Shifts: Intake/Output Summary (Last 24 hours) at 01/28/2024 0817 Last data filed at 01/27/2024 1800 Gross per 24 hour Intake 4440 ml Output -- Net 4440 ml Physical Exam Constitutional: Appearance: Normal appearance. HENT: Head: Normocephalic and atraumatic. Right Ear: External ear normal. Left Ear: External ear normal. Nose: Nose normal. Mouth/Throat: Mouth: Mucous membranes are moist. Pharynx: Oropharynx is clear. Eyes: Extraocular Movements: Extraocular movements intact. Conjunctiva/sclera: Conjunctivae normal. Pupils: Pupils are equal, round, and reactive to light. Cardiovascular: Rate and Rhythm: Normal rate and regular rhythm. Pulmonary: Effort: Pulmonary effort is normal. Breath sounds: Normal breath sounds. Abdominal: General: Abdomen is flat. Palpations: Abdomen is soft. Skin: General: Skin is warm and dry. Neurological: General: No focal deficit present. Mental Status: She is alert and oriented to person, place, and time. Psychiatric: Mood and Affect: Mood normal. Behavior: Behavior normal. Relevant Results Assessment/Plan Assessment & Plan Hypertensive urgency Hypertension: Uncontrolled Headache COVID-19 Plan: At this time we will increase her nifedipine to 60 mg/day I do not see laboratory evidence of worry of secondary hypertension causes From my standpoint she can be discharged she has a blood pressure cuff at home and I have discussed with her taking her blood pressure daily and recording it I can follow-up with her as an outpatient and I have told her to call me if she has issues Would recommend continuing nifedipine 60 mg daily Please call with any further issues or needs she can be discharged to home from my standpoint Saul Gross DO Regi Cruz is a 58 y.o. female on day 1 of admission presenting with Hypertensive urgency. Subjective Headache No focal weakness No chest pain Slight shortness of breath at times No exertional symptoms No palpitations or worsening leg swelling Objective Physical Exam General Appearance: AAO x 3, Skin: skin color pink, warm, and dry; no suspicious rashes or lesions Eyes : PERRL, EOM's intact ENT: mucous membranes pink and moist Neck: normocephalic Respiratory: lungs clear to auscultation anteriorly; no wheezing, rhonchi, or crackles. Heart: regular rate and rhythm. telemetry shows sinus rhythm Abdomen: Nondistended, positive bowel sounds x4, soft, nontender Extremities: no edema Peripheral pulses: normal x4 extremities Neuro: alert, coherent and conversant, no focal motor deficits Last Recorded Vitals Blood pressure (!) 143/95, pulse 89, temperature 35.9 C (96.6 F), temperature source Temporal, resp. rate 18, height 1.676 m (5' 6 ), weight 94.6 kg (208 lb 8.9 oz), SpO2 98%. Intake/Output last 3 Shifts: I/O last 3 completed shifts: In: 1581.9 (16.7 mL/kg) [P.O.:840; I.V.:741.9 (7.8 mL/kg)] Out: - (0 mL/kg) Weight: 94.6 kg Relevant Results Scheduled medications ARIPiprazole, 30 mg, oral, Daily enoxaparin, 40 mg, subcutaneous, q24h estrogens (conjugated), 0.625 mg, oral, Daily fluticasone, 2 spray, Each Nostril, Daily [START ON 01/28/2024] NIFEdipine ER, 30 mg, oral, Daily before breakfast polyethylene glycol, 17 g, oral, Daily simvastatin, 20 mg, oral, Nightly tiZANidine, 4 mg, oral, Daily tiZANidine, 8 mg, oral, Nightly traZODone, 300 mg, oral, Nightly Continuous medications PRN medications PRN medications: acetaminophen OR acetaminophen OR acetaminophen, acetaminophen OR acetaminophen OR acetaminophen, benzocaine-menthol, benzonatate, ibuprofen, ipratropium-albuteroL, ondansetron ODT OR ondansetron, oxyCODONE, traMADol Results for orders placed or performed during the hospital encounter of 01/26/24 (from the past 24 hour(s)) B-type natriuretic peptide Result Value Ref Range BNP 52 0 - 99 pg/mL Sedimentation rate, automated Result Value Ref Range Sedimentation Rate 26 0 - 30 mm/h C-reactive protein Result Value Ref Range C-Reactive Protein 0.92 <1.00 mg/dL D-dimer, Non VTE Result Value Ref Range D-Dimer Non VTE, Quant (ng/mL FEU) 733 (H) <=500 ng/mL FEU CBC Result Value Ref Range WBC 7.0 4.4 - 11.3 x10*3/uL nRBC 0.0 0.0 - 0.0 /100 WBCs RBC 4.00 4.00 - 5.20 x10*6/uL Hemoglobin 12.3 12.0 - 16.0 g/dL Hematocrit 37.3 36.0 - 46.0 % MCV 93 80 - 100 fL MCH 30.8 26.0 - 34.0 pg MCHC 33.0 32.0 - 36.0 g/dL RDW 12.4 11.5 - 14.5 % Platelets 264 150 - 450 x10*3/uL Comprehensive metabolic panel Result Value Ref Range Glucose 93 74 - 99 mg/dL Sodium 138 136 - 145 mmol/L Potassium 3.6 3.5 - 5.3 mmol/L Chloride 106 98 - 107 mmol/L Bicarbonate 26 21 - 32 mmol/L Anion Gap 10 10 - 20 mmol/L Urea Nitrogen 18 6 - 23 mg/dL Creatinine 0.75 0.50 - 1.05 mg/dL eGFR >90 >60 mL/min/1.73m*2 Calcium 8.8 8.6 - 10.3 mg/dL Albumin 3.9 3.4 - 5.0 g/dL Alkaline Phosphatase 54 33 - 110 U/L Total Protein 6.6 6.4 - 8.2 g/dL AST 15 9 - 39 U/L Bilirubin, Total 0.3 0.0 - 1.2 mg/dL ALT 13 7 - 45 U/L CT head wo IV contrast Result Date: 01/26/2024 Interpreted By: Mark Abdul, STUDY: CT HEAD WO IV CONTRAST; 01/26/2024 11:07 am INDICATION: Signs/Symptoms:HTN, headache. COMPARISON: None ACCESSION NUMBER(S): [id number] ORDERING CLINICIAN: JEANNIE NIELSEN TECHNIQUE: CT of the brain from the [...] and occular globes grossly normal by CT NO ACUTE INTRACRANIAL PROCESS MACRO: None Signed by: Mark Abdul 01/26/2024 11:36 AM Dictation workstation: [id number] XR chest 1 view Result Date: 01/26/2024 Interpreted By: Prem Thompson, STUDY: XR CHEST 1 VIEW; 01/26/2024 10:55 am INDICATION: Signs/Symptoms:HTN. COMPARISON: None. ACCESSION NUMBER(S): [id number] ORDERING CLINICIAN: JEANNIE NIELSEN FINDINGS: CARDIOMEDIASTINAL SILHOUETTE: Cardiomediastinal silhouette is normal in size and configuration. LUNGS: Lungs are clear. ABDOMEN: No remarkable upper abdominal findings. BONES: No acute osseous changes. 1. No evidence of acute cardiopulmonary process. MACRO: None Signed by: Prem Thompson 01/26/2024 11:24 AM Dictation workstation: [id number] All data reviewed by me independently Assessment/Plan Assessment & Plan Hypertensive urgency 58-year-old female with history of Hypertension Hyperlipidemia Presented with Hypertensive urgency COVID-19 Headache Plan Monitor closely in ICU Follow vitals and oxygen saturation Currently hemodynamically stable Status post Cardene drip Pressure better Start nifedipine 30 mg daily Nephrology following Abortive care symptomatic management Toradol IV given for headache Continue Tylenol Echocardiogram Encourage compliance Cardiac risk factor stratification Follow cardiology Also on tramadol, oxycodone Antiemetics if required Continue home medicines On Abilify 30 mg daily Lovenox for DVT prophylaxis Titrate medicines for optimal control Mucinex, Cepacol, Flonase Neb treatments if required Maintain ABCs Keep oxygen saturation greater than 93% Daily CBC BMP Fall, aspiration, seizure precautions Watch polypharmacy Statins for hyperlipidemia Neurochecks Troponins, CRP, ESR, lactate level fine Ezekiel Solomon MD documented in this encounter [facility] Work Phone: 01-28-2024 Hospital course Narrative Discharge Diagnosis Hypertensive urgency Issues Requiring Follow-Up PCP nephrology Discharge Meds Medication List START taking these medications hydroCHLOROthiazide 25 mg tablet; Commonly known as: HYDRODiuril; Take 1 tablet (25 mg) by mouth once daily.; Start taking on: January 29, 2024 NIFEdipine ER 60 mg 24 hr tablet; Commonly known as: Adalat CC; Take 1 tablet (60 mg) by mouth once daily in the morning. Take before meals. Do not crush, chew, or split. Do not fill before January 29, 2024.; Start taking on: January 29, 2024 CONTINUE taking these medications ARIPiprazole 30 mg tablet; Commonly known as: Abilify benzonatate 100 mg capsule; Commonly known as: Tessalon hydrOXYzine HCL 25 mg tablet; Commonly known as: Atarax indomethacin 50 mg capsule; Commonly known as: Indocin Premarin 0.625 mg tablet; Generic drug: estrogens (conjugated) simvastatin 20 mg tablet; Commonly known as: Zocor tiZANidine 4 mg tablet; Commonly known as: Zanaflex traZODone 150 mg tablet; Commonly known as: Desyrel STOP taking these medications metoprolol tartrate 25 mg tablet; Commonly known as: Lopressor Test Results Pending At Discharge Pending Labs No current pending labs. Hospital Course 58-year-old female with history of Hypertension Hyperlipidemia Presented with Hypertensive urgency COVID-19 Headache Patient was admitted to ICU with Cardene drip Monitor hemodynamics and vitals Daily CBC labs were monitored and stable overall Medically improving Headache and migraine resolved with pain medicines Pressure improved and now initiated nifedipine increased to 60 mg p.o. daily, achieved optimal control as of yet Patient continued on HCTZ 25 g daily as per cardiology Start beta-blockers per nephrology, no heart disease apparently Patient was advised to follow healthy lifestyle with proper diet exercise and medication compliance to prevent cerebrovascular accidents as well prevent coronary artery disease or least control risk factors Patient feels much better and asymptomatic and would like to go home On Abilify at home Lovenox for DVT prophylaxis given here Supportive care, neb treatments as required On room air Statins for hyperlipidemia Maintained neurochecks Troponins unremarkable Continue to follow cardiology outpatient Echo with EF 60%, normal right ventricular global systolic function, aortic valve sclerosis Pertinent Physical Exam At Time of Discharge Physical Exam General Appearance: AAO x 3, Skin: skin color pink, warm, and dry; no suspicious rashes or lesions Eyes : PERRL, EOM's intact ENT: mucous membranes pink and moist Neck: normocephalic Respiratory: lungs clear to auscultation anteriorly; no wheezing, rhonchi, or crackles. Heart: regular rate and rhythm. telemetry shows sinus rhythm Abdomen: Nondistended, positive bowel sounds x4, soft, nontender Extremities: no edema Peripheral pulses: normal x4 extremities Neuro: alert, coherent and conversant, no focal motor deficits Time to dc > 35 mins Ezekiel Solomon MD documented in this encounter [facility] Work Phone: 01-28-2024 Plan of care note Problem: Pain - Adult Goal: Verbalizes/displays adequate comfort level or baseline comfort level Outcome: Progressing Problem: Discharge Planning Goal: Discharge to home or other facility with appropriate resources Outcome: Progressing The patient's goals for the shift include go home The clinical goals for the shift include BP controlled with new medications [facility] 01-28-2024 Miscellaneous Notes Problem: Pain - Adult Goal: Verbalizes/displays adequate comfort level or baseline comfort level Outcome: Progressing Problem: Discharge Planning Goal: Discharge to home or other facility with appropriate resources Outcome: Progressing The patient's goals for the shift include go home The clinical goals for the shift include BP controlled with new medications The patient's goals for the shift include The clinical goals for the shift include relieve SALEH by EOS Progressing toward goal Problem: Pain - Adult Goal: Verbalizes/displays adequate comfort level or baseline comfort level Outcome: Not Progressing Problem: Safety - Adult Goal: Free from fall injury Outcome: Met The patient's goals for the shift include The clinical goals for the shift include decrease bp Goal Met Problem: Pain - Adult Goal: Verbalizes/displays adequate comfort level or baseline comfort level Outcome: Not Progressing documented in this encounter [facility] Work Phone: 01-28-2024 Plan of care note The patient's goals for the shift include The clinical goals for the shift include relieve SALEH by EOS Progressing toward goal [facility] 01-27-2024 Consult note Associated Order (s): Inpatient consult to Cardiology Inpatient consult to Cardiology Consult performed by: Jesús Ziegler MD Consult ordered by: Ezekiel Solomon MD Reason for consult: hypertensive urgency History Of Present Illness: Mrs. Regi Cruz is a 58 y.o. non-smoker female patient being consulted by the Cardiology team for hypertensive urgency. Patient with past medical history significant for hypertension and hyperlipidemia. She presented to ED [facility] on 01/26/2024 complaining of high blood pressure and headache. Notably, she was diagnosed with COVID 5 days prior to admission. Presented to ER and initially pressure 223/96. She passed 1 dose of IV labetalol and 25 mg of oral metoprolol. Continue to have high blood pressure 203/92 and started on Cardene drip. CT head negative for acute process. Chest x-ray negative for any pulmonary edema 30 lactic acid normal. Troponins unremarkable. No ischemia on EKG. patient denies any productive cough or hemoptysis or wheeze. She had sinus congestion with sore throat 4 to 5 days ago when she tested herself. She denied chest pain, shortness of breath, palpitations, leg edema, orthopnea, paroxysmal nocturnal dyspnea or syncope. EKG showing normal sinus rhythm with no signs of acute ischemic changes. Trop 3-3. Patient has been admitted for clinical compensation. Last Recorded Vitals: Vitals: 01/27/24 0700 01/27/24 1140 01/27/24 1539 01/27/24 1851 BP: 147/77 (!) 143/95 BP Location: Left arm Left arm Patient Position: Lying Sitting Pulse: 66 89 Resp: 11 18 Temp: 35.9 C (96.6 F) 36.3 C (97.3 F) 35.9 C (96.6 F) TempSrc: Temporal Temporal Temporal SpO2: 98% 96% 97% 98% Weight: Height: Last Labs: CBC - 01/27/2024: 3:30 AM 7.0 12.3 264 37.3 CMP - 01/27/2024: 3:30 AM 8.8 6.6 15 --- 0.3 _ 3.9 13 54 PTT - No results in last year. _ _ _ Troponin I, High Sensitivity Date/Time Value Ref Range Status 01/26/2024 12:13 PM 3 0 - 13 ng/L Final 01/26/2024 11:09 AM 3 0 - 13 ng/L Final BNP Date/Time Value Ref Range Status 01/26/2024 09:37 PM 52 0 - 99 pg/mL Final Hemoglobin A1C Date/Time Value Ref Range Status 03/31/2023 08:22 AM 4.9 see below % Final LDL Calculated Date/Time Value Ref Range Status 03/31/2023 08:22 AM 169 (H) <=99 mg/dL Final Comment: Near Borderline AGE Desirable Optimal High High Very High 0-19 Y 0 - 109 --- 110-129 >/= 130 ---- 20-24 Y 0 - 119 --- 120-159 >/= 160 ---- >24 Y 0 - 99 100-129 130-159 160-189 >/=190 VLDL Date/Time Value Ref Range Status 03/31/2023 08:22 AM 19 0 - 40 mg/dL Final Last I/O: I/O last 3 completed shifts: In: 6021.9 (63.7 mL/kg) [P.O.:5280; I.V.:741.9 (7.8 mL/kg)] Out: - (0 mL/kg) Weight: 94.6 kg Past Cardiology Tests (Last 3 Years): EKG: No results found for this or any previous visit from the past 1095 days. Echo: No results found for this or any previous visit from the past 1095 days. Ejection Fractions: No results found for: EF Cath: No results found for this or any previous visit from the past 1095 days. Stress Test: No results found for this or any previous visit from the past 1095 days. Cardiac Imaging: No results found for this or any previous visit from the past 1095 days. Past Medical History: She has a past medical history of Hypertension. Past Surgical History: She has no past surgical history on file. Social History: She reports that she has never smoked. She has never used smokeless tobacco. No history on file for alcohol use and drug use. Family History: No family history on file. Allergies: Penicillins Inpatient Medications: Scheduled medications Medication Dose Route Frequency ARIPiprazole 30 mg oral Daily enoxaparin 40 mg subcutaneous q24h estrogens (conjugated) 0.625 mg oral Daily fluticasone 2 spray Each Nostril Daily [START ON 01/28/2024] NIFEdipine ER 30 mg oral Daily before breakfast polyethylene glycol 17 g oral Daily simvastatin 20 mg oral Nightly tiZANidine 4 mg oral Daily tiZANidine 8 mg oral Nightly traZODone 300 mg oral Nightly PRN medications Medication acetaminophen Or acetaminophen Or acetaminophen acetaminophen Or acetaminophen Or acetaminophen benzocaine-menthol benzonatate ibuprofen ipratropium-albuteroL ondansetron ODT Or ondansetron oxyCODONE traMADol Continuous Medications Medication Dose Last Rate Outpatient Medications: Current Outpatient Medications Medication Instructions ARIPiprazole (ABILIFY) 30 mg, oral, Daily benzonatate (TESSALON) 100 mg, oral, 3 times daily PRN hydrOXYzine HCL (Atarax) 25 mg tablet 1-2 TABLETS ORALLY FOUR TIMES DAILY NEEDED 30 DAYS indomethacin (INDOCIN) 50 mg, oral, Daily metoprolol tartrate (LOPRESSOR) 25 mg, oral, 2 times daily Premarin 0.625 mg, oral, Daily simvastatin (ZOCOR) 20 mg, oral, Daily tiZANidine (Zanaflex) 4 mg tablet TAKE 1 TABLET BY MOUTH IN THE MORNING AND 2 TABLETS AT BEDTIME traZODone (Desyrel) 150 mg tablet TAKE 2 TABLETS BY MOUTH EVERY DAY AT NIGHT Physical Exam: General: alert, oriented and in no acute distress HEENT: NC/AT; EOMI; PERRLA, external ear is normal Neck: supple; trachea midline; no masses; no JVD Chest: clear breath sounds bilaterally; no wheezing Cardio: regular rhythm, S1S2 normal, no murmurs Abdomen: Soft, non-tender, non-distension, no organomegaly Extremities: no clubbing/cyanosis/edema Neuro: Grossly intact Psychiatric: Normal mood and affect Assessment/Plan Mrs. Regi Cruz is a 58 y.o. non-smoker female patient being consulted by the Cardiology team for hypertensive urgency. Patient with past medical history significant for hypertension and hyperlipidemia. She presented to ED [facility] on 01/26/2024 complaining of high blood pressure and headache. Notably, she was diagnosed with COVID 5 days prior to admission. Presented to ER and initially pressure 223/96. She passed 1 dose of IV labetalol and 25 mg of oral metoprolol. Continue to have high blood pressure 203/92 and started on Cardene drip. CT head negative for acute process. Chest x-ray negative for any pulmonary edema 30 lactic acid normal. Troponins unremarkable. No ischemia on EKG. patient denies any productive cough or hemoptysis or wheeze. She had sinus congestion with sore throat 4 to 5 days ago when she tested herself. She denied chest pain, shortness of breath, palpitations, leg edema, orthopnea, paroxysmal nocturnal dyspnea or syncope. EKG showing normal sinus rhythm with no signs of acute ischemic changes. Trop 3-3. Patient has been admitted for clinical compensation. Assessment # Hypertensive urgency - Normal EKG - Trop 3-3 - Patient on Nicardipine drip, controlled blood pressure, IV drip has been stopped. - Would suggest to keep PO medications at this point including Nifedipine ER 30mg daily. - Would suggest to associate hydrochlorothiazide 25mg daily before discharge. - Follow up in Cardiology clinic as outpatient. # Hyperlipidemia - Controlled by PCP. - Keep home medication with Simvastatin 20mg daily. - Counseled on healthy diet and regular exercise. # COVID - Patient eupneic on room air. - Conservative treatment per primary team. This critically ill patient continues to be at-risk for clinically significant deterioration / failure due to the above mentioned dysfunctional, unstable organ systems. I have personally identified and managed all complex critical care issues to prevent aforementioned clinical deterioration. Critical care time is spent at bedside and/or the immediate area and has included, but is not limited to, the review of diagnostic tests, labs, radiographs, serial assessments of hemodynamics, respiratory status, ventilatory management, and family updates. Time spent in procedures and teaching are reported separately. Critical care time: 65 minutes Peripheral IV 01/26/24 20 G Right Antecubital (Active) Site Assessment Clean;Dry;Intact 01/27/24 1800 Dressing Type Transparent 01/27/24 1800 Line Status Saline locked 01/27/24 1800 Dressing Status Clean;Dry;Occlusive 01/27/24 1800 Number of days: 1 Code Status: Full Code Jesús Ziegler MD Cardiology [facility] Work Phone: 01-27-2024 Consult note Associated Order (s): Inpatient consult to Cardiology Inpatient consult to Cardiology Consult performed by: Jesús Ziegler MD Consult ordered by: Ezekiel Solomon MD Reason for consult: hypertensive urgency History Of Present Illness: Mrs. Regi Cruz is a 58 y.o. non-smoker female patient being consulted by the Cardiology team for hypertensive urgency. Patient with past medical history significant for hypertension and hyperlipidemia. She presented to ED [facility] on 01/26/2024 complaining of high blood pressure and headache. Notably, she was diagnosed with COVID 5 days prior to admission. Presented to ER and initially pressure 223/96. She passed 1 dose of IV labetalol and 25 mg of oral metoprolol. Continue to have high blood pressure 203/92 and started on Cardene drip. CT head negative for acute process. Chest x-ray negative for any pulmonary edema 30 lactic acid normal. Troponins unremarkable. No ischemia on EKG. patient denies any productive cough or hemoptysis or wheeze. She had sinus congestion with sore throat 4 to 5 days ago when she tested herself. She denied chest pain, shortness of breath, palpitations, leg edema, orthopnea, paroxysmal nocturnal dyspnea or syncope. EKG showing normal sinus rhythm with no signs of acute ischemic changes. Trop 3-3. Patient has been admitted for clinical compensation. Last Recorded Vitals: Vitals: 01/27/24 0700 01/27/24 1140 01/27/24 1539 01/27/24 1851 BP: 147/77 (!) 143/95 BP Location: Left arm Left arm Patient Position: Lying Sitting Pulse: 66 89 Resp: 11 18 Temp: 35.9 C (96.6 F) 36.3 C (97.3 F) 35.9 C (96.6 F) TempSrc: Temporal Temporal Temporal SpO2: 98% 96% 97% 98% Weight: Height: Last Labs: CBC - 01/27/2024: 3:30 AM 7.0 12.3 264 37.3 CMP - 01/27/2024: 3:30 AM 8.8 6.6 15 --- 0.3 _ 3.9 13 54 PTT - No results in last year. _ _ _ Troponin I, High Sensitivity Date/Time Value Ref Range Status 01/26/2024 12:13 PM 3 0 - 13 ng/L Final 01/26/2024 11:09 AM 3 0 - 13 ng/L Final BNP Date/Time Value Ref Range Status 01/26/2024 09:37 PM 52 0 - 99 pg/mL Final Hemoglobin A1C Date/Time Value Ref Range Status 03/31/2023 08:22 AM 4.9 see below % Final LDL Calculated Date/Time Value Ref Range Status 03/31/2023 08:22 AM 169 (H) <=99 mg/dL Final Comment: Near Borderline AGE Desirable Optimal High High Very High 0-19 Y 0 - 109 --- 110-129 >/= 130 ---- 20-24 Y 0 - 119 --- 120-159 >/= 160 ---- >24 Y 0 - 99 100-129 130-159 160-189 >/=190 VLDL Date/Time Value Ref Range Status 03/31/2023 08:22 AM 19 0 - 40 mg/dL Final Last I/O: I/O last 3 completed shifts: In: 6021.9 (63.7 mL/kg) [P.O.:5280; I.V.:741.9 (7.8 mL/kg)] Out: - (0 mL/kg) Weight: 94.6 kg Past Cardiology Tests (Last 3 Years): EKG: No results found for this or any previous visit from the past 1095 days. Echo: No results found for this or any previous visit from the past 1095 days. Ejection Fractions: No results found for: EF Cath: No results found for this or any previous visit from the past 1095 days. Stress Test: No results found for this or any previous visit from the past 1095 days. Cardiac Imaging: No results found for this or any previous visit from the past 1095 days. Past Medical History: She has a past medical history of Hypertension. Past Surgical History: She has no past surgical history on file. Social History: She reports that she has never smoked. She has never used smokeless tobacco. No history on file for alcohol use and drug use. Family History: No family history on file. Allergies: Penicillins Inpatient Medications: Scheduled medications Medication Dose Route Frequency ARIPiprazole 30 mg oral Daily enoxaparin 40 mg subcutaneous q24h estrogens (conjugated) 0.625 mg oral Daily fluticasone 2 spray Each Nostril Daily [START ON 01/28/2024] NIFEdipine ER 30 mg oral Daily before breakfast polyethylene glycol 17 g oral Daily simvastatin 20 mg oral Nightly tiZANidine 4 mg oral Daily tiZANidine 8 mg oral Nightly traZODone 300 mg oral Nightly PRN medications Medication acetaminophen Or acetaminophen Or acetaminophen acetaminophen Or acetaminophen Or acetaminophen benzocaine-menthol benzonatate ibuprofen ipratropium-albuteroL ondansetron ODT Or ondansetron oxyCODONE traMADol Continuous Medications Medication Dose Last Rate Outpatient Medications: Current Outpatient Medications Medication Instructions ARIPiprazole (ABILIFY) 30 mg, oral, Daily benzonatate (TESSALON) 100 mg, oral, 3 times daily PRN hydrOXYzine HCL (Atarax) 25 mg tablet 1-2 TABLETS ORALLY FOUR TIMES DAILY NEEDED 30 DAYS indomethacin (INDOCIN) 50 mg, oral, Daily metoprolol tartrate (LOPRESSOR) 25 mg, oral, 2 times daily Premarin 0.625 mg, oral, Daily simvastatin (ZOCOR) 20 mg, oral, Daily tiZANidine (Zanaflex) 4 mg tablet TAKE 1 TABLET BY MOUTH IN THE MORNING AND 2 TABLETS AT BEDTIME traZODone (Desyrel) 150 mg tablet TAKE 2 TABLETS BY MOUTH EVERY DAY AT NIGHT Physical Exam: General: alert, oriented and in no acute distress HEENT: NC/AT; EOMI; PERRLA, external ear is normal Neck: supple; trachea midline; no masses; no JVD Chest: clear breath sounds bilaterally; no wheezing Cardio: regular rhythm, S1S2 normal, no murmurs Abdomen: Soft, non-tender, non-distension, no organomegaly Extremities: no clubbing/cyanosis/edema Neuro: Grossly intact Psychiatric: Normal mood and affect Assessment/Plan Mrs. Regi Cruz is a 58 y.o. non-smoker female patient being consulted by the Cardiology team for hypertensive urgency. Patient with past medical history significant for hypertension and hyperlipidemia. She presented to ED [facility] on 01/26/2024 complaining of high blood pressure and headache. Notably, she was diagnosed with COVID 5 days prior to admission. Presented to ER and initially pressure 223/96. She passed 1 dose of IV labetalol and 25 mg of oral metoprolol. Continue to have high blood pressure 203/92 and started on Cardene drip. CT head negative for acute process. Chest x-ray negative for any pulmonary edema 30 lactic acid normal. Troponins unremarkable. No ischemia on EKG. patient denies any productive cough or hemoptysis or wheeze. She had sinus congestion with sore throat 4 to 5 days ago when she tested herself. She denied chest pain, shortness of breath, palpitations, leg edema, orthopnea, paroxysmal nocturnal dyspnea or syncope. EKG showing normal sinus rhythm with no signs of acute ischemic changes. Trop 3-3. Patient has been admitted for clinical compensation. Assessment # Hypertensive urgency - Normal EKG - Trop 3-3 - Patient on Nicardipine drip, controlled blood pressure, IV drip has been stopped. - Would suggest to keep PO medications at this point including Nifedipine ER 30mg daily. - Would suggest to associate hydrochlorothiazide 25mg daily before discharge. - Follow up in Cardiology clinic as outpatient. # Hyperlipidemia - Controlled by PCP. - Keep home medication with Simvastatin 20mg daily. - Counseled on healthy diet and regular exercise. # COVID - Patient eupneic on room air. - Conservative treatment per primary team. This critically ill patient continues to be at-risk for clinically significant deterioration / failure due to the above mentioned dysfunctional, unstable organ systems. I have personally identified and managed all complex critical care issues to prevent aforementioned clinical deterioration. Critical care time is spent at bedside and/or the immediate area and has included, but is not limited to, the review of diagnostic tests, labs, radiographs, serial assessments of hemodynamics, respiratory status, ventilatory management, and family updates. Time spent in procedures and teaching are reported separately. Critical care time: 65 minutes Peripheral IV 01/26/24 20 G Right Antecubital (Active) Site Assessment Clean;Dry;Intact 01/27/24 1800 Dressing Type Transparent 01/27/24 1800 Line Status Saline locked 01/27/24 1800 Dressing Status Clean;Dry;Occlusive 01/27/24 1800 Number of days: 1 Code Status: Full Code Jesús Ziegler MD Cardiology Associated Order(s): IP CONSULT TO NEPHROLOGY Reason For Consult Hypertension History Of Present Illness Regi Cruz is a 58 y.o. female presenting with headache and elevated blood pressure. She presented to the emergency room and a few days ago was diagnosed with COVID-19. She was also seen in the clinic and was found to have an elevated blood pressure. When she presented to the emergency room her blood pressure was systolically above 200. She was started on a nifedipine drip. She is currently off nifedipine drip She states she has no heart disease She was only on metoprolol as an outpatient for her blood pressure She does have a headache this morning and that is really the only thing that is bothering her currently but she states the headache is pretty severe at this time She has no shortness of breath Past Medical History She has a past medical history of Hypertension. Surgical History She has no past surgical history on file. Social History She reports that she has never smoked. She has never used smokeless tobacco. No history on file for alcohol use and drug use. Family History No family history on file. Allergies Penicillins Review of Systems A full 10 point review of systems was obtained is negative except HPI as above Physical Exam Physical Exam Constitutional: Appearance: Normal appearance. HENT: Head: Normocephalic and atraumatic. Right Ear: External ear normal. Left Ear: External ear normal. Nose: Nose normal. Mouth/Throat: Mouth: Mucous membranes are moist. Pharynx: Oropharynx is clear. Eyes: Extraocular Movements: Extraocular movements intact. Conjunctiva/sclera: Conjunctivae normal. Pupils: Pupils are equal, round, and reactive to light. Cardiovascular: Rate and Rhythm: Normal rate and regular rhythm. Pulmonary: Effort: Pulmonary effort is normal. Breath sounds: Normal breath sounds. Abdominal: General: Abdomen is flat. Palpations: Abdomen is soft. Skin: General: Skin is warm and dry. Neurological: General: No focal deficit present. Mental Status: She is alert and oriented to person, place, and time. Psychiatric: Mood and Affect: Mood normal. Behavior: Behavior normal. I&O 24HR Intake/Output Summary (Last 24 hours) at 01/27/2024 0931 Last data filed at 01/27/2024 0602 Gross per 24 hour Intake 1581.88 ml Output -- Net 1581.88 ml Vitals 24HR Heart Rate: [57-102] Temp: [35.8 C (96.4 F)-36.8 C (98.3 F)] Resp: [10-28] BP: (90-223)/(56-102) Height: [167.6 cm (5' 6 )] Weight: [90.7 kg (200 lb)-94.6 kg (208 lb 8.9 oz)] SpO2: [94 %-98 %] Scheduled medications ARIPiprazole, 30 mg, oral, Daily enoxaparin, 40 mg, subcutaneous, q24h estrogens (conjugated), 0.625 mg, oral, Daily fluticasone, 2 spray, Each Nostril, Daily [START ON 01/28/2024] NIFEdipine ER, 30 mg, oral, Daily before breakfast polyethylene glycol, 17 g, oral, Daily simvastatin, 20 mg, oral, Nightly tiZANidine, 4 mg, oral, Daily tiZANidine, 8 mg, oral, Nightly traZODone, 300 mg, oral, Nightly Continuous medications PRN medications PRN medications: acetaminophen OR acetaminophen OR acetaminophen, acetaminophen OR acetaminophen OR acetaminophen, benzocaine-menthol, benzonatate, ibuprofen, ipratropium-albuteroL, ondansetron ODT OR ondansetron, oxyCODONE, traMADol Relevant Results Results reviewed Assessment/Plan Hypertension: Uncontrolled Headache COVID-19 Plan: At this time blood pressure has been pretty good. She is off of the drip now since last night I will start her on nifedipine 30 We will stay off of beta-blockers at this time as currently she does not have any signs of heart disease and beta-shaquille is not great for blood pressure Transfer to floor Thanks for the consult Assessment & Plan Hypertensive urgency Saul Gross DO documented in this encounter [facility] Work Phone: 01-27-2024 Consult note Associated Order (s): IP CONSULT TO NEPHROLOGY Reason For Consult Hypertension History Of Present Illness Regi Cruz is a 58 y.o. female presenting with headache and elevated blood pressure. She presented to the emergency room and a few days ago was diagnosed with COVID-19. She was also seen in the clinic and was found to have an elevated blood pressure. When she presented to the emergency room her blood pressure was systolically above 200. She was started on a nifedipine drip. She is currently off nifedipine drip She states she has no heart disease She was only on metoprolol as an outpatient for her blood pressure She does have a headache this morning and that is really the only thing that is bothering her currently but she states the headache is pretty severe at this time She has no shortness of breath Past Medical History She has a past medical history of Hypertension. Surgical History She has no past surgical history on file. Social History She reports that she has never smoked. She has never used smokeless tobacco. No history on file for alcohol use and drug use. Family History No family history on file. Allergies Penicillins Review of Systems A full 10 point review of systems was obtained is negative except HPI as above Physical Exam Physical Exam Constitutional: Appearance: Normal appearance. HENT: Head: Normocephalic and atraumatic. Right Ear: External ear normal. Left Ear: External ear normal. Nose: Nose normal. Mouth/Throat: Mouth: Mucous membranes are moist. Pharynx: Oropharynx is clear. Eyes: Extraocular Movements: Extraocular movements intact. Conjunctiva/sclera: Conjunctivae normal. Pupils: Pupils are equal, round, and reactive to light. Cardiovascular: Rate and Rhythm: Normal rate and regular rhythm. Pulmonary: Effort: Pulmonary effort is normal. Breath sounds: Normal breath sounds. Abdominal: General: Abdomen is flat. Palpations: Abdomen is soft. Skin: General: Skin is warm and dry. Neurological: General: No focal deficit present. Mental Status: She is alert and oriented to person, place, and time. Psychiatric: Mood and Affect: Mood normal. Behavior: Behavior normal. I&O 24HR Intake/Output Summary (Last 24 hours) at 01/27/2024 0931 Last data filed at 01/27/2024 0602 Gross per 24 hour Intake 1581.88 ml Output -- Net 1581.88 ml Vitals 24HR Heart Rate: [57-102] Temp: [35.8 C (96.4 F)-36.8 C (98.3 F)] Resp: [10-28] BP: (90-223)/(56-102) Height: [167.6 cm (5' 6 )] Weight: [90.7 kg (200 lb)-94.6 kg (208 lb 8.9 oz)] SpO2: [94 %-98 %] Scheduled medications ARIPiprazole, 30 mg, oral, Daily enoxaparin, 40 mg, subcutaneous, q24h estrogens (conjugated), 0.625 mg, oral, Daily fluticasone, 2 spray, Each Nostril, Daily [START ON 01/28/2024] NIFEdipine ER, 30 mg, oral, Daily before breakfast polyethylene glycol, 17 g, oral, Daily simvastatin, 20 mg, oral, Nightly tiZANidine, 4 mg, oral, Daily tiZANidine, 8 mg, oral, Nightly traZODone, 300 mg, oral, Nightly Continuous medications PRN medications PRN medications: acetaminophen OR acetaminophen OR acetaminophen, acetaminophen OR acetaminophen OR acetaminophen, benzocaine-menthol, benzonatate, ibuprofen, ipratropium-albuteroL, ondansetron ODT OR ondansetron, oxyCODONE, traMADol Relevant Results Results reviewed Assessment/Plan Hypertension: Uncontrolled Headache COVID-19 Plan: At this time blood pressure has been pretty good. She is off of the drip now since last night I will start her on nifedipine 30 We will stay off of beta-blockers at this time as currently she does not have any signs of heart disease and beta-shaquille is not great for blood pressure Transfer to floor Thanks for the consult Assessment & Plan Hypertensive urgency Saul Gross DO Health Work Phone: 01-27-2024 Plan of care note Problem: Pain - Adult Goal: Verbalizes/displays adequate comfort level or baseline comfort level Outcome: Not Progressing Problem: Safety - Adult Goal: Free from fall injury Outcome: Met The patient's goals for the shift include The clinical goals for the shift include decrease bp Goal Met Problem: Pain - Adult Goal: Verbalizes/displays adequate comfort level or baseline comfort level Outcome: Not Progressing Health Work Phone: 01-26-2024 History and physical note History Of Present Illness Regi Cruz is a 58 y.o. female who was diagnosed with COVID-19 in last 5 days using a home test kit went to clinic yesterday where she was found to have elevated blood pressure and they doubled her metoprolol 25 mg dose according to patient. She experienced headache but no chest pain or shortness of breath or nausea vomiting or blurry vision or focal weakness or back pain flank pain hematuria dysuria. Presented to ER and initially pressure 223/96. She passed 1 dose of IV labetalol and 25 mg of oral metoprolol. Continue to have high blood pressure 203/92 and started on Cardene drip. CT head negative for acute process. Chest x-ray negative for any pulmonary edema 30 lactic acid normal. Troponins unremarkable. No ischemia on EKG. patient denies any productive cough or hemoptysis or wheeze. She had sinus congestion with sore throat 4 to 5 days ago when she tested herself. Denies nausea vomiting or palpitations or dizziness or syncope. No worsening leg swelling. No fever or chills. No loss of taste or smell. Denied having a heart attack or stroke in the past. Does not seem to be compliant and not following up with a primary care doctor on a routine basis per the patient. No joint pains or skin rash. No otorrhea rhinorrhea. No ear pressure fullness discharge. No muscle aches body aches or joint pains at present Headache with no aura and not described as the worst headache of life. No neck pain. Past Medical History Past Medical History: Diagnosis Date Hypertension Hypertension Hyperlipidemia Surgical History History reviewed. No pertinent surgical history. Social History She reports that she has never smoked. She has never used smokeless tobacco. No history on file for alcohol use and drug use. Family History Heart disease and hypertension Allergies Penicillins Review of Systems All other 12 point review of systems negative except HPI Physical Exam General Appearance: AAO x 3, Skin: skin color pink, warm, and dry; no suspicious rashes or lesions Eyes : PERRL, EOM's intact ENT: mucous membranes pink and moist Neck: normocephalic Respiratory: lungs clear to auscultation anteriorly; no wheezing, rhonchi, or crackles. Heart: regular rate and rhythm. telemetry shows sinus rhythm Abdomen: Nondistended, positive bowel sounds x4, soft, nontender Extremities: no edema Peripheral pulses: normal x4 extremities Neuro: alert, coherent and conversant, no focal motor deficits Last Recorded Vitals Blood pressure 118/66, pulse 76, temperature 36.3 C (97.3 F), temperature source Temporal, resp. rate 15, height 1.676 m (5' 6 ), weight 94.6 kg (208 lb 8.9 oz), SpO2 98%. Relevant Results Scheduled medications [START ON 01/27/2024] ARIPiprazole, 30 mg, oral, Daily enoxaparin, 40 mg, subcutaneous, q24h estrogens (conjugated), 0.625 mg, oral, Daily fluticasone, 2 spray, Each Nostril, Daily polyethylene glycol, 17 g, oral, Daily simvastatin, 20 mg, oral, Nightly [START ON 01/27/2024] tiZANidine, 4 mg, oral, Daily tiZANidine, 8 mg, oral, Nightly traZODone, 300 mg, oral, Nightly Continuous medications niCARdipine, 2.5-15 mg/hr, Last Rate: Stopped (01/26/241945) PRN medications PRN medications: acetaminophen OR acetaminophen OR acetaminophen, acetaminophen OR acetaminophen OR acetaminophen, benzocaine-menthol, benzonatate, ipratropium-albuteroL, ondansetron ODT OR ondansetron, oxyCODONE, traMADol Results for orders placed or performed during the hospital encounter of 01/26/24 (from the past 24 hour(s)) Comprehensive Metabolic Panel Result Value Ref Range Glucose 91 74 - 99 mg/dL Sodium 139 136 - 145 mmol/L Potassium 3.7 3.5 - 5.3 mmol/L Chloride 107 98 - 107 mmol/L Bicarbonate 27 21 - 32 mmol/L Anion Gap 9 (L) 10 - 20 mmol/L Urea Nitrogen 17 6 - 23 mg/dL Creatinine 0.82 0.50 - 1.05 mg/dL eGFR 83 >60 mL/min/1.73m*2 Calcium 8.8 8.6 - 10.3 mg/dL Albumin 4.0 3.4 - 5.0 g/dL Alkaline Phosphatase 59 33 - 110 U/L Total Protein 6.7 6.4 - 8.2 g/dL AST 16 9 - 39 U/L Bilirubin, Total 0.3 0.0 - 1.2 mg/dL ALT 14 7 - 45 U/L CBC and Auto Differential Result Value Ref Range WBC 7.5 4.4 - 11.3 x10*3/uL nRBC 0.0 0.0 - 0.0 /100 WBCs RBC 4.00 4.00 - 5.20 x10*6/uL Hemoglobin 12.4 12.0 - 16.0 g/dL Hematocrit 37.2 36.0 - 46.0 % MCV 93 80 - 100 fL MCH 31.0 26.0 - 34.0 pg MCHC 33.3 32.0 - 36.0 g/dL RDW 12.4 11.5 - 14.5 % Platelets 253 150 - 450 x10*3/uL Neutrophils % 69.7 40.0 - 80.0 % Immature Granulocytes %, Automated 0.3 0.0 - 0.9 % Lymphocytes % 21.2 13.0 - 44.0 % Monocytes % 7.4 2.0 - 10.0 % Eosinophils % 1.3 0.0 - 6.0 % Basophils % 0.1 0.0 - 2.0 % Neutrophils Absolute 5.24 1.20 - 7.70 x10*3/uL Immature Granulocytes Absolute, Automated 0.02 0.00 - 0.70 x10*3/uL Lymphocytes Absolute 1.60 1.20 - 4.80 x10*3/uL Monocytes Absolute 0.56 0.10 - 1.00 x10*3/uL Eosinophils Absolute 0.10 0.00 - 0.70 x10*3/uL Basophils Absolute 0.01 0.00 - 0.10 x10*3/uL Lactate Result Value Ref Range Lactate 0.7 0.4 - 2.0 mmol/L Troponin I, High Sensitivity, Initial Result Value Ref Range Troponin I, High Sensitivity 3 0 - 13 ng/L Troponin, High Sensitivity, 1 Hour Result Value Ref Range Troponin I, High Sensitivity 3 0 - 13 ng/L CT head wo IV contrast Result Date: 01/26/2024 Interpreted By: Mark Abdul, STUDY: CT HEAD WO IV CONTRAST; 01/26/2024 11:07 am INDICATION: Signs/Symptoms:HTN, headache. COMPARISON: None ACCESSION NUMBER(S): [id number] ORDERING CLINICIAN: JEANNIE NIELSEN TECHNIQUE: CT of the brain from the [...] and occular globes grossly normal by CT NO ACUTE INTRACRANIAL PROCESS MACRO: None Signed by: Mark Abdul 01/26/2024 11:36 AM Dictation workstation: [id number] XR chest 1 view Result Date: 01/26/2024 Interpreted By: Prem Thompson, STUDY: XR CHEST 1 VIEW; 01/26/2024 10:55 am INDICATION: Signs/Symptoms:HTN. COMPARISON: None. ACCESSION NUMBER(S): [id number] ORDERING CLINICIAN: JEANNIE NIELSEN FINDINGS: CARDIOMEDIASTINAL SILHOUETTE: Cardiomediastinal silhouette is normal in size and configuration. LUNGS: Lungs are clear. ABDOMEN: No remarkable upper abdominal findings. BONES: No acute osseous changes. 1. No evidence of acute cardiopulmonary process. MACRO: None Signed by: Prem Thompson 01/26/2024 11:24 AM Dictation workstation: [id number] All data reviewed by me independently Assessment/Plan Assessment & Plan Hypertensive urgency 58-year-old female with history of Hypertension Hyperlipidemia Presented with hypertensive urgency Plan Admit to ICU Continue Cardene drip and to wean off as tolerated and bridge with oral meds for optimal control Goal blood pressure reduction 25% in 8 to 16 hours and then gradually reduce further within reasonable range Consult nephrology and cardiology, for resistant hypertension management Cardiopulmonary monitoring Echocardiogram Encourage compliance Aggressive risk factor stratification Education counseling Supportive care Tylenol, tramadol, oxycodone for headache Antiemetics if required Continue home medicines On Abilify 30 mg daily Lovenox for DVT prophylaxis Medication reconciliation by PCP Follow vitals and oxygen saturation currently on room air Mucinex, Cepacol, Flonase Nebs treatments if required and maintain ABCs, oxygen saturation greater than 93% BNP Daily CBC BMP ESR, CRP, D-dimer Neurochecks Fall, aspiration, seizure precautions Watching polypharmacy Statins for hyperlipidemia Continue current home medicines Critical care time spent in managing patient excluding billable procedures greater than 50 minutes High risk of clinical deterioration including cardiopulmonary arrest and multiorgan failure due to aforementioned reasons Ezekile Solomon MD [facility] Work Phone: 01-26-2024 History and physical note History Of Present Illness Regi Cruz is a 58 y.o. female who was diagnosed with COVID-19 in last 5 days using a home test kit went to clinic yesterday where she was found to have elevated blood pressure and they doubled her metoprolol 25 mg dose according to patient. She experienced headache but no chest pain or shortness of breath or nausea vomiting or blurry vision or focal weakness or back pain flank pain hematuria dysuria. Presented to ER and initially pressure 223/96. She passed 1 dose of IV labetalol and 25 mg of oral metoprolol. Continue to have high blood pressure 203/92 and started on Cardene drip. CT head negative for acute process. Chest x-ray negative for any pulmonary edema 30 lactic acid normal. Troponins unremarkable. No ischemia on EKG. patient denies any productive cough or hemoptysis or wheeze. She had sinus congestion with sore throat 4 to 5 days ago when she tested herself. Denies nausea vomiting or palpitations or dizziness or syncope. No worsening leg swelling. No fever or chills. No loss of taste or smell. Denied having a heart attack or stroke in the past. Does not seem to be compliant and not following up with a primary care doctor on a routine basis per the patient. No joint pains or skin rash. No otorrhea rhinorrhea. No ear pressure fullness discharge. No muscle aches body aches or joint pains at present Headache with no aura and not described as the worst headache of life. No neck pain. Past Medical History Past Medical History: Diagnosis Date Hypertension Hypertension Hyperlipidemia Surgical History History reviewed. No pertinent surgical history. Social History She reports that she has never smoked. She has never used smokeless tobacco. No history on file for alcohol use and drug use. Family History Heart disease and hypertension Allergies Penicillins Review of Systems All other 12 point review of systems negative except HPI Physical Exam General Appearance: AAO x 3, Skin: skin color pink, warm, and dry; no suspicious rashes or lesions Eyes : PERRL, EOM's intact ENT: mucous membranes pink and moist Neck: normocephalic Respiratory: lungs clear to auscultation anteriorly; no wheezing, rhonchi, or crackles. Heart: regular rate and rhythm. telemetry shows sinus rhythm Abdomen: Nondistended, positive bowel sounds x4, soft, nontender Extremities: no edema Peripheral pulses: normal x4 extremities Neuro: alert, coherent and conversant, no focal motor deficits Last Recorded Vitals Blood pressure 118/66, pulse 76, temperature 36.3 C (97.3 F), temperature source Temporal, resp. rate 15, height 1.676 m (5' 6 ), weight 94.6 kg (208 lb 8.9 oz), SpO2 98%. Relevant Results Scheduled medications [START ON 01/27/2024] ARIPiprazole, 30 mg, oral, Daily enoxaparin, 40 mg, subcutaneous, q24h estrogens (conjugated), 0.625 mg, oral, Daily fluticasone, 2 spray, Each Nostril, Daily polyethylene glycol, 17 g, oral, Daily simvastatin, 20 mg, oral, Nightly [START ON 01/27/2024] tiZANidine, 4 mg, oral, Daily tiZANidine, 8 mg, oral, Nightly traZODone, 300 mg, oral, Nightly Continuous medications niCARdipine, 2.5-15 mg/hr, Last Rate: Stopped (01/26/241945) PRN medications PRN medications: acetaminophen OR acetaminophen OR acetaminophen, acetaminophen OR acetaminophen OR acetaminophen, benzocaine-menthol, benzonatate, ipratropium-albuteroL, ondansetron ODT OR ondansetron, oxyCODONE, traMADol Results for orders placed or performed during the hospital encounter of 01/26/24 (from the past 24 hour(s)) Comprehensive Metabolic Panel Result Value Ref Range Glucose 91 74 - 99 mg/dL Sodium 139 136 - 145 mmol/L Potassium 3.7 3.5 - 5.3 mmol/L Chloride 107 98 - 107 mmol/L Bicarbonate 27 21 - 32 mmol/L Anion Gap 9 (L) 10 - 20 mmol/L Urea Nitrogen 17 6 - 23 mg/dL Creatinine 0.82 0.50 - 1.05 mg/dL eGFR 83 >60 mL/min/1.73m*2 Calcium 8.8 8.6 - 10.3 mg/dL Albumin 4.0 3.4 - 5.0 g/dL Alkaline Phosphatase 59 33 - 110 U/L Total Protein 6.7 6.4 - 8.2 g/dL AST 16 9 - 39 U/L Bilirubin, Total 0.3 0.0 - 1.2 mg/dL ALT 14 7 - 45 U/L CBC and Auto Differential Result Value Ref Range WBC 7.5 4.4 - 11.3 x10*3/uL nRBC 0.0 0.0 - 0.0 /100 WBCs RBC 4.00 4.00 - 5.20 x10*6/uL Hemoglobin 12.4 12.0 - 16.0 g/dL Hematocrit 37.2 36.0 - 46.0 % MCV 93 80 - 100 fL MCH 31.0 26.0 - 34.0 pg MCHC 33.3 32.0 - 36.0 g/dL RDW 12.4 11.5 - 14.5 % Platelets 253 150 - 450 x10*3/uL Neutrophils % 69.7 40.0 - 80.0 % Immature Granulocytes %, Automated 0.3 0.0 - 0.9 % Lymphocytes % 21.2 13.0 - 44.0 % Monocytes % 7.4 2.0 - 10.0 % Eosinophils % 1.3 0.0 - 6.0 % Basophils % 0.1 0.0 - 2.0 % Neutrophils Absolute 5.24 1.20 - 7.70 x10*3/uL Immature Granulocytes Absolute, Automated 0.02 0.00 - 0.70 x10*3/uL Lymphocytes Absolute 1.60 1.20 - 4.80 x10*3/uL Monocytes Absolute 0.56 0.10 - 1.00 x10*3/uL Eosinophils Absolute 0.10 0.00 - 0.70 x10*3/uL Basophils Absolute 0.01 0.00 - 0.10 x10*3/uL Lactate Result Value Ref Range Lactate 0.7 0.4 - 2.0 mmol/L Troponin I, High Sensitivity, Initial Result Value Ref Range Troponin I, High Sensitivity 3 0 - 13 ng/L Troponin, High Sensitivity, 1 Hour Result Value Ref Range Troponin I, High Sensitivity 3 0 - 13 ng/L CT head wo IV contrast Result Date: 01/26/2024 Interpreted By: Mark Abdul, STUDY: CT HEAD WO IV CONTRAST; 01/26/2024 11:07 am INDICATION: Signs/Symptoms:HTN, headache. COMPARISON: None ACCESSION NUMBER(S): [id number] ORDERING CLINICIAN: JEANNIE NIELSEN TECHNIQUE: CT of the brain from the [...] and occular globes grossly normal by CT NO ACUTE INTRACRANIAL PROCESS MACRO: None Signed by: Mark Abdul 01/26/2024 11:36 AM Dictation workstation: [id number] XR chest 1 view Result Date: 01/26/2024 Interpreted By: Prem Thompson, STUDY: XR CHEST 1 VIEW; 01/26/2024 10:55 am INDICATION: Signs/Symptoms:HTN. COMPARISON: None. ACCESSION NUMBER(S): [id number] ORDERING CLINICIAN: JEANNIE NIELSEN FINDINGS: CARDIOMEDIASTINAL SILHOUETTE: Cardiomediastinal silhouette is normal in size and configuration. LUNGS: Lungs are clear. ABDOMEN: No remarkable upper abdominal findings. BONES: No acute osseous changes. 1. No evidence of acute cardiopulmonary process. MACRO: None Signed by: Prem Thompson 01/26/2024 11:24 AM Dictation workstation: [id number] All data reviewed by me independently Assessment/Plan Assessment & Plan Hypertensive urgency 58-year-old female with history of Hypertension Hyperlipidemia Presented with hypertensive urgency Plan Admit to ICU Continue Cardene drip and to wean off as tolerated and bridge with oral meds for optimal control Goal blood pressure reduction 25% in 8 to 16 hours and then gradually reduce further within reasonable range Consult nephrology and cardiology, for resistant hypertension management Cardiopulmonary monitoring Echocardiogram Encourage compliance Aggressive risk factor stratification Education counseling Supportive care Tylenol, tramadol, oxycodone for headache Antiemetics if required Continue home medicines On Abilify 30 mg daily Lovenox for DVT prophylaxis Medication reconciliation by PCP Follow vitals and oxygen saturation currently on room air Mucinex, Cepacol, Flonase Nebs treatments if required and maintain ABCs, oxygen saturation greater than 93% BNP Daily CBC BMP ESR, CRP, D-dimer Neurochecks Fall, aspiration, seizure precautions Watching polypharmacy Statins for hyperlipidemia Continue current home medicines Critical care time spent in managing patient excluding billable procedures greater than 50 minutes High risk of clinical deterioration including cardiopulmonary arrest and multiorgan failure due to aforementioned reasons Ezekiel Solomon MD documented in this encounter [facility] Work Phone: 03-01-2023 History of Present illness Narrative [facility] Carlos Manuel Ochoa APRN-CLIENT CARE CONSULTANT Visit Note - 03/01/2023 6:39 PM This note was generated with voice recognition software and may contain errors including spelling, grammar, syntax, and misrecognization of what was dictated. Patient: Regi Cruz, , 57 y.o., female PCP: Rosemary [...] of care; questions were encouraged and answered. Carlos Manuel Ochoa APRN-CLIENT CARE CONSULTANT Advanced Practice Provider [facility] documented in this encounter [facility] Work Phone: Evaluation note Diagnosis Contusion of right wrist, initial encounter documented in this encounter [facility] Work Phone: Evaluation note* Diagnosis Contusion of right hand, initial encounter documented in this encounter [facility] Work Phone: Evaluation note* Diagnosis Contusion of right hand, initial encounter- Primary Contusion of right wrist, initial encounter Contusion of right hand, initial encounter Contusion of right wrist, initial encounter documented in this encounter [facility] Work Phone: Evaluation note* Diagnosis Hypertensive urgency- Primary Hypertensive urgency Essential (primary) hypertension Unspecified essential hypertension documented in this encounter [facility] Work Phone: Hospital Discharge instructions* Attachments The following attachments cannot be sent through Care Everywhere. * High Blood Pressure ED ([place]) * High blood pressure emergencies ([place]) [facility] Summary Purpose Family History No Family History Records FoundNo Family History Records FoundNo Family History Records FoundNo Family History Records FoundNo Family History Records FoundNo Family History Records FoundNo Family History Records Found Advance Directives Date Activated Date Inactivated Comments 01/26/2024 2:47 PM Question Answer Comments Plan of Care: Code Status Discussion Completed Decision Maker: Patient Date Activated Date Inactivated Comments 01/26/2024 2:47 PM 01/26/2024 2:47 PM Question Answer Comments Plan of Care: Code Status Discussion Completed Decision Maker: Patient Reason for Referral Specialty Diagnoses / Procedures Referred By Mey robbins Referred To Contact Radiology Diagnoses Contusion of right wrist, initial encounter Procedures XR wrist right 3+ views Carlos Manuel Ochoa APRN-CNP [address] [place] [address] Referral ID Status Reason Start Date Expiration Date Visits Requested Visits Authorized [id number] Authorized Perform Procedure 03/01/2023 02/29/2024 1 1 Specialty Diagnoses / Procedures Referred By Contac t Referred To Contact Radiology Diagnoses Contusion of right hand, initial encounter Procedures XR hand right 3+ views Carlos Manuel Ochoa, PHOTOCOPY OPERATOR-CLIENT CARE CONSULTANT [address] [id number] Referral ID Status Reason Start Date Expiration Date Visits Requested Visits Authorized [id number] Authorized Perform Procedure 03/01/2023 02/29/2024 1 1 Additional Source Comments INFORMATION SOURCE (unrecogn ized section and content) DATE CREATED AUTHOR 09/26/2020 [facility] DATE CREATED AUTHOR AUTHOR'S ORGANIZ ATION 08/14/2022 [facility] DATE CREATED AUTHOR [facility]S [facility] DATE CREATED AUTHOR AUTHOR'S ORGANIZ ATION 11/30/2023 [facility] DATE CREATED AUTHOR AUTHOR'S ORGANIZ ATION 01/14/2024 [facility] DATE CREATED AUTHOR AUTHOR'S ORGANIZ ATION 01/30/2024 [facility] DATE CREATED AUTHOR AUTHOR'S ORGANIZ ATION 01/31/2024 [facility] Reason for Visit (unrecogniz ed section and content) Specialty Diagnoses / Procedures Referred By Contac t Referred To Contact Radiology Diagnoses Contusion of right wrist, initial encounter Procedures XR wrist right 3+ views Calros Manuel Ochoa, PHOTOCOPY OPERATOR-CLIENT CARE CONSULTANT [address] [place] [address] Referral ID Status Reason Start Date Expiration Date Visits Requested Visits Authorized [id number] Authorized Perform Procedure 03/01/2023 02/29/2024 1 1 Specialty Diagnoses / Procedures Referred By Contac t Referred To Contact Radiology Diagnoses Contusion of right hand, initial encounter Procedures XR hand right 3+ views Carlos Manuel Ochoa, PHOTOCOPY OPERATOR-CLIENT CARE CONSULTANT [address] [id number] Referral ID Status Reason Start Date Expiration Date Visits Requested Visits Authorized [id number] Authorized Perform Procedure 03/01/2023 02/29/2024 1 1 Reason Comments Hand Injury Right sided hand giancarlo n. Moved and did hit in between doorway Reason Comments Hypertension Pt was at urgent car e yesterday to be cleared to go back to work form having COVID and they noted her blood pressure was high. Pt c/o headache and sob x 2 days. Specialty Diagnoses / Procedures Referred By Mey t Referred To Contact Diagnoses Hypertensive urgency Procedures Ezekiel Wilson MD [address] [place] [id number] [facility] [address] [place] [phone] Referral ID Status Reason Start Date Expiration Date Visits Re quested Visits Authorized [id number] 1 1 Care Teams (unrecognized sec tion and content) Message And Delivery Service Pricer Relationship Specialty Start Date End Date Rosemary Noel MD [address] [place] [address] PCP - General Family Medicine 03/01/23 Message And Delivery Service Pricer Relationship Specialty [place] [address] [place], [place] [id number] PCP - General Family Medicine 03/01/23 Message And Delivery Service Pricer Relationship Specialty Start Date End Date Rosemary Noel MD [address] [place], [place] [id number] PCP - General Family Medicine 03/01/23 Scheduled Active and Recently Administ ered Medications (unrecognized section and content) Medication Order 01/26/2024 01/27/2024 01/28/2024 acetaminophen (Tylenol) tablet 650 mg (COMPLETED) 650 mg, oral, Once, On 01/26/24 at 1050, For 1 dose, If ordered PRN for pain, nurse is permitted to administer this medication for higher pain scores based on patient preference? Yes 1107 (Given - Provider: Angel Cody RN) ARIPiprazole (Abilify) tablet 30 mg 30 mg, oral, Daily, First dose on 01/27/24 at 0900 1452 (Not Given - Provider: Emelyn Pierson RN - Reason: Other - Comment: pt already took today) 0838 (Given - Provider: Emelyn Pierson RN) 0834 (Given - Provider: Sarah Sanders RN) enoxaparin (Lovenox) syringe 40 mg 40 mg, subcutaneous, Every 24 hours, First dose on 01/26/24 at 1515, Indications: deep vein thrombosis prevention 1638 (Given - Provider: Emelyn Pierson RN - Comment: work flow) 1553 (Given - Provider: Emelyn Pierson RN) 1523 (Given - Provider: Casandra Mock RN) estrogens (conjugated) (Premarin) tablet 0.625 mg 0.625 mg, oral, Daily, First dose on 01/26/24 at 1515 1632 (Not Given - Provider: Emelyn Pierson RN - Reason: Medication not available) 0933 (Not Given - Provider: Emelyn Pierson RN - Reason: Medication not available) 0821 (Not Given - Provider: Sarah Sanders RN - Reason: Medication not available) fluticasone (Flonase) nasal spray 2 spray 2 spray, Each Nostril, Daily, First dose on 01/26/24 at 1645, Shake gently. Before first use, prime pump (press 6 times until fine spray appears). After use, clean tip and replace cap. 1638 (Given - Provider: Emelyn Pierson RN) 0830 (Given - Provider: Emelyn Pierson RN) 0838 (Given - Provider: Sarah Sanders RN) hydroCHLOROthiazide (HYDRODiuril) tablet 25 mg 25 mg, oral, Daily, First dose on 01/28/24 at 0900 0835 (Given - Provider: Sarah Sanders, YOVANI) ketorolac (Toradol) injection 15 mg (COMPLETED) 15 mg, intravenous, Once, On 01/26/24 at 1730, For 1 dose 1840 (Given - Provider: Camila Logan RN) ketorolac (Toradol) injection 15 mg (COMPLETED) 15 mg, intravenous, Once, On 01/27/24 at 1145, For 1 dose 1205 (Given - Provider: Emelyn Pierson RN) labetaloL (Normodyne,Trandate) injection 10 mg (COMPLETED) 10 mg, intravenous, Once, On Sun01/28/24 at 0815, For 1 dose, Give at rate of 10 mg/min. 0835 (Given - Provider: Sarah Sanders RN) labetaloL (Normodyne,Trandate) injection 20 mg (COMPLETED) 20 mg, intravenous, Once, On 01/26/24 at 1050, For 1 dose, Give at rate of 10 mg/min. 1118 (Given - Provider: Angel Cody RN) labetaloL (Normodyne,Trandate) injection 20 mg (COMPLETED) 20 mg, intravenous, Once, On 01/26/24 at 1210, For 1 dose, Give at rate of 10 mg/min. 1230 (Given - Provider: Angel Cody, YOVANI) metoprolol tartrate (Lopressor) tablet 25 mg (COMPLETED) 25 mg, oral, Once, On 01/26/24 at 1050, For 1 dose 1107 (Given - Provider: Angel Cody RN) NIFEdipine ER (Adalat CC) 24 hr tablet 30 mg (CANCELED) 30 mg, oral, Daily before breakfast, First dose on Sun01/28/24 at 0700, Give on an empty stomach. Do not crush, chew, or split. 0601 (Given - Provider: Tierra Mo RN) NIFEdipine ER (Adalat CC) 24 hr tablet 30 mg (COMPLETED) 30 mg, oral, Once, On Sun01/28/24 at 0845, For 1 dose, Give on an empty stomach. Do not crush, chew, or split. 0834 (Given - Provider: Sarah Sanders RN) NIFEdipine ER (Adalat CC) 24 hr tablet 60 mg 60 mg, oral, Daily before breakfast, First dose (after last modification) on Sun01/29/24 at 0700, Give on an empty stomach. Do not crush, chew, or split. perflutren lipid microspheres (Definity) injection 0.5-10 mL of dilution (COMPLETED) 0.5-10 mL of dilution, intravenous, Once in imaging, Starting on Sun01/28/24 at 0431, For 1 dose, CV Medications, Contrast - for use by imaging provider only. Prior to administration, Definity product must be activated. First, bring vial to room temperature. Then, shake vial for 45 seconds. Do not use if the 45 second activation cycle has not been completed. Following activation, the product will appear as a milky white suspension and may be used immediately. If not used within 5 minutes of activation, re-suspend by inverting and shaking the vial for 10 seconds. Discard unused product. Administration: Dilute 1.3 mL of activated DEFINITY with 8.7 mL of normal saline in a 10 mL syringe. Inject 0.5 mL of diluted DEFINITY when notified the images/film are unclear to enhance view of Left Ventricular borders. Repeat 0.5 mL of DEFINITY until clear images are obtained, not to exceed 10 mLs. Once images are obtained or limit of medication is reached, flush line with 10 mL of Normal Saline. 0453 (Given - Provider: Tierra Mo RN) perflutren protein A microsphere (Optison) injection 0.5 mL 0.5 mL, intravenous, Once in imaging, Starting on 01/28/24 at 0431, For 1 dose, CV Medications polyethylene glycol (Glycolax, Miralax) packet 17 g 17 g, oral, Daily, First dose on 01/26/24 at 1515, Bowel Regimen - for prevention of constipation. 1638 (Given - Provider: Emelyn Pierson RN) 0838 (Given - Provider: Emelyn Pierson RN) 0835 (Not Given - Provider: Sarah Sanders RN - Reason: Patient/family refused) simvastatin (Zocor) tablet 20 mg 20 mg, oral, Nightly, First dose on 01/26/24 at 2100 2105 (Given - Provider: Tierra Mo RN) 2144 (Given - Provider: Tierra Mo RN) 2100 (Due) sulfur hexafluoride microsphr (Lumason) injection 24.28 mg 24.28 mg (2 mL), intravenous, Once in imaging, Starting on 01/28/24 at 0431, For 1 dose, CV Medications, Follow administration with 5 mL NaCL 0.9% injection. tiZANidine (Zanaflex) tablet 4 mg 4 mg, oral, Daily, First dose on 01/27/24 at 0900 0900 (Not Given - Provider: Emelyn Pierson RN - Reason: Medication not available) 0835 (Given - Provider: Sarah Sanders RN) tiZANidine (Zanaflex) tablet 8 mg 8 mg, oral, Nightly, First dose on 01/26/24 at 2100 2109 (Given - Provider: Tierra Mo RN) 223 (Not Given - Provider: Tierra Mo RN - Reason: Medication not available) 2099 (Due) traZODone (Desyrel) tablet 300 mg 300 mg, oral, Nightly, First dose on 01/26/24 at 2100 2106 (Given - Provider: Tierra Mo RN) 214 (Given - Provider: Tierra Mo RN) 2099 (Due) Continuous Medication Order 01/26/2024 01/27/2024 01/28/2024 niCARdipine (Cardene) 40 mg in sodium chloride 200 mL (0.2 mg/mL) infusion (premix) (CANCELED) 2.5-15 mg/hr (12.5-75 mL/hr), intravenous, Continuous, Starting on 01/26/24 at 1325, Titration Goal: Use Adult Parameters, Target Parameter: SBP less than 180, Initial dose: 2.5 mg/hr, Bidirectional Titration Dose: 2.5 mg/hr, Titration Frequency: Every 5 minutes 1336 (New Bag - Provider: Radha Bates RN)1350 (Block Chart Start - Provider: Angel Cody RN)1429 (Block Chart Stop - Provider: Angel Cody RN - Comment: pt to ICU)1649 (Rate/Dose Change - Provider: Emelyn Pierson RN)1946 (Stopped - Provider: Emelyn Pierson RN) sodium chloride 0.9% infusion (CANCELED) 150 mL/hr, intravenous, Continuous, Starting on 01/26/24 at 1050 1118 (New Bag - Provider: Angel Cody, YOVANI)1529 (Stopped - Provider: Emelyn Pierson RN) PRN Medication Order 01/26/2024 01/27/2024 01/28/2024 acetaminophen (Tylenol) oral liquid 650 mg(Linked Group 1) 650 mg, nasogastric tube, Every 4 hours PRN, fever (temp greater than 38.0 C), greater than or equal to 38 C, Starting on 01/26/24 at 1447 1638 (See Alternative - Provider: Emelyn Pierson RN) 0838 (See Alternative - Provider: Emelyn Pierson RN) acetaminophen (Tylenol) oral liquid 650 mg(Linked Group 2) 650 mg, oral, Every 4 hours PRN, pain mild (1-3), first line, Starting on 01/26/24 at 1447, Give oral liquid per feeding tube if present or if patient prefers oral liquid over tablets. acetaminophen (Tylenol) suppository 650 mg(Linked Group 1) 650 mg, rectal, Every 4 hours PRN, fever (temp greater than 38.0 C), greater than or equal to 38 C, Starting on 01/26/24 at 1447, If ordered PRN for pain, nurse is permitted to administer this medication for higher pain scores based on patient preference? Yes 1638 (See Alternative - Provider: Emelyn Pierson RN) 0838 (See Alternative - Provider: Emelyn Pierson RN) acetaminophen (Tylenol) suppository 650 mg(Linked Group 2) 650 mg, rectal, Every 4 hours PRN, pain mild (1-3), first line, Starting on 01/26/24 at 1447, Give rectally if unable to administer by mouth or feeding tube., If ordered PRN for pain, nurse is permitted to administer this medication for higher pain scores based on patient preference? Yes acetaminophen (Tylenol) tablet 650 mg(Linked Group 1) 650 mg, oral, Every 4 hours PRN, fever (temp greater than 38.0 C), greater than or equal to 38 C, Starting on 01/26/24 at 1447, If ordered PRN for pain, nurse is permitted to administer this medication for higher pain scores based on patient preference? Yes 1638 (Given - Provider: Emelyn Pierson RN) 0838 (Given - Provider: Emelyn Pierson RN) acetaminophen (Tylenol) tablet 650 mg(Linked Group 2) 650 mg, oral, Every 4 hours PRN, pain mild (1-3), first line, Starting on 01/26/24 at 1447, Administer tablet or oral liquid per patient preference., If ordered PRN for pain, nurse is permitted to administer this medication for higher pain scores based on patient preference? Yes benzocaine-menthol (Cepastat Sore Throat) lozenge 1 lozenge 1 lozenge, Mouth/Throat, Every 2 hour PRN, sore throat, Starting on 01/26/24 at 1617 benzonatate (Tessalon) capsule 100 mg 100 mg, oral, 3 times daily PRN, cough, Starting on 01/26/24 at 1447, Do not crush or chew. ibuprofen tablet 600 mg 600 mg, oral, Every 6 hours PRN, headaches, Starting on 01/27/24 at 0928, May administer with food to reduce GI upset. 1011 (Given - Provider: Emelyn Pierson, RN) 0555 (Given - Provider: Tierra oM RN) ipratropium-albuteroL (Duo-Neb) 0.5-2.5 mg/3 mL nebulizer solution 3 mL 3 mL, nebulization, Every 6 hours PRN, wheezing, Starting on 01/26/24 at 1617 2204 (Not Given - Provider: Narayan Cid RRT - Reason: Other) 0646 (Given - Provider: Susan Cortes RRT)1139 (Given - Provider: Susan Cortes RRT) 0607 (Not Given - Provider: Christina Tabor RRT - Reason: Patient/family refused - Comment: patient states she feels good and doesnt need a tx at this time. no sob or wheezing noted.)1108 (Due) ondansetron (Zofran) injection 4 mg(Linked Group 3) 4 mg, intravenous, Every 8 hours PRN, nausea/vomiting, first line, Starting on 01/26/24 at 1447, 1st Line. Give IV if patient is unable to take orally. If inadequate response within 60 minutes, proceed to next-line agent for same PRN reason or contact provider if no further options ordered. When administering via IV Push, administer over 3-5 minutes. ondansetron ODT (Zofran-ODT) disintegrating tablet 4 mg(Linked Group 3) 4 mg, oral, Every 8 hours PRN, nausea/vomiting, first line, Starting on 01/26/24 at 1447, 1st Line. Use oral route first, if possible. If inadequate response within 60 minutes, proceed to next-line agent for same PRN reason or contact provider if no further options ordered. oxyCODONE (Roxicodone) immediate release tablet 5 mg 5 mg, oral, Every 6 hours PRN, pain severe (7-10), first line, Starting on 01/26/24 at 1618, If ordered PRN for pain, nurse is permitted to administer this medication for higher pain scores based on patient preference? Yes 0409 (Given - Provider: Tierra Mo, RN)1553 (Given - Provider: Emelyn Pierson, RN)2204 (Given - Provider: Tierra Mo RN) traMADol (Ultram) tablet 50 mg 50 mg, oral, Every 6 hours PRN, pain moderate (4-6), first line, Starting on 01/26/24 at 1618, If ordered PRN for pain, nurse is permitted to administer this medication for higher pain scores based on patient preference? Yes 0135 (Given - Provider: Tierra Mo RN) 0905 (Given - Provider: Sarah Sanders RN)1526 (Given - Provider: Casandra Mock RN) Linked Groups Order Group 1: acetaminophen (Tylenol) tablet 650 mgJump to med 650 mg, oral, Every 4 hours PRN, fever (temp greater than 38.0 C), greater than or equal to 38 C, Starting on 01/26/24 at 1447, If ordered PRN for pain, nurse is permitted to administer this medication for higher pain scores based on patient preference? Yes Or acetaminophen (Tylenol) oral liquid 650 mgJump to med 650 mg, nasogastric tube, Every 4 hours PRN, fever (temp greater than 38.0 C), greater than or equal to 38 C, Starting on 01/26/24 at 1447 Or acetaminophen (Tylenol) suppository 650 mgJump to med 650 mg, rectal, Every 4 hours PRN, fever (temp greater than 38.0 C), greater than or equal to 38 C, Starting on 01/26/24 at 1447, If ordered PRN for pain, nurse is permitted to administer this medication for higher pain scores based on patient preference? Yes Group 2: acetaminophen (Tylenol) tablet 650 mgJump to med 650 mg, oral, Every 4 hours PRN, pain mild (1-3), first line, Starting on 01/26/24 at 1447, Administer tablet or oral liquid per patient preference., If ordered PRN for pain, nurse is permitted to administer this medication for higher pain scores based on patient preference? Yes Or acetaminophen (Tylenol) oral liquid 650 mgJump to med 650 mg, oral, Every 4 hours PRN, pain mild (1-3), first line, Starting on 01/26/24 at 1447, Give oral liquid per feeding tube if present or if patient prefers oral liquid over tablets. Or acetaminophen (Tylenol) suppository 650 mgJump to med 650 mg, rectal, Every 4 hours PRN, pain mild (1-3), first line, Starting on 01/26/24 at 1447, Give rectally if unable to administer by mouth or feeding tube., If ordered PRN for pain, nurse is permitted to administer this medication for higher pain scores based on patient preference? Yes Group 3: ondansetron ODT (Zofran-ODT) disintegrating tablet 4 mgJump to med 4 mg, oral, Every 8 hours PRN, nausea/vomiting, first line, Starting on 01/26/24 at 1447, 1st Line. Use oral route first, if possible. If inadequate response within 60 minutes, proceed to next-line agent for same PRN reason or contact provider if no further options ordered. Or ondansetron (Zofran) injection 4 mgJump to med 4 mg, intravenous, Every 8 hours PRN, nausea/vomiting, first line, Starting on 01/26/24 at 1447, 1st Line. Give IV if patient is unable to take orally. If inadequate response within 60 minutes, proceed to next-line agent for same PRN reason or contact provider if no further options ordered. When administering via IV Push, administer over 3-5 minutes. FOR RECORDS PERTAINING TO PATIENTS WHO ARE [...] BE BASED ON THE PRIMARY CLINICAL RECORDS. [facility]. provides no warranty or guarantee of the accuracy or completeness of information in this document.
[2024-07-10 09:45] LABS: Eosinophils Percent Auto 0.1 % (0.9-7.0); Hematocrit 43.2 % (36.0-48.0); Hemoglobin 14.7 g/dL (12.0-16.0); Immature Granulocytes Abs Auto 0.02 10^3/uL (0.00-0.03); Immature Granulocytes Pct Auto 0.3 % (0.0-0.5); Lymphocytes Absolute Auto 2.5 10^3/uL (1.2-3.8); Lymphocytes Percent Auto 34.3 % (20.5-60.0); Mean Corpuscular Hemoglobin 29.7 pg (26.7-34.0); Mean Corpuscular Volume 87.3 fL (81.0-99.0); Mean Platelet Volume 9.9 fL (9.5-13.5); Monocytes Absolute Auto 0.8 10^3/uL (0.3-0.8); Monocytes Percent Auto 11.6 % (1.7-12.0); Neutrophils Absolute Auto 3.9 10^3/uL (1.4-6.5); Neutrophils Percent Auto 53.7 % (43.0-75.0); Platelet Count 255 10^3/uL (150-450); Red Blood Count 4.95 10^6/uL (4.20-5.40); Red Cell Distribution Width 12.6 % (11.0-15.0); White Blood Count 7.2 10^3/uL (4.0-11.0)
[2024-07-10 10:01] LABS: Estimated Average Glucose 114 mg/dL; Glycohemoglobin A1C 5.6 % (4.5-6.2)
[2024-07-10 10:17] LABS: Alanine Aminotransferase 25 U/L (14-59); Albumin Globulin Ratio 0.9; Albumin Level 3.6 g/dL (3.4-5.0); Alkaline Phosphatase 72 U/L (46-116); Aspartate Amino Transferase 23 U/L (15-37); BUN Creatinine Ratio 17.5; Bilirubin Total 0.3 mg/dL (0.2-1.0); Calcium 9.1 mg/dL (8.5-10.1); Chloride 100 mmol/L (98-107); Chol HDL Ratio 2.5; Cholesterol 183 mg/dL (<=200); Estimated GFR (African America 59 (>=60 mL/min/1.73m^2); Estimated GFR (Non-African Ame 49 (>=60 mL/min/1.73m^2); Free T3 2.13 pg/mL (2.18-3.98); Glucose 84 mg/dL (74-106); HDL Cholesterol 74 mg/dL (40-60); Sodium 139 mmol/L (136-145); Thyroid Stimulating Hormone 1.432 uIU/mL (0.358-3.740); Total Protein 7.6 g/dL (6.4-8.2); Triglycerides 120 mg/dL (<=150)
[2024-07-11 04:07] LABS: Insulin 21.5 uIU/mL (2.6-24.9)
== END 2024-07-10 09:19 | disposition home or self-care (01) ==
LOC: LAB 09:20
PROVIDERS: PCP Family Medicine; Visit Provider Family Medicine
DX: Z00.00 Encounter for general adult medical examination without abnormal findings (principal); I10 Essential (primary) hypertension; R60.0 Localized edema; R73.09 Other abnormal glucose
CPT/HCPCS: 36415; 80053; 80061; 83036; 83525; 84436; 84443; 84481; 85025

== ENCOUNTER 2024-09-12 12:28 | Outpatient (OUT) | payer BC, SELFPAY ==
--- NOTE | 2024-09-12 12:31 | MR_ITS ---
[place] [id number] Patient Name: REIG WELDON MRN: [id number] date: 1965 Sex: F Assigned Patient Location: MRI Current Patient Location: MRI Accession/Order Number: [id number] Exam Date: 09/12/2024 15:00 Report Date: 09/12/2024 15:07 At the request of: ROSEMARY ROY MD Procedure: MR knee LT wo con MR knee LT wo con 09/12/2024 1:50 PM SIGNS AND SYMPTOMS: Acute left knee pain PROTOCOL: Multiplanar multisequence MR images of the left knee without IV contrast COMPARISON: None. FINDINGS: Fluid: There is a small joint effusion.. Medial compartment: Medial meniscus: Intact. Medial collateral ligament: Intact. Medial femoral condyle cartilage: There is mild partial thickness chondromalacia. Medial tibial plateau cartilage: There is partial thickness chondromalacia.. Lateral compartment: Lateral meniscus: Intact. Lateral collateral ligament: Intact. Lateral femoral condyle cartilage: Preserved. Lateral tibial plateau cartilage: Preserved. Posterolateral corner: Popliteus tendon: Intact. Popliteofibular ligament: Intact. Proximal tibiofibular joint: Preserved. Anterior compartment: Alignment: Normal. Quadriceps tendon: Intact. Patellar tendon: Intact. Retinaculum: Medial intact. Lateral intact. Patellar cartilage: Preserved. Trochlea: Preserved. . Plica: None. Hoffa fat pad: Normal. Intercondylar compartment: Anterior cruciate ligament: Intact. Posterior cruciate ligament: Intact. Bones (other than subarticular marrow): Normal. Muscles: Normal. Vessels: Normal. Nerves: Normal. 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 The knee is otherwise structurally intact. Impression dictated by: Mark Levin M.D. 09/12/2024 3:07 PM Dictation Location: [place] [id number] Electronically authenticated by: [id number] Y Date: 09/12/2024 15:07
--- OUTSIDE RECORDS SUMMARY | 2024-09-12 12:43 | XMS_ITS | CCD ---
Author Organization [facility] Care Team Providers Care Supervisor Fusing Room Name Role Phone MANUELA Burris, DR RILEY Primary Care Unavailable EARL, DR PATRICK Vann Admitting Unavailjamar ELLIOTT, DR PATRICK Vann Attending Unavailabl e ARUNA ., TINA GARCIA Consulting UnavailCED Benson Consulting Unavailable MANUELA ., DR RILEY Admitting Unavailable BATSHEVAY ., DR RILEY Attending Unavailable BATSHEVAY ., DR RILEY Primary Care Unavailable BATSHEVAY ., DR RILEY Consulting Unavailable BATSHEVAY ., DR RILEY Admitting Unavailable BATSHEVAY ., DR RILEY Attending Unavailable HOY ., DR RILEY Primary Care Unavailable BATSHEVAY ., DR RILEY Consulting Unavailable Rosemary Noel MD Primary Care Provider ROSEMARY NOEL Primary Care Unavailable PABLO STANTON Referring Unavailable PABLO STANTON Admitting Unavailable ROSEMARY NOEL Primary Care Unavailable PABLO STANTON Attending Unavailable WILLIAM HERNANDEZ Attending Unavailable FABIEN DAVENPORT Referring Unavailable ROSEMARY NOEL Primary Care Unavailable ROSEMARY NOEL Primary Care Unavailable ROSEMARY NOEL Primary Care Unavailable Rosemary Noel MD Primary Care Provider 1( [phone] ROSEMARY NOEL Primary Care Unavailable PATRICK DOAN Attending Unavailable ROSEMARY NOEL Primary Care Unavailable NEHA HAFIZ A Admitting Unavailable NEHA, HAFIZ A Attending Unavailable JESÚS SANCHES Consulting Unava ilable Allergies Allergy Classification Reported Allergen(s) Allergy Type Date of Onset Reaction(s) Facility (1 source) Ibuprofen Drug Allergy 3 [facility] Repository (5 sources) Penicillins; Translations: [PENICILLINS] Drug allergy (disorder) 3 Seizure [facility] Repository (1 source) traMADol Drug Allergy 10-02-201 3 [facility] Repository (6 sources) Penicillins Propensity to adverse reactions 3 [facility] Medications Current Medications Medication Drug Class(es) Dates [...] at 1617 ARIPiprazole 15 mg oral tablet (8 sources) Atypical Antipsychotic Start: 01-27-2024 take 30 [...] throat, Starting on 01/26/24 at 1617 benzonatate 200 mg oral capsule (3 sources) Non-narcotic Antitussive Start: 07-13-2024 take 1 capsule by mouth three times daily as needed benzonatate (Tessalon) 200 mg capsule Take 1 capsule (200 mg) by mouth 3 times a day as needed. 07/13/2024 Active Start: 01-25-2024 End: 02-01-2024 diclofenac sodium 75 mg delayed release oral tablet (7 sources) Nonsteroidal Anti-inflammatory Drug Start: 07-08-2024 take 1 tablet by mouth every twelve hours diclofenac (Voltaren) 75 mg EC tablet Take 1 tablet (75 mg) by mouth every 12 hours. 07/08/2024 Active Start: 02-26-2023 End: 01-26-2024 diclofenac (Voltaren) 75 mg EC tablet 02/26/2023 01/26/2024 Discontinued (Entered in Error) 0.4 ml enoxaparin sodium 100 mg/ml prefilled syringe (1 source) Low Molecular Weight Heparin Start: 01-26-2024 inject 40 mg by subcutaneous injection every twenty-four hours 40 mg, subcutaneous, Every 24 hours, First dose on 01/26/24 at 1515, Indications: deep vein thrombosis prevention estrogens, conjugated (shelter) 0.625 mg oral tablet (3 sources) Estrogen Start: 03-30-2023 take 1 tablet by mouth once daily Premarin 0.625 mg tablet Take 1 tablet (0.625 mg) by mouth once daily. 03/30/2023 Active fluticasone propionate 0.05 mg/actuat metered dose nasal spray (1 source) Corticosteroid Start: 01-26-2024 2 spray, Each Nostril, Daily, First dose on 01/26/24 at 1645, Shake gently. Before first use, prime pump (press 6 times until fine spray appears). After use, clean tip and replace cap. hydroCHLOROthiazide 25 mg oral tablet (3 sources) Thiazide Diuretic Start: 01-28-2024 End: 02-28-2024 take 1 tablet by mouth once daily hydroCHLOROthiazide (HYDRODiuril) 25 mg tablet Indications: Hypertensive urgency Take 1 tablet (25 mg) by mouth once daily. 30 tablet 01/29/2024 Active hydrOXYzine hydrochloride 25 mg oral tablet (7 sources) Antihistamine Start: 02-06-2023 take 1-2 tablets [...] GI upset. indomethacin 50 mg oral capsule (2 sources) Nonsteroidal Anti-inflammatory Drug Start: 01-12-2024 take 1 capsule by mouth once daily indomethacin (Indocin) 50 mg capsule Take 1 capsule (50 mg) by mouth once daily. 01/12/2024 Active 24 hr NIFEdipine 60 mg extended release oral tablet (5 sources) Dihydropyridine Calcium Channel Shaquille Start: 01-29-2024 [...] before January 29, 2024. 30 tablet 01/29/2024 Active Start: 01-28-2024 End: 01-28-2024 take 30 mg by mouth once 30 mg, oral, Once, On Sun at 0845, For 1 dose, Give on [...] mL, intravenous, Once in imaging, Starting on Sun01/28/24 at 0431, For 1 dose, CV Medications polyethylene glycol 3350 56500 mg powder for oral solution (1 source) Osmotic Laxative Start: 01-26-2024 17 g, oral, Daily, First dose on 01/26/24 at 1515, Bowel Regimen - for prevention of constipation. simvastatin 20 mg oral tablet (3 sources) HMG-CoA Reductase Inhibitor Start: 04-05-2023 take 1 tablet by mouth once daily simvastatin (Zocor) 20 mg tablet Take 1 tablet (20 mg) by mouth once daily. 04/05/2023 Active sulfur hexafluoride microsphr (Lumason) injection 24.28 mg (1 source) Start: 01-28-2024 24.28 mg (2 mL), intravenous, Once in imaging, Starting on 01/28/24 at 0431, For 1 dose, CV Medications, Follow administration with 5 mL NaCL 0.9% injection. tiZANidine 2 mg oral tablet (9 sources) Central alpha-2 Adrenergic Agonist Start: 01-27-2024 take 4 mg by mouth once daily 4 mg, oral, Daily, First dose on 01/27/24 at 0900 Start: 01-26-2024 take 8 mg by mouth once daily 8 mg, oral, Nightly, First dose on 01/26/24 at 2100 Start: 02-11-2023 take 1 tablet by agnes once daily at bedtime tiZANidine (Zanaflex) 4 mg tablet Take 1 tablet (4 mg) by mouth once daily at bedtime. 02/11/2023 Active traMADol hydrochloride 50 mg oral [...] Yes traZODone hydrochloride 50 mg oral tablet (8 sources) Serotonin Reuptake Inhibitor Start: 01-26-2024 take 300 mg by mouth once daily 300 mg, oral, Nightly, First dose on 01/26/24 at 2100 Start: 02-04-2023 take 2 tablets by mo [facility] once daily traZODone (Desyrel) 150 mg tablet TAKE 2 TABLETS BY MOUTH EVERY DAY AT NIGHT 02/04/2023 Active Completed/Discontinued Medications Medication Drug Class(es) Dates Sig (Normalized) Sig (Original) iohexol (OMNIPaque) 350 mg iodine/mL solution 70 mL (1 source) Start: 07-14-2024 End: 07-14-2024 70 mL, intravenous, Once in imaging, Starting on 07/14/24 at 1033, For 1 dose 1 ml ketorolac tromethamine 30 mg/ml injection [...] completed) metoprolol tartrate 25 mg oral tablet (8 sources) beta-Adrenergic Shaquille Start: 01-26-2024 End: 01-26-2024 [...] line with 10 mL of Normal Saline. potassium chloride 20 meq powder for oral solution (2 sources) Start: 07-14-2024 End: 07-14-2024 take 1 [oz_av] by mouth once 40 mEq, oral, Once, On Sun07/14/24 at 1105, For 1 dose, Dissolve each packet in 4 ounces of water = 5 mEq per 1 oz fluid. Start: 07-11-2024 potassium chlo ride CR 10 mEq ER tablet Take by mouth 2 times a day. 07/11/2024 Active 1000 ml sodium chloride 9 mg/ml injection (3 sources) Start: 07-14-2024 End: 07-14-2024 1,000 mL, intravenous, at 99 9 mL/hr, Administer over 1 Hours, Once, On 07/14/24 at 1105, For 1 dose Start: 01-26-2024 End: 01-26-2024 take 150 mL [...] (primary) hypertension; Translations: [Essential hypertension] Onset: 08-14-2022 01-28-2024 Chronic Fluid and electrolyte disorders (3 sources) Hypokalemia; Translations: [Hypokalemia] Onset: 07-14-2024 07-14-2024 Episodic Genitourinary symptoms and ill-defined conditions (5 sources) Hematuria, unspecified; Translations: [Personal history of urinary (tract) infections] Onset: 08-10-2022 Episodic Hypertension with complications and secondary hypertension (6 sources) Hypertensive urgency ; Translations: [Hypertensive urgency] Onset: 01-26-2024 Resolved: 01-28-2024 01-26-2024 Chronic Influenza (3 sources) Influenza due to Influenza A virus; Translations: [Influenza due to other identified influenza virus with other respiratory manifestations] Onset: 07-14-2024 07-14-2024 Episodic Mood disorders (1 source) Mood disorders; [...] in right hand] Onset: 01-09-2024 Episodic Other connective tissue disease (2 sources) Pain in left lower limb; Translations: [Pain in left leg] Onset: 07-14-2024 07-14-2024 Episodic Other connective tissue disease (2 sources) Pain in right lower limb; Translations: [Pain in right leg] Onset: 07-14-2024 07-14-2024 Episodic Other connective tissue disease (1 source) Pain in left leg; Translations: [Pain in left leg] Onset: 07-14-2024 Episodic Other connective tissue disease (1 source) Pain in right leg; Translations: [Pain in right leg] Onset: 07-14-2024 Episodic Other gastrointestinal disorders (1 source) Irritable [...] DEPEND] Onset: 08-14-2022 Episodic Superficial injury; contusion (6 sources) Right wrist contusion; Translations: [Contusion of right wrist, initial encounter] 03-01-2023 Episodic Thyroid disorders (1 source) Thyrotoxicosis, [...] Reference Range Facility Basic metabolic 2000 panelon 07-14-2024 Anion gap [Moles/Vol] 15 mmol/L 10 - 2 0 mmol/L [facility] Calcium [Mass/Vol] 9.3 mg/dL 8.6 - 10. 3 mg/dL [facility] Chloride [Moles/Vol] 99 mmol/L 98 - 10 7 mmol/L [facility] CO2 [Moles/Vol] 25 mmol/L 21 - 32 mmol/L [facility] Creatinine [Mass/Vol] 1.27 mg/dL High 0.50 - 1.05 mg/dL [facility] GFR/1.73 sq M.predicted among non-blacks MDRD (S/P/Bld) [Vol rate/Area] 49 mL/min/{1.73_m2} Low - PINF [facility] Comment on above: Calculations of lloyd mated GFR are performed using the 2020 CKD-EPI Study Refit equation without the race variable for the IDMS-Traceable creatinine methods. https://jasn.asnjournals.org/content//ASN.2020 305817 Glucose [Mass/Vol] 105 mg/dL High 74 - 99 mg/dL [facility] Interpretation and review of laboratory results Abnormal [facility] Potassium [Moles/Vol] 3.1 mmol/L Low 3.5 - 5.3 mmol/L [facility] Sodium [Moles/Vol] 136 mmol/L 136 - 145 mmol/L [facility] Urea nitrogen [Mass/Vol] 27 mg/dL High 6 - 23 mg/dL [facility] Anion gap [Moles/Vol] 15 mmol/L Normal 10-20 [facility] Comment on above: Performed By: #### 5 7021-8 #### DAX CUI ([id number]) [facility] ([facility]) [address] [place] [address] 7[address]63 Calcium [Mass/Vol] 9.3 mg/dL Normal 8.6-10.3 [facility] Comment on above: Performed By: #### 5 7021-8 #### DAX CUI ([id number]) [facility] ([facility]) [address] [place] [address] 94949 Chloride [Moles/Vol] 99 mmol/L Normal 98-107 [facility] Comment on above: Performed By: #### 5 7021-8 #### DAX CUI ([id number]) [facility] ([facility]) [address] [place] [address] 85222 CO2 [Moles/Vol] 25 mmol/L Normal 21-32 [facility] Comment on above: Performed By: #### 5 7021-8 #### DAX CUI ([id number]) [facility] ([facility]) [address] [place] [address] 38708 Creatinine [Mass/Vol] 1.27 mg/dL High 0.50-1.05 [facility] Comment on above: Performed By: #### 5 7021-8 #### DAX CUI ([id number]) [facility] ([facility]) [address] [place] [address] 10481 Glomerular filtration rate/1.73 sq M.predicted 49 mL/min/1.73m*2 Low >[address] [facility] Comment on above: Result Comment: Calc ulations of estimated GFR are performed using the 2020 CKD-EPI Study Refit equation without the race variable for the IDMS-Traceable creatinine methods. https://jasn.asnjournals.org/content/early//ASN.2020 784816 Performed By: #### 5 7021-8 #### DAX CUI ([id number]) [facility] ([facility]) [address] [place] [address] 66288 Glucose [Mass/Vol] 105 mg/dL High 74-99 [facility] Comment on above: Performed By: #### 5 7021-8 #### DAX CUI ([id number]) [facility] ([facility]) [address] [place] [address] 16098 Potassium [Moles/Vol] 3.1 mmol/L Low 3.5-5.3 [facility] Comment on above: Performed By: #### 5 7021-8 #### DAX CUI (82950) [facility] ([facility]) [address] [place] [address] 08966 Sodium [Moles/Vol] 136 mmol/L Normal 136-145 [facility] Comment on above: Performed By: #### 5 7021-8 #### DAX CUI ([id number]) [facility] ([facility]) [address] [place] [address] 92760 Urea nitrogen [Mass/Vol] 27 mg/dL High 6-[address] [facility] Comment on above: Performed By: #### 5 7021-8 #### DAX CUI ([id number]) [facility] ([facility]) [address] [place] [address] CBC W Auto Differential pane l (Bld)on 07-14-2024 Basophils (Bld) [#/Vol] 0.02 10*3/uL [facility] Basophils/100 WBC (Bld) 0.2 % 0.0 - 2.0 % [facility] Eosinophils (Bld) [#/Vol] 0.02 10*3/uL [facility] Eosinophils/100 WBC (Bld) 0.2 % 0.0 - 6.0 % [facility] Erythrocyte distribution width (RBC) [Ratio] 12.1 % 11.5 - 14.5 % [facility] Hematocrit (Bld) [Volume fraction] 42.6 % 36.0 - 46.0 % [facility] Hemoglobin (Bld) [Mass/Vol] 15 g/dL 12.0 - 16.0 g/dL [facility] Immature granulocytes (Bld) [#/Vol] 0.08 10*3/uL [facility] Immature granulocytes/100 WBC (Bld) 0.6 % 0.0 - 0.9 % [facility] Comment on above: Immature Granulocyte Count (IG) includes promyelocytes, myelocytes and metamyelocytes but does not include bands. Percent differential counts (%) should be interpreted in the context of the absolute cell counts (cells/UL). Interpretation and review of laboratory results Abnormal [facility] Lymphocytes (Bld) [#/Vol] 2.16 10*3/uL [facility] Lymphocytes/100 WBC (Bld) 16.9 % 13.0 - 44.0 % [facility] MCH (RBC) [Entitic mass] 29.5 pg 26.0 - 34.0 pg [facility] MCHC (RBC) [Mass/Vol] 35.2 g/dL 32.0 - 36.0 g/dL [facility] MCV (RBC) [Entitic vol] 84 fL 80 - 100 fL [facility] Monocytes (Bld) [#/Vol] 1.02 10*3/uL High [facility] Monocytes/100 WBC (Bld) 8 % 2.0 - 10.0 % [facility] Neutrophils (Bld) [#/Vol] 9.49 10*3/uL High [facility] Comment on above: Percent differential counts (%) should be interpreted in the context of the absolute cell counts (cells/uL). Neutrophils/100 WBC (Bld) 74.1 % 40.0 - 80.0 % [facility] Nucleated RBC/100 WBC (Bld) [Ratio] 0 % [facility] Platelets (Bld) [#/Vol] 313 10*3/uL [facility] RBC (Bld) [#/Vol] 5.09 10*6/uL [facility] WBC (Bld) [#/Vol] 12.8 10*3/uL [facility] Basophils (Bld) [#/Vol] 0.02 x10*3/uL Normal 0.00-0.[address] [facility] Comment on above: Performed By: #### 5 7021-8 #### DAX CUI ([id number]) [facility] ([facility]) [address] [place] [address] 07041 Basophils/100 WBC (Bld) 0.2 % Normal 0.0-2.0 [facility] Comment on above: Performed By: #### 5 7021-8 #### DAX CUI (93375) [facility] ([facility]) [address] [place] [address] 36758 Eosinophils (Bld) [#/Vol] 0.02 x10*3/uL Normal 0.00-0.[address] [facility] Comment on above: Performed By: #### 5 7021-8 #### DAX CUI (30626) [facility] ([facility]) [address] [place] [address] 43629 Eosinophils/100 WBC (Bld) 0.2 % Normal 0.0-6.[address] [facility] Comment on above: Performed By: #### 5 7021-8 #### DAX CUI (51471) [facility] ([facility]) [address] [place] [address] 99434 Erythrocyte distribution width (RBC) [Ratio] 12.1 % Normal 11.5-14.[address] [facility] Comment on above: Performed By: #### 5 7021-8 #### DAX CUI ([id number]) [facility] ([facility]) [address] [place] [address] 68300 Hematocrit (Bld) [Volume fraction] 42.6 % Normal 36.0-46.[address] [facility] Comment on above: Performed By: #### 5 7021-8 #### DAX CUI (72363) [facility] ([facility]) [address] [place] [address] 08848 Hemoglobin (Bld) [Mass/Vol] 15.0 g/dL Normal 12.0-16.[address] [facility] Comment on above: Performed By: #### 5 7021-8 #### DAX CUI (04037) [facility] ([facility]) [address] [place], [place] [id number] Immature granulocytes (Bld) [#/Vol] 0.08 x10*3/uL Normal 0.00-0.[address] [facility] Comment on above: Performed By: #### 5 7021-8 #### DAX CUI (29908) [facility] ([facility]) [address] [place], [place] [id number] Immature granulocytes/100 WBC (Bld) 0.6 % Normal 0.0-0.[address] [facility] Comment on above: Result Comment: Tamela ture Granulocyte Count (IG) includes promyelocytes, myelocytes and metamyelocytes but does not include bands. Percent differential counts (%) should be interpreted in the context of the absolute cell counts (cells/UL). Performed By: #### 5 7021-8 #### DAX CUI (18005) [facility] ([facility]) [address] [place] [address] 38613 Lymphocytes (Bld) [#/Vol] 2.16 x10*3/uL Normal 1.20-4.[address] [facility] Comment on above: Performed By: #### 5 7021-8 #### DAX CUI ([id number]) [facility] ([facility]) [address] [place] [address] 87375 Lymphocytes/100 WBC (Bld) 16.9 % Normal 13.0-44.[address] [facility] Comment on above: Performed By: #### 5 7021-8 #### DAX CUI (40558) [facility] ([facility]) [address] [place] [address] 48033 MCH (RBC) [Entitic mass] 29.5 pg Normal 26.0-34.[address] [facility] Comment on above: Performed By: #### 5 7021-8 #### DAX CUI (29054) [facility] ([facility]) [address] [place] [address] 80401 MCHC (RBC) [Mass/Vol] 35.2 g/dL Normal 32.0-36.0 [facility] Comment on above: Performed By: #### 5 7021-8 #### DAX CUI (28742) [facility] ([facility]) [address] [place] [address] 34217 MCV (RBC) [Entitic vol] 84 fL Normal 80-100 [facility] Comment on above: Performed By: #### 5 7021-8 #### DAX CUI (25127) [facility] ([facility]) [address] [place] [address] 24429 Monocytes (Bld) [#/Vol] 1.02 x10*3/uL High 0.10-1.[address] [facility] Comment on above: Performed By: #### 5 7021-8 #### DAX CUI (59695) [facility] ([facility]) [address] [place] [address] 61527 Monocytes/100 WBC (Bld) 8.0 % Normal 2.0-10.0 [facility] Comment on above: Performed By: #### 5 7021-8 #### DAX CUI (47671) [facility] ([facility]) [address] [place] [address] 26789 Neutrophils (Bld) [#/Vol] 9.49 x10*3/uL High 1.20-7.[address] [facility] Comment on above: Result Comment: Perc ent differential counts (%) should be interpreted in the context of the absolute cell counts (cells/uL). Performed By: #### 5 7021-8 #### DAX CUI (61210) [facility] ([facility]) [address] [place] [address] 72075 Neutrophils/100 WBC (Bld) 74.1 % Normal 40.0-80.[address] [facility] Comment on above: Performed By: #### 5 7021-8 #### DAX CUI (40557) [facility] ([facility]) [address] [place] [address] 52645 Nucleated RBC/100 WBC (Bld) [Ratio] 0.0 /100 WBCs Normal 0.0-0.[address] [facility] Comment on above: Performed By: #### 5 7021-8 #### DAX CUI (11621) [facility] ([facility]) [address] [place] [address] 48228 Platelets (Bld) [#/Vol] 313 x10*3/uL Normal 150-[address] [facility] Comment on above: Performed By: #### 5 7021-8 #### DAX CUI ([id number]) [facility] ([facility]) [address] [place] [address] 00647 RBC (Bld) [#/Vol] 5.09 x10*6/uL Normal 4.00-5.20 [facility] Comment on above: Performed By: #### 5 7021-8 #### DAX CUI ([id number]) [facility] ([facility]) [address] [place] [address] 50436 WBC (Bld) [#/Vol] 12.8 x10*3/uL High 4.4-11.3 [facility] Comment on above: Performed By: #### 5 7021-8 #### DAX CUI ([id number]) [facility] ([facility]) [address] [place] [address] ANGIO CHEST FOR PULMONARY EMBOLISMon 03-17-2025 CT ANGIO CHEST FOR PULMONARY EMBOLISM Interpreted By: Jean Paul Mann, STUDY: CT ANGIO CHEST FOR PULMONARY EMBOLISM; 07/14/2024 10:44 am INDICATION: Signs/Symptoms:tachyc ardia/sob. COMPARISON: None. ACCESSION NUMBER(S): [id number] ORDERING CLINICIAN: PATRICK DOAN TECHNIQUE: Helical data acquisition of the chest was obtained following the intravenous administration of 70 ml of contrast/Omnipaque 350. Images were reformatted in axial, coronal, and sagittal planes. 3D post processing was performed on an independent workstation and volume rendered images of the pulmonary arteries were created and utilized in the interpretation. FINDINGS: POTENTIAL LIMITATIONS OF THE STUDY: Respiratory motion artifact. HEART AND VESSELS: No filling defects are identified within the pulmonary arteries to indicate the presence of a pulmonary embolism. The aorta is normal in course and caliber. There is atherosclerotic disease. The heart is not significantly enlarged. No pericardial effusion is seen. MEDIASTINUM AND GAYLA, LOWER NECK AND AXILLA: The visualized thyroid gland is within normal limits. No evidence of thoracic lymphadenopathy by CT criteria. Esophagus appears within normal limits as seen. Small hiatal hernia. LUNGS AND AIRWAYS: The trachea and central airways are patent. No endobronchial lesion. Mild areas of atelectasis/scarring, most conspicuous at the lung bases. Mild patchy ground-glass opacities noted, most conspicuous at the lung bases, without focal consolidation. Mild emphysematous changes. UPPER ABDOMEN: The visualized subdiaphragmatic structures demonstrate no acute abnormality. Subcentimeter hypoattenuating lesions in the kidneys are too small to characterize but statistically most likely represent cysts. CHEST WALL AND OSSEOUS STRUCTURES: Degenerative changes. IMPRESSION: No evidence of a pulmonary embolism. Mild nonspecific patchy ground-glass opacities as well as areas of atelectasis, most conspicuous at the lung bases, without focal consolidation. MACRO: None. Signed by: Jean Paul Mann 07/14/2024 10:50 AM Dictation workstation: [id number] [facility] CT Chest W contrast IV and C T angiogram Pulmonary arteries for pulmonary embolus W contrast Ashley 07-14-2024 No evidence of a pulmonary embolism. Mild nonspecific patchy ground-glass opacities as well as areas of atelectasis, most conspicuous at the lung bases, without focal consolidation. MACRO: None. Signed by: Jean Paul Mann 07/14/2024 10:50 AM Dictation workstation: [id number] [facility] Interpreted By: Jean Paul Mann, STUDY: CT ANGIO CHEST FOR PULMONARY EMBOLISM; 07/14/2024 10:44 am INDICATION: Signs/Symptoms:tachyc ardia/sob. COMPARISON: None. ACCESSION NUMBER(S): [id number] ORDERING CLINICIAN: PATRICK DOAN TECHNIQUE: Helical data acquisition of the chest was obtained following the intravenous administration of 70 ml of contrast/Omnipaque 350. Images were reformatted in axial, coronal, and sagittal planes. 3D post processing was performed on an independent workstation and volume rendered images of the pulmonary arteries were created and utilized in the interpretation. FINDINGS: POTENTIAL LIMITATIONS OF THE STUDY: Respiratory motion artifact. HEART AND VESSELS: No filling defects are identified within the pulmonary arteries to indicate the presence of a pulmonary embolism. The aorta is normal in course and caliber. There is atherosclerotic disease. The heart is not significantly enlarged. No pericardial effusion is seen. MEDIASTINUM AND GAYLA, LOWER NECK AND AXILLA: The visualized thyroid gland is within normal limits. No evidence of thoracic lymphadenopathy by CT criteria. Esophagus appears within normal limits as seen. Small hiatal hernia. LUNGS AND AIRWAYS: The trachea and central airways are patent. No endobronchial lesion. Mild areas of atelectasis/scarring, most conspicuous at the lung bases. Mild patchy ground-glass opacities noted, most conspicuous at the lung bases, without focal consolidation. Mild emphysematous changes. UPPER ABDOMEN: The visualized subdiaphragmatic structures demonstrate no acute abnormality. Subcentimeter hypoattenuating lesions in the kidneys are too small to characterize but statistically most likely represent cysts. CHEST WALL AND OSSEOUS STRUCTURES: Degenerative changes. [facility] Jean Paul Mann MD - 07/14/2024 Interpreted By: Jean Paul Mann, STUDY: CT ANGIO CHEST FOR PULMONARY EMBOLISM; 07/14/2024 10:44 am INDICATION: Signs/Symptoms:tachyc ardia/sob. COMPARISON: None. ACCESSION NUMBER(S): [id number] ORDERING CLINICIAN: PATRICK DOAN TECHNIQUE: Helical data acquisition of the chest was obtained following the intravenous administration of 70 ml of contrast/Omnipaque 350. Images were reformatted in axial, coronal, and sagittal planes. 3D post processing was performed on an independent workstation and volume rendered images of the pulmonary arteries were created and utilized in the interpretation. FINDINGS: POTENTIAL LIMITATIONS OF THE STUDY: Respiratory motion artifact. HEART AND VESSELS: No filling defects are identified within the pulmonary arteries to indicate the presence of a pulmonary embolism. The aorta is normal in course and caliber. There is atherosclerotic disease. The heart is not significantly enlarged. No pericardial effusion is seen. MEDIASTINUM AND GAYLA, LOWER NECK AND AXILLA: The visualized thyroid gland is within normal limits. No evidence of thoracic lymphadenopathy by CT criteria. Esophagus appears within normal limits as seen. Small hiatal hernia. LUNGS AND AIRWAYS: The trachea and central airways are patent. No endobronchial lesion. Mild areas of atelectasis/scarring, most conspicuous at the lung bases. Mild patchy ground-glass opacities noted, most conspicuous at the lung bases, without focal consolidation. Mild emphysematous changes. UPPER ABDOMEN: The visualized subdiaphragmatic structures demonstrate no acute abnormality. Subcentimeter hypoattenuating lesions in the kidneys are too small to characterize but statistically most likely represent cysts. CHEST WALL AND OSSEOUS STRUCTURES: Degenerative changes. IMPRESSION: No evidence of a pulmonary embolism. Mild nonspecific patchy ground-glass opacities as well as areas of atelectasis, most conspicuous at the lung bases, without focal consolidation. MACRO: None. Signed by: Jean Paul Mann 07/14/2024 10:50 AM Dictation workstation: [id number] [facility] Work Phone: Radiology Study observation (narrative) [facility] Work Phone: CT Chest W contrast IV and C T angiogram Pulmonary arteries for pulmonary embolus W contrast IVOrdered By: Jean Paul Mann on 07-14-2024 [facility] Work Phone: ECG 12-LEADon 07-14-2024 ECG 12-LEAD Ventricular Rate 131 Atrial Rate 131 P-R Interval 136 QRS Duration 68 Q-T Interval 302 QTC Calculation(Bazett) 445 P [place] 71 R [place] 29 T [place] 75 QRS Count 22 Q Onset 219 P Onset 151 P Offset 197 T Offset 370 QTC Fredericia 392 Diagnosis Sinus tachycardia Right atrial enlargement Nonspecific ST and T wave abnormality Abnormal ECG See ED provider note for full interpretation and clinical correlation Confirmed by Maria Esther Miramontes ([id number]) on 07/16/2024 3:34:10 PM Normal [facility] FLUAV and FLUBV RNA THALIA+prob e Nom (Unsp spec)on 07-14-2024 FLUAV RNA THALIA+probe Ql (Resp) Detected Abnormal Not Detected [facility] FLUBV RNA THALIA+probe Ql (Resp) Not detected Not Detected [facility] Interpretation and review of laboratory results Abnormal [facility] This assay is an in vitro diagnostic multiplex nucleic acid amplification test for the detection and discrimination of Influenza A & B from nasopharyngeal specimens, and has been validated for use at [facility]. Negative results do not preclude Influenza A/B infections, and should not be used as the sole basis for diagnosis, treatment, or other management decisions. If Influenza A/B and RSV PCR results are negative, testing for Parainfluenza virus, Adenovirus and Metapneumovirus is routinely performed for [facility] pediatric oncology and intensive care inpatients, and is available on other patients by placing an add-on request. [facility] FLUAV RNA THALIA+probe Ql (Resp) Detected Abnormal Not Detected [facility] Comment on above: Order Comment: This assay is an in vitro diagnostic multiplex nucleic acid amplification test for the detection and discrimination of Influenza A & B from nasopharyngeal specimens, and has been validated for use at [facility]. Negative results do not preclude Influenza A/B infections, and should not be used as the sole basis for diagnosis, treatment, or other management decisions. If Influenza A/B and RSV PCR results are negative, testing for Parainfluenza virus, Adenovirus and Metapneumovirus is routinely performed for [facility] pediatric oncology and intensive care inpatients, and is available on other patients by placing an add-on request. Performed By: #### 4 8509-4 ####VERDUZCO SEE ([id number])[facility] ([facility])[address] [place] [address] FLUBV RNA THALIA+probe Ql (Resp) Not detected Normal Not Detected [facility] Comment on above: Order Comment: This assay is an in vitro diagnostic multiplex nucleic acid amplification test for the detection and discrimination of Influenza A & B from nasopharyngeal specimens, and has been validated for use at [facility]. Negative results do not preclude Influenza A/B infections, and should not be used as the sole basis for diagnosis, treatment, or other management decisions. If Influenza A/B and RSV PCR results are negative, testing for Parainfluenza virus, Adenovirus and Metapneumovirus is routinely performed for [facility] pediatric oncology and intensive care inpatients, and is available on other patients by placing an add-on request. Performed By: #### 4 8509-4 ####DAX CUI ([id number])[facility] ([facility])[address] [place] [address] Natriuretic peptide B [Mass/ Vol]on 07-14-2024 Interpretation and review of laboratory results Normal [facility] Natriuretic peptide B (Bld) [Mass/Vol] 15 pg/mL 0 - 99 pg/mL [facility] <100 pg/mL - Heart failure unlikely 100-299 pg/mL - Intermediate probability of acute heart failure exacerbation. Correlate with clinical context and patient history. >=300 pg/mL - Heart Failure likely. Correlate with clinical context and patient history. BNP testing is performed using different testing methodology at [facility] than at [facility]. Direct result comparisons should only be made within the same method. [facility] Natriuretic peptide B (Bld) [Mass/Vol] 15 pg/mL Normal 0-[address] [facility] Comment on above: Order Comment: <100 pg/mL - Heart failure yoawarvl074-019 pg/mL - Intermediate probability of acute heart failure exacerbation. Correlate with clinical context and patient history. >=300 pg/mL - Heart Failure likely. Correlate with clinical context and patient history.BNP testing is performed using different testing methodology at [facility] than at [facility]. Direct result comparisons should only be made within the same method. Performed By: #### 3 0934-4 ####DAX CUI ([id number])[facility] ([facility])[address] [place] [address] No Panel Informationon 07-14 Interpretation and review of laboratory results Normal [facility] RSV PCRon 07-14-2024 RSV RNA THALIA+probe Ql (Resp) Not detected Not Detected [facility] RSV RNA THALIA+probe Ql (Resp)o n 07-14-2024 This assay is an FDA-cleared, in vitro diagnostic nucleic acid amplification test for the detection of RSV from nasopharyngeal specimens, and has been validated for use at [facility]. Negative results do not preclude RSV infections, and should not be used as the sole basis for diagnosis, treatment, or other management decisions. If Influenza A/B and RSV PCR results are negative, testing for Parainfluenza virus, Adenovirus and Metapneumovirus is routinely performed for pediatric oncology and intensive care inpatients at [facility], and is available on other patients by placing an add-on request. [facility] Respiratory syncytial virus RNAon 07-14-2024 RSV RNA THALIA+probe Ql (Resp) Not detected Normal Not Detected [facility] Comment on above: Order Comment: This assay is an FDA-cleared, in vitro diagnostic nucleic acid amplification test for the detection of RSV from nasopharyngeal specimens, and has been validated for use at [facility]. Negative results do not preclude RSV infections, and should not be used as the sole basis for diagnosis, treatment, or other management decisions. If Influenza A/B and RSV PCR results are negative, testing for Parainfluenza virus, Adenovirus and Metapneumovirus is routinely performed for pediatric oncology and intensive care inpatients at [facility], and is available on other patients by placing an add-on request. Performed By: #### 9 2131-2 ####VERDUZCO SEE ([id number])[facility] ([facility])[address] [place] [address] SARS coronavirus 2 RNAon SARS-CoV-2 (COVID-19) RNA THALIA+probe Ql (Resp) Not detected Normal Not Detected [facility] Comment on above: Order Comment: This assay is an FDA-cleared, in vitro diagnostic nucleic acid amplification test for the qualitative detection and differentiation of SARS CoV-2 from nasopharyngeal specimens collected from individuals with signs and symptoms of respiratory tract infections, and has been validated for use at [facility]. Negative results do not preclude COVID-19 infections and should not be used as the sole basis for diagnosis, treatment, or other management decisions. Testing for SARS CoV-2 is recommended only for patients who meet current clinical and/or epidemiological criteria defined by federal, state, or local public health directives. Performed By: #### 9 4500-6 ####VERDUZCO SEE ([id number])[facility] ([facility])[address] [place] [address] SARS-CoV-2 (COVID-19) RNA NA A+probe Ql (Resp)on 07-14-2024 This assay is an FDA-cleared, in vitro diagnostic nucleic acid amplification test for the qualitative detection and differentiation of SARS CoV-2 from nasopharyngeal specimens collected from individuals with signs and symptoms of respiratory tract infections, and has been validated for use at [facility]. Negative results do not preclude COVID-19 infections and should not be used as the sole basis for diagnosis, treatment, or other management decisions. Testing for SARS CoV-2 is recommended only for patients who meet current clinical and/or epidemiological criteria defined by federal, state, or local public health directives. [facility] Sars-CoV-2 PCRon 07-14-2024 SARS-CoV-2 (COVID-19) RNA THALIA+probe Ql (Resp) Not detected Not Detected [facility] Tropinin I.cardiac panel Hig h sensitivity methodon 07-14-2024 Interpretation and review of laboratory results Normal [facility] Less than 99th percentile of normal range [...] performed using a different testing methodology at [facility] than at other [facility]. Direct result comparisons should only be made within the same method. [facility] Interpretation and review of laboratory results Normal [facility] Less than 99th percentile of normal range [...] performed using a different testing methodology at [facility] than at [facility]. Direct result comparisons should only be made within the same method. [facility] Troponin I, High Sensitivity , Initialon 07-14-2024 Tropinin I.cardiac panel High sensitivity method 7 ng/L 0 - 13 ng/L [facility] Troponin I.cardiac panelon 0 07-14-2024 Tropinin I.cardiac panel High sensitivity method 8 ng/L Normal 0-[address] [facility] Comment on above: Order Comment: Less than 99th percentile of normal range cutoff-Female and children under 18 years old <14 ng/L; Male <21 ng/L: NegativeRepeat testing should be performed if clinically indicated.Female and children under 18 years old 14-50 ng/L; Male 21-50 ng/L:Consistent with possible cardiac damage and possible increased clinicalrisk. Serial measurements may help to assess extent of myocardial damage.>50 ng/L: Consistent with cardiac damage, increased clinical risk andmyocardial infarction. Serial measurements may help assess extent ofmyocardial damage.NOTE: Children less than 1 year old may have higher baseline troponinlevels and results should be interpreted in conjunction with the overallclinical context.NOTE: Troponin I testing is performed using a differenttesting methodology at [facility] than at [facility]. Direct result comparisons should onlybe made within the same method. Performed By: #### 8 9577-1 ####VERDUZCO SEE ([id number])[facility] ([facility])[address] [place] [address] Tropinin I.cardiac panel High sensitivity method 7 ng/L Normal 0-[address] [facility] Comment on above: Order Comment: Less than 99th percentile of normal range cutoff-Female and children under 18 years old <14 ng/L; Male <21 ng/L: NegativeRepeat testing should be performed if clinically indicated.Female and children under 18 years old 14-50 ng/L; Male 21-50 ng/L:Consistent with possible cardiac damage and possible increased clinicalrisk. Serial measurements may help to assess extent of myocardial damage.>50 ng/L: Consistent with cardiac damage, increased clinical risk andmyocardial infarction. Serial measurements may help assess extent ofmyocardial damage.NOTE: Children less than 1 year old may have higher baseline troponinlevels and results should be interpreted in conjunction with the overallclinical context.NOTE: Troponin I testing is performed using a differenttesting methodology at [facility] than at [facility]. Direct result comparisons should onlybe made within the same method. Performed By: #### 8 9577-1 ####VERDUZCO SEE ([id number])[facility] ([facility])[address] [place] [address] Troponin, High Sensitivity, 1 Houron 07-14-2024 Tropinin I.cardiac panel High sensitivity method 8 ng/L 0 - 13 ng/L [facility] US LOWER EXTREMITY VENO US DUPLEX BILATERALon 07-14-2024 [facility] US LOWER EXTREMITY VENOUS DUPLEX BILATERAL [place] [phone], Vascular Lab Report [facility] US LOWER EXTREMITY VENOUS DUPLEX BILATERAL Patient Name: REGI Franklin Physician: [id number] Clementine Freedman MD Study Date: 07/14/2024 Ordering Provider: [id number] PATRICK DOAN MRN/PID: [id number] Fellow: Technologist: Elaine Flores RVJero/ Date of /Age: 5 1965 Technologist 2: years Gender: F Admission Status: Emergency Location [facility] Performed: Diagnosis/ICD: Pain in left leg-M79.605; Pain in right leg-M79.604 CPT Codes: 42208 Peripheral venous duplex scan for DVT complete CONCLUSIONS: Right Lower Venous: No evidence of acute deep vein thrombus visualized in the right lower extremity. Left Lower Venous: No evidence of acute deep vein thrombus visualized in the left lower extremity. Imaging & Doppler Findings: Right Compressible Thrombus Flow Distal External Iliac Yes None Spontaneous/Phasic CFV Yes None Spontaneous/Phasic PFV Yes None FV Proximal Yes None Spontaneous/Phasic FV Mid Yes None FV Distal Yes None Popliteal Yes None Spontaneous/Phasic Peroneal Yes None PTV Yes None Left Compress Thrombus Flow Distal External Iliac Yes None Spontaneous/Phasic CFV Yes None Spontaneous/Phasic PFV Yes None FV Proximal Yes None Spontaneous/Phasic FV Mid Yes None FV Distal Yes None Popliteal Yes None Spontaneous/Phasic Peroneal Yes None PTV Yes None [id number] Clementine Freedman MD Final [facility] XR CHEST 1 VIEWon 07-14-2024 XR CHEST 1 VIEW Interpreted By: Roosevelt Tam, STUDY: XR CHEST 1 VIEW; 07/14/2024 8:38 am INDICATION: Signs/Symptoms:sob COMPARISON: December 2023. ACCESSION NUMBER(S): [id number] ORDERING CLINICIAN: PATRICK DOAN FINDINGS: The study is limited due to overlying artifacts obscuring some detail. The cardiomediastinal silhouette is within normal limits for the technique. There is no pneumothorax, confluent infiltrates or significant effusion. The osseous structures are unchanged. IMPRESSION: Allowing for the aforementioned limitation, no acute cardiopulmonary disease. Signed by: Roosevelt Tam 07/14/2024 8:40 AM Dictation workstation: [id number] [facility] XR Chest Single viewon 07-14 Allowing for the aforementioned limitation, no acute cardiopulmonary disease. Signed by: Roosevelt Tam 07/14/2024 8:40 AM Dictation workstation: [id number] Interpreted By: Roosevelt Tam, STUDY: XR CHEST 1 VIEW; 07/14/2024 8:38 am INDICATION: Signs/Symptoms:sob COMPARISON: December 2023. ACCESSION NUMBER(S): [id number] ORDERING CLINICIAN: PATRICK DOAN FINDINGS: The study is limited due to overlying artifacts obscuring some detail. The cardiomediastinal silhouette is within normal limits for the technique. There is no pneumothorax, confluent infiltrates or significant effusion. The osseous structures are unchanged. [facility] Roosevelt Tam MD - 07/14/2024 Interpreted By: Roosevelt Tam, STUDY: XR CHEST 1 VIEW; 07/14/2024 8:38 am INDICATION: Signs/Symptoms:sob COMPARISON: December 2023. ACCESSION NUMBER(S): [id number] ORDERING CLINICIAN: PATRICK DOAN FINDINGS: The study is limited due to overlying artifacts obscuring some detail. The cardiomediastinal silhouette is within normal limits for the technique. There is no pneumothorax, confluent infiltrates or significant effusion. The osseous structures are unchanged. IMPRESSION: Allowing for the aforementioned limitation, no acute cardiopulmonary disease. Signed by: Roosevelt Tam 07/14/2024 8:40 AM Dictation workstation: [id number] [facility] Work Phone: Radiology Study observation (narrative) [facility] Work Phone: XR Chest Single viewOrdered By: Roosevelt Tam on 07-14-2024 [facility] Work Phone: Basic metabolic 2000 panelon 01-28-2024 Anion gap [Moles/Vol] 13 mmol/L 10 - 2 0 mmol/L [facility] Calcium [Mass/Vol] 10.0 mg/dL 8.6 - 10. 3 mg/dL [facility] Chloride [Moles/Vol] 104 mmol/L 98 - 10 7 mmol/L [facility] CO2 [Moles/Vol] 26 mmol/L 21 - 32 mmol/L [facility] Creatinine [Mass/Vol] 0.84 mg/dL 0.50 - 1.05 mg/dL [facility] GFR/1.73 sq M.predicted among non-blacks MDRD (S/P/Bld) [Vol rate/Area] 81 mL/min/{1.73_m2} - PINF [facility] Comment on above: Calculations of lloyd mated GFR are performed using the 2020 CKD-EPI Study Refit equation without the race variable for the IDMS-Traceable creatinine methods. https://jasn.asnjournals.org/content/early/ASN.2020 568612 Glucose [Mass/Vol] 75 mg/dL 74 - 99 mg/dL [facility] Interpretation and review of laboratory results Normal [facility] Potassium [Moles/Vol] 4.3 mmol/L 3.5 - 5.3 mmol/L [facility] Comment on above: MILD HEMOLYSIS DETEC AME. The result may be falsely elevated due to hemolysis or other interferents. Clinical correlation is recommended. Repeat testing may be considered. Sodium [Moles/Vol] 139 mmol/L 136 - 145 mmol/L [facility] Urea nitrogen [Mass/Vol] 20 mg/dL 6 - 23 mg/dL [facility] Anion gap [Moles/Vol] 13 mmol/L Normal 10-20 [facility] Comment on above: Performed By: #### 5 7021-8 #### DAX CUI ([id number]) [facility] ([facility]) [address] [place] [id number] Calcium [Mass/Vol] 10.0 mg/dL Normal 8.6-10.3 [facility] Comment on above: Performed By: #### 5 7021-8 #### DAX CUI ([id number]) [facility] ([facility]) [address] [place] [address]187 Chloride [Moles/Vol] 104 mmol/L Normal 98-107 [facility] Comment on above: Performed By: #### 5 7021-8 #### DAX CUI ([id number]) [facility] ([facility]) [address] [place] [address] 22858 CO2 [Moles/Vol] 26 mmol/L Normal 21-32 [facility] Comment on above: Performed By: #### 5 7021-8 #### DAX CUI ([id number]) [facility] ([facility]) [address] [place] [address]709 Creatinine [Mass/Vol] 0.84 mg/dL Normal 0.50-1.05 [facility] Comment on above: Performed By: #### 5 7021-8 #### DAX CUI ([id number]) [facility] ([facility]) [address] [place] [address] 17782 Glomerular filtration rate/1.73 sq M.predicted 81 mL/min/1.73m*2 Normal >[address] [facility] Comment on above: Result Comment: Calc ulations of estimated GFR are performed using the 2020 CKD-EPI Study Refit equation without the race variable for the IDMS-Traceable creatinine methods. https://jasn.asnjournals.org/content/early//ASN.2020 572113 Performed By: #### 5 7021-8 #### DAX CUI ([id number]) [facility] ([facility]) [address] [place], [place] [id number] Glucose [Mass/Vol] 75 mg/dL Normal 74-99 [facility] Comment on above: Performed By: #### 5 7021-8 #### DAX CUI ([id number]) [facility] ([facility]) [address] [place] [address]273 Potassium [Moles/Vol] 4.3 mmol/L Normal 3.5-5.3 [facility] Comment on above: Result Comment: MILD HEMOLYSIS DETECTED. The result may be falsely elevated due to hemolysis or other interferents. Clinical correlation is recommended. Repeat testing may be considered. Performed By: #### 5 7021-8 #### DAX CUI ([id number]) [facility] LAB ([facility]) [address] [place] [address] 82395 Sodium [Moles/Vol] 139 mmol/L Normal 136-145 [facility] Comment on above: Performed By: #### 5 7021-8 #### DAX CUI ([id number]) [facility] ([facility]) [address] [place] [address] 82469 Urea nitrogen [Mass/Vol] 20 mg/dL Normal 6-[address] [facility] Comment on above: Performed By: #### 5 7021-8 #### DAX CUI (78141) [facility] ([facility]) [address] [place] [address] 62051 CBC panel Auto (Bld)on 01-27 Erythrocyte distribution width (RBC) [Ratio] 12.7 % 11.5 - 14.5 % [facility] Hematocrit (Bld) [Volume fraction] 42.5 % 36.0 - 46.0 % [facility] Hemoglobin (Bld) [Mass/Vol] 13.8 g/dL 12.0 - 16.0 g/dL [facility] Interpretation and review of laboratory results Normal [facility] MCH (RBC) [Entitic mass] 30.4 pg 26.0 - 34.0 pg [facility] MCHC (RBC) [Mass/Vol] 32.5 g/dL 32.0 - 36.0 g/dL [facility] MCV (RBC) [Entitic vol] 94 fL 80 - 100 fL [facility] Nucleated RBC/100 WBC (Bld) [Ratio] 0.0 % [facility] Platelets (Bld) [#/Vol] 291 10*3/uL [facility] RBC (Bld) [#/Vol] 4.54 10*6/uL [facility] WBC (Bld) [#/Vol] 7.1 10*3/uL [facility] Erythrocyte distribution width (RBC) [Ratio] 12.7 % Normal 11.5-14.[address] [facility] Comment on above: Performed By: #### 5 7021-8 #### DAX CUI (51756) [facility] ([facility]) [address] [place] [address] 00520 Hematocrit (Bld) [Volume fraction] 42.5 % Normal 36.0-46.[address] [facility] Comment on above: Performed By: #### 5 7021-8 #### DAX CUI (58844) [facility] ([facility]) [address] [place] [address] 42741 Hemoglobin (Bld) [Mass/Vol] 13.8 g/dL Normal 12.0-16.[address] [facility] Comment on above: Performed By: #### 5 7021-8 #### DAX CUI (00485) [facility] ([facility]) [address] [place] [address] 13147 MCH (RBC) [Entitic mass] 30.4 pg Normal 26.0-34.[address] [facility] Comment on above: Performed By: #### 5 7021-8 #### DAX CUI (09604) [facility] ([facility]) [address] [place] [address] 09146 MCHC (RBC) [Mass/Vol] 32.5 g/dL Normal 32.0-36.0 [facility] Comment on above: Performed By: #### 5 7021-8 #### DAX CUI (42899) [facility] ([facility]) [address] [place] [address] MCV (RBC) [Entitic vol] 94 fL Normal 80-100 [facility] Comment on above: Performed By: #### 5 7021-8 #### DAX CUI (27863) [facility] ([facility]) [address] [place] [address] Nucleated RBC/100 WBC (Bld) [Ratio] 0.0 /100 WBCs Normal 0.0-0.[address] [facility] Comment on above: Performed By: #### 5 7021-8 #### DAX CUI (77139) [facility] ([facility]) [address] [place] [address] 39060 Platelets (Bld) [#/Vol] 291 x10*3/uL Normal 150-[address] [facility] Comment on above: Performed By: #### 5 7021-8 #### DAX CUI (74991) [facility] ([facility]) [address] [place] [address] 20568 RBC (Bld) [#/Vol] 4.54 x10*6/uL Normal 4.00-5.20 [facility] Comment on above: Performed By: #### 5 7021-8 #### DAX CUI (07406) [facility] ([facility]) [address] [place] [address] 65454 WBC (Bld) [#/Vol] 7.1 x10*3/uL Normal 4.4-11.3 [facility] Comment on above: Performed By: #### 5 7021-8 #### VERDUZCO SEE (29506) [facility] ([facility]) [address] [place] [address] PST Topon 01-28-2024 Extra Tube Hold for add-ons. [facility] Comment on above: Auto resulted. [facility] TRANSTHORACIC ECHO (TTE) ANTON ITEDon 01-28-2024 TRANSTHORACIC ECHO ([place]) [place] [address] ext-[phone], TRANSTHORACIC ECHOCARDIOGRAM REPORT Patient Name: REGI CRUZ Reading Physician: [id number] Pedrito Francois MD Study Date: 01/28/2024 Ordering Provider: [id number] EZEKIEL SOLOMON MRN/PID: [id number] Fellow: Nurse: Tierra Mo RN Date of /Age: 5 1965 / 58 years Budder: IVON Baxter RVT Gender: F Additional Staff: Height: 167.64 cm Admit Date: 01/26/2024 Weight: 90.72 kg Admission Status: Inpatient - Routine BSA / BMI: 2.00 m2 / 32.28 kg/m2 Department Location: [address]-ICU Blood Pressure: 171 /91 mmHg Study Type: TRANSTHORACIC ECHO (TTE) LIMITED Diagnosis/ICD: Essential (primary) hypertension-I10 Indication: Hypertensive Urgency CPT Codes: Echo Limited-52042 Patient History: Pertinent History: No previous echo [...] LA Area A2C: 10.1 cm2 [place] A4C: 4.5 cm [place] A2C: 3.9 cm LA Volume Index: 10.6 [...] 1.2 m/s (0.6-0.9m/s) PV Max P.2 mmHg [id number] Pedrito Francois MD Electronically signed on 01/28/2024 at 10:25:54 AM Final Normal [facility] US Heart TransthoracicOrdere d By: Pedrito Francois on 01-28-2024 Aortic Valve Area by Continuity of Peak Velocity 1.92 cm2 [facility] Work Phone: Aortic Valve Area by Continuity of VTI 1.87 cm2 [facility] Work Phone: AV mn grad 10.0 mmHg [facility] Work Phone: AV pk grad 17.3 mmHg [facility] Work Phone: AV pk jordan 2.08 m/s [facility] Work Phone: [phone] LA vol index A/L 14.0 ml/m2 [facility] Work Phone: [phone] LV A4C EF 66.7 [facility] Work Phone: [phone] LV Biplane EF 73 % [facility] Work Phone: [phone] LV EF 60 % [facility] Work Phone: [phone] LVIDd 3.47 cm [facility] Work Phone: [phone] LVOT diam 2.20 cm [facility] Work Phone: [phone] [facility] Work Phone: [place] [address] ext-[phone], TRANSTHORACIC ECHOCARDIOGRAM REPORT Patient Name: REGI CRUZ Reading Physician: [id number] Pedrito Francois MD Study Date: 01/28/2024 Ordering Provider: [id number] EZEKIEL SOLOMON MRN/PID: [id number] Fellow: Nurse: Tierra Mo RN Date of /Age: 5 1965 / 58 years Budder: Evi Doan RVT, IVON Gender: F Additional Staff: Height: 167.64 cm Admit Date: 01/26/2024 Weight: 90.72 kg Admission Status: Inpatient - Routine BSA / BMI: 2.00 m2 / 32.28 kg/m2 Department Location: [address]-ICU Blood Pressure: 171 /91 mmHg Study Type: TRANSTHORACIC ECHO (TTE) LIMITED Diagnosis/ICD: Essential (primary) hypertension-I10 Indication: Hypertensive Urgency CPT Codes: Echo Limited-39682 Patient History: Pertinent History: No previous echo [...] LA Area A2C: 10.1 cm2 [place] A4C: 4.5 cm [place] A2C: 3.9 cm LA Volume Index: 10.6 [...] not included)... Pedrito Mcgovern MD - 01/28/2024 [place] [address] ext-[phone], TRANSTHORACIC ECHOCARDIOGRAM REPORT Patient Name: REGI Franklin Physician: [id number] Pedrito Francois MD Study Date: 01/28/2024 Ordering Provider: [id number] EZEKIEL SOLOMON MRN/PID: [id number] Fellow: Nurse: Tierra Mo RN Date of /Age: 5 1965 / 58 years Budder: IVON Baxter RVT Gender: F Additional Staff: Height: 167.64 cm Admit Date: 01/26/2024 Weight: 90.72 kg Admission Status: Inpatient - Routine BSA / BMI: 2.00 m2 / 32.28 kg/m2 Department Location: [address]-ICU Blood Pressure: 171 /91 mmHg Study Type: TRANSTHORACIC ECHO (TTE) LIMITED Diagnosis/ICD: Essential (primary) hypertension-I10 Indication: Hypertensive Urgency CPT Codes: Echo Limited-88797 Patient History: Pertinent History: No previous echo [...] LA Area A2C: 10.1 cm2 [place] A4C: 4.5 cm [place] A2C: 3.9 cm LA Volume Index: 10.6 [...] 1.2 m/s (0.6-0.9m/s) PV Max P.2 mmHg [id number] Pedrito Francois MD Electronically signed on 01/28/2024 at 10:25:54 AM Final [facility] Work Phone: CBC panel Auto (Bld)on 01-26 Erythrocyte distribution width (RBC) [Ratio] 12.4 % 11.5 - 14.5 % [facility] Hematocrit (Bld) [Volume fraction] 37.3 % 36.0 - 46.0 % [facility] Hemoglobin (Bld) [Mass/Vol] 12.3 g/dL 12.0 - 16.0 g/dL [facility] Interpretation and review of laboratory results Normal [facility] MCH (RBC) [Entitic mass] 30.8 pg 26.0 - 34.0 pg [facility] MCHC (RBC) [Mass/Vol] 33.0 g/dL 32.0 - 36.0 g/dL [facility] MCV (RBC) [Entitic vol] 93 fL 80 - 100 fL [facility] Nucleated RBC/100 WBC (Bld) [Ratio] 0.0 % [facility] Platelets (Bld) [#/Vol] 264 10*3/uL [facility] RBC (Bld) [#/Vol] 4.00 10*6/uL [facility] WBC (Bld) [#/Vol] 7.0 10*3/uL [facility] Erythrocyte distribution width (RBC) [Ratio] 12.4 % Normal 11.5-14.[address] [facility] Comment on above: Performed By: #### 5 7021-8 #### VERDUZCO SEE (60919) [facility] ([facility]) [address] [place] [address] Hematocrit (Bld) [Volume fraction] 37.3 % Normal 36.0-46.[address] [facility] Comment on above: Performed By: #### 5 7021-8 #### DAX CUI (58042) [facility] ([facility]) [address] [place] [address] 31253 Hemoglobin (Bld) [Mass/Vol] 12.3 g/dL Normal 12.0-16.[address] [facility] Comment on above: Performed By: #### 5 70-8 #### DAX CUI (21914) [facility] ([facility]) [address] [place], [place] [address] MCH (RBC) [Entitic mass] 30.8 pg Normal 26.0-34.[address] [facility] Comment on above: Performed By: #### 5 7021-8 #### DAX CUI (98293) [facility] ([facility]) [address] [place] [address] 19238 MCHC (RBC) [Mass/Vol] 33.0 g/dL Normal 32.0-36.0 [facility] Comment on above: Performed By: #### 5 7021-8 #### DAX CUI (99449) [facility] ([facility]) [address] [place], [place] [address] MCV (RBC) [Entitic vol] 93 fL Normal 80-100 [facility] Comment on above: Performed By: #### 7021-8 #### DAX CUI (20351) [facility] ([facility]) [address] [place] [address] 37193 Nucleated RBC/100 WBC (Bld) [Ratio] 0.0 /100 WBCs Normal 0.0-0.[address] [facility] Comment on above: Performed By: #### 7021-8 #### DAX CUI (96853) [facility] ([facility]) [address] [place] [address] 79424 Platelets (Bld) [#/Vol] 264 x10*3/uL Normal 150-[address] [facility] Comment on above: Performed By: #### 7021-8 #### DAX CUI (16611) [facility] ([facility]) [address] [place] [place] [phone] RBC (Bld) [#/Vol] 4.00 x10*6/uL Normal 4.00-5.20 [facility] Comment on above: Performed By: #### 5 7021-8 #### DAX CUI (77803) [facility] ([facility]) [facility] [place] [phone] WBC (Bld) [#/Vol] 7.0 x10*3/uL Normal 4.4-11.3 [facility] Comment on above: Performed By: #### 5 7021-8 #### DAX CUI (64545) [facility] ([facility]) [address] [place], [place] [address] Comprehensive metabolic 2000 panelon 01-27-2024 Albumin BCP dye [Mass/Vol] 3.9 g/dL 3.4 - 5.0 g/dL [facility] ALP [Catalytic activity/Vol] 54 U/L 33 - 110 U/L [facility] ALT With P-5'-P [Catalytic activity/Vol] 13 U/L 7 - 45 U/L [facility] Comment on above: Patients treated wit h Sulfasalazine may generate falsely decreased results for ALT. Anion gap [Moles/Vol] 10 mmol/L 10 - 2 0 mmol/L [facility] AST With P-5'-P [Catalytic activity/Vol] 15 U/L 9 - 39 U/L [facility] Bilirubin [Mass/Vol] 0.3 mg/dL 0.0 - 1 .2 mg/dL [facility] Calcium [Mass/Vol] 8.8 mg/dL 8.6 - 10. 3 mg/dL [facility] Chloride [Moles/Vol] 106 mmol/L 98 - 10 7 mmol/L [facility] CO2 [Moles/Vol] 26 mmol/L 21 - 32 mmol/L [facility] Creatinine [Mass/Vol] 0.75 mg/dL 0.50 - 1.05 mg/dL [facility] eGFR - PINF [facility] Comment on above: Calculations of lloyd mated GFR are performed using the 2020 CKD-EPI Study Refit equation without the race variable for the IDMS-Traceable creatinine methods. https://jasn.asnjournals.org/content//ASN.2020 104933 Glucose [Mass/Vol] 93 mg/dL 74 - 99 mg/dL [facility] Interpretation and review of laboratory results Normal [facility] Potassium [Moles/Vol] 3.6 mmol/L 3.5 - 5.3 mmol/L [facility] Protein [Mass/Vol] 6.6 g/dL 6.4 - 8.2 g/dL [facility] Sodium [Moles/Vol] 138 mmol/L 136 - 145 mmol/L [facility] Urea nitrogen [Mass/Vol] 18 mg/dL 6 - 23 mg/dL [facility] Albumin BCP dye [Mass/Vol] 3.9 g/dL Normal 3.4-5.[address] [facility] Comment on above: Performed By: #### 5 7021-8 #### DAX CUI (83753) [facility] ([facility]) [facility] [place] [address] ALP [Catalytic activity/Vol] 54 U/L Normal 33-[address] [facility] Comment on above: Performed By: #### 5 7021-8 #### DAX CUI (29572) [facility] ([facility]) [facility] [place] [address] ALT With P-5'-P [Catalytic activity/Vol] 13 U/L Normal 7-[address] [facility] Comment on above: Result Comment: Radha ents treated with Sulfasalazine may generate falsely decreased results for ALT. Performed By: #### 5 7021-8 #### DAX CUI (22359) [facility] ([facility]) [address] [place] [address] 31149 Anion gap [Moles/Vol] 10 mmol/L Normal 10-20 [facility] Comment on above: Performed By: #### 5 7021-8 #### DAX CUI (97048) [facility] ([facility]) [address] [place] [address] AST With P-5'-P [Catalytic activity/Vol] 15 U/L Normal 9-[address] [facility] Comment on above: Performed By: #### 5 7021-8 #### DAX CUI (75779) [facility] ([facility]) [address] [place] [address] Bilirubin [Mass/Vol] 0.3 mg/dL Normal 0.0-1.2 [facility] Comment on above: Performed By: #### 5 7021-8 #### DAX CUI (75527) [facility] ([facility]) [address] [place] [address] 96589 Calcium [Mass/Vol] 8.8 mg/dL Normal 8.6-10.3 [facility] Comment on above: Performed By: #### 5 7021-8 #### DAX CUI (84303) [facility] ([facility]) [address] [place] [address] 13628 Chloride [Moles/Vol] 106 mmol/L Normal 98-107 [facility] Comment on above: Performed By: #### 5 7021-8 #### DAX CUI (17166) [facility] ([facility]) [address] [place] [address] CO2 [Moles/Vol] 26 mmol/L Normal 21-32 [facility] Comment on above: Performed By: #### 5 7021-8 #### DAX CUI (65494) [facility] ([facility]) [address] [place] [address] Creatinine [Mass/Vol] 0.75 mg/dL Normal 0.50-1.05 [facility] Comment on above: Performed By: #### 5 7021-8 #### DAX CUI (22488) [facility] ([facility]) [address] [place] [address] GFR/1.73 sq M.predicted MDRD (S/P/Bld) [Vol rate/Area] mL/min/{1.73_m2} Normal >[address] [facility] Comment on above: Result Comment: Calc ulations of estimated GFR are performed using the 2020 CKD-EPI Study Refit equation without the race variable for the IDMS-Traceable creatinine methods. https://jasn.asnjournals.org/content/early//ASN.2020 405903 Performed By: #### 5 7021-8 #### DAX CUI (98067) [facility] ([facility]) [address] [place] [address] 43346 Glucose [Mass/Vol] 93 mg/dL Normal 74-99 [facility] Comment on above: Performed By: #### 5 7021-8 #### DAX CUI (68331) [facility] ([facility]) [address] [place] [address] 94300 Potassium [Moles/Vol] 3.6 mmol/L Normal 3.5-5.3 [facility] Comment on above: Performed By: #### 5 7021-8 #### DAX CUI (37478) [facility] ([facility]) [address] [place] [address] 06636 Protein [Mass/Vol] 6.6 g/dL Normal 6.4-8.2 [facility] Comment on above: Performed By: #### 5 7021-8 #### DAX CUI (67453) [facility] ([facility]) [address] [place] [address] 67186 Sodium [Moles/Vol] 138 mmol/L Normal 136-145 [facility] Comment on above: Performed By: #### 5 7021-8 #### DAX CUI (89269) [facility] ([facility]) [address] [place] [address] 73461 Urea nitrogen [Mass/Vol] 18 mg/dL Normal 6-[address] [facility] Comment on above: Performed By: #### 5 7021-8 #### DAX CUI (86895) [facility] ([facility]) [address] [place] [address] 50975 C reactive proteinon 024 CRP [Mass/Vol] 0.92 mg/dL Normal <1.[address] [facility] Comment on above: Performed By: #### 1 988-5 #### VERDUZCO SEE (23199) [facility] ([facility]) [address] [place] [address] C-reactive proteinon 024 CRP [Mass/Vol] 0.92 mg/dL NINF - 1.00 mg/dL [facility] CBC W Auto Differential pane l (Bld)on 01-26-2024 Basophils (Bld) [#/Vol] 0.01 10*3/uL [facility] Basophils/100 WBC (Bld) 0.1 % 0.0 - 2.0 % [facility] Eosinophils (Bld) [#/Vol] 0.10 10*3/uL [facility] Eosinophils/100 WBC (Bld) 1.3 % 0.0 - 6.0 % [facility] Erythrocyte distribution width (RBC) [Ratio] 12.4 % 11.5 - 14.5 % [facility] Hematocrit (Bld) [Volume fraction] 37.2 % 36.0 - 46.0 % [facility] Hemoglobin (Bld) [Mass/Vol] 12.4 g/dL 12.0 - 16.0 g/dL [facility] Immature granulocytes (Bld) [#/Vol] 0.02 10*3/uL [facility] Immature granulocytes/100 WBC (Bld) 0.3 % 0.0 - 0.9 % [facility] Comment on above: Immature Granulocyte Count (IG) includes promyelocytes, myelocytes and metamyelocytes but does not include bands. Percent differential counts (%) should be interpreted in the context of the absolute cell counts (cells/UL). Lymphocytes (Bld) [#/Vol] 1.60 10*3/uL [facility] Lymphocytes/100 WBC (Bld) 21.2 % 13.0 - 44.0 % [facility] MCH (RBC) [Entitic mass] 31.0 pg 26.0 - 34.0 pg [facility] MCHC (RBC) [Mass/Vol] 33.3 g/dL 32.0 - 36.0 g/dL [facility] MCV (RBC) [Entitic vol] 93 fL 80 - 100 fL [facility] Monocytes (Bld) [#/Vol] 0.56 10*3/uL [facility] Monocytes/100 WBC (Bld) 7.4 % 2.0 - 10.0 % [facility] Neutrophils (Bld) [#/Vol] 5.24 10*3/uL [facility] Comment on above: Percent differential counts (%) should be interpreted in the context of the absolute cell counts (cells/uL). Neutrophils/100 WBC (Bld) 69.7 % 40.0 - 80.0 % [facility] Nucleated RBC/100 WBC (Bld) [Ratio] 0.0 % [facility] Platelets (Bld) [#/Vol] 253 10*3/uL [facility] RBC (Bld) [#/Vol] 4.00 10*6/uL [facility] WBC (Bld) [#/Vol] 7.5 10*3/uL [facility] Basophils (Bld) [#/Vol] 0.01 x10*3/uL Normal 0.00-0.[address] [facility] Comment on above: Performed By: #### 5 7021-8 #### DAX CUI (42331) [facility] ([facility]) [address] [place] [address] 56366 Basophils/100 WBC (Bld) 0.1 % Normal 0.0-2.0 [facility] Comment on above: Performed By: #### 5 7021-8 #### DAX CUI (26549) [facility] ([facility]) [address] [place] [address] 35592 Eosinophils (Bld) [#/Vol] 0.10 x10*3/uL Normal 0.00-0.[address] [facility] Comment on above: Performed By: #### 5 7021-8 #### DAX CUI (80458) [facility] ([facility]) [address] [place] [address] 54637 Eosinophils/100 WBC (Bld) 1.3 % Normal 0.0-6.[address] [facility] Comment on above: Performed By: #### 5 7021-8 #### DAX CUI (23442) [facility] ([facility]) [address] [place] [address] 77639 Erythrocyte distribution width (RBC) [Ratio] 12.4 % Normal 11.5-14.[address] [facility] Comment on above: Performed By: #### 5 7021-8 #### DAX CUI (31937) [facility] ([facility]) [address] [place] [address] Hematocrit (Bld) [Volume fraction] 37.2 % Normal 36.0-46.[address] [facility] Comment on above: Performed By: #### 5 7021-8 #### DAX CUI (04504) [facility] ([facility]) [address] [place], [place] [address] Hemoglobin (Bld) [Mass/Vol] 12.4 g/dL Normal 12.0-16.[address] [facility] Comment on above: Performed By: #### 5 7021-8 #### DAX CUI (15896) [facility] ([facility]) [address] [place] [address] 44927 Immature granulocytes (Bld) [#/Vol] 0.02 x10*3/uL Normal 0.00-0.[address] [facility] Comment on above: Performed By: #### 5 7021-8 #### DAX CUI (57389) [facility] ([facility]) [address] [place] [address] 97230 Immature granulocytes/100 WBC (Bld) 0.3 % Normal 0.0-0.[address] [facility] Comment on above: Result Comment: Tamela ture Granulocyte Count (IG) includes promyelocytes, myelocytes and metamyelocytes but does not include bands. Percent differential counts (%) should be interpreted in the context of the absolute cell counts (cells/UL). Performed By: #### 5 7021-8 #### DAX CUI (58066) [facility] ([facility]) [address] [place] [address] 23118 Lymphocytes (Bld) [#/Vol] 1.60 x10*3/uL Normal 1.20-4.[address] [facility] Comment on above: Performed By: #### 5 7021-8 #### DAX CUI (45103) [facility] ([facility]) [address] [place] [address] 76278 Lymphocytes/100 WBC (Bld) 21.2 % Normal 13.0-44.[address] [facility] Comment on above: Performed By: #### 5 7021-8 #### DAX CUI (71423) [facility] ([facility]) [address] [place] [address] 33010 MCH (RBC) [Entitic mass] 31.0 pg Normal 26.0-34.[address] [facility] Comment on above: Performed By: #### 5 7021-8 #### DAX CUI (56612) [facility] ([facility]) [address] [place] [address] 35782 MCHC (RBC) [Mass/Vol] 33.3 g/dL Normal 32.0-36.0 [facility] Comment on above: Performed By: #### 5 7021-8 #### DAX CUI (51285) [facility] ([facility]) [address] [place] [address] 91424 MCV (RBC) [Entitic vol] 93 fL Normal 80-100 [facility] Comment on above: Performed By: #### 5 7021-8 #### DAX CUI (92687) [facility] ([facility]) [address] [place] [address] 12836 Monocytes (Bld) [#/Vol] 0.56 x10*3/uL Normal 0.10-1.[address] [facility] Comment on above: Performed By: #### 5 7021-8 #### DAX CUI (13807) [facility] ([facility]) [address] [place] [address] 59725 Monocytes/100 WBC (Bld) 7.4 % Normal 2.0-10.0 [facility] Comment on above: Performed By: #### 5 7021-8 #### DAX CUI (85892) [facility] ([facility]) [address] [place] [address] 43681 Neutrophils (Bld) [#/Vol] 5.24 x10*3/uL Normal 1.20-7.[address] [facility] Comment on above: Result Comment: Perc ent differential counts (%) should be interpreted in the context of the absolute cell counts (cells/uL). Performed By: #### 5 7021-8 #### DAX CUI (39650) [facility] ([facility]) [address] [place] [address] 16001 Neutrophils/100 WBC (Bld) 69.7 % Normal 40.0-80.[address] [facility] Comment on above: Performed By: #### 5 7021-8 #### DAX CUI (74732) [facility] ([facility]) [address] [place] [address] 70012 Nucleated RBC/100 WBC (Bld) [Ratio] 0.0 /100 WBCs Normal 0.0-0.[address] [facility] Comment on above: Performed By: #### 5 7021-8 #### DAX CUI (26165) [facility] ([facility]) [address] [place] [address] 02726 Platelets (Bld) [#/Vol] 253 x10*3/uL Normal 150-[address] [facility] Comment on above: Performed By: #### 5 7021-8 #### DAX CUI (69650) [facility] ([facility]) [address] [place] [address] 40361 RBC (Bld) [#/Vol] 4.00 x10*6/uL Normal 4.00-5.20 [facility] Comment on above: Performed By: #### 5 7021-8 #### DAX CUI (77669) [facility] ([facility]) [address] [place] [address] 18829 WBC (Bld) [#/Vol] 7.5 x10*3/uL Normal 4.4-11.3 [facility] Comment on above: Performed By: #### 5 7021-8 #### VERDUZCO SEE (79191) [facility] ([facility]) [address] [place] [address] CRP [Mass/Vol]on 01-26-2024 Interpretation and review of laboratory results Normal [facility] CT HEAD WO IV CONTRASTon CT HEAD WO IV CONTRAST Interpreted By: Mark Abdul, STUDY: CT HEAD WO IV CONTRAST; 01/26/2024 11:07 am INDICATION: Signs/Symptoms:HTN, headache. COMPARISON: None ACCESSION NUMBER(S): [id number] ORDERING CLINICIAN: JEANNIE NIELSEN TECHNIQUE: CT of [...] Mark Abdul 01/26/2024 11:36 AM Dictation workstation: [id number] [facility] CT Head WO contraston 2023 NO ACUTE INTRACRANIA L PROCESS MACRO: None Signed by: Mark Abdul 01/26/2024 11:36 AM Dictation workstation: [id number] MMODAL Interpreted By: Mark Abdul, STUDY: CT HEAD WO IV CONTRAST; 01/26/2024 11:07 am INDICATION: Signs/Symptoms:HTN, headache. COMPARISON: None ACCESSION NUMBER(S): [id number] ORDERING CLINICIAN: JEANNIE NIELSEN TECHNIQUE: CT of [...] and occular globes grossly normal [facility] MD - 01/26/2024 Interpreted By: Mark Abdul, STUDY: CT HEAD WO IV CONTRAST; 01/26/2024 11:07 am INDICATION: Signs/Symptoms:HTN, headache. COMPARISON: None ACCESSION NUMBER(S): [id number] ORDERING CLINICIAN: JEANNIE NIELSEN TECHNIQUE: CT of [...] Mark Abdul 01/26/2024 11:36 AM Dictation workstation: [id number] [facility] Work Phone: Radiology Study observation (narrative) [facility] Work Phone: CT Head WO contrastOrdered B y: Mark Abdul on 01-26-2024 [facility] Work Phone: Comprehensive metabolic 2000 panelon 01-26-2024 Albumin BCP dye [Mass/Vol] 4.0 g/dL 3.4 - 5.0 g/dL [facility] ALP [Catalytic activity/Vol] 59 U/L 33 - 110 U/L [facility] ALT With P-5'-P [Catalytic activity/Vol] 14 U/L 7 - 45 U/L [facility] Comment on above: Patients treated wit h Sulfasalazine may generate falsely decreased results for ALT. Anion gap [Moles/Vol] 9 mmol/L Low 10 - 2 0 mmol/L [facility] AST With P-5'-P [Catalytic activity/Vol] 16 U/L 9 - 39 U/L [facility] Bilirubin [Mass/Vol] 0.3 mg/dL 0.0 - 1 .2 mg/dL [facility] Calcium [Mass/Vol] 8.8 mg/dL 8.6 - 10. 3 mg/dL [facility] Chloride [Moles/Vol] 107 mmol/L 98 - 10 7 mmol/L [facility] CO2 [Moles/Vol] 27 mmol/L 21 - 32 mmol/L [facility] Creatinine [Mass/Vol] 0.82 mg/dL 0.50 - 1.05 mg/dL [facility] GFR/1.73 sq M.predicted among non-blacks MDRD (S/P/Bld) [Vol rate/Area] 83 mL/min/{1.73_m2} - PINF [facility] Comment on above: Calculations of lloyd mated GFR are performed using the 2020 CKD-EPI Study Refit equation without the race variable for the IDMS-Traceable creatinine methods. https://jasn.asnjournals.org/content/early/ASN.2020 194240 Glucose [Mass/Vol] 91 mg/dL 74 - 99 mg/dL [facility] Interpretation and review of laboratory results Abnormal [facility] Potassium [Moles/Vol] 3.7 mmol/L 3.5 - 5.3 mmol/L [facility] Protein [Mass/Vol] 6.7 g/dL 6.4 - 8.2 g/dL [facility] Sodium [Moles/Vol] 139 mmol/L 136 - 145 mmol/L [facility] Urea nitrogen [Mass/Vol] 17 mg/dL 6 - 23 mg/dL [facility] Albumin BCP dye [Mass/Vol] 4.0 g/dL Normal 3.4-5.[address] [facility] Comment on above: Performed By: #### 2 4323-8 #### DAX CUI (78297) [facility] ([facility]) [address] [place] [address] 53057 ALP [Catalytic activity/Vol] 59 U/L Normal 33-[address] [facility] Comment on above: Performed By: #### 2 4323-8 #### DAX CUI (04577) [facility] ([facility]) [address] [place] [address] 15638 ALT With P-5'-P [Catalytic activity/Vol] 14 U/L Normal 7-[address] [facility] Comment on above: Result Comment: Radha ents treated with Sulfasalazine may generate falsely decreased results for ALT. Performed By: #### 2 4322-8 #### DAX CUI (70381) [facility] ([facility]) [address] [place] [address] 84233 Anion gap [Moles/Vol] 9 mmol/L Low 10-20 [facility] Comment on above: Performed By: #### 2 4322-8 #### DAX CUI (36687) [facility] ([facility]) [address] [place] [address] 36328 AST With P-5'-P [Catalytic activity/Vol] 16 U/L Normal 9-[address] [facility] Comment on above: Performed By: #### 2 4322-8 #### DAX CUI (18533) [facility] ([facility]) [address] [place] [address] 53898 Bilirubin [Mass/Vol] 0.3 mg/dL Normal 0.0-1.2 [facility] Comment on above: Performed By: #### 2 3-8 #### DAX CUI (14917) [facility] ([facility]) [address] [place] [address] 66885 Calcium [Mass/Vol] 8.8 mg/dL Normal 8.6-10.3 [facility] Comment on above: Performed By: #### 2 4322-8 #### DAX CUI (74597) [facility] ([facility]) [address] [place] [address] Chloride [Moles/Vol] 107 mmol/L Normal 98-107 [facility] Comment on above: Performed By: #### 2 4323-8 #### DAX CUI (42714) [facility] ([facility]) [address] [place] [address] CO2 [Moles/Vol] 27 mmol/L Normal 21-32 [facility] Comment on above: Performed By: #### 2 4323-8 #### DAX CUI (58298) [facility] ([facility]) [address] [place] [address] 93471 Creatinine [Mass/Vol] 0.82 mg/dL Normal 0.50-1.05 [facility] Comment on above: Performed By: #### 2 4323-8 #### DAX CUI (77649) [facility] ([facility]) [address] [place] [address] 51152 Glomerular filtration rate/1.73 sq M.predicted 83 mL/min/1.73m*2 Normal >[address] [facility] Comment on above: Result Comment: Calc ulations of estimated GFR are performed using the 2020 CKD-EPI Study Refit equation without the race variable for the IDMS-Traceable creatinine methods. https://jasn.asnjournals.org/content//ASN.2020 835941 Performed By: #### 2 4323-8 #### DAX CUI (65280) [facility] ([facility]) [address] [place] [address] Glucose [Mass/Vol] 91 mg/dL Normal 74-99 [facility] Comment on above: Performed By: #### 2 4323-8 #### DAX CUI (92292) [facility] ([facility]) [address] [place] [address] Potassium [Moles/Vol] 3.7 mmol/L Normal 3.5-5.3 [facility] Comment on above: Performed By: #### 2 4323-8 #### DAX CUI (00471) [facility] ([facility]) [address] [place] [address] 77307 Protein [Mass/Vol] 6.7 g/dL Normal 6.4-8.2 [facility] Comment on above: Performed By: #### 2 4323-8 #### DAX CUI (07879) [facility] ([facility]) [address] [place] [address] 48977 Sodium [Moles/Vol] 139 mmol/L Normal 136-145 [facility] Comment on above: Performed By: #### 2 4323-8 #### DAX CUI (80627) [facility] ([facility]) [address] [place] [address] 34792 Urea nitrogen [Mass/Vol] 17 mg/dL Normal 6-[address] [facility] Comment on above: Performed By: #### 2 4323-8 #### DAX CUI (13684) [facility] ([facility]) [address] [place] [address] 01897 D-dimer, Non VTEon 4 Fibrin D-dimer FEU (PPP) [Mass/Vol] 733 [facility] ECG 12-LEADon 01-26-2024 ECG 12-LEAD Ventricular Rate 69 Atrial Rate 69 P-R Interval 162 QRS Duration 66 Q-T Interval 400 QTC Calculation(Bazett) 428 P [place] 54 R [place] 54 T [place] 62 QRS Count 11 Q Onset 222 P Onset 141 P Offset 185 T Offset 422 QTC Fredericia 419 Diagnosis Normal sinus rhythm Normal ECG No previous ECGs available See ED provider note for full interpretation and clinical correlation Confirmed by Maria Esther Miramontes ([id number]) on 01/29/2024 11:26:09 AM Normal [facility] ESR Westergren method (Bld) [Velocity]on 01-26-2024 ESR (Bld) [Velocity] 26 mm/h 0 - 30 mm/h [facility] Interpretation and review of laboratory results Normal [facility] ESR (Bld) [Velocity] 26 mm/h Normal 0-30 [facility] Comment on above: Performed By: #### 4 537-7 #### DAX CUI (83276) [facility] ([facility]) [address] [place] [address] 13845 Fibrin D-dimer FEUon 024 Fibrin D-dimer FEU (PPP) [Mass/Vol] 733 ng/mL FEU High <=[address] [facility] Comment on above: Order Comment: The D -Dimer assay is reported in ng/mL Fibrinogen Equivalent Units (FEU). The results of this assay should NOT be used for the exclusion of Deep Vein Thrombosis and/or Pulmonary Embolism. Performed By: #### 4 8065-7 #### DAX CUI (43508) [facility] ([facility]) [address] [place] [address] 58099 Fibrin D-dimer FEU (PPP) [Ma ss/Vol]on 01-26-2024 Interpretation and review of laboratory results Abnormal [facility] The D-Dimer assay is reported in ng/mL Fibrinogen Equivalent Units (FEU). The results of this assay should NOT be used for the exclusion of Deep Vein Thrombosis and/or Pulmonary Embolism. [facility] Lactateon 01-26-2024 Lactate [Moles/Vol] 0.7 mmol/L 0.4 - 2. 0 mmol/L [facility] Lactate [Moles/Vol] 0.7 mmol/L Normal 0.4-2.0 [facility] Comment on above: Order Comment: Venip uncture immediately after or during the administration of Metamizole may lead to falsely low results. Testing should be performed immediately prior to Metamizole dosing. Performed By: #### 2 524-7 #### DAX CUI (76755) [facility] ([facility]) [address] [place] [address] 50758 Lactate [Moles/Vol]on 2023 Interpretation and review of laboratory results Normal [facility] Venipuncture immediately after or during the administration of Metamizole may lead to falsely low results. Testing should be performed immediately prior to Metamizole dosing. [facility] Natriuretic peptide B [Mass/ Vol]on 01-26-2024 Interpretation and review of laboratory results Normal [facility] Natriuretic peptide B (Bld) [Mass/Vol] 52 pg/mL 0 - 99 pg/mL [facility] <100 pg/mL - Heart failure unlikely 100-299 pg/mL - Intermediate probability of acute heart failure exacerbation. Correlate with clinical context and patient history. >=300 pg/mL - Heart Failure likely. Correlate with clinical context and patient history. BNP testing is performed using different testing methodology at [facility] than at other [facility]. Direct result comparisons should only be made within the same method. [facility] Natriuretic peptide B (Bld) [Mass/Vol] 52 pg/mL Normal 0-[address] [facility] Comment on above: Order Comment: <100 pg/mL - Heart failure [id number] pg/mL - Intermediate probability of acute heart failure exacerbation. Correlate with clinical context and patient history. >=300 pg/mL - Heart Failure likely. Correlate with clinical context and patient history.BNP testing is performed using different testing methodology at [facility] than at other [facility]. Direct result comparisons should only be made within the same method. Performed By: #### 5 7021-8 #### VERDUZCO SEE (00383) [facility] ([facility]) [address] [place] [address] Tropinin I.cardiac panel Hig h sensitivity methodon 01-26-2024 Interpretation and review of laboratory results Normal [facility] Less than 99th percentile of normal range [...] performed using a different testing methodology at [facility] than at other [facility]. Direct result comparisons should only be made within the same method. [facility] Interpretation and review of laboratory results Normal [facility] Less than 99th percentile of normal range [...] performed using a different testing methodology at [facility] than at [facility]. Direct result comparisons should only be made within the same method. [facility] Troponin I, High Sensitivity , Initialon 01-26-2024 Tropinin I.cardiac panel High sensitivity method 3 ng/L 0 - 13 ng/L [facility] Troponin I.cardiac panelon 0 01-26-2024 Tropinin I.cardiac panel High sensitivity method 3 ng/L Normal 0-[address] [facility] Comment on above: Order Comment: Less [...] performed using a different testing methodology at [facility] than at other [facility]. Direct result comparisons should only be made within the same method. Performed By: #### 8 9577-1 #### VERDUZCO SEE (98152) [facility] ([facility]) [address] [place] [address] Tropinin I.cardiac panel High sensitivity method 3 ng/L Normal 0-[address] [facility] Comment on above: Order Comment: Less [...] performed using a different testing methodology at [facility] than at other [facility]. Direct result comparisons should only be made within the same method. Performed By: #### 8 9577-1 #### VERDUZCO SEE (41031) [facility] ([facility]) [address] [place] [address] Troponin, High Sensitivity, 1 Houron 01-26-2024 Tropinin I.cardiac panel High sensitivity method 3 ng/L 0 - 13 ng/L [facility] XR CHEST 1 VIEWon 01-26-2024 XR CHEST 1 VIEW Interpreted By: Prem Thompson, STUDY: XR CHEST 1 VIEW; 01/26/2024 10:55 am INDICATION: Signs/Symptoms:HTN. COMPARISON: None. ACCESSION NUMBER(S): [id number] ORDERING CLINICIAN: JEANNIE NIELSEN FINDINGS: CARDIOMEDIASTINAL SILHOUETTE: Cardiomediastinal silhouette is normal in size and configuration. LUNGS: Lungs are clear. ABDOMEN: No remarkable upper abdominal findings. BONES: No acute osseous changes. IMPRESSION: 1. No evidence of acute cardiopulmonary process. MACRO: None Signed by: Prem Thompson 01/26/2024 11:24 AM Dictation workstation: [id number] Normal [facility] XR Chest Single viewon 01-25 1. No evidence of acute cardiopulmonary process. MACRO: None Signed by: Prem Thompson 01/26/2024 11:24 AM Dictation workstation: [id number] MMODAL Interpreted By: Prem Thompson, STUDY: XR CHEST 1 VIEW; 01/26/2024 10:55 am INDICATION: Signs/Symptoms:HTN. COMPARISON: None. ACCESSION NUMBER(S): [id number] ORDERING CLINICIAN: JEANNIE NIELSEN FINDINGS: CARDIOMEDIASTINAL SILHOUETTE: Cardiomediastinal silhouette is normal in size and configuration. LUNGS: Lungs are clear. ABDOMEN: No remarkable upper abdominal findings. BONES: No acute osseous changes. MMODAL Prem Thompson MD - 01/26/2024 Interpreted By: Prem Thompson, STUDY: XR CHEST 1 VIEW; 01/26/2024 10:55 am INDICATION: Signs/Symptoms:HTN. COMPARISON: None. ACCESSION NUMBER(S): [id number] ORDERING CLINICIAN: JEANNIE NIELSEN FINDINGS: CARDIOMEDIASTINAL SILHOUETTE: Cardiomediastinal silhouette is normal in size and configuration. LUNGS: Lungs are clear. ABDOMEN: No remarkable upper abdominal findings. BONES: No acute osseous changes. IMPRESSION: 1. No evidence of acute cardiopulmonary process. MACRO: None Signed by: Prem Thompson 01/26/2024 11:24 AM Dictation workstation: [id number] [facility] Work Phone: Radiology Study observation (narrative) [facility] Work Phone: XR Chest Single viewOrdered By: Prem Thompson on 01-26-2024 [facility] Work Phone: C reactive proteinon 024 CRP [Mass/Vol] 1.47 mg/dL High <1.00 [facility] Comment on above: Performed By: #### 4 548-4 #### VERDUZCO SEE (38122) [facility] ([facility]) [address] [place] [address] CBC W Auto Differential pane l (Bld)on 01-09-2024 Basophils (Bld) [#/Vol] 0.03 x10*3/uL Normal 0.00-0.10 [facility] Comment on above: Performed By: #### 4 548-4 #### DAX CUI (15311) [facility] ([facility]) [address] [place] [address] 77564 Basophils/100 WBC (Bld) 0.3 % Normal 0.0-2.0 [facility] Comment on above: Performed By: #### 4 548-4 #### DAX CUI (95096) [facility] ([facility]) [address] [place] [address] 64177 Eosinophils (Bld) [#/Vol] 0.10 x10*3/uL Normal 0.00-0.70 [facility] Comment on above: Performed By: #### 4 548-4 #### DAX CUI (15204) [facility] ([facility]) [address] [place] [address] 26661 Eosinophils/100 WBC (Bld) 1.0 % Normal 0.0-6.0 [facility] Comment on above: Performed By: #### 4 548-4 #### DAX CUI (84718) [facility] ([facility]) [address] [place] [address] 86937 Erythrocyte distribution width (RBC) [Ratio] 12.8 % Normal 11.5-14.5 [facility] Comment on above: Performed By: #### 4 548-4 #### DAX CUI (55557) [facility] ([facility]) [address] [place] [address] 78867 Hematocrit (Bld) [Volume fraction] 41.4 % Normal 36.0-46.0 [facility] Comment on above: Performed By: #### 4 548-4 #### DAX CUI (70851) [facility] ([facility]) [address] [place] [address] 59927 Hemoglobin (Bld) [Mass/Vol] 13.4 g/dL Normal 12.0-16.0 [facility] Comment on above: Performed By: #### 4 548-4 #### DAX CUI (28014) [facility] ([facility]) [facility] [place] [address] Immature granulocytes (Bld) [#/Vol] 0.03 x10*3/uL Normal 0.00-0.70 [facility] Comment on above: Performed By: #### 4 548-4 #### DAX CUI (24427) [facility] ([facility]) [address] [place] [address] 70725 Immature granulocytes/100 WBC (Bld) 0.3 % Normal 0.0-0.9 [facility] Comment on above: Result Comment: Tamela ture Granulocyte Count (IG) includes promyelocytes, myelocytes and metamyelocytes but does not include bands. Percent differential counts (%) should be interpreted in the context of the absolute cell counts (cells/UL). Performed By: #### 4 548-4 #### DAX CUI (78541) [facility] ([facility]) [address] [place] [address] 56771 Lymphocytes (Bld) [#/Vol] 2.69 x10*3/uL Normal 1.20-4.80 [facility] Comment on above: Performed By: #### 4 548-4 #### DAX CUI (54991) [facility] ([facility]) [address] [place] [address] 14164 Lymphocytes/100 WBC (Bld) 28.0 % Normal 13.0-44.0 [facility] Comment on above: Performed By: #### 4 548-4 #### DAX CUI (49864) [facility] ([facility]) [address] [place] [address] 52754 MCH (RBC) [Entitic mass] 30.9 pg Normal 26.0-34.0 [facility] Comment on above: Performed By: #### 4 548-4 #### DAX CUI (05775) [facility] ([facility]) [address] [place] [address] 95805 MCHC (RBC) [Mass/Vol] 32.4 g/dL Normal 32.0-36.0 [facility] Comment on above: Performed By: #### 4 548-4 #### DAX CUI (92851) [facility] ([facility]) [address] [place] [address] 95737 MCV (RBC) [Entitic vol] 95 fL Normal 80-100 [facility] Comment on above: Performed By: #### 4 548-4 #### DAX CUI (83576) [facility] ([facility]) [address] [place] [address] 51152 Monocytes (Bld) [#/Vol] 0.60 x10*3/uL Normal 0.10-1.00 [facility] Comment on above: Performed By: #### 4 548-4 #### DAX CUI (81987) [facility] ([facility]) [address] [place] [address] 81707 Monocytes/100 WBC (Bld) 6.2 % Normal 2.0-10.0 [facility] Comment on above: Performed By: #### 4 548-4 #### DAX CUI (73669) [facility] ([facility]) [address] [place] [address] 00083 Neutrophils (Bld) [#/Vol] 6.17 x10*3/uL Normal 1.20-7.70 [facility] Comment on above: Result Comment: Perc ent differential counts (%) should be interpreted in the context of the absolute cell counts (cells/uL). Performed By: #### 4 548-4 #### DAX CUI (43143) [facility] ([facility]) [address] [place] [address] 97719 Neutrophils/100 WBC (Bld) 64.2 % Normal 40.0-80.0 [facility] Comment on above: Performed By: #### 4 548-4 #### DAX CUI (12749) [facility] ([facility]) [address] [place] [address] 47534 Nucleated RBC/100 WBC (Bld) [Ratio] 0.0 /100 WBCs Normal 0.0-0.0 [facility] Comment on above: Performed By: #### 4 548-4 #### DAX CUI (86773) [facility] ([facility]) [address] [place] [address] 67657 Platelets (Bld) [#/Vol] 294 x10*3/uL Normal 150-450 [facility] Comment on above: Performed By: #### 4 548-4 #### DAX CUI (71913) [facility] ([facility]) [address] [place] [address] RBC (Bld) [#/Vol] 4.34 x10*6/uL Normal 4.00-5.20 [facility] Comment on above: Performed By: #### 4 548-4 #### DAX CUI (19099) [facility] ([facility]) [address] [place] [address] WBC (Bld) [#/Vol] 9.6 x10*3/uL Normal 4.4-11.3 [facility] Comment on above: Performed By: #### 4 548-4 #### DAX CUI (62457) [facility] ([facility]) [address] [place] [address] Comprehensive metabolic 2000 panelon 01-09-2024 Albumin BCP dye [Mass/Vol] 4.9 g/dL Normal 3.4-5.0 [facility] Comment on above: Performed By: #### 4 548-4 #### DAX CUI (09888) [facility] ([facility]) [address] [place] [address] ALP [Catalytic activity/Vol] 51 U/L Normal 33-110 [facility] Comment on above: Performed By: #### 4 548-4 #### DAX CUI (29178) [facility] ([facility]) [address] [place] [address] ALT With P-5'-P [Catalytic activity/Vol] 15 U/L Normal 7-45 [facility] Comment on above: Result Comment: Radha ents treated with Sulfasalazine may generate falsely decreased results for ALT. Performed By: #### 4 548-4 #### DAX CUI (24550) [facility] ([facility]) [address] [place] [address] Anion gap [Moles/Vol] 15 mmol/L Normal 10-20 [facility] Comment on above: Performed By: #### 4 548-4 #### DAX CUI (72671) [facility] ([facility]) [address] [place] [address] AST With P-5'-P [Catalytic activity/Vol] 20 U/L Normal 9-39 [facility] Comment on above: Performed By: #### 4 548-4 #### DAX CUI (71784) [facility] ([facility]) [address] [place] [address] 87730 Bilirubin [Mass/Vol] 0.4 mg/dL Normal 0.0-1.2 [facility] Comment on above: Performed By: #### 4 548-4 #### DAX CUI (27242) [facility] ([facility]) [address] [place] [address]37 Calcium [Mass/Vol] 9.6 mg/dL Normal 8.6-10.3 [facility] Comment on above: Performed By: #### 4 548-4 #### DAX CUI (90370) [facility] ([facility]) [address] [place] [address] Chloride [Moles/Vol] 106 mmol/L Normal 98-107 [facility] Comment on above: Performed By: #### 4 548-4 #### ADX CUI (00765) [facility] ([facility]) [address] [place] [address] CO2 [Moles/Vol] 23 mmol/L Normal 21-32 [facility] Comment on above: Performed By: #### 4 548-4 #### DAX CUI (22063) [facility] ([facility]) [address] [place] [address] Creatinine [Mass/Vol] 0.94 mg/dL Normal 0.50-1.05 [facility] Comment on above: Performed By: #### 4 548-4 #### DAX CUI (42382) [facility] ([facility]) [address] [place] [address] 22994 Glomerular filtration rate/1.73 sq M.predicted 70 mL/min/1.73m*2 Normal >60 [facility] Comment on above: Result Comment: Calc ulations of estimated GFR are performed using the 2020 CKD-EPI Study Refit equation without the race variable for the IDMS-Traceable creatinine methods. https://jasn.asnjournals.org/content/early//ASN.2020 472334 Performed By: #### 4 548-4 #### DAX CUI (74309) [facility] ([facility]) [address] [place] [address] 05234 Glucose [Mass/Vol] 109 mg/dL High 74-99 [facility] Comment on above: Performed By: #### 4 548-4 #### DAX CUI (78091) [facility] ([facility]) [address] [place] [address] 76788 Potassium [Moles/Vol] 3.6 mmol/L Normal 3.5-5.3 [facility] Comment on above: Performed By: #### 4 548-4 #### DXA CUI (83084) [facility] ([facility]) [address] [place] [address] 23555 Protein [Mass/Vol] 7.1 g/dL Normal 6.4-8.2 [facility] Comment on above: Performed By: #### 4 548-4 #### DAX CUI (24447) [facility] ([facility]) [address] [place] [address] 64382 Sodium [Moles/Vol] 140 mmol/L Normal 136-145 [facility] Comment on above: Performed By: #### 4 548-4 #### DAX CUI (15296) [facility] ([facility]) [address] [place] [address] 23582 Urea nitrogen [Mass/Vol] 19 mg/dL Normal 6-23 [facility] Comment on above: Performed By: #### 4 548-4 #### DAX CUI (75502) [facility] ([facility]) [address] [place], [place] [address] Cyclic citrullinated peptide Ab.IgGon 01-09-2024 Cyclic citrullinated peptide IgG Qn <1 Normal <3 [facility] Comment on above: Order Comment: Diagn osis of Diabetes-Adults Non-Diabetic: < or = 5.6% Increased risk for developing diabetes: 5.7-6.4% Diagnostic of diabetes: > or = 6.5% Monitoring of Diabetes Age (y)....................... Therapeutic Goal (%) Adults: >18.........................<7.0 Pediatrics: 13-18...................<7.5 Pediatrics: 7-12....................<8.0 Pediatrics: 0-6..................... 7.5-8.5 [employer] [employer]. Diabetes Care 33(S1), Apr 2009 Result Comment: NEGA TIVE < 3 U/ML POSITIVE >=3 U/ML Performed By: #### 4 548-4 #### DAX CUI (11831) [facility] ([facility]) [address] [place], [place] [id number] ESR Westergren method (Bld) [Velocity]on 01-09-2024 ESR (Bld) [Velocity] 16 mm/h Normal 0-30 [facility] Comment on above: Performed By: #### 4 548-4 #### DAX CUI (50297) [facility] ([facility]) [facility] [place] [address] Nuclear Abon 01-09-2024 Nuclear Ab Hep2 substrate Ql (S) Negative Normal Negative [facility] Comment on above: Result Comment: The Antinuclear Antibody (GOMEZ) test was performed using indirect immunofluorescence assay with HEp-2 cells slide. Performed By: #### 4 548-4 #### DAX CUI (77517) [facility] ([facility]) [address] [place] [address] Rheumatoid factoron 01-09-20 24 Rheumatoid factor Nephelometry Qn (S) 11 IU/mL Normal 0-15 [facility] Comment on above: Performed By: #### 4 548-4 #### DAX CUI (13576) [facility] ([facility]) [address] [place] [address] Urinalysis complete panel (U )on 01-09-2024 Appearance (U) Clear Normal Clear [facility] Comment on above: Performed By: #### 4 548-4 #### DAX CUI (37054) [facility] ([facility]) [address] [place] [address] Bilirubin (U) [Mass/Vol] Negative Normal NEGATIVE [facility] Comment on above: Performed By: #### 4 548-4 #### DAX CUI (58646) [facility] ([facility]) [address] [place] [address] Color (U) Yellow Normal Light-Yellow, Yellow, Dark-Yellow [facility] Comment on above: Performed By: #### 4 548-4 #### DAX CUI (35192) [facility] ([facility]) [address] [place] [address] Glucose Auto test strip (U) [Mass/Vol] Normal Normal Normal [facility] Comment on above: Performed By: #### 4 548-4 #### DAX CUI (00268) [facility] ([facility]) [address] [place], [place] [address] Ketones (U) [Mass/Vol] Negative Normal NEGATIVE [facility] Comment on above: Performed By: #### 4 548-4 #### DAX CUI (84329) [facility] ([facility]) [address] [place] [address] Leukocyte esterase Auto test strip Ql (U) Negative Normal NEGATIVE [facility] Comment on above: Performed By: #### 4 548-4 #### DAX CUI (59951) [facility] ([facility]) [address] [place] [address] 39325 Nitrite Auto test strip Ql (U) 2+ Abnormal NEGATIVE [facility] Comment on above: Performed By: #### 4 548-4 #### DAX CUI (21155) [facility] ([facility]) [address] [place] [address] pH (U) 6.0 [pH] Normal 5.0, 5.5, 6.0, 6.5, 7.0, 7.5, 8.0 [facility] Comment on above: Performed By: #### 4 548-4 #### DAX CUI (64640) [facility] ([facility]) [address] [place] [address] Protein (U) [Mass/Vol] 10 (TRACE) Normal NEGAT JOSE, 10 (TRACE), 20 (TRACE) [facility] Comment on above: Performed By: #### 4 548-4 #### DAX CUI (22177) [facility] ([facility]) [address] [place] [address] 75824 RBC (U) [#/Vol] Negative Normal NEGATIVE [facility] Comment on above: Performed By: #### 4 548-4 #### DAX CUI (98026) [facility] ([facility]) [address] [place] [address] 79991 Specific gravity (U) [Rel density] 1.027 Normal 1.005-1.035 [facility] Comment on above: Performed By: #### 4 548-4 #### DAX CUI (20600) [facility] ([facility]) [address] [place] [address] 98607 Urobilinogen (U) [Mass/Vol] Normal Normal Normal [facility] Comment on above: Performed By: #### 4 548-4 #### DAX UCI (46474) [facility] ([facility]) [address] [place] [address] Urinalysis microscopic panel Auto Ql (U)on 01-09-2024 Bacteria Auto (Urine sed) [#/Area] 1+ /HPF Abnormal NONE SEEN [facility] Comment on above: Performed By: #### 4 548-4 #### DAX CUI (22225) [facility] ([facility]) [address] [place] [address] Calcium oxalate crystals Computer assisted (U) [#/Area] 2+ /HPF Abnormal NONE, 1+ [facility] Comment on above: Performed By: #### 4 548-4 #### DAX CUI (86614) [facility] ([facility]) [address] [place] [address] Epithelial cells.squamous Auto (Urine sed) [#/Area] 1-9 (SPARSE) Normal Reference range not established. [facility] Comment on above: Performed By: #### 4 548-4 #### DAX CUI (48097) [facility] ([facility]) [address] [place] [address] Mucus Auto (Urine sed) [#/Area] FEW Normal Reference range not established. [facility] Comment on above: Performed By: #### 4 548-4 #### DAX CUI (23187) [facility] ([facility]) [address] [place] [address] RBC Auto (Urine sed) [#/Area] 1-2 Normal NONE, 1-2, 3-5 [facility] Comment on above: Performed By: #### 4 548-4 #### DAX CUI (93310) [facility] ([facility]) [address] [place] [address] WBC Auto (Urine sed) [#/Area] 1-5 Normal 1-5, NONE [facility] Comment on above: Performed By: #### 4 548-4 #### DAX CUI (30886) [facility] ([facility]) [address] [place] [address] XR FOOT LEFT 3+ VIEWS (STAND LAURA)on [...] SunApr 25, 2023 9:50:28 PM EST Normal [facility] Comment on above: Order Comment: Injur y/Trauma or Illness?:Illness/Other How long have you had these symptoms (acute/chronic)?:Chronic Reason for exam?:pain History of cancer?:no Surgeries, chemotherapy, or radiation?:no Type of Exam?:Initial Additional signs and symptoms?:no CBC W Auto Differential pane l (Bld)on 03-31-2023 Basophils (Bld) [#/Vol] 0.03 x10*3/uL Normal 0.00-0.10 [facility] Comment on above: Performed By: #### 5 7021-8 #### DAX CUI (19841) [facility] ([facility]) [address] [place] [address] 26000 Basophils/100 WBC (Bld) 0.6 % Normal 0.0-2.0 [facility] Comment on above: Performed By: #### 5 7021-8 #### DAX CUI (30804) [facility] ([facility]) [facility] [place] [address] Eosinophils (Bld) [#/Vol] 0.17 x10*3/uL Normal 0.00-0.70 [facility] Comment on above: Performed By: #### 5 7021-8 #### DAX CUI (99997) [facility] ([facility]) [address] [place] [address] 84982 Eosinophils/100 WBC (Bld) 3.3 % Normal 0.0-6.0 [facility] Comment on above: Performed By: #### 5 7021-8 #### DAX CUI (06031) [facility] ([facility]) [address] [place] [address] 80318 Erythrocyte distribution width (RBC) [Ratio] 13.0 % Normal 11.5-14.5 [facility] Comment on above: Performed By: #### 5 7021-8 #### DAX CUI (81857) [facility] ([facility]) [address] [place] [address] Hematocrit (Bld) [Volume fraction] 38.8 % Normal 36.0-46.0 [facility] Comment on above: Performed By: #### 5 7021-8 #### DAX CUI (03411) [facility] ([facility]) [address] [place] [address] Hemoglobin (Bld) [Mass/Vol] 12.2 g/dL Normal 12.0-16.0 [facility] Comment on above: Performed By: #### 5 7021-8 #### DAX CUI (23911) [facility] ([facility]) [address] [place], [place] [address] Immature granulocytes (Bld) [#/Vol] 0.01 x10*3/uL Normal 0.00-0.70 [facility] Comment on above: Performed By: #### 5 7021-8 #### DAX CUI (86100) [facility] ([facility]) [address] [place] [address] 76541 Immature granulocytes/100 WBC (Bld) 0.2 % Normal 0.0-0.9 [facility] Comment on above: Result Comment: Tamela ture Granulocyte Count (IG) includes promyelocytes, myelocytes and metamyelocytes but does not include bands. Percent differential counts (%) should be interpreted in the context of the absolute cell counts (cells/UL). Performed By: #### 5 7021-8 #### DAX CUI (07362) [facility] ([facility]) [address] [place] [address] 26038 Lymphocytes (Bld) [#/Vol] 2.21 x10*3/uL Normal 1.20-4.80 [facility] Comment on above: Performed By: #### 5 7021-8 #### DAX CUI (53820) [facility] ([facility]) [address] [place] [address] 89554 Lymphocytes/100 WBC (Bld) 43.3 % Normal 13.0-44.0 [facility] Comment on above: Performed By: #### 5 7021-8 #### DAX CUI (01662) [facility] ([facility]) [address] [place] [address] 36739 MCH (RBC) [Entitic mass] 30.7 pg Normal 26.0-34.0 [facility] Comment on above: Performed By: #### 5 7021-8 #### DAX CUI (16996) [facility] ([facility]) [address] [place] [address] 58721 MCHC (RBC) [Mass/Vol] 31.4 g/dL Low 32.0-36.0 [facility] Comment on above: Performed By: #### 5 7021-8 #### DAX CUI (40947) [facility] ([facility]) [address] [place] [address] 28870 MCV (RBC) [Entitic vol] 98 fL Normal 80-100 [facility] Comment on above: Performed By: #### 5 7021-8 #### DAX CUI (02417) [facility] ([facility]) [address] [place] [address] 34926 Monocytes (Bld) [#/Vol] 0.46 x10*3/uL Normal 0.10-1.00 [facility] Comment on above: Performed By: #### 5 7021-8 #### DAX CUI (78843) [facility] ([facility]) [address] [place] [address] 71311 Monocytes/100 WBC (Bld) 9.0 % Normal 2.0-10.0 [facility] Comment on above: Performed By: #### 5 7021-8 #### DAX CUI (12455) [facility] ([facility]) [address] [place] [address] 13691 Neutrophils (Bld) [#/Vol] 2.22 x10*3/uL Normal 1.20-7.70 [facility] Comment on above: Result Comment: Perc ent differential counts (%) should be interpreted in the context of the absolute cell counts (cells/uL). Performed By: #### 5 7021-8 #### DAX CUI (86473) [facility] ([facility]) [address] [place] [address] 78653 Neutrophils/100 WBC (Bld) 43.6 % Normal 40.0-80.0 [facility] Comment on above: Performed By: #### 5 7021-8 #### DAX CUI (54819) [facility] ([facility]) [address] [place] [address] 74295 Nucleated RBC/100 WBC (Bld) [Ratio] 0.0 /100 WBCs Normal 0.0-0.0 [facility] Comment on above: Performed By: #### 5 7021-8 #### DAX CUI (72533) [facility] ([facility]) [address] [place] [address] 09975 Platelets (Bld) [#/Vol] 273 x10*3/uL Normal 150-450 [facility] Comment on above: Performed By: #### 5 7021-8 #### DAX CIU (79191) [facility] ([facility]) [address] [place] [address] 90374 RBC (Bld) [#/Vol] 3.98 x10*6/uL Low 4.00-5.20 [facility] Comment on above: Performed By: #### 5 7021-8 #### DAX CUI (91319) [facility] ([facility]) [address] [place] [address] 93808 WBC (Bld) [#/Vol] 5.1 x10*3/uL Normal 4.4-11.3 [facility] Comment on above: Performed By: #### 5 7021-8 #### DAX CUI (58629) [facility] ([facility]) [address] [place] [address] 06996 Calcidiolon 12-02-2023 25-hydroxyvitamin D3 [Mass/Vol] 57 ng/mL Normal 30-100 [facility] Comment on above: Order Comment: Defic iency: < 20 ng/ml Insufficiency: 20-29 ng/ml Sufficiency: 30-100 ng/ml This assay accurately quantifies the sum of Vitamin D3, 25-Hydroxy and Vitamin D2,25-Hydroxy. Performed By: #### 1 989-3 #### DAX CUI (44726) [facility] ([facility]) [address] [place] [address] 49134 Comprehensive metabolic 2000 panelon 03-31-2023 Albumin BCP dye [Mass/Vol] 4.9 g/dL Normal 3.4-5.0 [facility] Comment on above: Performed By: #### 2 4323-8 #### DAX CUI (83375) [facility] ([facility]) [address] [place] [address] 05463 ALP [Catalytic activity/Vol] 44 U/L Normal 33-110 [facility] Comment on above: Performed By: #### 2 4323-8 #### DAX CUI (05312) [facility] ([facility]) [address] [place] [address] 74240 ALT With P-5'-P [Catalytic activity/Vol] 11 U/L Normal 7-45 [facility] Comment on above: Result Comment: Radha ents treated with Sulfasalazine may generate falsely decreased results for ALT. Performed By: #### 2 4323-8 #### DAX CUI (40230) [facility] ([facility]) [address] [place] [address] 84908 Anion gap [Moles/Vol] 13 mmol/L Normal 10-20 [facility] Comment on above: Performed By: #### 2 4323-8 #### DAX CUI (55906) [facility] ([facility]) [address] [place] [address] 02962 AST With P-5'-P [Catalytic activity/Vol] 16 U/L Normal 9-39 [facility] Comment on above: Performed By: #### 2 4323-8 #### DAX CUI (98942) [facility] ([facility]) [address] [place] [address] Bilirubin [Mass/Vol] 0.9 mg/dL Normal 0.0-1.2 [facility] Comment on above: Performed By: #### 2 4323-8 #### DAX CUI (57376) [facility] ([facility]) [address] [place] [address] 49476 Calcium [Mass/Vol] 9.8 mg/dL Normal 8.6-10.3 [facility] Comment on above: Performed By: #### 2 4323-8 #### DAX CUI (90430) [facility] ([facility]) [address] [place] [address] 27955 Chloride [Moles/Vol] 107 mmol/L Normal 98-107 [facility] Comment on above: Performed By: #### 2 4323-8 #### DAX CUI (50266) [facility] ([facility]) [address] [place] [address] CO2 [Moles/Vol] 23 mmol/L Normal 21-32 [facility] Comment on above: Performed By: #### 2 4323-8 #### DAX CUI (95877) [facility] ([facility]) [address] [place] [address] Creatinine [Mass/Vol] 1.08 mg/dL High 0.50-1.05 [facility] Comment on above: Performed By: #### 2 4323-8 #### DAX CUI (89912) [facility] ([facility]) [facility] [place] [address] GFR/1.73 sq M.predicted MDRD (S/P/Bld) [Vol rate/Area] 60 mL/min/1.73m*2 Low >60 [facility] Comment on above: Result Comment: Calc ulations of estimated GFR are performed using the 2020 CKD-EPI Study Refit equation without the race variable for the IDMS-Traceable creatinine methods. https://jasn.asnjournals.org/content/early/ASN.2020 048743 Performed By: #### 2 4323-8 #### DAX CUI (74835) [facility] ([facility]) [address] [place] [address] 42211 Glucose [Mass/Vol] 89 mg/dL Normal 74-99 [facility] Comment on above: Performed By: #### 2 4323-8 #### DAX CUI (15630) [facility] ([facility]) [address] [place] [address] 14600 Potassium [Moles/Vol] 4.7 mmol/L Normal 3.5-5.3 [facility] Comment on above: Performed By: #### 2 4323-8 #### DAX CUI (78681) [facility] ([facility]) [address] [place] [address] 58350 Protein [Mass/Vol] 7.2 g/dL Normal 6.4-8.2 [facility] Comment on above: Performed By: #### 2 4323-8 #### DAX CUI (96338) [facility] ([facility]) [address] [place] [address] 71441 Sodium [Moles/Vol] 138 mmol/L Normal 136-145 [facility] Comment on above: Performed By: #### 2 4323-8 #### DAX CUI (64402) [facility] ([facility]) [address] [place] [address] 34897 Urea nitrogen [Mass/Vol] 30 mg/dL High 6-23 [facility] Comment on above: Performed By: #### 2 4323-8 #### DAX CUI (28860) [facility] ([facility]) [address] [place] [address] 28827 HbA1c (Bld) [Mass fraction]o n 03-31-2023 Average glucose Estimated from glycated hemoglobin (Bld) [Mass/Vol] 94 mg/dL Normal Not Established [facility] Comment on above: Order Comment: Diagn osis of Diabetes-Adults Non-Diabetic: < or = 5.6% Increased risk for developing diabetes: 5.7-6.4% Diagnostic of diabetes: > or = 6.5% Monitoring of Diabetes Age (y)....................... Therapeutic Goal (%) Adults: >18.........................<7.0 Pediatrics: 13-18...................<7.5 Pediatrics: 7-12....................<8.0 Pediatrics: 0-6..................... 7.5-8.5 [employer] [employer]. Diabetes Care 33(S1)Apr 2009 Performed By: #### 4 548-4 #### VERDUZCO SEE ([id number]) [facility] ([facility]) [address] [place] [address] Hemoglobin A1c/Hemoglobin.to alexy 03-31-2023 HbA1c (Bld) [Mass fraction] 4.9 % Normal see below [facility] Comment on above: Order Comment: Diagn osis of Diabetes-Adults Non-Diabetic: < or = 5.6% Increased risk for developing diabetes: 5.7-6.4% Diagnostic of diabetes: > or = 6.5% Monitoring of Diabetes Age (y)....................... Therapeutic Goal (%) Adults: >18.........................<7.0 Pediatrics: 13-18...................<7.5 Pediatrics: 7-12....................<8.0 Pediatrics: 0-6..................... 7.5-8.5 [employer] [employer]. Diabetes Care 33(S1), Apr 2009 Performed By: #### 4 548-4 #### DAX CUI ([id number]) [facility] ([facility]) [address] [place] [address] Insulinon 03-31-2023 Insulin Qn 12 u[IU]/mL Normal 3-25 [facility] Comment on above: Order Comment: Refer ence values apply to fasting specimens. Performed By: #### 2 0448-7 #### TRUE Lock ([id number]) [facility] ([facility]) [id number] [place], [place] [id number] Ironon 03-31-2023 Iron [Mass/Vol] 208 ug/dL High 35-150 [facility] Comment on above: Performed By: #### 2 498-4 #### DAX CUI ([id number]) [facility] ([facility]) [address] [place] [id number] Lipid 1996 panelon Cholesterol [Mass/Vol] 242 mg/dL High 0-199 [facility] Comment on above: Result Comment: Age [...] By: #### 2 4331-1 #### DAX CUI ([id number]) [facility] ([facility]) [address] [place] [id number] Cholesterol in HDL [Mass/Vol] 54.0 mg/dL Normal [facility] Comment on above: Result Comment: Age Very Low Low Normal High 0-19 Y < 35 < 40 40-45 ---- 20-24 Y ---- < 40 >45 ---- >24 Y ---- < 40 40-60 >60 Performed By: #### 2 4331-1 #### DAX CUI (07426) [facility] ([facility]) [address] [place] [address] Cholesterol in LDL [Mass/Vol] 169 mg/dL High <=99 [facility] Comment on above: Result Comment: Near Borderline AGE Desirable Optimal High High Very High 0-19 Y 0 - 109 --- 110-129 >/= 130 ---- 20-24 Y 0 - 119 --- 120-159 >/= 160 ---- >24 Y 0 - 99 100-129 130-159 160-189 >/=190 Performed By: #### 2 4331-1 #### DAX CUI (41363) [facility] ([facility]) [address] [place] [address]1686 Cholesterol in VLDL [Mass/Vol] 19 mg/dL Normal 0-40 [facility] Comment on above: Performed By: #### 2 4331-1 #### DAX CUI (06172) [facility] ([facility]) [address] [place] [address]78 CHOLESTEROL/HDL RATIO 4.5 Normal [facility] Comment on above: Result Comment: Ref Values Desirable < 3.4 High Risk > 5.0 Performed By: #### 2 4331-1 #### DAX CUI (39387) [facility] ([facility]) [address] [place] [address] 67471 NON HDL CHOLESTEROL 188 mg/dL High 0-149 [facility] Comment on above: Result Comment: Age Desirable Borderline High High Very High 0-19 Y 0 - 119 120 - 144 >/= 145 >/= 160 20-24 Y 0 - 149 150 - 189 >/= 190 ---- >24 Y 30 mg/dL above LDL Cholesterol goal Performed By: #### 2 4331-1 #### DAX CUI (48802) [facility] ([facility]) [facility] [place] [address] Triglyceride [Mass/Vol] 93 mg/dL Normal 0-149 [facility] Comment on above: Result Comment: Age Desirable [...] By: #### 2 4331-1 #### DAX CUI (08384) [facility] ([facility]) [address] [place], [place] [id number] Thyrotropinon 03-31-2023 TSH Qn 1.17 m[IU]/L Normal 0.44-3.98 [facility] Comment on above: Order Comment: TSH t esting is performed using different testing methodology at [facility] than at other [facility]. Direct result comparisons should only be made within the same method. Performed By: #### 3 016-3 #### DAX CUI (19830) [facility] ([facility]) [address] [place], [place] [id number] Thyroxineon 03-31-2023 T4 [Mass/Vol] 5.4 ug/dL Normal 4.5-11.1 [facility] Comment on above: Performed By: #### 3 026-2 #### TRUE Lock (44253) [facility] ([facility]) [address] [place] [address] Triiodothyronineon T3 [Mass/Vol] 106 ng/dL Normal 60-200 [facility] Comment on above: Performed By: #### 3 053-6 #### TRUE Lock (49757) [facility] ([facility]) [address] [place] [address] No Panel Informationon 03-01 Degenerative change without osseous injury evident. MACRO: None Signed by: Jeannie Kimble 03/01/2023 7:38 PM Dictation workstation: [id number] MMODAL Interpreted By: Jeannie Kimble, STUDY: Right wrist and hand dated 03/01/2023 INDICATION: Signs/Symptoms:R hand/thumb/wrist/dist al forearm pain (radial aspect) after hitting hand on a door frame 4 days ago. COMPARISON: None. ACCESSION NUMBER(S): [id number]; [id number] ORDERING CLINICIAN: CARLOS MANUEL OCHOA TECHNIQUE: Four [...] 4 days ago. COMPARISON: None. ACCESSION NUMBER(S): [id number]; [id number] ORDERING CLINICIAN: CARLOS MANUEL OCHOA TECHNIQUE: Four [...] Jeannie Kimble 03/01/2023 7:38 PM Dictation workstation: [id number] [facility] Work Phone: Radiology Study observation (narrative) [facility] Work Phone: No Panel InformationOrdered By: Jeannie Kimble on 03-01-2023 [facility] Work Phone: CBC AUTO DIFFon 08-10-2022 BASO # 0.0 103/ul Normal 0.0-0.1 [facility] Comment on above: Performed By: #### E RUR #### [facility] [address] [address] [address] Anastasia Moran Basophils/100 WBC (Bld) 0.1 % Critically low 0.2-2.0 [facility] Comment on above: Performed By: #### E RUR #### [facility] [address] [place] [address] Dr. Anastasia Moran EO # 0.2 103/ul Normal 0.0-0.7 [facility] Comment on above: Performed By: #### E RUR #### [facility] [address] [place] [address] Dr. Anastasia Moran Eosinophils/100 WBC (Bld) 2.1 % Normal 0.9-7.0 [facility] Comment on above: Performed By: #### E RUR #### [facility] [address] [place] [address] Dr. Anastasia Moran Erythrocyte distribution width (RBC) [Ratio] 12.5 % Normal 11.0-15.0 [facility] Comment on above: Performed By: #### E RUR #### [facility] [address] [place] [address] Dr. Aanstasia Moran Hematocrit (Bld) [Volume fraction] 32.9 % Critically low 36.0-48.0 [facility] Comment on above: Performed By: #### E RUR #### [facility] [address] [place] [address] Dr. Anastasia Moran Hemoglobin (Bld) [Mass/Vol] 11.0 g/dL Critically low 12.0-16.0 [facility] Comment on above: Performed By: #### E RUR #### [facility] [address] [place] [address] Dr. Anastasia Moran IG # 0.02 10e3/ul Normal 0.00-0.03 [facility] Comment on above: Performed By: #### E RUR #### [facility] [address] [place] [address] Dr. Anastasia Moran IG % 0.2 % Normal 0.0-0.5 [facility] Comment on above: Performed By: #### E RUR #### [facility] [address] [place] [address] Dr. Anastasia Moran LYMPH # 2.7 103/ul Normal 1.2-3.8 [facility] Comment on above: Performed By: #### E RUR #### [facility] [address] [place] [address] Dr. Anastasia Moran Lymphocytes/100 WBC (Bld) 33.4 % Normal 20.5-60.0 [facility] Comment on above: Performed By: #### E RUR #### [facility] [address] [place] [address] Dr. Anastasia Moran MANUAL DIFF REQ NO Normal [facility] Comment on above: Performed By: #### E RUR #### [facility] [address] [place] [address] Dr. Anastasia Moran MCH (RBC) [Entitic mass] 29.6 pg Normal 26.7-34.0 [facility] Comment on above: Performed By: #### E RUR #### [facility] [address] [place] [address] Dr. Anastasia Moran MCHC (RBC) [Mass/Vol] 33.4 g/dL Normal 29.9-35.2 [facility] Comment on above: Performed By: #### E RUR #### [facility] [address] [place] [address] Dr. Anastasia Moran MCV (RBC) [Entitic vol] 88.7 fL Normal 81.0-99.0 [facility] Comment on above: Performed By: #### E RUR #### [facility] [address] [place] [address] Dr. Anastasia Moran MONO # 0.6 103/ul Normal 0.3-0.8 [facility] Comment on above: Performed By: #### E RUR #### [facility] [address] [place] [address] Dr. Anastasia Moran Monocytes/100 WBC (Bld) 6.8 % Normal 1.7-12.0 [facility] Comment on above: Performed By: #### E RUR #### [facility] [address] [place] [address] Dr. Anastasia Moran NEUT # 4.7 103/ul Normal 1.4-6.5 [facility] Comment on above: Performed By: #### E RUR #### [facility] [address] [place] [address] Dr. Anastasia Moran Neutrophils/100 WBC (Bld) 57.4 % Normal 43.0-75.0 [facility] Comment on above: Performed By: #### E RUR #### [facility] [address] [place] [address] Dr. Anastasia Moran Platelet mean volume (Bld) [Entitic vol] 9.5 fL Normal 9.5-13.5 [facility] Comment on above: Performed By: #### E RUR #### [facility] [address] [place] [address] Dr. Anastasia Moran PLT 250 103/ul Normal 150-450 [facility] Comment on above: Performed By: #### E RUR #### [facility] [address] [place] [address] Dr. Anastasia Moran RBC 3.71 106/ul Critically low 4.20-5.40 [facility] Comment on above: Performed By: #### E RUR #### [facility] [address] [place] [address] Dr. Anastasia Moran WBC 8.2 103/ul Normal 4.0-11.0 [facility] Comment on above: Performed By: #### E RUR #### [facility] [address] [place] [address] ABD/PELVIS WO CONon [...] CED CAMPOVERDE Date: 2022-08-10 16:24 Normal [facility] ER URINE PROFILEon 3 Bilirubin Ql (U) Negative Normal NEGATIVE [facility] Comment on above: Performed By: #### E RUR #### [facility] [address] [place] [address] Dr. Anastasia Moran Clarity (U) CLEAR Normal CLEAR [facility] Comment on above: Performed By: #### E RUR #### [facility] [address] [place] [address] Dr. Anastasia Moran Color (U) LT. YELLOW Normal YELLOW [facility] Comment on above: Performed By: #### E RUR #### [facility] [address] [place] [address] Dr. Anastasia Moran ERULee A micrscopic examination will be performed if indicated. Normal [facility] Comment on above: Performed By: #### E RUR #### [facility] [address] [place] [address] Dr. Anastasia Moran Glucose Ql (U) Negative Normal NEGATIVE [facility] Comment on above: Performed By: #### E RUR #### [facility] [address] [place] [address] Dr. Anastasia Moran Hemoglobin Ql (U) Negative Normal NEGATIVE [facility] Comment on above: Performed By: #### E RUR #### [facility] [address] [place] [address] Dr. Anastasia Moran Ketones Ql (U) Negative Normal NEGATIVE [facility] Comment on above: Performed By: #### E RUR #### [facility] [address] [place] [address] Dr. Anastasia Moran LEUKOCYTES Negative Normal NEGATIVE [facility] Comment on above: Performed By: #### E RUR #### [facility] [address] [place] [address] Dr. Anastasia Moran Nitrite Ql (U) Negative Normal NEGATIVE [facility] Comment on above: Performed By: #### E RUR #### [facility] [address] [place] [address] Dr. Anastasia Moran pH (U) 6.0 [pH] Normal 5-9 [facility] Comment on above: Performed By: #### E RUR #### [facility] [address] [place] [address] Dr. Anastasia Moran SPEC GRAVITY 1.025 Normal 1.005-<=1.025 [facility] Comment on above: Performed By: #### E RUR #### [facility] [address] [place] [address] Dr. Anastasia Moran UA PROTEIN Negative Normal NEGATIVE/ TRACE [facility] Comment on above: Performed By: #### E RUR #### [facility] [address] [place] [address] Dr. Anastasia Moran UR MICRO IND NOT INDICATED Normal [facility] Comment on above: Performed By: #### E RUR #### [facility] [address] [place] [address] Dr. Anastasia Moran Urobilinogen Qn (U) 0.2 {Rashid'U}/dL Normal 0.2 - 1. 0 [facility] Comment on above: Performed By: #### E RUR #### [facility] [address] [place] [address] Dr. Anastasia Moran PROF CHEM 8 (BAS METB)on Anion gap [Moles/Vol] 12.5 mmol/L Normal [facility] Comment on above: Performed By: #### E RUR #### [facility] [address] [place] [address] Dr. Anastasia Moran Calcium [Mass/Vol] 9.4 mg/dL Normal 8.5-10.1 [facility] Comment on above: Performed By: #### E RUR #### [facility] [address] [place] [address] Dr. Anastasia Moran Chloride [Moles/Vol] 104 mmol/L Normal 98-107 [facility] Comment on above: Performed By: #### E RUR #### [facility] [address] [place] [address] Dr. Anastasia Moran CO2 [Moles/Vol] 25.9 mmol/L Normal 21.0-32.0 [facility] Comment on above: Performed By: #### E RUR #### [facility] [address] [place] [address] Dr. Anastasia Moran Creatinine [Mass/Vol] 0.98 mg/dL Normal 0.55-1.02 [facility] Comment on above: Performed By: #### E RUR #### [facility] [address] [place] [address] Dr. Anastasia Moran EGFR-AF MACEDONIAN >60 Normal >=60 [facility] Comment on above: Performed By: #### E RUR #### [facility] [address] [place] [address] Dr. Anastasia Moran EGFR-NON AF MACEDONIAN 59 mL/min/1.73m2 Critically low >=60 [facility] Comment on above: Performed By: #### E RUR #### [facility] [address] [place] [address] Dr. Anastasia Moran Glucose [Mass/Vol] 87 mg/dL Normal 74-106 [facility] Comment on above: Performed By: #### E RUR #### [facility] [address] [place] [address] Dr. Anastasia Moran Potassium [Moles/Vol] 3.4 mmol/L Critically low 3.5-5.1 [facility] Comment on above: Performed By: #### E RUR #### [facility] [address] [address] [address] Anastasia Moran Sodium [Moles/Vol] 139 mmol/L Normal 136-145 [facility] Comment on above: Performed By: #### E RUR #### [facility] [address] [address] [address] Anastasia Moran Urea nitrogen [Mass/Vol] 14.0 mg/dL Normal 7.0-18.0 [facility] Comment on above: Performed By: #### E RUR #### [facility] [address] [place] [address] Dr. Anastasia Moran Urea nitrogen/Creatinine [Mass ratio] 14.3 mg/mg Normal [facility] Comment on above: Performed By: #### E RUR #### [facility] [address] [place] [address] Dr. Anastasia Moran [facility]on SARS-CoV-2 (COVID-19) RNA THALIA+probe Ql (Unsp spec) Not detected Normal NOT DETECTED [facility] Comment on above: Result Comment: This test is not yet approved or cleared by the [place] FDA. When there are no FDA-approved or cleared tests available, and other criteria are met, FDA can make tests available under an emergency access mechanism called an Emergency Use Authorization (EUA). The EUA for this test is supported by the Protection Analyst of Health and Human Service's (HHS's) declaration [...] SARS-CoV-2. Performed By: #### E RUR #### [facility] [address] [place] [address] Dr. Anastasia Moran INFLUENZA A AND B AGon 04-06 INFLUANE SEE BELOW Normal [facility] Comment on above: Result Comment: Nega tive for Flu A protein angiten. Infection due to Flu A cannot be ruled out. Flu A angiten in the sample may be below the detection limit of the test. Performed By: #### E RUR #### [facility] [address] [place] [address] Dr. Anastasia Moran INFLUBNEG SEE BELOW Normal [facility] Comment on above: Result Comment: Nega tive for Flu B protein antigen. Infection due to Flu B cannot be ruled out. Flu B antigen in the sample may be below the detection limit of the test. Performed By: #### E RUR #### [facility] [address] [place] [address] Dr. Anastasia Moran INFLUENZA A AG Negative Normal NEGATIVE SEE COMMENT [facility] Comment on above: Performed By: #### E RUR #### [facility] [address] [place] [address] Dr. Anastasia Moran INFLUENZA B AG Negative Normal NEGATIVE SEE COMMENT [facility] Comment on above: Performed By: #### E RUR #### [facility] [address] [place] [address] Dr. Anastasia Moran INTERNAL CONTROLS Within Normal Limits Normal Wi thin Normal Limits [facility] Comment on above: Performed By: #### E RUR #### [facility] [address] [place] [address] Dr. Anastasia Moran T4 LABCORPon 10-06-2021 T4 [Mass/Vol] 8.7 ug/dL Normal 4.5-12.0 [facility] Comment on above: Performed By: #### E RUR #### [facility] [address] [place] [address] Dr. Anastasia Moran INSULINon 09-29-2021 Insulin 11.6 uIU/mL Normal 2.6-24.9 [facility] Comment on above: Performed By: #### I NSULIN #### [facility] [address] [place] [address] Dr. Anastasia Moran CBC AUTO DIFFon 09-28-2021 BASO # 0.0 103/ul Normal 0.0-0.1 [facility] Comment on above: Performed By: #### E RUR #### [facility] [address] [place] [address] Dr. Anastasia Moran Basophils/100 WBC (Bld) 0.2 % Normal 0.2-2.0 [facility] Comment on above: Performed By: #### E RUR #### [facility] [address] [place] [address] Dr. Anastasia Moran EO # 0.1 103/ul Normal 0.0-0.7 [facility] Comment on above: Performed By: #### E RUR #### [facility] [address] [place] [address] Dr. Anastasia Moran Eosinophils/100 WBC (Bld) 0.9 % Normal 0.9-7.0 [facility] Comment on above: Performed By: #### E RUR #### [facility] [address] [place] [address] Dr. Anastasia Moran Erythrocyte distribution width (RBC) [Ratio] 12.9 % Normal 11.0-15.0 [facility] Comment on above: Performed By: #### E RUR #### [facility] [address] [place] [address] Dr. Anastasia Moran Hematocrit (Bld) [Volume fraction] 37.7 % Normal 36.0-48.0 [facility] Comment on above: Performed By: #### E RUR #### [facility] [address] [place] [address] Dr. Anastasia Moran Hemoglobin (Bld) [Mass/Vol] 12.5 g/dL Normal 12.0-16.0 [facility] Comment on above: Performed By: #### E RUR #### [facility] [address] [place] [address] Dr. Anastasia Moran IG # 0.02 10e3/ul Normal 0.00-0.03 [facility] Comment on above: Performed By: #### E RUR #### [facility] [address] [place] [address] Dr. Anastasia Moran IG % 0.2 % Normal 0.0-0.5 [facility] Comment on above: Performed By: #### E RUR #### [facility] [address] [place] [address] Dr. Anastasia Moran LYMPH # 2.5 103/ul Normal 1.2-3.8 [facility] Comment on above: Performed By: #### E RUR #### [facility] [address] [place] [address] Dr. Anastasia Moran Lymphocytes/100 WBC (Bld) 28.5 % Normal 20.5-60.0 [facility] Comment on above: Performed By: #### E RUR #### [facility] [address] [place] [address] Dr. Anastasia Moran MANUAL DIFF REQ NO Normal [facility] Comment on above: Performed By: #### E RUR #### [facility] [address] [place] [address] Dr. Anastasia Moran MCH (RBC) [Entitic mass] 30.7 pg Normal 26.7-34.0 [facility] Comment on above: Performed By: #### E RUR #### [facility] [address] [place] [address] Dr. Anastasia Moran MCHC (RBC) [Mass/Vol] 33.2 g/dL Normal 29.9-35.2 [facility] Comment on above: Performed By: #### E RUR #### [facility] [address] [place] [address] Dr. Anastasia Moran MCV (RBC) [Entitic vol] 92.6 fL Normal 81.0-99.0 [facility] Comment on above: Performed By: #### E RUR #### [facility] [address] [place] [address] Dr. Anastasia Moran MONO # 0.5 103/ul Normal 0.3-0.8 [facility] Comment on above: Performed By: #### E RUR #### [facility] [address] [place] [address] Dr. Anastasia Moran Monocytes/100 WBC (Bld) 6.3 % Normal 1.7-12.0 [facility] Comment on above: Performed By: #### E RUR #### [facility] [address] [place] [address] Dr. Anastasia Moran NEUT # 5.5 103/ul Normal 1.4-6.5 [facility] Comment on above: Performed By: #### E RUR #### [facility] [address] [place] [address] Dr. Anastasia Moran Neutrophils/100 WBC (Bld) 63.9 % Normal 43.0-75.0 [facility] Comment on above: Performed By: #### E RUR #### [facility] [address] [place] [address] Dr. Anastasia Moran Platelet mean volume (Bld) [Entitic vol] 9.7 fL Normal 9.5-13.5 [facility] Comment on above: Performed By: #### E RUR #### [facility] [address] [place] [address] Dr. Anasatsia Moran PLT 246 103/ul Normal 150-450 [facility] Comment on above: Performed By: #### E RUR #### [facility] [address] [place] [address] Dr. Anastasia Moran RBC 4.07 106/ul Critically low 4.20-5.40 [facility] Comment on above: Performed By: #### E RUR #### [facility] [address] [place] [address] Dr. Anastasia Moran WBC 8.6 103/ul Normal 4.0-11.0 [facility] Comment on above: Performed By: #### E RUR #### [facility] [address] [place] [address] Dr. Anastasia Moran FREE THYROXINE INDEX T7on FTI 2.61 Normal 1.30-4.50 [facility] Comment on above: Performed By: #### L IPID, CMP, TSH, T7 #### [facility] [address] [address] [address] Anastasia Moran T3U 30.0 % Normal 30.0-39.0 [facility] Comment on above: Performed By: #### L IPID, CMP, TSH, T7 #### [facility] [address] [address] [address] Anastasia Moran T4 [Mass/Vol] 8.70 ug/dL Normal 4.80-13.90 [facility] Comment on above: Result Comment: T4 t esting performed by [facility] Performed By: #### L IPID, CMP, TSH, T7 #### [facility] [address] [place] [address] Dr. Anastasia Moran GLYCOHEMOGLOBIN A1Con 2021 ADA RECOMMENDATION SEE BELOW Normal [facility] Comment on above: Result Comment: ADA RECOMMENDED LIMIT 4.0 - 6.0 ADA THERAPEUTIC TARGET < 7.0 ACTION SUGGESTED > 7.0 Performed By: #### E RUR #### [facility] [address] [address] [address] Anastasia Moran Glucose [Mass/Vol] 111 mg/dL Normal [facility] Comment on above: Performed By: #### E RUR #### [facility] [address] [place] [address] Dr. Anastasia Moran HbA1c (Bld) [Mass fraction] 5.5 % Normal 4.5-6.2 [facility] Comment on above: Performed By: #### E RUR #### [facility] [address] [address] [address] Anastasia Moran IRONon 09-28-2021 Iron [Mass/Vol] 71.0 ug/dL Normal 50.0-170.0 [facility] Comment on above: Performed By: #### V ITAD, VITB12, IRON #### [facility] [address] [address] [address] Anastasia Moran LIPID PROFILEon 09-28-2021 CHOL-HDL RATIO NORM SEE BELOW Normal [facility] Comment on above: Result Comment: 3.3 - 4.4 LOW RISK 4.4 - 7.1 AVERAGE RISK 7.1 - 11.0 MODERATE RISK >11.0 HIGH RISK Performed By: #### L IPID, CMP, TSH, T7 #### [facility] [address] [address] [address] Anastasia Moran Cholesterol [Mass/Vol] 229 mg/dL Critically high <=200 [facility] Comment on above: Performed By: #### L IPID, CMP, TSH, T7 #### [facility] [address] [address] [address] Anastasia Moran Cholesterol in HDL [Mass/Vol] 63 mg/dL Critically high 40-60 [facility] Comment on above: Performed By: #### L IPID, CMP, TSH, T7 #### [facility] [address] [address] [address] Anastasia Moran Cholesterol in LDL [Mass/Vol] 152.0 mg/dL Normal [facility] Comment on above: Performed By: #### L IPID, CMP, TSH, T7 #### [facility] [address] [address] [address] Anastasia Moran Cholesterol.total/Tonia sterol in HDL [Mass ratio] 3.6 {ratio} Normal [facility] Comment on above: Performed By: #### L IPID, CMP, TSH, T7 #### [facility] [address] [address] [address] Anastasia Moran HDL NORMAL > or = 60 mg/dl - LO W CARDIOVASCULAR RISK <40 mg/dl - HIGH CARDIOVASCULAR RISK Normal [facility] Comment on above: Performed By: #### L IPID, CMP, TSH, T7 #### [facility] [address] [address] [address] Anastasia Moran LDL CALC NORMAL SEE BELOW Normal [facility] Comment on above: Result Comment: <100 mg/dl OPTIMAL 100 - 129 mg/dl NEAR OR ABOVE OPTIMAL 130 - 159 mg/dl BORDERLINE HIGH 160 - 189 mg/dl HIGH >190 mg/dl VERY HIGH Performed By: #### L IPID, CMP, TSH, T7 #### [facility] [address] [address] [address] Anastasia Moran Triglyceride [Mass/Vol] 70 mg/dL Normal <=150 [facility] Comment on above: Performed By: #### L IPID, CMP, TSH, T7 #### [facility] [address] [place] [address] Dr. Anastasia Moran VLDL CALC 14.0 mg/dL Normal [facility] Comment on above: Performed By: #### L IPID, CMP, TSH, T7 #### [facility] [address] [place] [address] Dr. Anastasia Moran PROF 14(COMP METB)on 022 Albumin [Mass/Vol] 4.3 g/dL Normal 3.4-5.0 [facility] Comment on above: Performed By: #### L IPID, CMP, TSH, T7 #### [facility] [address] [place] [address] Dr. Anastasia Moran Albumin/Globulin [Mass ratio] 1.2 {ratio} Normal [facility] Comment on above: Performed By: #### L IPID, CMP, TSH, T7 #### [facility] [address] [place] [address] Dr. Anastasia Moran ALP [Catalytic activity/Vol] 45 U/L Critically low 46-116 [facility] Comment on above: Performed By: #### L IPID, CMP, TSH, T7 #### [facility] [address] [place] [address] Dr. Anastasia Moran ALT [Catalytic activity/Vol] 20 U/L Normal 14-59 [facility] Comment on above: Performed By: #### L IPID, CMP, TSH, T7 #### [facility] [address] [place] [address] Dr. Anastasia Moran Anion gap [Moles/Vol] 12.3 mmol/L Normal [facility] Comment on above: Performed By: #### L IPID, CMP, TSH, T7 #### [facility] [address] [place] [address] Dr. Anastasia Moran AST [Catalytic activity/Vol] 16 U/L Normal 15-37 [facility] Comment on above: Performed By: #### L IPID, CMP, TSH, T7 #### [facility] [address] [address] [address] Anastasia Moran Bilirubin [Mass/Vol] 0.5 mg/dL Normal 0.2-1.0 [facility] Comment on above: Performed By: #### L IPID, CMP, TSH, T7 #### [facility] [address] [place] [address] Dr. Anastasia Moran Calcium [Mass/Vol] 9.4 mg/dL Normal 8.5-10.1 [facility] Comment on above: Performed By: #### L IPID, CMP, TSH, T7 #### [facility] [address] [place] [address] Dr. Anastasia Moran Chloride [Moles/Vol] 103 mmol/L Normal 98-107 [facility] Comment on above: Performed By: #### L IPID, CMP, TSH, T7 #### [facility] [address] [place] [address] Dr. Anastasia Moran CO2 [Moles/Vol] 27.8 mmol/L Normal 21.0-32.0 [facility] Comment on above: Performed By: #### L IPID, CMP, TSH, T7 #### [facility] [address] [place] [address] Dr. Anastasia Moran Creatinine [Mass/Vol] 0.87 mg/dL Normal 0.55-1.02 [facility] Comment on above: Performed By: #### L IPID, CMP, TSH, T7 #### [facility] [address] [place] [address] Dr. Anastasia Moran EGFR-AF MACEDONIAN >60 Normal >=60 [facility] Comment on above: Performed By: #### L IPID, CMP, TSH, T7 #### [facility] [address] [place] [address] Dr. Anastasia Moran EGFR-NON AF MACEDONIAN >60 Normal >=60 [facility] Comment on above: Performed By: #### L IPID, CMP, TSH, T7 #### [facility] [address] [address] [address] Anastasia Moran Globulin (S) [Mass/Vol] 3.5 g/dL Normal T [facility] Comment on above: Performed By: #### L IPID, CMP, TSH, T7 #### [facility] [address] [address] [address] Anastasia Moran Glucose [Mass/Vol] 89 mg/dL Normal 74-106 [facility] Comment on above: Performed By: #### L IPID, CMP, TSH, T7 #### [facility] [address] [address] [address] Anastasia Moran Potassium [Moles/Vol] 4.1 mmol/L Normal 3.5-5.1 [facility] Comment on above: Performed By: #### L IPID, CMP, TSH, T7 #### [facility] [address] [place] [address] Dr. Anastasia Moran Protein [Mass/Vol] 7.8 g/dL Normal 6.4-8.2 [facility] Comment on above: Performed By: #### L IPID, CMP, TSH, T7 #### [facility] [address] [place] [address] Dr. Anastasia Moran Sodium [Moles/Vol] 139 mmol/L Normal 136-145 [facility] Comment on above: Performed By: #### L IPID, CMP, TSH, T7 #### [facility] [address] [address] [address] Anastasia Moran Urea nitrogen [Mass/Vol] 14.0 mg/dL Normal 7.0-18.0 [facility] Comment on above: Performed By: #### L IPID, CMP, TSH, T7 #### [facility] [address] [place] [address] Dr. Anastasia Moran Urea nitrogen/Creatinine [Mass ratio] 16.1 mg/mg Normal [facility] Comment on above: Performed By: #### L IPID, CMP, TSH, T7 #### [facility] [address] [place] [address] Dr. Anastasia Moran TSHon 09-28-2021 TSH 0.565 uIU/mL Normal 0.358-3.740 [facility] Comment on above: Performed By: #### L IPID, CMP, TSH, T7 #### [facility] [address] [place] [address] Dr. Anastasia Moran TSH RANGE SEE BELOW Normal [facility] Comment on above: Result Comment: <0.3 4 UIU/ml HYPERTHYROID 0.34-5.60 UIU/ml EUTHYROID >5.60 UIU/ml HYPOTHYROID Performed By: #### L IPID, CMP, TSH, T7 #### [facility] [address] [place] [address] Dr. Anastasia Moran VITAMIN B12on 09-28-2021 Cobalamin (Vitamin B12) [Mass/Vol] 616.0 pg/mL Normal 193.0-986.0 [facility] Comment on above: Performed By: #### V ITAD, VITB12, IRON #### [facility] [address] [place] [address] Dr. Anastasia Moran VITAMIN D 25 OHon 09-28-2021 VIT D 25-OH 61.7 ng/mL Normal [facility] Comment on above: Performed By: #### V ITAD, VITB12, IRON #### [facility] [address] [place] [address] Dr. Anastasia Moran VIT D RANGES SEE BELOW Normal [facility] Comment on above: Result Comment: <20 ng/mL Vit D deficient 20 - <30 ng/mL Vit D insufficient 30 - 100 ng/mL Vit D sufficient >100 ng/mL Potential Toxicity Performed By: #### V ITAD, VITB12, IRON #### [facility] [address] [place] [address] Dr. Anastasia Moran Physician Referralon 021 Physician Referral [id number] Normal [facility] Vital Signs Date Time Vital Sign Value Performing Clinician Facility 07-14-2024 11:50-0400 Diastolic blood pressure 101 mm[Hg] Patrick Doan DO Work Phone: [facility] 07-14-2024 11:50-0400 Heart rate 95 /min Patrick Doan DO Work Phone: [facility] 07-14-2024 11:50-0400 Respiratory rate 17 /min Patrick Doan DO Work Phone: [facility] 07-14-2024 11:50-0400 SaO2% (BldA) [Mass fraction] 95 % Patrick Doan DO Work Phone: [facility] 07-14-2024 11:50-0400 Systolic blood pressure 159 mm[Hg] Patrick Doan DO Work Phone: [facility] 07-14-2024 08:15-0400 Body height 167.6 cm Patrick Doan DO Work Phone: [facility] 07-14-2024 08:15-0400 Body mass index (BMI) [Ratio] 32.28 kg/m2 Patrick Doan DO Work Phone: [facility] 07-14-2024 08:15-0400 Body temperature 96.3 [degF] Patrick Doan DO Work Phone: [facility] 07-14-2024 08:15-0400 Body weight 90.72 kg Patrick Doan DO Work Phone: [facility] 01-28-2024 13:59-0400 Body mass index (BMI) [Ratio] 33.63 kg/m2 Jeannie Nielsen DO Work Phone: [facility] 01-28-2024 13:59-0400 Body weight 94.5 kg Jeannie Nielsen DO Work Phone: [facility] 01-28-2024 12:00-0400 Diastolic blood pressure 81 mm[Hg] Jeannie Nielsen DO Work Phone: [facility] 01-28-2024 12:00-0400 Heart rate 77 /min Jeannie Nielsen DO Work Phone: [facility] 01-28-2024 12:00-0400 Respiratory rate 14 /min Jeannie Nielsen DO Work Phone: [facility] 01-28-2024 12:00-0400 Systolic blood pressure 125 mm[Hg] Jeannie Nielsen DO Work Phone: [facility] 01-28-2024 08:00-0400 Body temperature 96.8 [degF] Jeannie Nielsen DO Work Phone: [facility] 01-28-2024 08:00-0400 SaO2% (BldA) [Mass fraction] 97 % Jeannie Nielsen DO Work Phone: [facility] 01-26-2024 10:44-0400 Body height 167.6 cm Jeannie Smithersen DO Work Phone: [facility] 03-01-2023 18:03-0400 Body height 167.6 cm Carlos Manuel Don 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 SERVICE [employer]CH[employer]IC Work Phone: [facility] 03-01-2023 18:03-0400 Body mass index (BMI) [Ratio] 32.46 kg/m2 Carlos Manuel Don 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 SERVICE MECH[employer]IC Work Phone: [facility] 03-01-2023 18:03-0400 Body temperature 98.2 [degF] Carlos Manuel Don 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 SERVICE MECHANIC Work Phone: [facility] 03-01-2023 18:03-0400 Body weight 91.22 kg Carlos Manuel Don 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 SERVICE MECH[employer]IC Work Phone: [facility] 03-01-2023 18:03-0400 Diastolic blood pressure 87 mm[Hg] Carlos Manuel Don 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 SERVICE MECH[employer]IC Work Phone: [facility] 03-01-2023 18:03-0400 Heart rate 84 /min Carlos Manuel Westta 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 SERVICE MECHANIC Work Phone: [facility] 03-01-2023 18:03-0400 Respiratory rate 18 /min Carlos Manuel Don 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 SERVICE MECHANIC Work Phone: [facility] 03-01-2023 18:03-0400 SaO2% (BldA) [Mass fraction] 100 % Carlos Manuel Ochoa 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 SERVICE MECHANIC Work Phone: [facility] 03-01-2023 18:03-0400 Systolic blood pressure 156 mm[Hg] Carlos Manuel Ochoa 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 SERVICE MECH[employer]IC Work Phone: [facility] Encounters Encounter Date Encounter Type Care Provider Facility Start: 07-14-2024 End: 07-14-2024 Emergency department patient visit Patrick Vann Pranay DO Work Phone: [facility] Comment on above: Influenza A (Primary Dx); Pain in left leg; Pain in right leg; Hypokalemia Start: 01-26-2024 End: 01-28-2024 Evaluation and management of inpatient Jeannie Nielsen DO Work Phone: [facility] Comment on above: Hypertensive urgency (Primary Dx); Essential (primary) hypertension Start: 01-09-2024 End: 01-09-2024 ambulatory [facility] Start: 01-08-2024 End: 01-08-2024 ambulatory [facility] Start: 11-28-2023 End: 11-28-2023 ambulatory WILLIAM HERNANDEZ Not Available Start: 04-24-2023 End: 04-28-[address] [facility] Start: 03-31-2023 End: 03-31-2023 ambulatory [facility] Start: 03-01-2023 End: 03-01-2023 Subsequent hospital visit by physician Feng Randall-Bong Fluoro [address] [facility] Comment on above: Contusion of right w rist, initial encounter Contusion of right h and, initial encounter Start: 03-01-2023 End: 03-01-2023 Office outpatient new 30 minutes Carlos Manuel Ochoa 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 SERVICE MECHANIC Work Phone: [facility] Comment on above: Contusion of right h and, initial encounter (Primary Dx); Contusion of right wrist, initial encounter Start: 08-10-2022 End: 08-10-[address] ROSEMARY NOEL . Facility:[facility] Start: 04-06-2022 End: 04-06-[address] ROSEMARY NOEL . Facility:[facility] Start: 09-29-2021 Encounter for genera l adult medical examination without abnormal findings DR ROSEMARY NOEL . [facility] Start: 09-28-2021 End: 09-29-[address] ROSEMARY NOEL . Facility:[facility] Start: 09-28-2021 End: 09-29-2021 Encounter for general adult medical examination without abnormal findings DR ROSEMARY NOEL . Facility: Procedures Date Procedure Procedure Detail Performing Clinician Start: 07-14-2024 Ct angiography chest w/contrast/noncontrast Patrick Edwar Doan [facility] Work Phone: Start: 07-14-2024 Assay of troponin quantitative Patrick Edwar Doan [employer] Work Phone: Start: 07-14-2024 Dup-scan xtr veins c omplete bilateral study Patrick Edwar Doan [employer] Work Phone: Start: 07-14-2024 Troponin I.cardiac p jany - Serum or Plasma by High sensitivity method Patrick Edwar Doan [employer] Work Phone: Start: 07-14-2024 End: 07-14-2024 Basic metabolic panel calcium total Patrick Edwar Doan [employer] Work Phone: Start: 07-14-2024 Influenza virus A an d B RNA [Identifier] in Unspecified specimen by THALIA with probe detection Patrick Edwar Doan [facility] Work Phone: Start: 07-14-2024 Respiratory syncytia l virus RNA [Presence] in Respiratory specimen by THALIA with probe detection Patrick Edwar Doan [employer] Work Phone: Start: 07-14-2024 SARS-CoV-2 (COVID-19 ) RNA [Presence] in Respiratory specimen by THALIA with probe detection Patrick Vann Doan [employer] Work Phone: Start: 07-14-2024 Radiologic exam ches t single view Patrick Doan DO Work Phone: Start: 01-28-2024 EXTRA TUBES Ezekiel bernstein MD [...] Start: 01-26-2024 Assay of troponin quantitative Jeannie Nielsen DO Work Phone: Start: 01-26-2024 Comprehensive metabo lic panel Jeannie Nielsen DO Work Phone: Start: 01-26-2024 Troponin I.cardiac p jany - Serum or Plasma by High sensitivity method Jeannie Nielsen DO Work Phone: Start: 01-26-2024 Ct head/brain w/o co ntrast material Jeannie Nielsen DO Work Phone: Start: 01-26-2024 Radiologic exam ches t single view Jeannie Nieslen DO Work Phone: Start: 01-26-2024 Ecg routine [...] Jeannie Nielsen DO Work Phone: Start: 03-01-2023 Radex wrist complete minimum 3 views Carlos Manuel Ochoa 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 SERVICE MECH[employer]IC Work Phone: Plan of Treatment Date Care Activity Detail Author Start: 03-31-2028 Lipid panel Lipid Panel [facility] Start: 02-16-2027 DTaP/Tdap/Td Vaccine s (2 - Td or Tdap) DTaP/Tdap/Td Vaccines (2 - Td or Tdap) [facility] Start: 12-30-2023 COVID-19 Vaccine ( season) COVID-19 Vaccine ( season) [facility] Start: 12-30-2023 COVID-19 Vaccine ( season) COVID-19 Vaccine ( season) [facility] Start: 12-30-2023 Influenza vaccination Influenza Vacc ine (#1) [facility] Start: 12-29-2022 Influenza vaccination Influenza Vacc ine (#1) [facility] Start: 11-19-2020 COVID-19 Vaccine (3 - Moderna series) COVID-19 Vaccine (3 - Moderna series) [facility] Start: 09-23-2015 Pneumococcal vaccination Pneumococcal Vaccine (1 of 1 - PCV) [facility] Start: 09-23-2015 Zoster Vaccines (1 o f 2) Zoster Vaccines (1 of 2) [facility] Start: 2005 Screening for malign ant neoplasm of breast Mammogram [facility] Start: 1986 Screening for malign ant neoplasm of cervix [facility] Start: 09-23-1983 Hepatitis C screening Hepatitis C Sc reening [facility] Start: 1966 MMR Vaccines (1 of 1 - Standard series) MMR Vaccines (1 of 1 - Standard series) [facility] Start: 1965 HIV screening [facility] Screening [facility] Start: 1965 Lipid panel Lipid Panel [facility] Start: 1965 Screening for malign ant neoplasm of colon [facility] Start: 1965 Yearly Adult Physical Yearly Adult P hysical [facility] ECG 12 Lead ECG 12 Lead ECG STAT 01/26/2024 10:40 AM EDT [facility] Work Phone: End: 07-14-2024 ECG 12 lead [facility] Service Area Work Phone: Comment on above: Once for 1 Occurrenc es starting 07/14/2024 until 07/14/2024 Electrocardiogram, 12-lead PRN ACS symptoms Electrocardiogram, 12-lead PRN ACS symptoms ECG Routine As needed until discontinued starting 01/26/2024 [facility] Service [facility] Work Phone: Comment on above: As needed until disc ontinued starting 01/26/2024 End: 01-26-2024 Respiratory care eval and treat Respiratory care eval and treat Respiratory Care Routine Once for 1 Occurrences starting 01/26/2024 until 01/26/2024 [facility] Work Phone: Comment on above: Once for 1 Occurrenc es starting 01/26/2024 until 01/26/2024 End: 01-26-2024 SARS-CoV-2 (COVID-19) RNA [Presence] in Respiratory specimen by THALIA with probe detection Sars-CoV-2 PCR Lab Routine Once (Lab) for 1 Occurrences starting 01/26/2024 until 01/26/2024 [facility] Work Phone: Comment on above: Once (Lab) for 1 Occ urrences starting 01/26/2024 until 01/26/2024 US.doppler Lower extremity vein - bilateral Vascular US lower extremity venous duplex bilateral Vascular Ultrasound Routine Pain in left leg Pain in right leg 07/14/2024 9:00 AM EDT [facility] Work Phone: Immunizations Immunization Date Immunization Notes Care Provider Fa peter 04-28-2023 influenza virus vaccine, unspecified formulation Jeannie Nielsen DO Work Phone: [facility] Work Phone: 02-28-2022 influenza virus vaccine, unspecified formulation Feng 1 [facility] Work Phone: Payers Date Payer Category Payer [employer] [id number] [employer] [id number] 2022-Present [address] [place] [address] [id number] 2022 Unknown [id number] 1965 Unknown [id number]. [id number] 1965 Unknown [id number]. 2.593 1965 Unknown [id number] [id number]. 2.593 1965 Unknown [id number] [id number]. 2.903 1965 Unknown [id number] [id number]. 2.903 1965 Unknown [id number] [id number]. 2.1259 1965 Unknown [id number] [id number]. 2.1245 1965 Unknown [id number] [id number]. 2.124 1965 Unknown [id number] [id number]. 2.1245 1965 Unknown [id number] [id number]. 2.1243 1965 Unknown [id number] [id number] 1959 Unknown [id number] Social History Date Type Detail Facility Start: 03-01-2023 Tobacco smoking status NHIS Never smoked tobacco [facility] Work Phone: Start: 03-01-2023 End: 07-14-2024 Tobacco use and exposure Smokeless tobacco non-user [facility] Work Phone: Start: 03-01-2023 End: 01-28-2024 History of Social function [facility] Start: 03-01-2023 End: 01-28-2024 Tobacco use panel [facility] Start: 1965 Sex Assigned At Not on file [facility] Work Phone: Start: 02-19-2023 End: 07-14-2024 Exposure to SARS-CoV-2 (event) Not sure [facility] Has the electric, gas, oil, or water company threatened to shut off services in your home in past 12Mo No [facility] How often to you hav e a drink containing alcohol? Never [facility] Work Phone: How many standard drinks containing alcohol do you have on a typical day? Patient does not drink [facility] Work Phone: (I/We) worried whether (my/our) food would run out before (I/we) got money to buy more. Never true [facility] Work Phone: Start: 01-16-2024 End: 01-26-2024 Exposure to SARS-CoV-2 (event) Yes [facility] Work Phone: Start: 07-14-2024 Tobacco smoking status NHIS Ex-smoker [facility] History of tobacco use Current smoker [facility] Work Phone: History of tobacco use Cigarette Smoker [facility] Work Phone: NEGATED: Highlighted rowStart: FILI History of tobacco use Passive smoker [facility] Work Phone: Clinical Notes 03-01-2023 to 07-14-2024 Patrick Doan, - 07/14/2024 8:28 AM Minerva Doan, - 07/14/2024 8:28 AM Oneyda Hoffmann RN - 07/14/2024 8:11 AM Oneyda Hoffmann RN - 07/14/2024 8:11 AM EDT Note Date & Type Note Facility 07-14-2024 Physician Emergency department Note HPI Chief Complaint Patient presents with Shortness of Breath Patient presents to the emergency department secondary to dyspnea. States that this has been present/progressive for several weeks. Patient had COVID-19 in December 2023. She reports no history of emphysema or COPD. Also states she has heightened anxiety. Additionally, patient is reporting generalized myalgias. History provided by: Patient medical interpreter used: No Patient History Past Medical History: Diagnosis Date Anxiety Hypertension History reviewed. No pertinent surgical history. No family history on file. Social History Tobacco Use Smoking status: Former Types: Cigarettes Passive exposure: Never Smokeless tobacco: Never Vaping Use Vaping status: Former Substance Use Topics Alcohol use: Not on file Drug use: Never Physical Exam ED Triage Vitals [07/14/24 0815] Temperature Heart Rate Respirations BP 35.7 C (96.3 F) (!) 125 18 (!) 179/102 Pulse Ox Temp Source Heart Rate Source Patient Position 95 % Temporal Monitor -- BP Location FiO2 (%) -- -- Physical Exam Vitals and nursing note reviewed. Constitutional: General: She is not in acute distress. Appearance: Normal appearance. She is normal weight. She is not ill-appearing, toxic-appearing or diaphoretic. HENT: Head: Normocephalic and atraumatic. Nose: Nose normal. No rhinorrhea. Neck: Comments: Trachea is midline Cardiovascular: Rate and Rhythm: Regular rhythm. Tachycardia present. Heart sounds: No murmur heard. Pulmonary: Effort: Pulmonary effort is normal. Breath sounds: Examination of the right-lower field reveals rales. Examination of the left-lower field reveals rales. Rales present. No decreased breath sounds, wheezing or rhonchi. Abdominal: General: Abdomen is flat. Bowel sounds are normal. There is no distension. Palpations: Abdomen is soft. Tenderness: There is no abdominal tenderness. Musculoskeletal: General: Normal range of motion. Cervical back: Normal range of motion. Right lower leg: No edema. Left lower leg: No edema. Skin: General: Skin is warm and dry. Findings: No rash. Neurological: General: No focal deficit present. Mental Status: She is alert and oriented to person, place, and time. Mental status is at baseline. Psychiatric: Mood and Affect: Mood normal. Mood is not anxious. Behavior: Behavior normal. Behavior is not agitated. Thought Content: Thought content normal. Judgment: Judgment normal. ED Course & MDM No data recorded [place] Coma Scale Score: 15 (07/14/24 0815 : Beena Hoffmann RN) Medical Decision Making Twelve-lead EKG was interpreted by myself and this was noted to contribute directly to patient care. Study reveals a sinus tachycardia at 131 bpm, normal axis, normal R wave progression, no acute ischemic changes. Patient's tachycardia improved with hydration. Patient was given oral potassium replacement. She is out of the window for Tamiflu. Patient was educated about supportive care measures. Given a work note. Instructed to follow-up with her private physician and return if worse. Procedure Procedures Patrick G Pranay, DO 07/14/24 0829 Patrick Edwar Pranay, DO 07/14/24 1116 [facility] Work Phone: 07-14-2024 Emergency department Note HPI Chief Complaint Patient presents with Shortness of Breath Patient presents to the emergency department secondary to dyspnea. States that this has been present/progressive for several weeks. Patient had COVID-19 in December 2023. She reports no history of emphysema or COPD. Also states she has heightened anxiety. Additionally, patient is reporting generalized myalgias. History provided by: Patient medical interpreter used: No Patient History Past Medical History: Diagnosis Date Anxiety Hypertension History reviewed. No pertinent surgical history. No family history on file. Social History Tobacco Use Smoking status: Former Types: Cigarettes Passive exposure: Never Smokeless tobacco: Never Vaping Use Vaping status: Former Substance Use Topics Alcohol use: Not on file Drug use: Never Physical Exam ED Triage Vitals [07/14/24 0815] Temperature Heart Rate Respirations BP 35.7 C (96.3 F) (!) 125 18 (!) 179/102 Pulse Ox Temp Source Heart Rate Source Patient Position 95 % Temporal Monitor -- BP Location FiO2 (%) -- -- Physical Exam Vitals and nursing note reviewed. Constitutional: General: She is not in acute distress. Appearance: Normal appearance. She is normal weight. She is not ill-appearing, toxic-appearing or diaphoretic. HENT: Head: Normocephalic and atraumatic. Nose: Nose normal. No rhinorrhea. Neck: Comments: Trachea is midline Cardiovascular: Rate and Rhythm: Regular rhythm. Tachycardia present. Heart sounds: No murmur heard. Pulmonary: Effort: Pulmonary effort is normal. Breath sounds: Examination of the right-lower field reveals rales. Examination of the left-lower field reveals rales. Rales present. No decreased breath sounds, wheezing or rhonchi. Abdominal: General: Abdomen is flat. Bowel sounds are normal. There is no distension. Palpations: Abdomen is soft. Tenderness: There is no abdominal tenderness. Musculoskeletal: General: Normal range of motion. Cervical back: Normal range of motion. Right lower leg: No edema. Left lower leg: No edema. Skin: General: Skin is warm and dry. Findings: No rash. Neurological: General: No focal deficit present. Mental Status: She is alert and oriented to person, place, and time. Mental status is at baseline. Psychiatric: Mood and Affect: Mood normal. Mood is not anxious. Behavior: Behavior normal. Behavior is not agitated. Thought Content: Thought content normal. Judgment: Judgment normal. ED Course & MDM No data recorded [place] Coma Scale Score: 15 (07/14/24 0815 : Beena Hoffmann RN) Medical Decision Making Twelve-lead EKG was interpreted by myself and this was noted to contribute directly to patient care. Study reveals a sinus tachycardia at 131 bpm, normal axis, normal R wave progression, no acute ischemic changes. Patient's tachycardia improved with hydration. Patient was given oral potassium replacement. She is out of the window for Tamiflu. Patient was educated about supportive care measures. Given a work note. Instructed to follow-up with her private physician and return if worse. Procedure Procedures Patrick Doan DO 07/14/24 0829 Patrick Doan DO 07/14/24 1116 Patient ambulated to triage with steady gait; c/o worsening SOB and bilateral leg weakness; onset couple weeks ago-worse with exertion. Also reports anxiety due to symptoms. Pt was exposed to flu weeks ago. Hx anxiety, HTN AOx4 documented in this encounter [facility] Work Phone: 07-14-2024 Emergency department Triage note Patient ambulated to triage with steady gait; c/o worsening SOB and bilateral leg weakness; onset couple weeks ago-worse with exertion. Also reports anxiety due to symptoms. Pt was exposed to flu weeks ago. Hx anxiety, HTN AOx4 [facility] Work Phone: 01-28-2024 Nurse Note Discharge Note: 01/28/2024 1656 Declines wheelchair, ambulates to private car accompanied by PCT and , personal belongings taken by pt, no distress noted, no complaints voiced. J Carlos RN [facility] 01-28-2024 Nurse Note Discharge Note: 01/28/2024 1656 [...] J Carlos PINA documented in this encounter [facility] Work Phone: 01-28-2024 Nurse Note Discharge Note: 01/28/2024 1616 AVS and pt [...] with pt and verbalizes understanding. J Carlos RN [facility] Work Phone: 01-28-2024 History of Present illness Narrative Medication Education Medication education for Regi Cruz was provided to the patient over the [...] where new medicines are to be sent ([facility]) Arnol Pablo PharmD BCPS 01/28/24 1412 Discharge [...] were you homeless or living in a penitentiary (including now)? N Transportation Needs In the past 12 months, has lack of transportation kept you from medical appointments or from getting medications? no In the past 12 months, has lack of transportation kept you from meetings, work, or from getting things needed for daily living? No 1418 Spoke with pt, explained TCC role. Verified demographics. PCP is Dr Manuela cordova seen in October and Pharmacy is [facility] explains issue obtaining hormones due to cost. Educated pt that she should write a letter to the manufacturing [employer] and request assistance with the cost. I explained that sometimes they have programs or coupons to help people. Pt other david denies needs and is independent at home with and as a ride home at discharge. Plan is home with today. [facility] Bis 24/ per nursing. CT to follow. Danya Smith [...] hypertension and hyperlipidemia. She presented to ED [facility] on 01/26/2024 complaining of high blood [...] G Right Antecubital (Active) Site Assessment Clean;Dry;Intact 01/28/24799 Dressing Type Transparent 01/28/24799 Line Status Flushed;Saline locked 01/28/24799 Dressing Status Clean;Dry;Occlusive 01/28/24799 Number of days: 2 Code Status: Full [...] INDICATION: Signs/Symptoms:HTN, headache. COMPARISON: None ACCESSION NUMBER(S): [id number] ORDERING CLINICIAN: JEANNIE NIELSEN TECHNIQUE: CT of [...] Mark Abdul 01/26/2024 11:36 AM Dictation workstation: [id number] XR chest 1 view Result Date: 01/26/2024 Interpreted By: Prem Thompson, STUDY: XR CHEST 1 VIEW; 01/26/2024 10:55 am INDICATION: Signs/Symptoms:HTN. COMPARISON: None. ACCESSION NUMBER(S): [id number] ORDERING CLINICIAN: JEANNIE NIELSEN FINDINGS: CARDIOMEDIASTINAL SILHOUETTE: Cardiomediastinal silhouette is normal in size and configuration. LUNGS: Lungs are clear. ABDOMEN: No remarkable upper abdominal findings. BONES: No acute osseous changes. 1. No evidence of acute cardiopulmonary process. MACRO: None Signed by: Prem Thompson 01/26/2024 11:24 AM Dictation workstation: [id number] All data reviewed by me independently Assessment/Plan [...] Ezekiel Solomon MD documented in this encounter [facility] Work Phone: 01-28-2024 Hospital course Narrative Discharge [...] Ezekiel Solomon MD documented in this encounter [facility] Work Phone: 01-28-2024 Plan of care note Problem: Pain - Adult Goal: Verbalizes/displays adequate comfort level or baseline comfort level Outcome: Progressing Problem: Discharge Planning Goal: Discharge to home or other facility with appropriate resources Outcome: Progressing The patient's goals for the shift include go home The clinical goals for the shift include BP controlled with new medications [facility] 01-28-2024 Miscellaneous Notes Problem: Pain - Adult [...] Outcome: Not Progressing documented in this encounter [facility] Work Phone: 01-28-2024 Plan of care note The patient's goals for the shift include The clinical goals for the shift include relieve SALEH by EOS Progressing toward goal [facility] 01-27-2024 Consult note Associated Order (s): Inpatient [...] hypertension and hyperlipidemia. She presented to ED [facility] on 01/26/2024 complaining of high blood [...] hypertension and hyperlipidemia. She presented to ED [facility] on 01/26/2024 complaining of high blood [...] Status: Full Code Jesús Ziegler MD Cardiology [facility] Work Phone: 01-27-2024 Consult note Associated Order [...] hypertension and hyperlipidemia. She presented to ED [facility] on 01/26/2024 complaining of high blood [...] hypertension and hyperlipidemia. She presented to ED [facility] on 01/26/2024 complaining of high blood [...] Saul Gross DO documented in this encounter [facility] Work Phone: 01-27-2024 Consult note Associated Order [...] & Plan Hypertensive urgency Saul Gross DO [facility] Work Phone: 01-27-2024 Plan of care note [...] or baseline comfort level Outcome: Not Progressing [facility] Work Phone: 01-26-2024 History and physical note [...] contrast Result Date: 01/26/2024 Interpreted By: Mark Abudl, STUDY: CT HEAD WO IV CONTRAST; 01/26/2024 11:07 am INDICATION: Signs/Symptoms:HTN, headache. COMPARISON: None ACCESSION NUMBER(S): [id number] ORDERING CLINICIAN: JEANNIE NIELSEN TECHNIQUE: CT of [...] Mark Abdul 01/26/2024 11:36 AM Dictation workstation: [id number] XR chest 1 view Result Date: 01/26/2024 Interpreted By: Prem Thompson, STUDY: XR CHEST 1 VIEW; 01/26/2024 10:55 am INDICATION: Signs/Symptoms:HTN. COMPARISON: None. ACCESSION NUMBER(S): [id number] ORDERING CLINICIAN: JEANNIE NIELSEN FINDINGS: CARDIOMEDIASTINAL SILHOUETTE: Cardiomediastinal silhouette is normal in size and configuration. LUNGS: Lungs are clear. ABDOMEN: No remarkable upper abdominal findings. BONES: No acute osseous changes. 1. No evidence of acute cardiopulmonary process. MACRO: None Signed by: Prem Thompson 01/26/2024 11:24 AM Dictation workstation: [id number] All data reviewed by me independently Assessment/Plan [...] due to aforementioned reasons Ezekiel Solomon MD [facility] Work Phone: 01-26-2024 History and physical note [...] INDICATION: Signs/Symptoms:HTN, headache. COMPARISON: None ACCESSION NUMBER(S): [id number] ORDERING CLINICIAN: JEANNIE NIELSEN TECHNIQUE: CT of [...] Mark Abdul 01/26/2024 11:36 AM Dictation workstation: [id number] XR chest 1 view Result Date: 01/26/2024 Interpreted By: Prem Thompson, STUDY: XR CHEST 1 VIEW; 01/26/2024 10:55 am INDICATION: Signs/Symptoms:HTN. COMPARISON: None. ACCESSION NUMBER(S): [id number] ORDERING CLINICIAN: JEANNIE NIELSEN FINDINGS: CARDIOMEDIASTINAL SILHOUETTE: Cardiomediastinal silhouette is normal in size and configuration. LUNGS: Lungs are clear. ABDOMEN: No remarkable upper abdominal findings. BONES: No acute osseous changes. 1. No evidence of acute cardiopulmonary process. MACRO: None Signed by: Prem Thompson 01/26/2024 11:24 AM Dictation workstation: [id number] All data reviewed by me independently Assessment/Plan [...] Ezekiel Solomon MD documented in this encounter [facility] Work Phone: 03-01-2023 History of Present illness Narrative [facility] MARGARITA Yu Visit Note - 03/01/2023 6:39 PM This note was generated with voice recognition software and may contain errors including spelling, grammar, syntax, and misrecognization of what was dictated. Patient: Hopeann M Sawyer, , 57 y.o., female PCP: Rosemary Noel [...] PRESENT ILLNESS: The history was obtained from patient. Regi is a 57 y.o. female, who presents [...] and answered. MARGARITA Yu Advanced Practice Provider [facility] documented in this encounter [facility] Work Phone: Evaluation note Diagnosis Contusion of right wrist, initial encounter documented in this encounter [facility] Work Phone: Evaluation note* Diagnosis Contusion of right hand, initial encounter documented in this encounter [facility] Work Phone: Evaluation note* Diagnosis Contusion of right hand, initial encounter- Primary Contusion of right wrist, initial encounter Contusion of right hand, initial encounter Contusion of right wrist, initial encounter documented in this encounter [facility] Work Phone: Evaluation note* Diagnosis Hypertensive urgency- Primary Hypertensive urgency Essential (primary) hypertension Unspecified essential hypertension documented in this encounter [facility] Work Phone: Evaluation note* Diagnosis Influenza A- Primary Influenza with other respiratory manifestations Pain in left leg Pain in right leg Hypokalemia Hypopotassemia documented in this encounter [facility] Work Phone: Hospital Discharge instructions* Attachments The following attachments cannot be sent through Care Everywhere. * High Blood Pressure ED (Serbian) * High blood pressure emergencies (Serbian) [facility] Discharge [facility]* Attachments The following attachments cannot be sent through Care Everywhere. 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 [address] [place] [address] Referral ID Status Reason Start Date Expiration Date Visits Requested Visits Authorized [id number] Authorized Perform Procedure 03/01/2023 02/29/2024 1 1 Specialty Diagnoses / Procedures Referred By Contac t Referred To Contact Radiology Diagnoses Contusion of right hand, initial encounter Procedures XR hand right 3+ views Carlos Manuel Ochoa, 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 [address] [place] [address] Referral ID Status Reason Start Date Expiration Date Visits Requested Visits Authorized [id number] Authorized Perform Procedure 03/01/2023 02/29/2024 1 1 Additional Source Comments INFORMATION SOURCE (unrecogn ized section and content) DATE CREATED AUTHOR 09/26/2020 Leonardo James [facility] DATE CREATED AUTHOR AUTHOR'S ORGANIZ ATION 08/14/2022 [facility] DATE CREATED AUTHOR AUTHOR[facility]S [facility] AT[facility] DATE CREATED AUTHOR AUTHOR'S ORGANIZ ATION 11/30/2023 [facility] EPIC DATE CREATED AUTHOR AUTHOR'S ORGANIZ ATION 01/14/2024 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 Specialty Diagnoses / Procedures Referred By Contmary t Referred To Contact Diagnoses Hypertensive urgency Procedures Ezekiel Wilson MD [address] [place] [address] [address] Referral ID Status Reason Start Date Expiration Date Visits Re quested Visits Authorized [id number] 1 1 Reason Comments Shortness of Breath Care Teams (unrecognized sec tion and content) Supervisor Fusing Room Relationship Specialty Start Date End Date Rosemary Noel MD [address] [place] [address] PCP - General Family Medicine 03/01/23 Supervisor Fusing Room Relationship Specialty Start Date End Date Rosemary Noel MD [address] [place] [address] PCP - General Family Medicine 03/01/23 Supervisor Fusing Room Relationship Specialty Start Date End Date Rosemary Noel MD [address] [place] [address] PCP - General Family Medicine 03/01/23 Supervisor Fusing Room Relationship Specialty Start Date End Date Rosemary Noel MD [address] [place] [address] PCP - General Family Medicine 03/01/23 Scheduled [...] at 1515 1632 (Not Given - Provider: Eemlyn Pierson RN - Reason: Medication not available) [...] at 0900 0835 (Given - Provider: Sarah Sanders RN) ketorolac (Toradol) injection 15 mg (COMPLETED) 15 mg, intravenous, Once, On 01/26/24 at 1730, For 1 dose 1840 (Given - Provider: Camila Logan RN) ketorolac (Toradol) injection 15 mg (COMPLETED) 15 mg, intravenous, Once, On 01/27/24 at 1145, For 1 dose 1205 (Given - Provider: Emelyn Pierson RN) labetaloL (Normodyne,Trandate) injection 10 mg (COMPLETED) 10 mg, intravenous, Once, On 01/28/24 at 0815, For 1 dose, Give at rate of 10 mg/min. 0835 (Given - Provider: Sarah Sanders RN) labetaloL (Normodyne,Trandate) injection 20 mg (COMPLETED) 20 mg, intravenous, Once, On 01/26/24 at 1050, For 1 dose, Give at rate of 10 mg/min. 1118 (Given - Provider: Angle Cody, YOVANI) labetaloL (Normodyne,Trandate) injection 20 mg (COMPLETED) 20 mg, intravenous, Once, On 01/26/24 at 1210, For 1 dose, Give at rate of 10 mg/min. 1230 (Given - Provider: Angel Cody, RN) metoprolol tartrate (Lopressor) tablet 25 mg (COMPLETED) 25 mg, oral, Once, On 01/26/24 at 1050, For 1 dose 1107 (Given - Provider: Angel Cody, YOVANI) NIFEdipine ER (Adalat CC) 24 hr tablet [...] mL, intravenous, Once in imaging, Starting on Sun01/28/24 at 0431, For 1 dose, CV Medications [...] mL), intravenous, Once in imaging, Starting on Sun01/28/24 at 0431, For 1 dose, CV Medications, Follow administration with 5 mL NaCL 0.9% injection. tiZANidine (Zanaflex) tablet 4 mg 4 mg, oral, Daily, First dose on Sun01/27/24 at 0900 0900 (Not Given - Provider: Emelyn Pierson RN - Reason: Medication not available) 0835 (Given - Provider: Sarah Sanders, YOVANI) tiZANidine (Zanaflex) tablet 8 mg 8 mg, oral, Nightly, First dose on 01/26/24 at 2100 2109 (Given - Provider: Tierra Mo RN) 2232 (Not Given - Provider: Tierra Mo RN - Reason: Medication not available) 2100 (Due) traZODone (Desyrel) tablet 300 mg 300 mg, oral, Nightly, First dose on 01/26/24 at 2100 2106 (Given - Provider: Tierra Mo RN) 2144 (Given - Provider: Tierra Mo RN) 2100 (Due) Continuous Medication Order 01/26/2024 01/27/2024 01/28/2024 [...] 1050 1118 (New Bag - Provider: Angel Cody RN)1529 (Stopped - Provider: Emelyn Pierson RN) PRN [...] Pierson, RN) 0555 (Given - Provider: Tierra Mo, RN) ipratropium-albuteroL (Duo-Neb) 0.5-2.5 mg/3 mL nebulizer [...] Mo, RN)1553 (Given - Provider: Emelyn Pierson, YOVANI)2204 (Given - Provider: Tierra Mo RN) traMADol [...] via IV Push, administer over 3-5 minutes. Scheduled Medication Order 07/12/2024 07/13/2024 07/14/2024 iohexol (OMNIPaque) 350 mg iodine/mL solution 70 mL (COMPLETED) 70 mL, intravenous, Once in imaging, Starting on Sun07/14/24 at 1033, For 1 dose 1034 (Given - Provid er: Sharee Baez) potassium chloride (Klor-Con) packet 40 mEq (COMPLETED) 40 mEq, oral, Once, On Sun07/14/24 at 1105, For 1 dose, Dissolve each packet in 4 ounces of water = 5 mEq per 1 oz fluid. 1110 (Given - Provid er: Beena Hoffmann RN) sodium chloride 0.9 % bolus 1,000 mL (COMPLETED) 1,000 mL, intravenous, at 999 mL/hr, Administer over 1 Hours, Once, On Sun07/14/24 at 0925, For 1 dose 0940 (New Bag - Prov ider: Gayle George RN)1040 (Stopped - Provider: Beena Hoffmann RN) sodium chloride 0.9 % bolus 1,000 mL (COMPLETED) 1,000 mL, intravenous, at 999 mL/hr, Administer over 1 Hours, Once, On 07/14/24 at 1105, For 1 dose 1107 (New Bag - Prov ider: Beena Hoffmann RN)1154 (Stopped - Provider: Beena Hoffmann RN) FOR RECORDS PERTAINING TO PATIENTS WHO ARE [...] BE BASED ON THE PRIMARY CLINICAL RECORDS. [employer] provides no warranty or guarantee of the accuracy or completeness of information in this document.
== END 2024-09-12 12:29 | disposition home or self-care (01) ==
LOC: MRI 12:28
PROVIDERS: PCP Family Medicine; Visit Provider Family Medicine
DX: M25.562 Pain in left knee (principal); M94.262 Chondromalacia, left knee; M25.462 Effusion, left knee
CPT/HCPCS: 73721